=== PATIENT | female | born 1930 | race Caucasian/White ===

== ENCOUNTER 2017-05-10 10:43 | Inpatient (IN) | payer OTHER, MEDICARE ==
[~2017-05-10] VITALS: Ht 167.6 cm; Wt 90.7 kg
--- NOTE | 2017-05-10 10:51 | ED GENERAL ADULT ---
History of Present Illness General Chief Complaint: Nausea, Vomiting, Diarrhea Stated Complaint: BIBA N/V/D, FEVER Source: patient, old records, EMS Exam Limitations: no limitations Vital Signs & Intake/Output Vital Signs & Intake/Output Vital Signs Date Time Temp Pulse Resp B/P B/P Pulse O2 O2 Flow FiO2 Mean Ox Delivery Rate 05/10 1443 98.0 84 18 162/70 99 Room Air 05/10 1355 95 05/10 1349 99 Room Air 05/10 1044 98.9 82 18 165/80 96 Room Air Allergies Coded Allergies: NO KNOWN ALLERGIES (07/04/11) Triage Nurses Notes Reviewed? yes Onset: Gradual Duration: constant Timing: recent history Injury Environment: home Severity: moderate Severity Numbers: 5 HPI: Patient is a 86-year-old female with past medical history of atrial fibrillation currently on warfarin, hypothyroidism, depression, hypertension who presents emergency room brought in by ambulance for concerns of nausea vomiting and diarrhea and productive cough 3 days. Patient states that initially cough BROWN productive in nature however diarrhea occurred 2 days ago and now vomiting noted today patient denies any abdominal pain denies any chest pain arm pain jaw pain and leg swelling hemoptysis Patient feels tired and weak EMS report tactile fevers and 91% oxygen saturation Patient was in private residence alone denies any similar sick contacts Patient can tolerate by mouth (Kartik Herrera) Past History Travel History Traveled to [place] past 21 day No Medical History Any Pertinent Medical History? see below for history Cardiovascular: AFIB, hypertension, hyperlipidemia Surgical History Surgical History: non-contributory Psychosocial History What is your primary language Serbian Tobacco Use: Quit >30 days ago Family History Hx Contributory? No (Kartik Herrera) Review of Systems Review of Systems Constitutional: Reports: see HPI, chills. EENTM: Reports: see HPI. Respiratory: Reports: see HPI, cough. Cardiovascular: Reports: see HPI. Denies: chest pain. GI: Reports: see HPI, nausea. Genitourinary: Reports: no symptoms. Musculoskeletal: Reports: no symptoms. Skin: Reports: no symptoms. Neurological/Psychological: Reports: no symptoms. Hematologic/Endocrine: Reports: no symptoms. Immunologic/Allergic: Reports: no symptoms. All Other Systems: Reviewed and Negative (Kartik Herrera) Physical Exam Physical Exam General Appearance: no apparent distress, alert, comfortable Head: atraumatic Eyes: Bilateral: normal appearance, PERRL, EOMI. Ears, Nose, Throat: normal pharynx, normal ENT inspection, hearing grossly normal Neck: normal inspection, supple Respiratory: chest non-tender, crackles Cardiovascular: irregularly irregular Peripheral Pulses: 2+ radial (R), 2+ radial (L) Gastrointestinal: normal bowel sounds, soft, non-tender, no organomegaly Extremities: normal inspection, normal capillary refill, no edema Neurologic/Psych: no motor/sensory deficits, awake, alert, oriented x 3 Skin: intact, normal color, warm/dry Core Measures ACS in differential dx? No CVA/TIA Diagnosis: No Sepsis Present: No Sepsis Focused Exam Completed? No (Enrike DAVID,Kartik) Progress Differential Diagnoses I considered the following diagnoses in my evaluation of the patient: [Pulmonary embolism myocardial infarction sepsis pneumonia bronchitis influenza] Plan of Care: Orders Procedure Date/time Status Regular Diet 05/10 D Active Patient Data 05/10 1443 Active Patient Data 05/[address] in observation 05/10 1418 Active Misc Message 05/10 1418 Active ED Holding Orders 05/10 1418 Active Vital Signs 05/10 1418 Active Code Status 05/10 1418 Active LACTIC ACID 05/10 1352 Active PARTIAL THROMBOPLASTIN TIME 05/10 1122 Complete PROTHROMBIN TIME 05/10 1122 Complete RAPID VIRAL INFLUENZA A 05/10 1052 Complete LOWER RESPIRATORY CULTURE 05/10 1052 Active BLOOD CULTURE 05/10 1052 Active THYROID STIMULATING HORMONE 05/10 1052 Complete TROPONIN LEVEL 05/10 1052 Complete LIPASE 05/10 1052 Complete LACTIC ACID 05/10 1052 Complete FREE T4 05/10 1052 Complete COMPREHENSIVE METABOLIC PANEL 05/10 1052 Complete CBC WITHOUT DIFFERENTIAL 05/10 1052 Complete AMYLASE 05/10 1052 Complete EKG 05/10 1052 Active Laboratory Tests 05/10/17 1134: Anion Gap 14, Estimated GFR > 60, BUN/Creatinine Ratio 27.1 H, Glucose 101 H, Lactic Acid 1.4, Calcium 8.4, Total Bilirubin 2.1 H, AST 78 H, ALT 48, Alkaline Phosphatase 75, Troponin I 0.04, Total Protein 7.2, Albumin 3.6, Globulin 3.6, Albumin/Globulin Ratio 1.0 L, Amylase 65, Lipase 263, TSH 2.370, Free T4 1.53, PT 38.8 H, INR 3.74 H, APTT 47 H, CBC w Diff NO MAN DIFF REQ, RBC 3.93 L, MCV 88.2, MCH 29.7, RDW 14.4, MPV 8.1, Gran % 65.1, Lymphocytes % 19.0 L, Monocytes % 15.7 H, Eosinophils % 0, Basophils % 0.2, Absolute Granulocytes 3.2, Absolute Lymphocytes 0.9 L, Absolute Monocytes 0.8 H, Absolute Eosinophils 0, Absolute Basophils 0, PUBS MCHC 33.7 Microbiology 05/10 1140 BLOOD: Blood Culture - RECD 05/10 1134 NASOPHARYN: Influenza Virus A & B Rapid Smear - COMP INFLUENZA TYPE B 05/10 1134 BLOOD: Blood Culture - RECD 05/10 1052 LOWER RESP: Respiratory Culture - ORD 05/10 105 LOWER RESP: Gram Stain - ORD Patient on initial examination was resting comfortably at bedside no apparent distress no respiratory distress chest x-ray was resulted showing no overt signs of pneumonia, Patient does have positive influenza Patient was ambulated and noted to be at rest 93% however upon ambulation of exertion down hallway in the emergency room patient desatted to 87% with mild dyspnea Due to patient living alone and influenza concerns and dyspnea on exertion that outpatient therapy would be MEDICALLY harmful Diagnostic Imaging: Viewed by Me: Radiology Read. CXR Impression: SEE COMMENTS Initial ED EKG: AFIB (78 BPM) Comments: PATIENT: JONI ALFORD PRESENT AGE: 86 PATIENT ACCOUNT NO: [id number] : [birth year] LOCATION: [facility] ORDERING PHYSICIAN: Kartik DAVID SERVICE DATE: 05/10/17 EXAM TYPE: RAD - XRY-CHEST XRAY, TWO VIEWS EXAMINATION: XR CHEST CLINICAL INFORMATION: Cough and fever COMPARISON: None TECHNIQUE: Frontal and lateral views FINDINGS: No focal pneumonia. Chronic nonspecific increase in lung markings appears due largely to age-related changes and airways. Cannot exclude coexistent airways disease such as bronchitis, asthma or early bronchiectasis. Lungs appear mildly hyperinflated. Spirometry may be helpful. Coarse calcifications along the pleural surface is at the apices left more than right related to chronic scarring. No effusion. Probable prominence of the cardiac silhouette. Normal caliber pulmonary vasculature. Atherosclerotic disease and aortic arch. No free air or obstruction. No acute osseous finding. IMPRESSION: Nonspecific diffuse increase in lung markings. Favor airways disease. Cannot exclude acute on chronic change. DICTATED BY: Bran Cronin MD DATE/TIME DICTATED:05/10/171126 HSE ADVISOR:ELMER DATE/TIME TRANSCRIBED:05/10/171126 CONFIDENTIAL, DO NOT COPY WITHOUT APPROPRIATE AUTHORIZATION. <Electronically signed in (Kartik Herrera) Departure Departure Disposition: HOME OR SELF CARE Condition: Stable Clinical Impression Primary Impression: Influenza Secondary Impressions: Dyspnea Referrals: Jose Tate MD (PCP/Family) Departure Forms: Customer Survey General Discharge Information Observation Note Spoke With: Dee DONAHUE,Ruth Schrader Physician Advisor Notified: LISE DONAHUE,ALICIA Wade Place Patient In: Non-ED OBS Care Area Rationale for Observation: My rational for observation is as follows [Patient requires IV fluids, Tamiflu, dietary consultation, pulmonary consultation, repeat labs, repeat nebulizer treatments and due to patient's clinical diagnoses of influenza and hypoxia on exertion that outpatient treatment would be medically harmful at this time]. (Kartik Herrera) PA/[employer] Co-Sign Statement Statement: ED Attending supervision documentation- [x] I saw and evaluated the patient. I have also reviewed all the pertinent lab results and diagnostic results. I agree with the findings and the plan of care as documented in the PA's/BUTTON RIVETER's documentation. Patient presents for evaluation of "feeling lousy" with a cough productive of a yellow to white phlegm. Physical examination reveals good bilateral air entry and no wheezes rales or rhonchi. [] I have reviewed the ED Record and agree with the PA's/BUTTON RIVETER's documentation. [] Additions or exceptions (if any) to the PAs/BUTTON RIVETER's note and plan are summarized below: [] (Venecia DONAHUE,Noah Huynh) Critical Care Note Critical Care Note Critical Care Time: 30-74 min (Kartik Herrera)
--- NOTE | 2017-05-10 11:33 | RADIOLOGY REPORT ---
EXAMINATION: XR CHEST CLINICAL INFORMATION: Cough and fever COMPARISON: None TECHNIQUE: Frontal and lateral views FINDINGS: No focal pneumonia. Chronic nonspecific increase in lung markings appears due largely to age-related changes and airways. Cannot exclude coexistent airways disease such as bronchitis, asthma or early bronchiectasis. Lungs appear mildly hyperinflated. Spirometry may be helpful. Coarse calcifications along the pleural surface is at the apices left more than right related to chronic scarring. No effusion. Probable prominence of the cardiac silhouette. Normal caliber pulmonary vasculature. Atherosclerotic disease and aortic arch. No free air or obstruction. No acute osseous finding. IMPRESSION: Nonspecific diffuse increase in lung markings. Favor airways disease. Cannot exclude acute on chronic change.
[2017-05-10 11:53] LABS: ABSOLUTE BASOPHIL COUNT 0 /CUMM (0.0-0.2); ABSOLUTE EOSINOPHIL COUNT 0 /CUMM (0.0-0.7); ABSOLUTE GRANULOCYTE CT 3.2 /CUMM (1.4-6.5); ABSOLUTE LYMPH COUNT 0.9 /CUMM (1.2-3.4); ABSOLUTE MONOCYTE COUNT 0.8 /CUMM (0.10-0.60); BASOPHIL % 0.2 % (0.0-2.0); EOSINOPHIL % 0 % (0-5); GRANULOCYTE % 65.1 % (42.2-75.2); HEMATOCRIT 34.7 % (37-47); MEAN CORPUSCULAR HGB 29.7 PG (27.0-31.0); MEAN CORPUSCULAR HGB CONC 33.7 G/DL (33.0-37.0); MEAN CORPUSCULAR VOLUME 88.2 FL (81.0-99.0); MEAN PLATELET VOLUME 8.1 FL (7.4-10.4); PLATELET COUNT 211 /CUMM (130-400); RBC DISTRIBUTION WIDTH 14.4 % (11.5-14.5); RED BLOOD CELL CT 3.93 /CUMM (4.20-5.40)
[2017-05-10 12:12] LABS: PT 38.8 SEC (9.4-12.5); PTT 47 SEC (25-37)
--- NOTE | 2017-05-10 14:44 | History & Physical ---
Santana DONAHUE,Kimberlyn 05/10/17 1443: General Information and HPI MD Statement: I have seen and personally examined JONI ALFORD and documented this H&P. The patient is a 86 year old F who presented with a patient stated chief complaint of []. Source of Information: patient Exam Limitations: no limitations History of Present Illness: CC: Fatigue, weakness, fever and productive cough 86 years old female with past medical history of A. fib on Coumadin, hypertension, hyperlipidemia, hypothyroidism who was BIBA to [place] [facility] complaining of multiple episodes of vomiting nonbloody vomitus, weakness which started on Monday night in addition the patient also complained of loss of appetite for 3 days. Patient also reported cough and expectoration of white sputum. Patient reports 1 episode of diarrhea today which was nonbloody .She denied any fever or chills, chest pain, dizziness or lightheadedness Denies any recent travel or sick contacts The patient did not get her flu shot this year. She has smoking history of 40 PPD, she quit smoking over 20 years ago, she denies alcohol or recreational drug use Allergies/Medications Allergies: Coded Allergies: NO KNOWN ALLERGIES (07/04/11) Past History Travel History Traveled to [place] past 21 day No Medical History Neurological: NONE EENT: NONE Cardiovascular: AFIB, hypertension, hyperlipidemia Respiratory: NONE Gastrointestinal: NONE Hepatic: NONE Renal: NONE Musculoskeletal: NONE Psychiatric: NONE Endocrine: NONE Blood Disorders: NONE Cancer(s): NONE Surgical History Surgical History: non-contributory Past Family/Social History Psychosocial History ETOH Use: denies use Illicit Drug Use: denies illicit drug use Functional Ability ADLs Independent: dressing, eating, toileting, bathing. Ambulation: independent Review of Systems Review of Systems Constitutional: Reports: malaise, weakness. Denies: chills, fever. Cardiovascular: Denies: chest pain, edema, orthopena, palpitations, peripheral edema. Respiratory: Reports: cough, short of breath, sputum production. GI: Reports: diarrhea, nausea, vomiting. Genitourinary: Denies: no symptoms. Musculoskeletal: Denies: no symptoms. Skin: Denies: no symptoms. Exam & Diagnostic Data Last 24 Hrs of Vital Signs/I&O Vital Signs Date Time Temp Pulse Resp B/P B/P Pulse O2 O2 Flow FiO2 Mean Ox Delivery Rate 05/10 1543 100.1 76 20 163/78 96 Room Air 05/10 1443 98.0 84 18 162/70 99 Room Air 05/10 1355 95 05/10 1349 99 Room Air 05/10 1044 98.9 82 18 165/80 96 Room Air Intake & Output 05/10 1600 05/10 0800 05/10 0000 Intake Total 0 Output Total Balance 0 Intake, Oral 0 Patient 200 lb Weight Weight Reported by Patient Measurement Method Physical Exam General Appearance Alert, Oriented X3, Cooperative, No Acute Distress Skin No Rashes, No Breakdown, No Significant Lesion HEENT Atraumatic, PERRLA, EOMI, Mucous Membr. moist/pink, mild blepharitis especially on the left eye Cardiovascular Normal S1, Normal S2, No Murmurs, irregular Lungs bilateral wheezes and rales Abdomen Normal Bowel Sounds, Soft, No Tenderness Neurological Normal Speech, Strength at 5/5 X4 Ext, Normal Tone Extremities No Clubbing, No Cyanosis, No Edema Vascular Normal Pulses Assessment/Plan Assessment: 86 years old female with past medical history of Raciel flower on Coumadin, hypertension, hyperlipidemia, hypothyroidism who was BIBA to [place] [facility] complaining of multiple episodes of vomiting nonbloody vomitus, weakness which started on Monday night in addition the patient also complained of loss of appetite for 3 days. Patient also reported cough and expectoration of white sputum. Patient reports 1 episode of diarrhea today which was nonbloody .She denied any fever or chills, chest pain, dizziness or lightheadedness In the ED the patient received 1 L normal saline, 1 dose Tamiflu 30 mg Labs on admission: WBC 5, hemoglobin 11.7, platelet 211, sodium 138, potassium 3.6, BUN 19, creatinine 0.7, glucose 101, total bilirubin 2.1, AST 78, AST 48, INR 3.74 Chest x-ray:Nonspecific diffuse increase in lung markings. Favor airways disease. Cannot exclude acute on chronic change. EKG showed Raciel flower, heart rate 78, QTC 456 Observe her in general med floor Tamiflu 75 mg twice a day Mucinex 600 by mouth every 12 Zofran when necessary for nausea Pain pathway TRC/nebulizer We'll continue home meds(will hold Coumadin for today since the patient INR was 3.74) PT eval Patient is full code Heart healthy diet DVT prophylaxis with Coumadin As Ranked By This Provider Problem List: 1. Influenza Core Measures/Misc (01/08) Acute Coronary Syndrome ACS Diagnosis: No Congestive Heart Failure Congestive Heart Failure Diagnosis No Cerebrovascular Accident CVA/TIA Diagnosis: No VTE (View Protocol) VTE Risk Factors Age>40 No Mechanical VTE Prophylaxis d/t N/A MechProphylax Ordered No VTE Pharm Prophylaxis d/t NA PharmProphylax ordered Sepsis (View protocol) Sepsis Present: No Wilmer Moore MD 05/10/17 1510: Attending MD Review Statement Attending Statement Attending MD Statement: examined this patient, discuss w/resident/PA/[employer], agreed w/resident/PA/[employer], reviewed EMR data (avail) Attending Assessment/Plan: 86F PMH atrial fibrillation on Coumadin, HTN, HLD, hypothyroidism with 2 days of fatigue, weakness, fever, chills, cough with brown sputum, found to be Influenza A positive in ED. Patient is comfortable at this time and does not appear dyspneic or septic. She has had a poor appetite for 4 days and has not eaten much, though she does feel a bit hungry right now. Exam reveals coarse breath sounds bilaterally, otherwise normal. Afebrile, stable BP, normal WBC and renal function. CXR negative for pneumonia 1. Influenza A 2. Generalized weakness Plan - Observation in general medicine - Tamiflu - TRC/nebulizer treatments - Continue home medications - PT eval - DVT PPx Zeeshan Garrett 05/10/172024: General Information and HPI Allergies/Medications Home Med list Atorvastatin Calcium 20 MG TABLET 1 TAB PO DAILY HLD (Reported) Clonazepam (Klonopin) 0.5 MG TABLET 2 TAB PO DAILY NEEDED ANXIETY ( Reported) Escitalopram Oxalate (Lexapro) 20 MG TABLET 1 TAB PO DAILY DEPRESSION ( Reported) Gabapentin 300 MG CAPSULE 2 TAB PO DAILY RESTLESS LEGS (Reported) Irbesartan (Avapro) 300 MG TABLET 1 TAB PO DAILY BLOOD PRESSURE (Reported) Levothyroxine Sodium (Synthroid) 50 MCG TABLET 1 TAB PO DAILY HYPOTHYROID ( Reported) Metoprolol Succ XL (Toprol Xl) 50 MG TAB 1 TAB PO DAILY HEART (Reported) Omeprazole Magnesium (Prilosec Otc) 20 MG TABLET.DR 1 TAB PO DAILY INDIGESTION (Reported) Timolol Maleate 0.5 % DROPS 1 GTT OPH BID GLAUCOMA (Reported) Warfarin Sodium 3 MG TABLET (Unknown Dose) PO DAILY BLOOD THINNER (Reported) Resident Review Statement Resident Statement: examined this patient, discussed with architecture intern, agreed with architecture intern, reviewed EMR data (avail), discussed with nursing, discussed with case mgmt, reviewed images, amended to note Other Findings: This is 86 year-old female with medical history of atrial fibrillation on Coumadin, HTN, HLD, hypothyroidism, depression. Presented to the emergency department with a chief complaint of 2 days of fatigue, weakness, fever, chills, also she report cough with brown sputum. She also reports expiratory wheezing which is new for her. In the ED found to be Influenza A positive. Patient reports 1 episode of diarrhea today which was nonbloody. She denied any chest pain, nasal congestion, heart racing, abdominal pain. Physical examination, lab and imaging as above. Problem list: -Influenza type B. -Generalized weakness. -Supratherapeutic INR Plan: -Admit patient to general medicine floor -Vitals every shift, Droplet isolation -Start the patient on Tamiflu for total dose of 5 days -TRC nebs as needed -Check INR in a.m. dose Coumadin accordingly. -Physical therapy consultation. -Heart healthy diet -Please consent the patient home medication -Pain pathway -DVT prophylaxis on Coumadin -Code
[2017-05-10 15:43] VITALS: BP 163/78
[2017-05-10] MEDS ORDERED: WARFARIN SODIUM3 M1 PO (17:07)
[2017-05-10] MEDS ORDERED: AVAPRO300 M1 PO (17:08)
[2017-05-10] MEDS ORDERED: LEXAPRO20 M1 PO (17:09)
[2017-05-10] MEDS ORDERED: KLONOPIN0.5 M1 PO (17:10)
[2017-05-10] MEDS ORDERED: SYNTHROID50 MCG PO (17:10)
[2017-05-10] MEDS ORDERED: GABAPENTIN300 M2 PO (17:12)
[2017-05-10] MEDS ORDERED: TOPROL XL50 M1 PO (17:12)
[2017-05-10] MEDS ORDERED: PRILOSEC OTC20 M1 PO (17:13)
[2017-05-10] MEDS ORDERED: TIMOLOL MALEATE5 M4 OPH (17:14)
[2017-05-10] MEDS ORDERED: ATORVASTATIN CA20 M1 PO (19:52)
[2017-05-11 00:24] VITALS: BP 158/72
--- NOTE | 2017-05-11 07:14 | PN-Observation ---
See Addendum Observation Note Observation Note _ I have personally examined JONI ALFORD. her disposition is uncertain at this time. Before a determination can be made, she requires continued observation for the following reasons []. Assessment/Plan Assessment: 86 years old female with past medical history of Raciel flower on Coumadin, hypertension, hyperlipidemia, hypothyroidism who was BIBA to [place] ED complaining of multiple episodes of vomiting nonbloody vomitus, weakness which started on Monday night in addition the patient also complained of loss of appetite for 3 days. Patient also reported cough and expectoration of white sputum. Patient reports 1 episode of diarrhea today which was nonbloody .She denied any fever or chills, chest pain, dizziness or lightheadedness In the ED the patient received 1 L normal saline, 1 dose Tamiflu 30 mg Labs on admission: WBC 5, hemoglobin 11.7, platelet 211, sodium 138, potassium 3.6, BUN 19, creatinine 0.7, glucose 101, total bilirubin 2.1, AST 78, AST 48, INR 3.74 Chest x-ray:Nonspecific diffuse increase in lung markings. Favor airways disease. Cannot exclude acute on chronic change. EKG showed A. mundo, heart rate 78, QTC 456 #Acute hypoxic respiratory failure: Patient was positive for influenza pain, long history of smoking with possible COPD Possible acute bronchitis, and blood culture was negative This morning the patient desaturated to 83 with physical therapist made her stand up from the lying down position, and then after a few minutes her oxygen saturation was back up to 94 physical therapy will reassess the patient tomorrow for the possibility of the need of STR Admit to general med floor Tamiflu 30 mg twice a day based on her age, body weight and kidney function Follow up on sputum culture Mucinex 600 by mouth every 12 Zofran when necessary for nausea Pain pathway TRC/nebulizer We'll continue home meds(will hold Coumadin for today since the patient INR was 3.74) Patient is full code Heart healthy diet DVT prophylaxis with Coumadin Problem List: 1. Influenza 2. Dyspnea Subjective Follow-up For: -Influenza type B. -Generalized weakness. -Supratherapeutic INR Subjective: Patient is seen and examined at bedside, she continues to complain of weakness and a productive cough of yellowish sputum, reports some chills, denies fever, chest pain, nausea, vomiting or diarrhea Review of Systems Constitutional: Reports: chills, malaise, weakness. Cardiovascular: Denies: no symptoms. Respiratory: Reports: cough, sputum production. Gastrointestinal: Denies: no symptoms. Genitourinary: Denies: no symptoms. Musculoskeletal: Denies: no symptoms. Objective Last 24 Hrs of Vital Signs/I&O Vital Signs Date Time Temp Pulse Resp B/P B/P Pulse O2 O2 Flow FiO2 Mean Ox Delivery Rate 05/11 1144 Room Air 05/11 1140 94 Room Air 05/11 1026 97.0 79 20 178/110 96 Room Air 05/11 1021 97.0 79 20 178/110 05/11 1021 97.0 79 20 178/110 05/11 0800 97.4 76 20 169/98 96 Room Air 05/11 0024 98.0 72 20 158/72 95 Room Air 05/10 2248 98.0 72 20 158/72 95 Room Air 05/10 2246 97.8 76 18 160/70 05/10 1705 97.8 76 18 160/70 94 Room Air 05/10 1543 100.1 76 20 163/78 96 Room Air 05/10 1443 98.0 84 18 162/70 99 Room Air 05/10 1355 95 05/10 1349 99 Room Air Intake & Output 05/11 1600 05/11 0800 05/11 0000 Intake Total Output Total Balance Patient 200 lb Weight Physical Exam General Appearance: Alert, Oriented X3, Cooperative, No Acute Distress HEENT: Atraumatic, PERRLA, EOMI, Mucous Membr. moist/pink Neck: Supple, No JVD Cardiovascular: Normal S1, Normal S2, No Murmurs Lungs: bilateral wheezes and rales Abdomen: Normal Bowel Sounds, Soft, No Tenderness Extremities: No Clubbing, No Cyanosis, No Edema
[2017-05-11] MEDS ORDERED: AMLODIPINE BES2.5 M1 PO (11:20)
[2017-05-11 12:55] LABS: ABSOLUTE BASOPHIL COUNT 0 /CUMM (0.0-0.2); ABSOLUTE EOSINOPHIL COUNT 0 /CUMM (0.0-0.7); ABSOLUTE GRANULOCYTE CT 3.8 /CUMM (1.4-6.5); ABSOLUTE LYMPH COUNT 1.5 /CUMM (1.2-3.4); ABSOLUTE MONOCYTE COUNT 0.7 /CUMM (0.10-0.60); BASOPHIL % 0.5 % (0.0-2.0); EOSINOPHIL % 0.1 % (0-5); GRANULOCYTE % 63.7 % (42.2-75.2); HEMATOCRIT 33.5 % (37-47); MEAN CORPUSCULAR HGB 29.9 PG (27.0-31.0); MEAN CORPUSCULAR VOLUME 87.7 FL (81.0-99.0); MEAN PLATELET VOLUME 7.3 FL (7.4-10.4); PLATELET COUNT 191 /CUMM (130-400); RBC DISTRIBUTION WIDTH 14.2 % (11.5-14.5); RED BLOOD CELL CT 3.83 /CUMM (4.20-5.40)
[2017-05-11 13:01] LABS: PT 38.2 SEC (9.4-12.5)
[2017-05-11 18:32] VITALS: BP 126/80
[2017-05-11 22:36] VITALS: BP 160/80
[2017-05-12 06:15] VITALS: BP 152/88
--- NOTE | 2017-05-12 06:57 | PN- Housestaff ---
[place] DONAHUE,Kimberlyn 05/12/17 0657: Subjective Follow-up For: -Influenza type B. -Generalized weakness. -Supratherapeutic INR Subjective: Patient is seen and examined at bedside, she continues to complain of weakness and a productive cough of yellowish sputum, looks more confused than yesterday, most likely , reports some chills, denies fever, chest pain, nausea, vomiting or diarrhea Review of Systems Constitutional: Reports: malaise, weakness. Cardiovascular: Denies: no symptoms. Respiratory: Reports: cough, sputum production. Gastrointestinal: Denies: no symptoms. Genitourinary: Denies: no symptoms. Musculoskeletal: Denies: no symptoms. Skin: Denies: no symptoms. Objective Last 24 Hrs of Vital Signs/I&O Vital Signs Date Time Temp Pulse Resp B/P B/P Pulse O2 O2 Flow FiO2 Mean Ox Delivery Rate 05/12 0615 99.0 73 20 152/88 91 Room Air 05/12 0000 Room Air 05/11 2236 99.3 76 20 160/80 94 Room Air 05/11 2051 94 Room Air 05/11 1832 98.2 64 20 126/80 94 Room Air 05/11 1718 97.1 76 24 154/80 94 Room Air 05/11 1528 97.2 83 24 179/79 05/11 1448 97.2 83 24 179/79 94 Room Air 05/11 1144 Room Air 05/11 1140 94 Room Air 05/11 1026 97.0 79 20 178/110 96 Room Air 05/11 1021 97.0 79 20 178/110 05/11 1021 97.0 79 20 178/110 Intake & Output 05/12 1600 05/12 0800 05/12 0000 Intake Total 100 100 Output Total Balance 100 100 Intake, Oral 100 100 Patient 200 lb Weight Physical Exam General Appearance: Alert, Oriented X3, Cooperative, No Acute Distress HEENT: Atraumatic, PERRLA, EOMI, Mucous Membr. moist/pink Neck: Supple, No JVD Cardiovascular: Normal S1, Normal S2, No Murmurs Lungs: bilateral rales and crep , mild wheezing Abdomen: Normal Bowel Sounds, Soft, No Tenderness Extremities: No Clubbing, No Cyanosis, No Edema Vascular: Normal Pulses Sepsis Peripheral Pulse Location: Radial Sepsis Peripheral Pulse Exam: Normal Sepsis Cap Refill Exam: <2 Sec Assessment/Plan Assessment: 86 years old female with past medical history of AEros flower on Coumadin, hypertension, hyperlipidemia, hypothyroidism who was BIBA to [place] ED complaining of multiple episodes of vomiting nonbloody vomitus, weakness which started on Monday night in addition the patient also complained of loss of appetite for 3 days. Patient also reported cough and expectoration of white sputum. Patient reports 1 episode of diarrhea today which was nonbloody .She denied any fever or chills, chest pain, dizziness or lightheadedness In the ED the patient received 1 L normal saline, 1 dose Tamiflu 30 mg Labs on admission: WBC 5, hemoglobin 11.7, platelet 211, sodium 138, potassium 3.6, BUN 19, creatinine 0.7, glucose 101, total bilirubin 2.1, AST 78, AST 48, INR 3.74 Chest x-ray:Nonspecific diffuse increase in lung markings. Favor airways disease. Cannot exclude acute on chronic change. EKG showed A. fib, heart rate 78, QTC 456 #Acute hypoxic respiratory failure: Patient was positive for influenza pain, long history of smoking with possible COPD Possible acute bronchitis, and blood culture was negative This morning the patient desaturated to 83 with physical therapist made her stand up from the lying down position, and then after a few minutes her oxygen saturation was back up to 94 physical therapy will reassess the patient tomorrow for the possibility of the need of STR Admit to general med floor Tamiflu 30 mg twice a day based on her age, body weight and kidney function Follow up on sputum culture Mucinex 600 by mouth every 12 Zofran when necessary for nausea Pain pathway TRC/nebulizer We'll continue home meds(INR was 2.6, will give Coumadin 3 mg by mouth Patient is full code Heart healthy diet DVT prophylaxis with Coumadin Problem List: 1. Dyspnea 2. Influenza Pain Ratin Pain Location: n/a Pain Goal: Remain pain free Pain Plan: pathway Tomorrow's Labs & Rationales: cbc bep DVT/Prophylaxis: mechanical, pharmacological Nick Smart MD 05/12/17 2226: Attending MD Review Statement Attending Statement Attending Statement: examined this patient, discuss w/resident/PA/[employer], agreed w/resident/PA/[employer], reviewed EMR data (avail), discussed with nursing, discussed with case mgmt, amended to note Attending Assessment/Plan: The patient was seen and discussed with house staff. Improved today. Patient able to ambulate some steps (has flight at home) and desaturation to 88% noted by PT (vs 83% desaturation in ED yesterday with ambulation). Patient wishes to be discharged to home and agrees to stay an additional day. Will re-assess ambulation/stairs as well as pulse ox with ambulation tomorrow. If continues to improve will discharge to home tomorrow with home services. Patient states she will need ride that needs to be arranged by case management (may need to pay privately for ride).
[2017-05-12 08:25] LABS: PT 28.2 SEC (9.4-12.5)
[2017-05-12 08:50] LABS: ABSOLUTE BASOPHIL COUNT 0 /CUMM (0.0-0.2); ABSOLUTE EOSINOPHIL COUNT 0 /CUMM (0.0-0.7); ABSOLUTE GRANULOCYTE CT 2.9 /CUMM (1.4-6.5); ABSOLUTE LYMPH COUNT 1.4 /CUMM (1.2-3.4); ABSOLUTE MONOCYTE COUNT 0.7 /CUMM (0.10-0.60); BASOPHIL % 0.2 % (0.0-2.0); EOSINOPHIL % 0.3 % (0-5); HEMATOCRIT 33.2 % (37-47); MEAN CORPUSCULAR HGB 29.9 PG (27.0-31.0); MEAN CORPUSCULAR VOLUME 88.1 FL (81.0-99.0); MEAN PLATELET VOLUME 7.8 FL (7.4-10.4); PLATELET COUNT 179 /CUMM (130-400); RBC DISTRIBUTION WIDTH 14.6 % (11.5-14.5); RED BLOOD CELL CT 3.77 /CUMM (4.20-5.40); WHITE BLOOD CELL COUNT 5.1 /CUMM (4.8-10.8)
--- NOTE | 2017-05-12 09:08 | Patient Discharge Instructions ---
Discharge Instructions General Discharge Information Special Instructions: 1please follow-up with your PCP in 1 week of discharge Diet Continue normal diet: Yes Acute Coronary Syndrome Inclusion Criteria At DC or during hospital stay patient has or had the following: ACS DIAGNOSIS No Discharge Core Measures Meds if any: Prescribed or Continued at Discharge Meds if any: NOT Prescribed or Continued at Discharge Congestive Heart Failure Inclusion Criteria At DC or during hospital stay patient has or had the following: CHF DIAGNOSIS No Discharge Core Measures Meds if any: Prescribed or Continued at Discharge Meds if any: NOT Prescribed or Continued at Discharge Cerebrovascular accident Inclusion Criteria At DC or during hospital stay patient has or had the following: CVA/TIA Diagnosis No Discharge Core Measures Meds if any: Prescribed or Continued at Discharge Meds if any: NOT Prescribed or Continued at Discharge Venous thromboembolism Inclusion Criteria VTE Diagnosis No VTE Type NONE VTE Confirmed by (Test) NONE Discharge Core Measures - Per Current guidelines, there needs to be overlap - treatment for the first 5 days of Warfarin therapy. - If discharged on Warfarin prior to 5 days of - overlap therapy, the patient will need to be - assessed for post discharge needs including - *Post discharge parental anticoagulation - *Warfarin and/or parental anticoagulation education - *Follow up date to check INR post discharge At least 5 days overlap therapy as Inpatient No Meds if any: Prescribed or Continued at Discharge Note: Overlap Therapy is Warfarin and Anticoagulant Meds if any: NOT Prescribed or Continued at Discharge
[2017-05-12 14:02] VITALS: BP 120/62
--- NOTE | 2017-05-12 15:00 | Discharge Summary ---
Visit Information Visit Dates Admission Date: 05/11/17 Discharge Date: 05/13/17 Hospital Course Course Attending Physician: Wilmer Moore MD Primary Care Physician: Jose Tate MD Hospital Course: 86 years old female with past medical history of A. mundo on Coumadin, hypertension, hyperlipidemia, hypothyroidism who was BIBA to [facility] complaining of multiple episodes of vomiting nonbloody vomitus, weakness which started on Monday night in addition the patient also complained of loss of appetite for 3 days. Patient also reported cough and expectoration of white sputum. Patient reports 1 episode of diarrhea today which was nonbloody .She denied any fever or chills, chest pain, dizziness or lightheadedness In the ED the patient received 1 L normal saline, 1 dose Tamiflu 30 mg Labs on admission: WBC 5, hemoglobin 11.7, platelet 211, sodium 138, potassium 3.6, BUN 19, creatinine 0.7, glucose 101, total bilirubin 2.1, AST 78, AST 48, INR 3.74 Chest x-ray:Nonspecific diffuse increase in lung markings. Favor airways disease. Cannot exclude acute on chronic change. EKG showed A. fib, heart rate 78, QTC 456 #Acute hypoxic respiratory failure: Patient was positive for influenza B , long history of smoking with possible COPD Possible acute bronchitis, and blood culture was negative Patient showed frequent desaturation while walking with physical therapy She was treated with Tamiflu 30 mg twice a day based on her age, body weight and kidney function, Mucinex 600 by mouth every 12, Zofran when necessary for nausea , TRC/nebulizer #AFIB continued home meds including Coumadin #Hypertension Visit given her home meds #disposition PT is suggesting home PT. Patient is full code Heart healthy diet DVT prophylaxis with Coumadin Allergies: Coded Allergies: NO KNOWN ALLERGIES (07/04/11) Disposition Summary Disposition Principal Diagnosis: -Influenza type B. Additional Diagnosis: -Generalized weakness. -Supratherapeutic INR Discharge Disposition: home health services Discharge Instructions General Discharge Information Code Status: Full Code Patient's Diet: heart healthy Patient's Activity: As tolerated Follow-Up Instructions/Appts: 1please follow-up with your PCP in 1 week of discharge Medications at Discharge Discharge Medications: Stop taking the following medications: Amlodipine Besylate (Amlodipine Besylate) 2.5 MG TABLET ORAL DAILY Days = 28 Continue taking these medications: Warfarin Sodium (Warfarin Sodium) 3 MG TABLET Unknown Dose ORAL DAILY Qty = 135 Comments: Last Taken:05/13 Time:5 PM Irbesartan (Avapro) 300 MG TABLET 1 Tablet ORAL DAILY Escitalopram Oxalate (Lexapro) 20 MG TABLET 1 Tablet ORAL DAILY Comments: Last Taken:05/13 Time:10 AM Levothyroxine Sodium (Synthroid) 50 MCG TABLET 1 Tablet ORAL DAILY Comments: Last Taken:05/13 Time:10 AM Clonazepam (Klonopin) 0.5 MG TABLET 2 Tablet ORAL DAILY NEEDED Comments: Last Taken:05/13 Time:10 AM Metoprolol Succ XL (Toprol Xl) 50 MG TAB 1 Tablet ORAL DAILY Comments: Last Taken:05/13 Time:10 AM Gabapentin (Gabapentin) 300 MG CAPSULE 2 Tablet ORAL DAILY Qty = 180 Omeprazole Magnesium (Prilosec Otc) 20 MG TABLET.DR 1 Tablet ORAL DAILY Comments: Last Taken:05/13 Time: 10 AM Timolol Maleate (Timolol Maleate) 0.5 % DROPS 1 Drop In the eye TWICE DAILY Qty = 5 Comments: Last Taken:05/13 Time:10 AM Atorvastatin Calcium (Atorvastatin Calcium) 20 MG TABLET 1 Tablet ORAL DAILY Days = 28 Comments: Last Taken:05/13 Time:10 AM Start taking the following new medications: Amlodipine Besylate (Norvasc) 5 MG TABLET 1 Tablet ORAL DAILY Qty = 30 No Refills Oseltamivir Phosphate (Tamiflu) 30 MG CAPSULE 1 Capsule ORAL TWICE DAILY Qty = 5 No Refills Copies To: Jose Tate MD Attending Review Statement Documenting Attending: Nick Smart MD Other Findings: The patient was seen and discussed with house staff. Agree with the plan of care as outlined. Patient discharged with [facility] services and will follow-up with PCP.
[2017-05-12 22:23] VITALS: BP 132/80
[2017-05-13 06:29] VITALS: BP 142/82
[2017-05-13 08:16] LABS: PT 26.5 SEC (9.4-12.5)
[2017-05-13 08:30] LABS: ABSOLUTE BASOPHIL COUNT 0 /CUMM (0.0-0.2); ABSOLUTE EOSINOPHIL COUNT 0 /CUMM (0.0-0.7); ABSOLUTE GRANULOCYTE CT 2.9 /CUMM (1.4-6.5); ABSOLUTE LYMPH COUNT 1.8 /CUMM (1.2-3.4); ABSOLUTE MONOCYTE COUNT 0.8 /CUMM (0.10-0.60); BASOPHIL % 0.3 % (0.0-2.0); EOSINOPHIL % 0.7 % (0-5); GRANULOCYTE % 52.7 % (42.2-75.2); HEMATOCRIT 33.2 % (37-47); MEAN CORPUSCULAR HGB 29.9 PG (27.0-31.0); MEAN CORPUSCULAR HGB CONC 33.5 G/DL (33.0-37.0); MEAN CORPUSCULAR VOLUME 89.1 FL (81.0-99.0); MEAN PLATELET VOLUME 8.1 FL (7.4-10.4); PLATELET COUNT 193 /CUMM (130-400); RBC DISTRIBUTION WIDTH 14.8 % (11.5-14.5); RED BLOOD CELL CT 3.73 /CUMM (4.20-5.40); WHITE BLOOD CELL COUNT 5.5 /CUMM (4.8-10.8)
--- NOTE | 2017-05-13 08:52 | PN- Housestaff ---
Lola DONAHUE,Catrachita 05/13/17 0852: Subjective Follow-up For: -Influenza type B. -Generalized weakness. -Supratherapeutic INR Subjective: patient continues to have cough with yellow sputum. AOx2. denies subjective fever, chest pain, abdominal pain, n/v/d Review of Systems Constitutional: Reports: no symptoms. EENTM: Reports: no symptoms. Cardiovascular: Reports: no symptoms. Respiratory: Reports: cough, sputum production. Gastrointestinal: Reports: no symptoms. Musculoskeletal: Reports: no symptoms. Skin: Reports: no symptoms. Neurological/Psychological: Reports: confusion. Objective Last 24 Hrs of Vital Signs/I&O Vital Signs Date Time Temp Pulse Resp B/P B/P Pulse O2 O2 Flow FiO2 Mean Ox Delivery Rate 05/13 09 182/72 05/13 09 182/72 05/13 09 172/82 05/13 0629 97.9 89 18 142/82 91 05/12 2223 99.4 75 20 132/80 93 Room Air 05/12 1402 98.2 76 20 120/62 90 Room Air Intake & Output 05/13 1600 05/13 0800 05/13 0000 Intake Total 360 360 Output Total Balance 360 360 Intake, Oral 360 360 Physical Exam General Appearance: Alert, Cooperative, No Acute Distress Skin: No Rashes Cardiovascular: Regular Rate, Normal S1, Normal S2, No Murmurs Lungs: crackles bilaterally at bases Abdomen: Normal Bowel Sounds, Soft, No Tenderness Extremities: No Clubbing, No Edema, Normal Pulses Current Medications: Current Medications Sig/Andrea Start time Last Medication Dose Route Stop Time Status Admin Acetaminophen 650 MG Q6P PRN 05/10 1545 AC PO Albuterol Sulfate 3 ML Q4P PRN 05/11 1230 AC 05/11 INH 1144 Amlodipine Besylate 5 MG DAILY 05/14 1000 UNVr PO Amlodipine Besylate 2.5 MG DAILY 05/11 1121 DC 05/13 PO 0912 Atorvastatin Calcium 10 MG 1700 05/12 1700 AC 05/12 PO 1749 Clonazepam 0.5 MG BID 05/12 1000 AC 05/13 PO 05/18 2159 0912 Escitalopram Oxalate 10 MG DAILY 05/11 1352 AC 05/13 PO 0912 Gabapentin 600 MG AT BEDTIME 05/11 2200 AC 05/12 PO 2100 Guaifenesin 600 MG Q12 05/10 2200 AC 05/13 PO 0912 Ibuprofen 400 MG Q6P PRN 05/10 1545 AC PO Levothyroxine Sodium 0.05 MG DAILY 05/11 1000 AC 05/13 PO 0913 Losartan Potassium 50 MG DAILY 05/11 1000 AC 05/13 PO 0912 Metoprolol Succinate 50 MG DAILY 05/10 1951 AC 05/13 PO 0912 Oseltamivir Phosphate 30 MG BID 05/11 1000 AC 05/13 PO 05/15 0959 0912 Potassium Chloride 40 MEQ ONCE ONE 05/12 1530 DC 05/12 PO 05/12 1531 1749 Sodium Chloride 500 ML .Q6H40M 05/12 1545 DC 05/12 IV 05/12 2224 1758 Timolol Maleate 1 GTT BID 05/11 1355 AC 05/13 OPH 0913 Warfarin Sodium 3 MG COUMADIN 1700 ONE 05/12 1700 DC 05/12 PO 05/12 1701 1749 Last 24 Hrs of Lab/Nader Results Last 24 Hrs of Labs/Mics: Laboratory Tests 05/13/17 0655: Anion Gap 12, Estimated GFR > 60, BUN/Creatinine Ratio 20.0, PT 26.5 H, INR 2.55 H, CBC w Diff NO MAN DIFF REQ, RBC 3.73 L, MCV 89.1, MCH 29.9, RDW 14.8 H, MPV 8.1, Gran % 52.7, Lymphocytes % 32.6, Monocytes % 13.7 H, Eosinophils % 0.7, Basophils % 0.3, Absolute Granulocytes 2.9, Absolute Lymphocytes 1.8, Absolute Monocytes 0.8 H, Absolute Eosinophils 0, Absolute Basophils 0, PUBS MCHC 33.5 Assessment/Plan Assessment: 86 years old female with past medical history of A. fib on Coumadin, hypertension, hyperlipidemia, hypothyroidism who was BIBA to [place] ED complaining of multiple episodes of vomiting nonbloody vomitus, weakness which started on Monday night in addition the patient also complained of loss of appetite for 3 days. Patient also reported cough and expectoration of white sputum. Patient reports 1 episode of diarrhea today which was nonbloody .She denied any fever or chills, chest pain, dizziness or lightheadedness In the ED the patient received 1 L normal saline, 1 dose Tamiflu 30 mg Labs on admission: WBC 5, hemoglobin 11.7, platelet 211, sodium 138, potassium 3.6, BUN 19, creatinine 0.7, glucose 101, total bilirubin 2.1, AST 78, AST 48, INR 3.74 Chest x-ray:Nonspecific diffuse increase in lung markings. Favor airways disease. Cannot exclude acute on chronic change. EKG showed A. fib, heart rate 78, QTC 456 #Acute hypoxic respiratory failure: Patient was positive for influenza pain, long history of smoking with possible COPD Possible acute bronchitis, and blood culture was negative Today nurse will redo walk with oximetry reading. Yesterday patient desatted to 83 on standing. Physical therapy is suggesting HOME PT Tamiflu 30 mg twice a day based on her age, body weight and kidney function Follow up on sputum culture Mucinex 600 by mouth every 12 Zofran when necessary for nausea Pain pathway TRC/nebulizer #AFIB We'll continue home meds (INR was 2.55 TODAY, will give Coumadin 3 mg by mouth) with INR tomorrow. #HYPERTENSION BLOOD PRESSURE THIS MORNING IS 182/72. INCREASED NORVASC FROM 2.5 TO 5 PO DAILY (EXTRA 2.5 GIVEN TODAY AND 5MG DAILY STARTED TOMORROW). BLOOD PRESSURE HAS BEEN ON THE HIGH SIDE DURING MOST OF THIS ADMISSION. #disposition PT is suggesting home PT. Ambulate with O2 readings to determine if there is need for home oxygen. Patient is full code Heart healthy diet DVT prophylaxis with Coumadin Problem List: 1. Influenza 2. Dyspnea Pain Ratin Pain Location: na Pain Goal: Remain pain free Pain Plan: pathway Tomorrow's Labs & Rationales: cbc bep Jim Forte MD 05/13/17 1616: Attending MD Review Statement Attending Statement Attending MD Statement: examined this patient, discuss w/resident/PA/[employer], agreed w/resident/PA/[employer] Attending Assessment/Plan: On admission today patient is lying in bed comfortably without any symptoms of distress. Denies chest pain shortness of breath lightheadedness and dizziness. No acute events overnight no fever chills. On examination Bilaterally clear to auscultation with scattered wheezes. Assessment and Plan 1. Influenza type B causing acute hypoxic respiratory failure - resolved now- will need Tamiflu for the next 2 days 2. Supratherapeutic INR - resolved - initiated back on coumadin Patient feels a lot better today, wants to go home. Patient ambulated well this morning without desaturation. Will discharge the patient home.
[2017-05-13] MEDS ORDERED: NORVASC5 M1 PO (12:34)
[2017-05-13 13:51] VITALS: BP 100/80
[2017-05-13 16:11] VITALS: BP 148/72
[2017-05-13] MEDS ORDERED: TAMIFLU30 M1 PO (16:25)
== END 2017-05-13 19:08 | disposition home health service (06) | DRG 193 ==
LOC: ERH 10:43 → ERHI 14:18 → 2NA 05-11 14:07 → ERHI 05-11 14:07 → 2NA 05-11 14:07 → ENRESERV 05-11 16:00 → ENTRNSPT 05-11 17:36 → EDTRNSPTSTS 05-11 17:40 → EDTRNSPT 05-11 17:50 → CMPTRNSPT 05-11 18:04 → 2NA 05-11 18:07
PROVIDERS: Internal Medicine Hematology & Oncology; Physician Assistant; Student in an Organized Health Care Education/Training Program
DX: J10.1 Influenza due to other identified influenza virus with other respiratory manifestations (principal); J96.01 Acute respiratory failure with hypoxia; I48.2 Chronic atrial fibrillation; Z79.01 Long term (current) use of anticoagulants; E03.9 Hypothyroidism, unspecified; I10 Essential (primary) hypertension; E78.5 Hyperlipidemia, unspecified; Z87.891 Personal history of nicotine dependence; F32.9 Major depressive disorder, single episode, unspecified
CPT/HCPCS: 2NAP; 36415; 71046; 82436; 87040; 87070; 87449; 87804; 87804-59; 93005; 93010; 96374; 97110-GO; 97116-GO; 97161-GP; 97530-GO; 97530-GP; G8978-GP; G8979-GP; J2405; J7040

== ENCOUNTER 2017-08-14 15:03 | Inpatient (IN) | payer OTHER, MEDICARE ==
[~2017-08-14] VITALS: Ht 165.1 cm; Wt 99.8 kg
[~2017-08-14 15:03] MED LIST: AMLODIPINE BES2.5 M1 PO; ATORVASTATIN CA10 M1 PO; AVAPRO300 M1 PO; GABAPENTIN300 M2 PO; KLONOPIN0.5 M1 PO; LEXAPRO10 M1 PO; NORVASC5 M1 PO; PRILOSEC OTC20 M1 PO; SYNTHROID50 MCG PO; TAMIFLU30 M1 PO; TIMOLOL MALEATE5 M4 OPH; TOPROL XL50 M1 PO; WARFARIN SODIUM3 M1 PO
--- NOTE | 2017-08-14 15:33 | ED DYSPNEA/ASTHMA COMPLAINT ---
History of Present Illness General Chief Complaint: Dyspnea (COPD, CHF, Other) Stated Complaint: SOB WITH EXERTION Source: patient, old records Exam Limitations: no limitations Vital Signs & Intake/Output Vital Signs & Intake/Output Vital Signs Date Time Temp Pulse Resp B/P B/P Pulse O2 O2 Flow FiO2 Mean Ox Delivery Rate 08/15 0657 98.1 71 20 150/80 96 Room Air 08/14 2237 97.9 75 28 130/88 96 08/14 2149 Nasal 3.0L Cannula 08/14 2046 97.6 63 28 150/100 95 08/14 2030 Nasal 3.0L Cannula 08/14 1953 195/99 08/14 195 195/99 08/14 1940 Nasal 3.0L Cannula 08/14 1923 98.2 86 29 195/99 92 Nasal 3.0L Cannula 08/14 1733 98.3 85 24 199/94 91 Nasal 3.0L Cannula 08/14 1525 Nasal 3.0L Cannula 08/14 1523 182/80 08/14 1509 98.4 85 24 204/91 98 Nasal 3.0L Cannula ED Intake and Output 08/15 0000 08/14 1200 Intake Total 120 Output Total 900 Balance -780 Intake, Oral 120 Output, Urine 900 Patient 228 lb Weight Weight Bed scale Measurement Method Allergies Coded Allergies: NO KNOWN ALLERGIES (07/04/11) Reconcile Medications Amlodipine Besylate (Norvasc) 5 MG TABLET 1 TAB PO DAILY HYPERTENSION Atorvastatin Calcium 10 MG TABLET 1 TAB PO DAILY CHOLESTEROL (Reported) Clonazepam (Klonopin) 0.5 MG TABLET 0.5-1 TAB PO DAILY NEEDED PRN ANXIETY (Reported) Dabigatran Etexilate Mesylate (Pradaxa 150 MG) 150 MG CAPSULE 1 CAP PO BID BLOOD THINNER (Reported) Escitalopram Oxalate (Lexapro) 10 MG TABLET 1 TAB PO DAILY DEPRESSION ( Reported) Gabapentin 300 MG CAPSULE 2 TAB PO QPM RESTLESS LEGS (Reported) Irbesartan (Avapro) 300 MG TABLET 1 TAB PO DAILY BLOOD PRESSURE (Reported) Levothyroxine Sodium (Synthroid) 50 MCG TABLET 1 TAB PO DAILY AC THYROID ( Reported) Metoprolol Succ XL (Toprol Xl) 50 MG TAB 1 TAB PO DAILY HEART (Reported) Ropinirole Hydrochloride (Requip) 0.25 MG TABLET 1 TAB PO QPM RESTLESS LEGS ( Reported) Timolol Maleate 0.5 % DROPS 1 GTT OPH BID GLAUCOMA (Reported) Triage Note: PT BIBA FROM HOME WITH C/O INCREASED EXERTIONAL DYSPNEA x1 WEEK. PT ENDORSES PRODUCTIVE COUGH DURING THIS TIME. INCREASED LETHARGY AND WEAKNESS. NO O2 USE AT HOME. PT ARRIVES A&O, VISIBLY DYSPNEIC, HYPERTENSIVE. CURRENTLY AFIB 80s; HX OF SAME Triage Nurses Notes Reviewed? yes Onset: Gradual Duration: week(s): Timing: recent history Severity: moderate Activities at Onset: activity HPI: 86yo female with hx of a fib on pradaxa, HTN presents to ED from assisted living complaining of worsening dyspnea x 1 week. Patient states that she has worsening dyspnea with any form of exertion for the past week. Patient states that today she began having cough productive of white sputum. Patient also reporting lower extremity swelling for an unknown duration. Patient denies fevers, chills, chest pain, abdominal pain, vomiting, hemoptysis. (Aileen Zuñiga) Past History Medical History Any Pertinent Medical History? see below for history Neurological: NONE EENT: NONE Cardiovascular: AFIB, hypertension, hyperlipidemia Respiratory: NONE Gastrointestinal: NONE Hepatic: NONE Renal: NONE Musculoskeletal: NONE Psychiatric: NONE Endocrine: NONE Blood Disorders: NONE Cancer(s): NONE History of MRSA: No History of VRE: No History of CDIFF: No Surgical History Surgical History: non-contributory Psychosocial History Who do you live with Patient/Self Services at Home None What is your primary language Belgian Family History Hx Contributory? No (Aileen Zuñiga) Review of Systems Review of Systems Constitutional: Reports: no symptoms. EENTM: Reports: no symptoms. Respiratory: Reports: see HPI. Cardiovascular: Denies: see HPI. GI: Reports: no symptoms. Genitourinary: Reports: no symptoms. Musculoskeletal: Reports: no symptoms. Skin: Reports: no symptoms. Neurological/Psychological: Reports: no symptoms. Hematologic/Endocrine: Reports: no symptoms. Immunologic/Allergic: Reports: no symptoms. All Other Systems: Reviewed and Negative (Aileen Zuñiga) Physical Exam Physical Exam General Appearance: well developed/nourished, no apparent distress, alert, awake Head: atraumatic, normal appearance Eyes: Bilateral: normal appearance. Ears, Nose, Throat: hearing grossly normal Neck: normal inspection, supple, full range of motion Respiratory: no respiratory distress, bilateral crackles and diminished breath sounds Cardiovascular: irregularly irregular Peripheral Pulses: 2+ radial (R), 2+ radial (L) Gastrointestinal: normal bowel sounds, soft, non-tender, no organomegaly Extremities: normal range of motion, 1-2+ pitting edema Neurologic/Psych: awake, alert, oriented x 3 Skin: intact, normal color, warm/dry Core Measures ACS in differential dx? Yes CVA/TIA Diagnosis No Sepsis Present: No Sepsis Focused Exam Completed? No (Magali DAVID,Aileen Leija) Progress Differential Diagnosis: asthma, AMI, costochondritis, COPD, pulmonary embolism, pneumonia, pneumothorax, unstable angina Plan of Care: Orders Procedure Date/time Status ECHOCARDIOGRAM 08/15 0800 Active HEPATIC FUNCTION PANEL 08/15 0415 Active TROPONIN LEVEL 08/15 0400 Active BASIC ELECTROLYTES PLUS BUN&CR 08/15 0400 Complete Lab Add-on Test 08/15 UNK Active Heart Healthy Diet 08/14 D Active TROPONIN LEVEL 08/14 2200 Complete RT: Evaluation 08/147 Active Weight 08/14 2029 Active Vital Signs 08/14 2029 Active Teach/Educate 08/14 2029 Active Pain Treatment and Response 08/14 2029 Active Nutritional Intake, Monitor 08/14 2029 Active Isolation 08/14 2029 Active Intake & Output 08/14 2029 Active Patient Care Conference 08/14 2029 Active Activity/Ambulation 08/14 2030 Active URINALYSIS 08/14 1757 Complete LOWER RESPIRATORY CULTURE 08/14 175 Active Pathway - chart 08/14 1730 Active House Staff 08/14 1730 Active Patient Data 08/14 1730 Active Code Status 08/14 1730 Active Add-on Test (ER Only) 08/14 1725 Active Patient Data 08/14 1719 Active Patient Data 08/14 1701 Active Admit to inpatient 08/14 1657 Active PROTHROMBIN TIME 08/14 1615 Complete RAPID VIRAL INFLUENZA A 08/14 1533 Complete TROPONIN LEVEL 08/14 1512 Complete COMPREHENSIVE METABOLIC PANEL 08/14 1512 Complete CBC WITHOUT DIFFERENTIAL 08/14 1512 Complete B-TYPE NATRIURETIC PEP (BNP) 08/14 1512 Complete EKG 08/14 1512 Active TRC EVALUATION (GEN) 08/14 UNK Complete THERAPIST ORDERS 08/14 UNK Complete OXYGEN SETUP (GEN) 08/14 UNK Complete Weight 08/14 UNK Active VTE Mechanical Prophylaxis 08/14 UNK Active Telemetry/Money Market Dealer 08/14 UNK Active Intake & Output 08/14 UNK Active EKG 08/14 UNK Active Current Medications Sig/Andrea Start time Last Medication Dose Stop Time Status Admin Escitalopram Oxalate 10 MG DAILY 08/15 09 AC (Lexapro) Losartan Potassium 50 MG DAILY 08/15 09 AC (Cozaar) Clonazepam 0.5 MG DAILY NEEDED PRN 08/15 0800 AC (KlonoPIN) 08/22 0759 Furosemide 20 MG 7:30 AM, & 4:30 PM 08/15 0730 AC (Lasix) Dabigatran 150 MG BID 08/14 2099 AC 08/14 (PRADAXA) 2058 Gabapentin 600 MG QPM 08/14 2099 AC 08/14 (Neurontin) 2058 Ropinirole HCl 0.25 MG QPM 08/14 2099 AC 08/14 (Requip 0.5MG) 2056 Timolol Maleate 1 GTT BID 08/14 2099 AC 08/14 (Timoptic) 2058 Levothyroxine Sodium 0.05 MG DAILY AC 08/14 1744 AC 08/15 (Synthroid) 539 Metoprolol Succinate 50 MG DAILY 08/14 1744 AC 08/14 (Toprol Xl) 1953 Atorvastatin Calcium 10 MG 1700 08/15 1743 AC 08/14 (Lipitor) 1953 Amlodipine Besylate 5 MG DAILY 08/14 1742 AC 08/14 (Norvasc) 1953 Laboratory Tests 08/15/17 0415: Anion Gap 12, Estimated GFR > 60, BUN/Creatinine Ratio 20.0 08/15/17 0415: Total Bilirubin Pending, Direct Bilirubin Pending, AST Pending, ALT Pending, Alkaline Phosphatase Pending, Troponin I 0.04, Total Protein Pending, Albumin Pending 08/14/17 2320: Urinalysis LIGHT H, Urine Color YEL, Urine Clarity HAZY H, Urine pH 6.0, Ur Specific [place] 1.015, Urine Protein NEG, Urine Ketones NEG, Urine Nitrite NEG, Urine Bilirubin NEG, Urine Urobilinogen 0.2, Ur Leukocyte Esterase TRACE H, Ur Microscopic SEDIMENT EXAMINED, Urine RBC 5-10 H, Urine WBC 3-5 H, Ur Epithelial Cells FEW, Urine Bacteria RARE H, Urine Hemoglobin SMALL H, Urine Glucose NEG 08/14/17 2205: Troponin I 0.01 08/14/17 1615: Anion Gap 10, Estimated GFR > 60, BUN/Creatinine Ratio 18.6, Glucose 104 H, Calcium 8.9, Total Bilirubin 2.3 H, AST 49 H, ALT 16, Alkaline Phosphatase 96, Troponin I < 0.01, Xxe-G-Ukopzujvilc Pept 1560 H, Total Protein 7.4, Albumin 3.6, Globulin 3.8, Albumin/Globulin Ratio 0.9 L, PT 16.8 H, INR 1.53 H, CBC w Diff NO MAN DIFF REQ, RBC 3.60 L, MCV 88.7, MCH 29.4, MCHC 33.2, RDW 15.5 H, MPV 7.2 L, Gran % 75.3 H, Lymphocytes % 12.6 L, Monocytes % 10.9 H, Eosinophils % 0.2, Basophils % 1.0, Absolute Granulocytes 5.4, Absolute Lymphocytes 0.9 L, Absolute Monocytes 0.8 H, Absolute Eosinophils 0, Absolute Basophils 0.1 Microbiology 08/14 1752 LOWER RESP: Respiratory Culture - COLB 08/14 1752 LOWER RESP: Gram Stain - COLB 08/14 1558 NASOPHARYN: Influenza Virus A & B Rapid Smear - COMP Chest x-ray shows CHF with likely bilateral effusions. Patient medicated with IV Lasix, Nitropaste. Spoke with chair springer Werner Nicole MD who agrees with our plan for hospital admission. Case management recommended for admission. Dr. Cuadra spoke with hospitalist regarding this patient's telemetry admission. She is due to oxygen, require supplemental oxygenation. Also due to diuresis requiring IV Lasix. Patient also requires cardiology consult, management of hypertension, repeat chest x-ray, premature discharge medically unsafe. Diagnostic Imaging: Viewed by Me: Radiology Read. Discussed w/RAD: Radiology Read. CXR Impression: PATIENT: JONI ALFORD PRESENT AGE: 86 PATIENT ACCOUNT NO: [id number] : [birth year] LOCATION: [facility] ORDERING PHYSICIAN: Aileen DAVID SERVICE DATE: 08/14/17 EXAM TYPE: RAD - XRY- PORTABLE CHEST XRAY EXAMINATION: XR PORTABLE CHEST CLINICAL INFORMATION: Dyspnea. Effusions. Congestion. COMPARISON: Chest x-ray 05/10/2017 TECHNIQUE: Portable frontal view of the chest was obtained. 11:02 AM FINDINGS: The heart size is enlarged. There are calcifications of aortic arch. There is pulmonary vascular congestion. The central vessels are prominent and there is increased vascularity in the lungs. There is also haziness at both lung bases suggesting bilateral pleural effusions. There is calcification of the pleura at the lung apices bilaterally IMPRESSION: Congestive heart failure with. Probable bilateral pleural effusions. DICTATED BY: Sammy Green MD DATE/TIME DICTATED:08/14/171604 SOLE LEVELER MACHINE:ELMER DATE/TIME TRANSCRIBED:08/14/171604 CONFIDENTIAL, DO NOT COPY WITHOUT APPROPRIATE AUTHORIZATION. <Electronically signed in Other Vendor System> SIGNED BY: Sammy Green MD 08/14/17 1610 Initial ED EKG: atrial fibrillation @81bpm, nonspecific ST changes (Aileen Zuñiga) Comments: 08/14/2017 4:57:48 PM patient's case discussed with Dr. Maldonado. (Venecia DONAHUE,Noah Huynh) Departure Departure Disposition: STILL A PATIENT Condition: Stable Clinical Impression Primary Impression: CHF exacerbation Qualifiers: Heart failure type: unspecified Qualified Code: I50.9 - Heart failure, unspecified Secondary Impressions: Dyspnea Qualifiers: Dyspnea type: unspecified Qualified Code: R06.00 - Dyspnea, unspecified Hypertension Qualifiers: Hypertension type: unspecified Qualified Code: I10 - Essential ( primary) hypertension Referrals: Jose Tate MD (PCP/Family) Departure Forms: Customer Survey General Discharge Information Admission Note Spoke With: Jorge L DONAHUE,Antonina Arroyo Documentation of Exam: Documentation of any treatments & extenuating circumstances including Concerns Regarding Discharge (functional status, medication knowledge or non-compliance, living conditions, etc.) that warrant an admission rather than observation: [CHF exacerbation with hypoxia and dyspnea requiring supplemental oxygen, IV Lasix, cardiology consult, repeat labs, EKG, chest x-ray, telemetry monitoring, premature discharge medically unsafe] (Aileen Zuñiga) PA/SYSTEMS INTEGRATION ENGINEER Co-Sign Statement Statement: ED Attending supervision documentation- [x] I saw and evaluated the patient. I have also reviewed all the pertinent lab results and diagnostic results. I agree with the findings and the plan of care as documented in the PA's/SYSTEMS INTEGRATION ENGINEER's documentation. [] I have reviewed the ED Record and agree with the PA's/SYSTEMS INTEGRATION ENGINEER's documentation. [] Additions or exceptions (if any) to the PAs/SYSTEMS INTEGRATION ENGINEER's note and plan are summarized below: [] (Venecia DONAHUE,Noah Huynh) Critical Care Note Critical Care Note Critical Care Time: 30-74 min (Magali DAVID,Aileen Leija)
[2017-08-14] MEDS ORDERED: PRADAXA150 M1 PO (15:44)
[2017-08-14] MEDS ORDERED: REQUIP0.25 MG PO (15:44)
--- NOTE | 2017-08-14 16:10 | RADIOLOGY REPORT ---
EXAMINATION: XR PORTABLE CHEST CLINICAL INFORMATION: Dyspnea. Effusions. Congestion. COMPARISON: Chest x-ray 05/10/2017 TECHNIQUE: Portable frontal view of the chest was obtained. 11:02 AM FINDINGS: The heart size is enlarged. There are calcifications of aortic arch. There is pulmonary vascular congestion. The central vessels are prominent and there is increased vascularity in the lungs. There is also haziness at both lung bases suggesting bilateral pleural effusions. There is calcification of the pleura at the lung apices bilaterally IMPRESSION: Congestive heart failure with. Probable bilateral pleural effusions.
[2017-08-14 16:28] LABS: ABSOLUTE BASOPHIL COUNT 0.1 /CUMM (0.0-0.2); ABSOLUTE EOSINOPHIL COUNT 0 /CUMM (0.0-0.7); ABSOLUTE GRANULOCYTE CT 5.4 /CUMM (1.4-6.5); ABSOLUTE LYMPH COUNT 0.9 /CUMM (1.2-3.4); ABSOLUTE MONOCYTE COUNT 0.8 /CUMM (0.10-0.60); EOSINOPHIL % 0.2 % (0-5); GRANULOCYTE % 75.3 % (42.2-75.2); MEAN CORPUSCULAR HGB 29.4 PG (27.0-31.0); MEAN CORPUSCULAR HGB CONC 33.2 G/DL (33.0-37.0); MEAN CORPUSCULAR VOLUME 88.7 FL (81.0-99.0); MEAN PLATELET VOLUME 7.2 FL (7.4-10.4); PLATELET COUNT 264 /CUMM (130-400); RBC DISTRIBUTION WIDTH 15.5 % (11.5-14.5); WHITE BLOOD CELL COUNT 7.1 /CUMM (4.8-10.8)
--- NOTE | 2017-08-14 17:28 | History & Physical ---
Daria DONAHUE,[facility] 08/14/17 8460: General Information and HPI MD Statement: I have seen and personally examined JONI VUONG and documented this H&P. The patient is a 86 year old F who presented with a patient stated chief complaint of shortness of breath. Source of Information: patient, family, old records Exam Limitations: no limitations History of Present Illness: Ms Vuong is a pleasant 86 year old female with past medical history of A. fib, hypertension, hyperlipidemia, hypothyroidism, and restless leg syndrome who was BIBA to [place] ED due to worsening shortness of breath. The patient states that over last 2 weeks she has experiencing worsening dyspnea and dyspnea on exertion. During the morning of 08/14/2017 she had a neighbor come to visit her and given the fact that she had a hard time catching her breath, the neighbour was prompted to call the EMS who Patient is not on home oxygen. She does endorse that she may have been exposed to an increased amount of salt which may have come from canned soup. Her primary care physician is Dr. Tate. Her regional service manager is Dr. Price. Dieing Out Machine Operator recently discontinued her Coumadin. At the time of our clinical interaction she denied any fever, chills, nausea, vomiting. Also denied any chest pain or chest discomfort but did state that over the last week she has had increased urinary frequency. Denies any dysuria. She reports good medication compliance. Allergies/Medications Allergies: Coded Allergies: NO KNOWN ALLERGIES (07/04/11) Home Med list Amlodipine Besylate (Norvasc) 5 MG TABLET 1 TAB PO DAILY HYPERTENSION Atorvastatin Calcium 10 MG TABLET 1 TAB PO DAILY CHOLESTEROL (Reported) Clonazepam (Klonopin) 0.5 MG TABLET 0.5-1 TAB PO DAILY NEEDED PRN ANXIETY (Reported) Dabigatran Etexilate Mesylate (Pradaxa 150 MG) 150 MG CAPSULE 1 CAP PO BID BLOOD THINNER (Reported) Escitalopram Oxalate (Lexapro) 10 MG TABLET 1 TAB PO DAILY DEPRESSION ( Reported) Gabapentin 300 MG CAPSULE 2 TAB PO QPM RESTLESS LEGS (Reported) Irbesartan (Avapro) 300 MG TABLET 1 TAB PO DAILY BLOOD PRESSURE (Reported) Levothyroxine Sodium (Synthroid) 50 MCG TABLET 1 TAB PO DAILY AC THYROID ( Reported) Metoprolol Succ XL (Toprol Xl) 50 MG TAB 1 TAB PO DAILY HEART (Reported) Ropinirole Hydrochloride (Requip) 0.25 MG TABLET 1 TAB PO QPM RESTLESS LEGS ( Reported) Timolol Maleate 0.5 % DROPS 1 GTT OPH BID GLAUCOMA (Reported) Compliance With Home Meds: GOOD Past History Travel History Traveled to [place] past 21 day No Medical History Neurological: NONE EENT: NONE Cardiovascular: AFIB, hypertension, hyperlipidemia Respiratory: NONE Gastrointestinal: NONE Hepatic: NONE Renal: NONE Musculoskeletal: NONE Psychiatric: NONE Endocrine: NONE Blood Disorders: NONE Cancer(s): NONE History of MRSA: No History of VRE: No History of CDIFF: No Surgical History Surgical History: non-contributory Past Family/Social History Psychosocial History Where do you live? Home Who Do You Live With? self Services at Home: None Primary Language: Hebrew Smoking Status: Former Smoker (Over 40 years.) ETOH Use: occasional use Illicit Drug Use: denies illicit drug use Functional Ability ADLs Independent: dressing, eating, toileting, bathing. Ambulation: independent Review of Systems Review of Systems Constitutional: Reports: see HPI. Exam & Diagnostic Data Last 24 Hrs of Vital Signs/I&O Vital Signs Date Time Temp Pulse Resp B/P B/P Pulse O2 O2 Flow FiO2 Mean Ox Delivery Rate 08/14 1525 Nasal 3.0L Cannula 08/14 1523 182/80 08/14 1509 98.4 85 24 204/91 98 Nasal 3.0L Cannula Intake & Output 08/14 1600 08/14 0800 08/14 0000 Intake Total Output Total Balance Patient 95.254 kg Weight Weight Reported by Patient Measurement Method Physical Exam General Appearance Alert, Oriented X3, Cooperative Skin No Rashes, No Breakdown HEENT Atraumatic, PERRLA, EOMI, Mucous Membr. moist/pink Cardiovascular Normal S1, Normal S2, Irregular rate and rhythm Lungs Decreased air entry. Faint crackles noted at the lower lung bases Abdomen Normal Bowel Sounds, Soft, No Tenderness Neurological Normal Speech, Strength at 5/5 X4 Ext, Cranial Nerves 3-12 NL Extremities No Clubbing, No Cyanosis, Normal Pulses, Edema 1+ Vascular Normal Pulses Last 24 Hrs of Labs/Nader: Laboratory Tests 08/14/17 1615: Anion Gap 10, Estimated GFR > 60, BUN/Creatinine Ratio 18.6, Glucose 104 H, Calcium 8.9, Total Bilirubin 2.3 H, AST 49 H, ALT 16, Alkaline Phosphatase 96, Troponin I < 0.01, Zsw-H-Mojavxkoiqd Pept 1560 H, Total Protein 7.4, Albumin 3.6, Globulin 3.8, Albumin/Globulin Ratio 0.9 L, CBC w Diff NO MAN DIFF REQ, RBC 3.60 L, MCV 88.7, MCH 29.4, MCHC 33.2, RDW 15.5 H, MPV 7.2 L, Gran % 75.3 H, Lymphocytes % 12.6 L, Monocytes % 10.9 H, Eosinophils % 0.2, Basophils % 1.0, Absolute Granulocytes 5.4, Absolute Lymphocytes 0.9 L, Absolute Monocytes 0.8 H, Absolute Eosinophils 0, Absolute Basophils 0.1 Microbiology 08/14 1558 NASOPHARYN: Influenza Virus A & B Rapid Smear - COMP Diagnostic Data EKG Results A. Fib Rate 81 QTC 465 CXR Results PATIENT: JONI VUONG PRESENT AGE: 86 PATIENT ACCOUNT NO: [id number] : [birth year] LOCATION: ER ORDERING PHYSICIAN: Aileen DAVID SERVICE DATE: 08/14/17 EXAM TYPE: RAD - XRY-PORTABLE CHEST XRAY EXAMINATION: XR PORTABLE CHEST CLINICAL INFORMATION: Dyspnea. Effusions. Congestion. COMPARISON: Chest x-ray 05/10/2017 TECHNIQUE: Portable frontal view of the chest was obtained. 11:02 AM FINDINGS: The heart size is enlarged. There are calcifications of aortic arch. There is pulmonary vascular congestion. The central vessels are prominent and there is increased vascularity in the lungs. There is also haziness at both lung bases suggesting bilateral pleural effusions. There is calcification of the pleura at the lung apices bilaterally IMPRESSION: Congestive heart failure with. Probable bilateral pleural effusions. DICTATED BY: Sammy Green MD DATE/TIME DICTATED:08/14/171604 ASSISTANT PROFESSOR OF ART:ELMER DATE/TIME TRANSCRIBED:08/14/171604 CONFIDENTIAL, DO NOT COPY WITHOUT APPROPRIATE AUTHORIZATION. <Electronically signed in Other Vendor System> SIGNED BY: Sammy Green MD 08/14/17 1610 PATIENT: JONI VUONG PRESENT AGE: 86 PATIENT ACCOUNT NO: [id number] : [birth year] LOCATION: ER ORDERING PHYSICIAN: Aileen DAVID SERVICE DATE: 08/14/17 EXAM TYPE: RAD - XRY-PORTABLE CHEST XRAY EXAMINATION: XR PORTABLE CHEST CLINICAL INFORMATION: Dyspnea. Effusions. Congestion. COMPARISON: Chest x-ray 05/10/2017 TECHNIQUE: Portable frontal view of the chest was obtained. 11:02 AM FINDINGS: The heart size is enlarged. There are calcifications of aortic arch. There is pulmonary vascular congestion. The central vessels are prominent and there is increased vascularity in the lungs. There is also haziness at both lung bases suggesting bilateral pleural effusions. There is calcification of the pleura at the lung apices bilaterally IMPRESSION: Congestive heart failure with. Probable bilateral pleural effusions. DICTATED BY: Sammy Green MD DATE/TIME DICTATED:08/14/171604 ASSISTANT PROFESSOR OF ART:ELMER DATE/TIME TRANSCRIBED:08/14/171604 CONFIDENTIAL, DO NOT COPY WITHOUT APPROPRIATE AUTHORIZATION. <Electronically signed in Other Vendor System> SIGNED BY: Sammy Green MD 08/14/17 1610 Assessment/Plan Assessment: Ms Vuong is a pleasant 86 year old female with past medical history of A. fib, hypertension, hyperlipidemia, hypothyroidism, and restless leg syndrome who was BIBA to [place] ED due to worsening shortness of breath. Her presentation is likely due to worsening component of CHF in the setting of prolonged hypertension. She will benefit from aggressive diuresis and monitoring on the telemetry service to ensure no acute arrhythmias contributing to her clinical condition. The emergency department nitroglycerin and Lasix have been ordered however this hadn't been given to the patient yet. #Acute exacerbation of CHF. #History of atrial fibrillation #History of hypertension and hypertensive urgency. #History of depression #History of hypothyroidism Admit Patient to telemetry. Serial troponins and EKGs to rule out ACS. IV Lasix 20 mg BID daily. Obtain echocardiogram. Daily weights and monitor his ins and outs. Obtain formal cardiology consultation in a.m (has been called) Continue home medications. UA with reflex UC if positive. Dvt prophylaxis with Alps and Pradaxa. Heart healthy diet with sodium restriction. Patient is a full code. As Ranked By This Provider Problem List: 1. Hypertension Qualifiers Hypertension type: unspecified Qualified Code: I10 - Essential (primary) hypertension 2. CHF exacerbation Qualifiers Heart failure type: unspecified Qualified Code: I50.9 - Heart failure, unspecified 3. Dyspnea Qualifiers Dyspnea type: unspecified Qualified Code: R06.00 - Dyspnea, unspecified Core Measures/Misc (01/08) Acute Coronary Syndrome ACS Diagnosis: No Congestive Heart Failure Congestive Heart Failure Diagnosis Yes Cerebrovascular Accident CVA/TIA Diagnosis: No VTE (View Protocol) VTE Risk Factors Age>40 No Mechanical VTE Prophylaxis d/t N/A MechProphylax Ordered No VTE Pharm Prophylaxis d/t NA PharmProphylax ordered Sepsis (View protocol) Sepsis Present: No Antonina Coats 08/14/17 1754: Attending MD Review Statement Attending Statement Attending MD Statement: examined this patient, discuss w/resident/PA/HYPERCIL CORE TRANSFORMER ASSEMBLER, agreed w/resident/PA/HYPERCIL CORE TRANSFORMER ASSEMBLER, reviewed EMR data (avail) Attending Assessment/Plan: 86 yr old female with pmh of afib on pradaxa, HTN, HLD who lives alone. Her pcp is Dr Tate and regional service manager is Dr Price. Pt presented with c/c of sob for few days which is more with exertion. Pt denies any chest pain, No nausea or vomiting. Pt normally uses 2 pillows to sleep and has not changed in the last one week. Patient in the emergency room was found to have high blood pressure and chest x-ray done showed findings consistent with fluid overload and pulmonary edema. Patient was given Lasix and nitroglycerin in the ER. Next Patient on physical exam shows bilateral pitting edema in the lower extremity which is 1+ and also has bilateral crackles on lung exam. Assessment and plan- #1. Acute exacerbation of CHF-could be likely diastolic CHF given the long- standing hypertension. We will get an echocardiogram and will get cardiology to see the patient. We'll start her on Lasix 20 mg IV every 12 and monitor her on telemetry and will do strict intake and output. We'll also get troponins 3. We will try to control her blood pressure better. Next #2 atrial fibrillation-patient currently on Pradaxa. We will continue with that and we will continue with current home meds. We will monitor on telemetry for rate control.
--- NOTE | 2017-08-14 17:53 | Admission Certification ---
Admission Certification Certification Statement - As attending physician, I certify that at the time of - admission, based on clinical presentation, severity of - symptoms, need for further diagnostic testing and - therapeutic interventions, and risk of adverse outcomes - without in-hospital treatment, in my clinical assessment, - this patient requires an acute hospital stay for a minimum - of two nights or longer. I have also considered psychsocial - factors such as support system, advanced age, financial - issues, cognitive issues, and failed out-patient treatments, - past re-admission history, safety of patient, and lack of - compliance as applicable. Specific rationale supporting this admission is: acute chf exacerbation
[2017-08-14 17:54] LABS: PT 16.8 SEC (9.4-12.5)
[2017-08-14 20:47] VITALS: BP 150/100
[2017-08-14 22:38] VITALS: BP 130/88
[2017-08-15 06:57] VITALS: BP 150/80
--- NOTE | 2017-08-15 09:47 | Cons- Cardiology ---
General Information and HPI Consulting Request Date of Consult: 08/15/17 Requested By: Antonina Coats MD Reason for Consult: CHF Source of Information: patient, old records Exam Limitations: no limitations History of Present Illness: The patient is a 86-year-old female with a history of persistent atrial fibrillation on Pradaxa, hypertension, who now presents with increasing shortness of breath. She states that she's noted dyspnea for approximately 3 weeks. It was intermittent but on the day of admission she was talking to her neighbor and she noted her to have severe shortness of breath and therefore called EMS. Patient states that she does have a cough but is predominantly productive of white sputum. She did not notice any edema, PND nor orthopnea. She denied fever or chills. She does admit to excessive salt intake from canned soup. In the emergency room the patient was found to be in congestive heart failure and was treated with Arimidex with improvement. She still describes shortness of breath but no chest pain. Her most recent echocardiogram was performed in 2015 demonstrated ejection fraction of 70% with mild mitral regurgitation Allergies/Medications Allergies: Coded Allergies: NO KNOWN ALLERGIES (07/04/11) Home Med List: Amlodipine Besylate (Norvasc) 5 MG TABLET 1 TAB PO DAILY HYPERTENSION Atorvastatin Calcium 10 MG TABLET 1 TAB PO DAILY CHOLESTEROL (Reported) Clonazepam (Klonopin) 0.5 MG TABLET 0.5-1 TAB PO DAILY NEEDED PRN ANXIETY (Reported) Dabigatran Etexilate Mesylate (Pradaxa 150 MG) 150 MG CAPSULE 1 CAP PO BID BLOOD THINNER (Reported) Escitalopram Oxalate (Lexapro) 10 MG TABLET 1 TAB PO DAILY DEPRESSION ( Reported) Gabapentin 300 MG CAPSULE 2 TAB PO QPM RESTLESS LEGS (Reported) Irbesartan (Avapro) 300 MG TABLET 1 TAB PO DAILY BLOOD PRESSURE (Reported) Levothyroxine Sodium (Synthroid) 50 MCG TABLET 1 TAB PO DAILY AC THYROID ( Reported) Metoprolol Succ XL (Toprol Xl) 50 MG TAB 1 TAB PO DAILY HEART (Reported) Ropinirole Hydrochloride (Requip) 0.25 MG TABLET 1 TAB PO QPM RESTLESS LEGS ( Reported) Timolol Maleate 0.5 % DROPS 1 GTT OPH BID GLAUCOMA (Reported) Current Medications: Current Medications Sig/Andrea Start time Last Medication Dose Route Stop Time Status Admin Amlodipine Besylate 5 MG DAILY 08/14 1742 AC 08/15 PO 0859 Atorvastatin Calcium 10 MG 1700 08/14 1744 AC 08/14 PO 195 Clonazepam 0.5 MG DAILY NEEDED PRN 08/15 0800 PO 08/22 0759 Clonazepam See Dose DAILY NEEDED PRN 08/14 174 TX 08/14 Insts (1) PO 08/21 1744 2058 Dabigatran 150 MG BID 08/14 2099 08/15 PO 0859 Escitalopram Oxalate 10 MG DAILY 08/15 09 AC 08/15 PO 0858 Furosemide 40 MG 7:30 AM, & 4:30 PM 08/15 1630 AC IV Furosemide 20 MG ONCE ONE 08/15 929 DC IV PUSH 08/15 0931 Furosemide 20 MG 7:30 AM, & 4:30 PM 08/15 0730 TX 08/15 IV 0901 Furosemide 0 .STK-MED ONE 08/14 1918 DC IV Furosemide 20 MG ONCE ONE 08/14 1630 DC 08/14 IV 08/14 1631 1911 Gabapentin 600 MG QPM 08/14 2099 08/14 PO 2058 Levothyroxine Sodium 0.05 MG DAILY AC 08/14 174 08/15 PO 0540 Losartan Potassium 50 MG DAILY 08/15 09 08/15 PO 0858 Metoprolol Succinate 50 MG DAILY 08/14 1744 08/15 PO 0859 Nitroglycerin 0 .STK-MED ONE 08/14 191 [facility] Nitroglycerin 1 GM ONCE ONE 08/14 1630 DC 08/14 TOP 08/14 1631 1900 Ropinirole HCl 0.25 MG QPM 08/14 2099 AC 08/14 PO 2056 Timolol Maleate 1 GTT BID 08/14 2099 08/15 OPH 0906 Dose Instructions: (1)Clonazepam: 0.5-1 TAB Review of Systems Review of Systems: Eyes no blurred or double vision Ears no deafness or ringing Nose and throat no recurrent sinusitis Lungs per history of present illness Heart per history of present illness Abdomen no nausea vomiting Musculoskeletal occasional muscle and joint pains Psych no anxiety or depression Neuro without recurrent headache or seizures Endocrine no heat or cold intolerance Past History Travel History Traveled to [place] past 21 day No Medical History Blood Transfusion Hx: No Neurological: restless leg syndrome EENT: NONE Cardiovascular: AFIB, hypertension, hyperlipidemia Respiratory: NONE Gastrointestinal: NONE Hepatic: NONE Renal: NONE Musculoskeletal: NONE Psychiatric: NONE Endocrine: hypothyroidism Blood Disorders: NONE Cancer(s): NONE 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 Home Who Do You Live With? self Services at Home: None Primary Language: Icelandic Smoking Status: Former Smoker (Over 40 years.) ETOH Use: occasional use Illicit Drug Use: denies illicit drug use Functional Ability ADLs Independent: dressing, eating, toileting, bathing. Ambulation: independent Exam & Diagnostic Data Vital Signs and I&O Vital Signs Date Time Temp Pulse Resp B/P B/P Pulse O2 O2 Flow FiO2 Mean Ox Delivery Rate 08/15 0858 71 150/80 08/15 0800 98 Nasal 3.0L Cannula 08/15 0657 98.1 71 20 150/80 96 Room Air 08/14 2237 97.9 75 28 130/88 96 08/14 2149 Nasal 3.0L Cannula 08/14 2046 97.6 63 28 150/100 95 08/14 2030 Nasal 3.0L Cannula 08/14 1953 195/99 08/14 195 195/99 08/14 1940 Nasal 3.0L Cannula 08/14 1923 98.2 86 29 195/99 92 Nasal 3.0L Cannula 08/14 1733 98.3 85 24 199/94 91 Nasal 3.0L Cannula 08/14 1525 Nasal 3.0L Cannula 08/14 1523 182/80 08/14 1509 98.4 85 24 204/91 98 Nasal 3.0L Cannula Intake & Output 08/15 1600 08/15 0800 08/15 0000 08/14 1600 08/14 0800 08/14 0000 Intake Total 240 120 Output Total 375 900 Balance -135 -780 Intake, Oral 240 120 Output, Urine 375 900 Patient 228 lb 210 lb Weight Weight Bed scale Reported by Patient Measurement Method Physical Exam: Patient is a well-developed well-nourished female appearing in no acute distress HEENT is unremarkable Neck is supple there is no JVD Lungs expiratory wheezes with decreased breath sounds at the bases bilaterally Heart irregular rhythm S1 and S2 are normal no gallops or rubs 1/6 systolic ejection murmur left sternal border Abdomen bowel sounds positive Extremities 2-3+ edema Labs/Nader Results: Laboratory Tests 08/15 08/15 08/14 08/14 0415 0415 2320 2205 Chemistry Sodium (137 - 145 mmol/L) 137 Potassium (3.5 - 5.1 mmol/L) 3.7 Chloride (98 - 107 mmol/L) 99 Carbon Dioxide (22 - 30 mmol/L) 26 Anion Gap (5 - 16) 12 BUN (7 - 17 mg/dL) 16 Creatinine (0.5 - 1.0 mg/dL) 0.8 Estimated GFR (>60 ml/min) > 60 BUN/Creatinine Ratio (7 - 25 %) 20.0 Total Bilirubin (0.2 - 1.3 mg/dL) Pending Direct Bilirubin (< 0.4 mg/dL) Pending AST (14 - 36 U/L) Pending ALT (9 - 52 U/L) Pending Alkaline Phosphatase (<127 U/L) Pending Troponin I (< 0.11 ng/ml) 0.04 0.01 Total Protein (6.3 - 8.2 g/dL) Pending Albumin (3.5 - 5.0 g/dL) Pending Urines Urinalysis LIGHT H Urine Color (YEL,AMB,STR) YEL Urine Clarity (CLEAR) HAZY H Urine pH (5.0 - 8.0) 6.0 Ur Specific [place] (1.001 - 1.035) 1.015 Urine Protein (NEG,<30 MG/DL) NEG Urine Ketones (NEG) NEG Urine Nitrite (NEG) NEG Urine Bilirubin (NEG) NEG Urine Urobilinogen (0.1 - 1.0 EU/dl) 0.2 Ur Leukocyte Esterase (NEG) TRACE H Ur Microscopic SEDIMENT EXAMINED Urine RBC (0 - 5 /HPF) 5-10 H Urine WBC (0 - 2 /HPF) 3-5 H Ur Epithelial Cells (NONE,FEW) FEW Urine Bacteria (NEG/NONE) RARE H Urine Hemoglobin (NEG) SMALL H Urine Glucose (N MG/DL) NEG 08/14 1615 Chemistry Sodium (137 - 145 mmol/L) 136 L Potassium (3.5 - 5.1 mmol/L) 4.2 Chloride (98 - 107 mmol/L) 98 Carbon Dioxide (22 - 30 mmol/L) 27 Anion Gap (5 - 16) 10 BUN (7 - 17 mg/dL) 13 Creatinine (0.5 - 1.0 mg/dL) 0.7 Estimated GFR (>60 ml/min) > 60 BUN/Creatinine Ratio (7 - 25 %) 18.6 Glucose (65 - 99 mg/dL) 104 H Calcium (8.4 - 10.2 mg/dL) 8.9 Total Bilirubin (0.2 - 1.3 mg/dL) 2.3 H AST (14 - 36 U/L) 49 H ALT (9 - 52 U/L) 16 Alkaline Phosphatase (<127 U/L) 96 Troponin I (< 0.11 ng/ml) < 0.01 [id number] Pept (<125 pg/mL) 1560 H Total Protein (6.3 - 8.2 g/dL) 7.4 Albumin (3.5 - 5.0 g/dL) 3.6 Globulin (1.9 - 4.2 gm/dL) 3.8 Albumin/Globulin Ratio (1.1 - 2.2 %) 0.9 L Coagulation PT (9.4 - 12.5 SEC) 16.8 H INR (0.90 - 1.19) 1.53 H Hematology CBC w Diff NO MAN DIFF REQ WBC (4.8 - 10.8 /CUMM) 7.1 RBC (4.20 - 5.40 /CUMM) 3.60 L Hgb (12.0 - 16.0 G/DL) 10.6 L Hct (37 - 47 %) 32.0 L MCV (81.0 - 99.0 FL) 88.7 MCH (27.0 - 31.0 PG) 29.4 MCHC (33.0 - 37.0 G/DL) 33.2 RDW (11.5 - 14.5 %) 15.5 H Plt Count (130 - 400 /CUMM) 264 MPV (7.4 - 10.4 FL) 7.2 L Gran % (42.2 - 75.2 %) 75.3 H Lymphocytes % (20.5 - 51.1 %) 12.6 L Monocytes % (1.7 - 9.3 %) 10.9 H Eosinophils % (0 - 5 %) 0.2 Basophils % (0.0 - 2.0 %) 1.0 Absolute Granulocytes (1.4 - 6.5 /CUMM) 5.4 Absolute Lymphocytes (1.2 - 3.4 /CUMM) 0.9 L Absolute Monocytes (0.10 - 0.60 /CUMM) 0.8 H Absolute Eosinophils (0.0 - 0.7 /CUMM) 0 Absolute Basophils (0.0 - 0.2 /CUMM) 0.1 Diagnostic Data EKG Results Atrial fibrillation nonspecific ST-T wave changes CXR Results IMPRESSION: Congestive heart failure with. Probable bilateral pleural effusions. Assessment/Plan Assessment/Plan 1. Acute congestive heart failure most likely secondary to dietary indiscretion with excessive salt intake from canned soup. Troponins are negative which rules out an acute coronary syndrome. 2. Permanent atrial fibrillation on Pradaxa 3. Hypertension 4. Restless leg syndrome 5. Hyperlipidemia 6. Hypothyroidism 7. Edema most likely secondary to congestive heart failure although amlodipine may be a contributing factor Recommendations 1. I would continue to diurese monitoring renal function closely 2. Echocardiogram is pending to assess LV function 3. Recommend dietary consult for salt and fluid restriction 4. Continue Pradaxa for stroke prevention in atrial fibrillation 5. Continue losartan, metoprolol and amlodipine. Thank you for allowing [facility] to participate in the care of your patient. Consult Acknowledgment - Thank you for your consult request.
--- NOTE | 2017-08-15 12:22 | PN- Housestaff ---
Nnamdi DONAHUE,Elba 08/15/17 1221: Subjective Follow-up For: HTN SOB Subjective: Saw pt at bedside this AM. She was pleasant and doing well. No acute overnight events. She was on 1 L of O2. Review of Systems Constitutional: Denies: chills, diaphoresis, fever, weakness. EENTM: Reports: no symptoms. Respiratory: Reports: short of breath. Gastrointestinal: Reports: no symptoms. Genitourinary: Reports: no symptoms. Musculoskeletal: Reports: muscle stiffness. Objective Last 24 Hrs of Vital Signs/I&O Vital Signs Date Time Temp Pulse Resp B/P B/P Pulse O2 O2 Flow FiO2 Mean Ox Delivery Rate 08/15 1600 Nasal 1.0L Cannula 08/15 1448 98.2 68 20 140/70 95 Nasal 1.0L Cannula 08/15 0858 71 150/80 08/15 0800 98 Nasal 3.0L Cannula 08/15 0657 98.1 71 20 150/80 96 Room Air 08/14 2238 97.9 75 28 130/88 96 08/14 2149 Nasal 3.0L Cannula 08/14 2047 97.6 63 28 150/100 95 08/14 2030 Nasal 3.0L Cannula 08/14 195 195/99 08/14 1954 195/99 08/14 1940 Nasal 3.0L Cannula 08/14 192 98.2 86 29 195/99 92 Nasal 3.0L Cannula 08/14 1733 98.3 85 24 199/94 91 Nasal 3.0L Cannula Intake & Output 08/15 1600 08/15 0800 08/15 0000 Intake Total 520 240 120 Output Total 1550 375 900 Balance -1030 -135 -780 Intake, IV 20 Intake, Oral 500 240 120 Output, Urine 1550 375 900 Patient 103.419 kg Weight Weight Bed scale Measurement Method Physical Exam General Appearance: Alert, Oriented X3, Cooperative, No Acute Distress Skin: No Significant Lesion HEENT: Atraumatic, PERRLA, EOMI, Mucous Membr. moist/pink Neck: Supple Cardiovascular: irregularly irregular. 2/6 systolic murmur. Possible diastolic component as well Lungs: crackles at bases. Abdomen: Soft, No Tenderness Current Medications: Current Medications Sig/Andrea Start time Last Medication Dose Route Stop Time Status Admin Amlodipine Besylate 5 MG DAILY 08/14 1743 AC 08/15 PO 0859 Atorvastatin Calcium 10 MG 1700 08/14 1744 AC 08/15 PO 1555 Clonazepam 0.5 MG DAILY NEEDED PRN 08/15 0800 AC PO 08/22 0759 Clonazepam See Dose DAILY NEEDED PRN 08/[address] 08/14 Insts (1) PO 08/21 [id number] Dabigatran 150 MG BID 08/14 2099 AC 08/15 PO 0859 Escitalopram Oxalate 10 MG DAILY 08/15 09 AC 08/15 PO 0858 Furosemide 40 MG 7:30 AM, & 4:30 PM 08/15 1630 AC 08/15 IV 1555 Furosemide 20 MG ONCE ONE 08/[address] 08/15 IV PUSH 08/15 0931 1030 Furosemide 20 MG 7:30 AM, & 4:30 PM 08/[address] 08/15 IV 0901 Furosemide 0 .STK-MED ONE 08/14 1918 DC IV Gabapentin 600 MG QPM 08/14 2099 AC 08/14 PO 2058 Levothyroxine Sodium 0.05 MG DAILY AC 08/14 174 08/15 PO 0540 Losartan Potassium 50 MG DAILY 08/15 09 08/15 PO 0858 Metoprolol Succinate 50 MG DAILY 08/14 174 AC 08/15 PO 0859 Nitroglycerin 0 .STK-MED ONE 08/[address] TOP Patient Medication 1 ED ONE ONE 08/15 1700 Teaching ED 08/15 170 Ropinirole HCl 0.25 MG QPM 08/14 2099 AC 08/14 PO 2057 Timolol Maleate 1 GTT BID 08/14 2099 08/15 OPH 0906 Dose Instructions: (1)Clonazepam: 0.5-1 TAB Last 24 Hrs of Lab/Nader Results Last 24 Hrs of Labs/Mics: Laboratory Tests 08/15/17 0415: Anion Gap 12, Estimated GFR > 60, BUN/Creatinine Ratio 20.0 08/15/17 0415: Total Bilirubin 2.1 H, Direct Bilirubin 0.5 H, AST 23, ALT 19, Alkaline Phosphatase 80, Troponin I 0.04, Total Protein 7.1, Albumin 3.4 L 08/14/17 2320: Urinalysis LIGHT H, Urine Color YEL, Urine Clarity HAZY H, Urine pH 6.0, Ur Specific [place] 1.015, Urine Protein NEG, Urine Ketones NEG, Urine Nitrite NEG, Urine Bilirubin NEG, Urine Urobilinogen 0.2, Ur Leukocyte Esterase TRACE H, Ur Microscopic SEDIMENT EXAMINED, Urine RBC 5-10 H, Urine WBC 3-5 H, Ur Epithelial Cells FEW, Urine Bacteria RARE H, Urine Hemoglobin SMALL H, Urine Glucose NEG 08/14/17 2205: Troponin I 0.01 Microbiology 08/14 175 LOWER RESP: Respiratory Culture - CAN Cancelled: NO SPUTUM COLLECTED 08/14 1752 LOWER RESP: Gram Stain - CAN Cancelled: NO SPUTUM COLLECTED Assessment/Plan Assessment: ASSESSMENT: This is an 86 year old female with past medical history of A. fib, hypertension, hyperlipidemia, hypothyroidism, and restless leg syndrome who was BIBA to [place] ED due to worsening shortness of breath likely secondary to congestive heart failure. PLAN: #Acute exacerbation of CHF: Serial troponins and EKGs negative. * Echocardiogram * Ins/outs * IV Lasix #History of atrial fibrillation * Con't Pradaxa * Con't Toprol XL 50mg daily #History of hypertension and hypertensive urgency. * Con't Home meds including Amlodipine 5mg daily. Will increase to 10mg daily if continues to be uncontrolled * Con't Cozaar 50 mg daily * Con't Statin #History of depression/Anxiety * Con't Lexapro * Con't Clonazepam .5mg daily PRN anxiety #History of hypothyroidism * Con't Synthroid * Check TSH/T4 RLS: * Con't Ropinarole * Con't Gabapentin Problem List: 1. CHF exacerbation 2. Hypertension Pain Ratin Pain Location: NONE Pain Goal: Remain pain free Pain Plan: NONE Tomorrow's Labs & Rationales: CBC BEP AmadoSandeep 08/15/17 1327: Attending MD Review Statement Attending Statement Attending MD Statement: examined this patient, discuss w/resident/PA/DISTILLERY WORKER GENERAL, agreed w/resident/PA/DISTILLERY WORKER GENERAL, discussed with family, reviewed EMR data (avail), discussed with nursing, discussed with case mgmt, reviewed images, amended to note Attending Assessment/Plan: 86 yr old female with pmh of afib on pradaxa, HTN, HLD who lives alone. Pt presented with c/c of sob for few days which is more with exertion admitted here for pulmonary edema and b/l pleural effsuion 2/2 acute on chronic CHF exacerbation. Patient is on 3l oxygen supplementation. She had crackles bilaterally with some basilar wheezes. She is receiving lasix with mild improvement. Cr wnl. #1. Acute exacerbation of CHF- F/U echocardiogram and cardiology consulted. Increase Lasix 40 mg IV every 12, strict intake and output. Negative troponins. Bp better. #2 atrial fibrillation rate controlled-patient currently on Pradaxa. continue meds. Plan of care d/mon patient bedside.
[2017-08-15 14:48] VITALS: BP 140/70
[2017-08-15 22:15] VITALS: BP 140/86
[2017-08-16 06:49] VITALS: BP 140/76
[2017-08-16 08:38] LABS: ABSOLUTE BASOPHIL COUNT 0 /CUMM (0.0-0.2); ABSOLUTE EOSINOPHIL COUNT 0.1 /CUMM (0.0-0.7); ABSOLUTE GRANULOCYTE CT 5.3 /CUMM (1.4-6.5); ABSOLUTE LYMPH COUNT 1.1 /CUMM (1.2-3.4); ABSOLUTE MONOCYTE COUNT 1.1 /CUMM (0.10-0.60); BASOPHIL % 0.4 % (0.0-2.0); EOSINOPHIL % 1.1 % (0-5); HEMATOCRIT 32.2 % (37-47); MEAN CORPUSCULAR HGB 30.3 PG (27.0-31.0); MEAN CORPUSCULAR HGB CONC 34.5 G/DL (33.0-37.0); MEAN CORPUSCULAR VOLUME 87.8 FL (81.0-99.0); MEAN PLATELET VOLUME 7.6 FL (7.4-10.4); PLATELET COUNT 259 /CUMM (130-400); RBC DISTRIBUTION WIDTH 14.5 % (11.5-14.5); RED BLOOD CELL CT 3.66 /CUMM (4.20-5.40); WHITE BLOOD CELL COUNT 7.8 /CUMM (4.8-10.8)
--- NOTE | 2017-08-16 08:41 | PN- Housestaff ---
Nnamdi DONAHUE,[place] 08/16/17 0836: Subjective Follow-up For: COPD CHF Subjective: Saw pt at bedside this AM. She was not on any o2 and satting 96%. Her only complaint was inability to sleep due to RLS. Otherwise no acute overnight events or complaints. Review of Systems Constitutional: Reports: chills, weakness. EENTM: Reports: no symptoms. Cardiovascular: Denies: chest pain. Respiratory: Denies: cough, short of breath. Gastrointestinal: Reports: no symptoms. Genitourinary: Reports: no symptoms. Musculoskeletal: Denies: back pain, muscle pain. Skin: Reports: no symptoms. Objective Last 24 Hrs of Vital Signs/I&O Vital Signs Date Time Temp Pulse Resp B/P B/P Pulse O2 O2 Flow FiO2 Mean Ox Delivery Rate 08/16 08 75 130/66 08/16 0821 75 130/66 08/16 0820 75 130/66 08/16 0649 97.7 76 18 140/76 96 08/15 2215 98.5 75 20 140/86 97 08/15 2105 Nasal 1.0L Cannula 08/15 1600 Nasal 1.0L Cannula 08/15 1448 98.2 68 20 140/70 95 Nasal 1.0L Cannula 08/15 0858 71 150/80 Intake & Output 08/16 1600 08/16 0800 08/16 0000 Intake Total 280 554 Output Total 700 700 Balance -420 -146 Intake, IV 14 Intake, Oral 280 540 Output, Urine 700 700 Patient 101.775 kg Weight Physical Exam General Appearance: Alert, Oriented X3, Cooperative, No Acute Distress Skin: No Significant Lesion HEENT: Atraumatic, PERRLA, EOMI Neck: Supple Cardiovascular: Regular Rate, Normal S1, Normal S2, No Murmurs Lungs: CTAB. Abdomen: Soft, No Tenderness Neurological: Normal Speech Extremities: No Tenderness/Swelling Current Medications: Current Medications Sig/Andrea Start time Last Medication Dose Route Stop Time Status Admin Amlodipine Besylate 5 MG DAILY 08/14 174 AC 08/16 PO 0821 Atorvastatin Calcium 10 MG 1700 08/14 1744 AC 08/15 PO 1555 Clonazepam 0.5 MG DAILY NEEDED PRN 08/15 0800 AC PO 08/22 0759 Dabigatran 150 MG BID 08/14 2100 AC 08/15 PO 205 Escitalopram Oxalate 10 MG DAILY 08/15 0900 AC 08/16 PO 0820 Furosemide 40 MG 7:30 AM, & 4:30 PM 08/15 1630 AC 08/16 IV 0821 Furosemide 20 MG ONCE ONE 08/15 0930 DC 08/15 IV PUSH 08/15 0931 1030 Furosemide 20 MG 7:30 AM, & 4:30 PM 08/15 0730 DC 08/15 IV 0901 Gabapentin 600 MG QPM 08/14 2100 AC 08/15 PO 205 Levothyroxine Sodium 0.05 MG DAILY AC 08/14 1745 AC 08/16 PO 0604 Losartan Potassium 50 MG DAILY 08/15 0900 AC 08/16 PO 0820 Metoprolol Succinate 50 MG DAILY 08/14 174 AC 08/16 PO 0821 Patient Medication 1 ED ONE ONE 08/15 1700 [place] Teaching ED 08/15 170 Ropinirole HCl 0.25 MG QPM 08/14 2100 AC 08/15 PO 2052 Timolol Maleate 1 GTT BID 08/14 2099 AC 08/16 OPH 0823 Last 24 Hrs of Lab/Nader Results Last 24 Hrs of Labs/Mics: Laboratory Tests 08/16/17 0738: Sodium Pending, Potassium Pending, Chloride Pending, Carbon Dioxide Pending, Anion Gap Pending, BUN Pending, Creatinine Pending, BUN/Creatinine Ratio Pending , Total Bilirubin Pending, Direct Bilirubin Pending, AST Pending, ALT Pending, Alkaline Phosphatase Pending, Total Protein Pending, Albumin Pending, CBC w Diff Pending, WBC Pending, RBC Pending, Hgb Pending, Hct Pending, MCV Pending, MCH Pending, MCHC Pending, RDW Pending, Plt Count Pending, MPV Pending Assessment/Plan Assessment: ASSESSMENT: This is an 86 year old female with past medical history of A. fib, hypertension, hyperlipidemia, hypothyroidism, and restless leg syndrome who was BIBA to [place] [facility] due to worsening shortness of breath likely secondary to congestive heart failure. PLAN: #Acute exacerbation of CHF: Serial troponins and EKGs negative. * ECHO CONCLUSIONS Left ventricular cavity size normal. Left ventricular wall thickness mildly to moderately increased. No obvious regional wall motion abnormalities. Left ventricular ejection fraction is estimated at > 55 %. Right ventricle not well visualized, grossly normal. Mild to moderate right atrial dilatation. Mild to moderate left atrial dilatation. Rumx-[id number]-[id number] tricuspid regurgitation. Unable to estimate the right ventricular systolic pressure. No pericardial effusion. * Ins/outs * IV Lasix this AM. Will switch to PO later today #History of atrial fibrillation * Con't Pradaxa * Con't Toprol XL 50mg daily #History of hypertension and hypertensive urgency. * Con't Home meds including Amlodipine 5mg daily. Will increase to 10mg daily if continues to be uncontrolled * Con't Cozaar 50 mg daily * Con't Statin #History of depression/Anxiety * Con't Lexapro * Con't Clonazepam .5mg daily PRN anxiety #History of hypothyroidism * Con't Synthroid * Check TSH/T4 RLS: * Con't Ropinarole * Con't Gabapentin Problem List: 1. CHF exacerbation Pain Ratin Pain Location: none Pain Goal: Remain pain free Pain Plan: none Tomorrow's Labs & Rationales: none Sandeep Fischer 08/16/17 1128: Attending MD Review Statement Attending Statement Attending MD Statement: examined this patient, discuss w/resident/PA/BUSINESS REPORTER, agreed w/resident/PA/BUSINESS REPORTER, discussed with family, reviewed EMR data (avail), discussed with nursing, discussed with case mgmt, reviewed images, amended to note Attending Assessment/Plan: Patient with slow improvement. Po lasix trial in [place] and if toelrates might go home with PT.
--- NOTE | 2017-08-16 09:55 | ECHOCARDIOGRAM REPORT ---
ROCÍOJONI Age: 86 : 1930 Gender: F Exam Date: 08/15/2017 20:10 Exam Location: [address] Ht (in): 65 Wt (lb): 210 BSA: 2.13 BP: 140 / 70 Ordering Physician: Brinda Huff MD Referring Physician: Compa Price MD Technologist: Deepa Monson [facility] Room Number: [id number] Indications: HEART FAILURE Rhythm: Technical Quality: Fair FINDINGS Left Ventricle Left ventricular cavity size normal. Left ventricular wall thickness mildly to moderately increased. No obvious regional wall motion abnormalities. Left ventricular ejection fraction is estimated at > 55 %. Right Ventricle Right ventricle not well visualized, grossly normal. Right Atrium Mild to moderate right atrial dilatation. Left Atrium Mild to moderate left atrial dilatation. Mitral Valve Moderate mitral annular calcification. Trace to mild mitral regurgitation. Aortic Valve Diffuse thickening (sclerosis) of the aortic valve cusps without reduced excursion. Tricuspid Valve Structurally normal tricuspid valve. Gfge-uw-hjizhoex tricuspid regurgitation. Unable to estimate the right ventricular systolic pressure. Pulmonic Valve Pulmonic valve not well visualized, grossly normal. Pericardium No pericardial effusion. Great Vessels Normal size aortic root. CONCLUSIONS Left ventricular cavity size normal. Left ventricular wall thickness mildly to moderately increased. No obvious regional wall motion abnormalities. Left ventricular ejection fraction is estimated at > 55 %. Right ventricle not well visualized, grossly normal. Mild to moderate right atrial dilatation. Mild to moderate left atrial dilatation. Bhgj-jf-catvcygy tricuspid regurgitation. Unable to estimate the right ventricular systolic pressure. No pericardial effusion. Werner Nicole M.D. (Electronically Signed) Final Date: 16 August 2017 09:54 MEASUREMENTS (Male / Female) Normal Values 2D ECHO LV Diastolic Diameter PLAX 3.7 cm 4.2 - 5.9 / 3.9 - 5.3 cm LV Systolic Diameter PLAX 2.3 cm 2.1 - 4.0 cm LV Fractional Shortening PLAX 37.7 % 25 - 46 % LV Ejection Fraction 2D Teich 68.7 % IVS Diastolic Thickness 1.6 cm LVPW Diastolic Thickness 1.6 cm LV Relative Wall Thickness 0.9 RV Internal Dim ED PLAX 3.2 cm 1.9 - 3.8 cm LVOT Diameter 1.8 cm Aortic Root Diameter 2.8 cm LA Systolic Diameter LX 5.0 cm 3.0 - 4.0 / 2.7 - 3.8 cm LA Volume 77.0 cm 18 - 58 / 22 - 52 cm DOPPLER AV Peak Velocity 178.0 cm/s AV Peak Gradient 12.7 mmHg AV Mean Velocity 120.0 cm/s AV Mean Gradient 7.0 mmHg AV Velocity Time Integral 38.8 cm LVOT Peak Velocity 94.0 cm/s LVOT Peak Gradient 3.5 mmHg LVOT Mean Velocity 63.0 cm/s LVOT Mean Gradient 2.0 mmHg LVOT Velocity Time Integral 23.0 cm LVOT Stroke Volume 58.5 cm AV Area Cont Eq vti 1.5 cm AV Area Cont Eq pk 1.3 cm MV Peak Velocity 159.0 cm/s MV Peak Gradient 10.1 mmHg MV Mean Velocity 55.9 cm/s MV Mean Gradient 2.0 mmHg Mitral E Point Velocity 121.0 cm/s MV PHT Velocity 166.0 cm/s MV Deceleration Lipscomb 749.0 cm/s MV Pressure Half Time 66.5 ms MV Area PHT 3.3 cm MV Deceleration Time 164.0 ms TV Peak Velocity 339.0 cm/s TR Peak Velocity 236.7 cm/s TR Peak Gradient 22.4 mmHg Right Atrial Pressure 5.0 mmHg Pulmonary Artery Systolic Pressu 27.4 mmHg Right Ventricular Systolic Press 27.4 mmHg PV Peak Velocity 106.0 cm/s PV Peak Gradient 4.5 mmHg PV Mean Velocity 79.2 cm/s PV Mean Gradient 3.0 mmHg PV Velocity Time Integral 21.9 cm LV E' Lateral Velocity 9.4 cm/s Mitral E to LV E' Lateral Ratio 12.9 LV E' Septal Velocity 8.0 cm/s Mitral E to LV E' Septal Ratio 15.1
--- NOTE | 2017-08-16 12:26 | PN- Cardiology ---
Subjective Subjective: Patient reports she is improving. Has not ambulated much. Objective Vital Signs and I&Os Vital Signs Date Time Temp Pulse Resp B/P B/P Pulse O2 O2 Flow FiO2 Mean Ox Delivery Rate 08/16 0821 75 130/66 08/16 0821 75 130/66 08/16 0820 75 130/66 08/16 0649 97.7 76 18 140/76 96 08/15 2215 98.5 75 20 140/86 97 08/15 2105 Nasal 1.0L Cannula 08/16 1599 Nasal 1.0L Cannula 08/15 1448 98.2 68 20 140/70 95 Nasal 1.0L Cannula Intake & Output 08/16 1600 08/16 0808/16 0000 08/15 0000 Intake Total 280 554 520 240 120 Output Total 194 882 4998 375 900 Balance -420 -146 -1030 -135 -780 Intake, IV 14 20 Intake, Oral 280 540 500 240 120 Output, Urine 537 351 2738 375 900 Patient 224 lb 228 lb Weight Weight Bed scale Measurement Method Physical Exam: General: no apparent distress. Alert. Eyes: No obvious scleral icterus. HEENT: No jugular venous distention or abnormal jugular venous pulsations. Cardiovascular: Normal intensity S1/S2. Irregular Respiratory: Lungs clear to auscultation bilaterally. Abdomen: Soft, nontender with no guarding or rebound tenderness. Musculoskeletal: No clubbing or cyanosis noted; trace lower extremity edema Skin: warm Neurologic: No gross focal deficits noted. Lymph: No gross lymphadenopathy. Current Medications: Current Medications Sig/Andrea Start time Last Medication Dose Route Stop Time Status Admin Amlodipine Besylate 5 MG DAILY 08/14 1742 AC 08/16 PO 0821 Atorvastatin Calcium 10 MG 1700 08/14 174 AC 08/15 PO 1555 Clonazepam 0.5 MG DAILY NEEDED PRN 08/15 08 AC PO 08/22 0759 Dabigatran 150 MG BID 08/14 2099 AC 08/16 PO 104 Escitalopram Oxalate 10 MG DAILY 08/15 09 AC 08/16 PO 0820 Furosemide 40 MG 7:30 AM, & 4:30 PM 08/15 1630 AC 08/16 IV 0821 Gabapentin 600 MG QPM 08/14 2099 AC 08/15 PO 205 Levothyroxine Sodium 0.05 MG DAILY AC 08/14 174 AC 08/16 PO 0604 Losartan Potassium 50 MG DAILY 08/15 0900 AC 08/16 PO 0820 Metoprolol Succinate 50 MG DAILY 08/14 1745 AC 08/16 PO 0821 Patient Medication 1 ED ONE ONE 08/[address] [facility] ED 08/15 1701 Ropinirole HCl 0.25 MG QPM 08/14 2099 AC 08/15 PO 205 Timolol Maleate 1 GTT BID 08/14 2099 AC 08/16 OPH 0823 Results Last 48 Hrs of Labs/Mics: Laboratory Tests 08/16/17 0738: Anion Gap 12, Estimated GFR 59 L, BUN/Creatinine Ratio 23.3, Total Bilirubin 2.0 H, Direct Bilirubin 0.4, AST 30, ALT 25, Alkaline Phosphatase 80, Total Protein 7.3, Albumin 3.5, CBC w Diff NO MAN DIFF REQ, RBC 3.66 L, MCV 87.8, MCH 30.3, MCHC 34.5, RDW 14.5, MPV 7.6, Gran % 69.0, Lymphocytes % 14.8 L, Monocytes % 14.7 H, Eosinophils % 1.1, Basophils % 0.4, Absolute Granulocytes 5.3, Absolute Lymphocytes 1.1 L, Absolute Monocytes 1.1 H, Absolute Eosinophils 0.1, Absolute Basophils 0 08/15/17 0415: Anion Gap 12, Estimated GFR > 60, BUN/Creatinine Ratio 20.0, TSH 3.730, Free T4 1.62 08/15/17 0415: Total Bilirubin 2.1 H, Direct Bilirubin 0.5 H, AST 23, ALT 19, Alkaline Phosphatase 80, Troponin I 0.04, Total Protein 7.1, Albumin 3.4 L 08/14/17 2320: Urinalysis LIGHT H, Urine Color YEL, Urine Clarity HAZY H, Urine pH 6.0, Ur Specific [place] 1.015, Urine Protein NEG, Urine Ketones NEG, Urine Nitrite NEG, Urine Bilirubin NEG, Urine Urobilinogen 0.2, Ur Leukocyte Esterase TRACE H, Ur Microscopic SEDIMENT EXAMINED, Urine RBC 5-10 H, Urine WBC 3-5 H, Ur Epithelial Cells FEW, Urine Bacteria RARE H, Urine Hemoglobin SMALL H, Urine Glucose NEG 08/14/17 2205: Troponin I 0.01 08/14/17 1615: Anion Gap 10, Estimated GFR > 60, BUN/Creatinine Ratio 18.6, Glucose 104 H, Calcium 8.9, Total Bilirubin 2.3 H, AST 49 H, ALT 16, Alkaline Phosphatase 96, Troponin I < 0.01, Kzz-R-Vvnogfzzpxz Pept 1560 H, Total Protein 7.4, Albumin 3.6, Globulin 3.8, Albumin/Globulin Ratio 0.9 L, PT 16.8 H, INR 1.53 H, CBC w Diff NO MAN DIFF REQ, RBC 3.60 L, MCV 88.7, MCH 29.4, MCHC 33.2, RDW 15.5 H, MPV 7.2 L, Gran % 75.3 H, Lymphocytes % 12.6 L, Monocytes % 10.9 H, Eosinophils % 0.2, Basophils % 1.0, Absolute Granulocytes 5.4, Absolute Lymphocytes 0.9 L, Absolute Monocytes 0.8 H, Absolute Eosinophils 0, Absolute Basophils 0.1 Microbiology 08/14 1558 NASOPHARYN: Influenza Virus A & B Rapid Smear - COMP Recent Imaging Studies: Telemetry tracings were personally reviewed and showed atrial fibrillation with grossly controlled ventricular response rate Echocardiogram Left ventricular cavity size normal. Left ventricular wall thickness mildly to moderately increased. No obvious regional wall motion abnormalities. Left ventricular ejection fraction is estimated at > 55 %. Right ventricle not well visualized, grossly normal. Mild to moderate right atrial dilatation. Mild to moderate left atrial dilatation. Pwhw-kf-jvbsulwl tricuspid regurgitation. Unable to estimate the right ventricular systolic pressure. No pericardial effusion. Werner Nicole M.D. (Electronically Signed) Final Date: 16 August 2017 09:54 Assessment/Plan Assessment/Plan 1. Acute congestive heart failure with preserved ejection fraction most likely secondary to dietary indiscretion with excessive salt intake from canned soup. 2. Permanent atrial fibrillation on Pradaxa 3. Hypertension 4. Restless leg syndrome 5. Hyperlipidemia 6. Hypothyroidism Patient appears to be clinically improving. Encourage ambulation today. Echocardiogram as above shows preserved ejection fraction. Again discussed the importance of low-salt diet. Continue on IV Lasix and may be able to transition to oral diuretic tomorrow depending on clinical response. Blood pressure appears well-controlled. Noel Nicole MD [facility] Continue telemetry? Yes
--- NOTE | 2017-08-16 14:17 | Patient Discharge Instructions ---
Discharge Instructions General Discharge Information You were seen/treated for: CHF HTN Watch for these problems: 1. SOB 2. Chest pain Special Instructions: 1. Please follow up with your PCP in one week 2. Please follow up with your checker loader in one week. 3. please continue to follow up with the CHF clinic 4. Please continue to take your BP medications Diet Recommended Diet: Regular no added salt Activity Activity Self Limited: Yes Acute Coronary Syndrome Inclusion Criteria At DC or during hospital stay patient has or had the following: ACS DIAGNOSIS No Discharge Core Measures Meds if any: Prescribed or Continued at Discharge Meds if any: NOT Prescribed or Continued at Discharge Congestive Heart Failure Inclusion Criteria At DC or during hospital stay patient has or had the following: CHF DIAGNOSIS No Discharge Core Measures Meds if any: Prescribed or Continued at Discharge Meds if any: NOT Prescribed or Continued at Discharge Cerebrovascular accident Inclusion Criteria At DC or during hospital stay patient has or had the following: CVA/TIA Diagnosis No Discharge Core Measures Meds if any: Prescribed or Continued at Discharge Meds if any: NOT Prescribed or Continued at Discharge Venous thromboembolism Inclusion Criteria VTE Diagnosis No VTE Type NONE VTE Confirmed by (Test) NONE Discharge Core Measures - Per Current guidelines, there needs to be overlap - treatment for the first 5 days of Warfarin therapy. - If discharged on Warfarin prior to 5 days of - overlap therapy, the patient will need to be - assessed for post discharge needs including - *Post discharge parental anticoagulation - *Warfarin and/or parental anticoagulation education - *Follow up date to check INR post discharge At least 5 days overlap therapy as Inpatient No Meds if any: Prescribed or Continued at Discharge Note: Overlap Therapy is Warfarin and Anticoagulant Meds if any: NOT Prescribed or Continued at Discharge
[2017-08-16 14:30] VITALS: BP 124/74
[2017-08-16 22:31] VITALS: BP 120/70
[2017-08-17 06:46] VITALS: BP 140/80
--- NOTE | 2017-08-17 07:37 | PN- Housestaff ---
Nnamdi DONAHUE,[place] 08/17/17 0737: Subjective Follow-up For: CHF Tele-Events Since Last Visit: AFIB rate 70-80s Subjective: Saw pt at bedside this AM. She was anxious to leave. States that she feels much better today. Still did not sleep due to RLS but overall states her breathing status has much improved. Review of Systems Constitutional: Denies: chills, fever, weakness. EENTM: Reports: no symptoms. Cardiovascular: Denies: chest pain, palpitations. Respiratory: Denies: cough, short of breath. Gastrointestinal: Reports: constipation. Genitourinary: Reports: no symptoms. Musculoskeletal: Reports: no symptoms. Objective Last 24 Hrs of Vital Signs/I&O Vital Signs Date Time Temp Pulse Resp B/P B/P Pulse O2 O2 Flow FiO2 Mean Ox Delivery Rate 08/17 0830 134/76 08/17 0830 134/76 08/17 0830 134/76 08/17 0646 98.4 83 20 140/80 92 Room Air 08/16 2231 98.0 74 18 120/70 98 Room Air 08/16 1430 98.0 84 18 124/74 98 Room Air Intake & Output 08/17 1600 08/17 0800 08/17 0000 Intake Total 120 120 Output Total 600 1000 Balance -480 -880 Intake, Oral 120 120 Number Bowel Movements Output, Urine 600 1000 Patient 100.698 kg Weight Weight Bed scale Measurement Method Physical Exam General Appearance: Alert, Oriented X3, Cooperative, No Acute Distress HEENT: Atraumatic, PERRLA, EOMI Neck: Supple Cardiovascular: irregularly irregular Lungs: mucch better iar movement. slight crackle in l. lower lung field. Abdomen: Soft, No Tenderness Extremities: 2+ edema in bilat LE Current Medications: Current Medications Sig/Andrea Start time Last Medication Dose Route Stop Time Status Admin Amlodipine Besylate 5 MG DAILY 08/14 1743 AC 08/17 PO 0830 Atorvastatin Calcium 10 MG 1700 08/14 1744 AC 08/16 PO 1638 Clonazepam 0.5 MG DAILY NEEDED PRN 08/15 08 AC 08/17 PO 08/22 0759 0240 Dabigatran 150 MG BID 08/14 2100 AC 08/17 PO 0831 Escitalopram Oxalate 10 MG DAILY 08/15 0900 AC 08/17 PO 0830 Furosemide 40 MG ONE ONE 08/17 0745 DC 08/17 PO 08/17 0746 0831 Furosemide 40 MG 7:30 AM, & 4:30 PM 08/15 1630 DC 08/16 IV 1638 Gabapentin 600 MG QPM 08/14 2100 AC 08/16 PO 2056 Levothyroxine Sodium 0.05 MG DAILY AC 08/14 1745 AC 08/17 PO 0511 Losartan Potassium 50 MG DAILY 08/15 0900 AC 08/17 PO 0830 Metoprolol Succinate 50 MG DAILY 08/14 1745 AC 08/17 PO 0830 Oxymetazoline HCl 2 SPRAY BID 08/16 1320 AC 08/17 DIYA 0832 Potassium Chloride 40 MEQ ONCE ONE 08/16 1330 DC 08/16 PO 08/16 1331 1500 Ropinirole HCl 0.25 MG QPM 08/14 2099 AC 08/16 PO 2057 Timolol Maleate 1 GTT BID 08/14 2099 AC 08/17 OPH 0832 Assessment/Plan Assessment: ASSESSMENT: This is an 86 year old female with past medical history of A. fib, hypertension, hyperlipidemia, hypothyroidism, and restless leg syndrome who was BIBA to [place] ED due to worsening shortness of breath likely secondary to congestive heart failure. PLAN: #Acute exacerbation of CHF: Serial troponins and EKGs negative. * ECHO CONCLUSIONS Left ventricular cavity size normal. Left ventricular wall thickness mildly to moderately increased. No obvious regional wall motion abnormalities. Left ventricular ejection fraction is estimated at > 55 %. Right ventricle not well visualized, grossly normal. Mild to moderate right atrial dilatation. Mild to moderate left atrial dilatation. Vgom-zd-codgogmw tricuspid regurgitation. Unable to estimate the right ventricular systolic pressure. No pericardial effusion. * Ins/outs: Diuresed over 2 L yesterday * IV Lasix this AM. Switched over to PO lasix today. 40 mg this AM. * Likely D/C today #History of atrial fibrillation * Con't Pradaxa * Con't Toprol XL 50mg daily #History of hypertension and hypertensive urgency. * Con't Home meds including Amlodipine 5mg daily. * Con't Cozaar 50 mg daily * Con't Statin #History of depression/Anxiety * Con't Lexapro * Con't Clonazepam .5mg daily PRN anxiety #History of hypothyroidism * Con't synthroid #RLS: * Con't Ropinarole * Con't Gabapentin Problem List: 1. CHF exacerbation Problem List: 1. CHF exacerbation 2. Hypertension Pain Ratin Pain Location: none Pain Goal: Remain pain free Pain Plan: none Tomorrow's Labs & Rationales: none Sandeep Fischer 08/17/17 1432: Attending MD Review Statement Attending Statement Attending MD Statement: examined this patient, discuss w/resident/PA/NETWORK INTERN, agreed w/resident/PA/NETWORK INTERN, discussed with family, reviewed EMR data (avail), discussed with nursing, discussed with case mgmt, reviewed images, amended to note Attending Assessment/Plan: Patient with good clinical improvement. Po lasix 40 mg daily and can be discharged. Cardiology and PCP follolw up at discharge.
[2017-08-17] MEDS ORDERED: LASIX40 M1 PO ×2 (07:40→14:55)
[2017-08-17 08:13] LABS: ABSOLUTE BASOPHIL COUNT 0 /CUMM (0.0-0.2); ABSOLUTE EOSINOPHIL COUNT 0 /CUMM (0.0-0.7); ABSOLUTE GRANULOCYTE CT 5.3 /CUMM (1.4-6.5); ABSOLUTE LYMPH COUNT 1.3 /CUMM (1.2-3.4); ABSOLUTE MONOCYTE COUNT 1.2 /CUMM (0.10-0.60); BASOPHIL % 0.4 % (0.0-2.0); EOSINOPHIL % 0.5 % (0-5); GRANULOCYTE % 67.1 % (42.2-75.2); HEMATOCRIT 31.5 % (37-47); MEAN CORPUSCULAR HGB 29.7 PG (27.0-31.0); MEAN CORPUSCULAR HGB CONC 33.1 G/DL (33.0-37.0); MEAN CORPUSCULAR VOLUME 89.7 FL (81.0-99.0); MEAN PLATELET VOLUME 7.8 FL (7.4-10.4); PLATELET COUNT 250 /CUMM (130-400); RBC DISTRIBUTION WIDTH 14.7 % (11.5-14.5); RED BLOOD CELL CT 3.51 /CUMM (4.20-5.40); WHITE BLOOD CELL COUNT 7.8 /CUMM (4.8-10.8)
[2017-08-17 08:30] VITALS: BP 134/76
--- NOTE | 2017-08-17 12:23 | PN- Cardiology ---
Subjective Subjective: She feels quite well today. No residual dyspnea. Objective Vital Signs and I&Os Vital Signs Date Time Temp Pulse Resp B/P B/P Pulse O2 O2 Flow FiO2 Mean Ox Delivery Rate 08/17 829 134/76 08/17 0830 134/76 08/17 08 13476 08/17 0646 98.4 83 20 140/80 92 Room Air 08/16 2231 98.0 74 18 120/70 98 Room Air 08/16 1430 98.0 84 18 124/74 98 Room Air Intake & Output 08/17 1600 08/17 0808/17 0000 08/16 1600 08/16 0808/16 0000 Intake Total 120 120 525 280 554 Output Total 600 1000 1300 700 700 Balance -480 -880 -775 -420 -146 Intake, IV 25 14 Intake, Oral 120 120 500 280 540 Number Bowel Movements Output, Urine 600 1000 1300 700 700 Patient 222 lb 224 lb Weight Weight Bed scale Measurement Method Physical Exam: General: no apparent distress. Alert. Eyes: No obvious scleral icterus. HEENT: No jugular venous distention or abnormal jugular venous pulsations. Cardiovascular: Normal intensity S1/S2. Irregular Respiratory: Lungs clear to auscultation bilaterally. Abdomen: Soft, nontender with no guarding or rebound tenderness. Musculoskeletal: No clubbing or cyanosis noted; trace lower extremity edema Skin: warm Neurologic: No gross focal deficits noted. Lymph: No gross lymphadenopathy. Current Medications: Current Medications Sig/Andrea Start time Last Medication Dose Route Stop Time Status Admin Amlodipine Besylate 5 MG DAILY 08/14 174 AC 08/17 PO 08 Atorvastatin Calcium 10 MG 1700 08/14 174 AC 08/16 PO 1638 Clonazepam 0.5 MG DAILY NEEDED PRN 08/15 08 AC 08/17 PO 08/22 0759 0240 Dabigatran 150 MG BID 08/14 2099 AC 08/17 PO 0831 Escitalopram Oxalate 10 MG DAILY 08/15 09 AC 08/17 PO 0830 Furosemide 40 MG ONE ONE 08/17 0745 DC 08/17 PO 08/17 0746 0831 Furosemide 40 MG 7:30 AM, & 4:30 PM 08/15 1630 DC 08/16 IV 1638 Gabapentin 600 MG QPM 08/14 2099 AC 08/16 PO 205 Levothyroxine Sodium 0.05 MG DAILY AC 08/14 1745 AC 08/17 PO 0511 Losartan Potassium 50 MG DAILY 08/15 0900 AC 08/17 PO 0830 Metoprolol Succinate 50 MG DAILY 08/14 1745 AC 08/17 PO 0830 Oxymetazoline HCl 2 SPRAY BID 08/16 1320 AC 08/17 DIYA 0832 Potassium Chloride 40 MEQ ONCE ONE 08/16 1330 DC 08/16 PO 08/16 1331 1500 Ropinirole HCl 0.25 MG QPM 08/14 2099 AC 08/16 PO 2058 Timolol Maleate 1 GTT BID 08/14 2099 AC 08/17 OPH 0832 Results Last 48 Hrs of Labs/Mics: Laboratory Tests 08/17/17 0650: Anion Gap 12, Estimated GFR 52 L, BUN/Creatinine Ratio 27.0 H, CBC w Diff NO MAN DIFF REQ, RBC 3.51 L, MCV 89.7, MCH 29.7, MCHC 33.1, RDW 14.7 H, MPV 7.8, Gran % 67.1, Lymphocytes % 16.9 L, Monocytes % 15.1 H, Eosinophils % 0.5, Basophils % 0.4, Absolute Granulocytes 5.3, Absolute Lymphocytes 1.3, Absolute Monocytes 1.2 H, Absolute Eosinophils 0, Absolute Basophils 0 08/16/17 0738: Anion Gap 12, Estimated GFR 59 L, BUN/Creatinine Ratio 23.3, Total Bilirubin 2.0 H, Direct Bilirubin 0.4, AST 30, ALT 25, Alkaline Phosphatase 80, Total Protein 7.3, Albumin 3.5, CBC w Diff NO MAN DIFF REQ, RBC 3.66 L, MCV 87.8, MCH 30.3, MCHC 34.5, RDW 14.5, MPV 7.6, Gran % 69.0, Lymphocytes % 14.8 L, Monocytes % 14.7 H, Eosinophils % 1.1, Basophils % 0.4, Absolute Granulocytes 5.3, Absolute Lymphocytes 1.1 L, Absolute Monocytes 1.1 H, Absolute Eosinophils 0.1, Absolute Basophils 0 Recent Imaging Studies: Telemetry tracings are personally reviewed and show atrial fibrillation with controlled ventricular response rate Assessment/Plan Assessment/Plan 1. Acute congestive heart failure with preserved ejection fraction most likely secondary to dietary indiscretion with excessive salt intake from canned soup. 2. Permanent atrial fibrillation on Pradaxa 3. Hypertension 4. Restless leg syndrome 5. Hyperlipidemia 6. Hypothyroidism Patient is doing well today and denies any dyspnea. Heart rate remains well controlled. Blood pressure is also well controlled. Would continue with Lasix 40 mg p.o. daily. She should follow-up in our office within 1 week of discharge. Noel Nicole MD [facility] Continue telemetry? No
== END 2017-08-17 15:09 | disposition home health service (06) | DRG 293 ==
LOC: ERH 15:03 → ERHI 16:57 → 1NO 16:57 → ENRESERV 18:59 → ENTRNSPT 19:53 → EDTRNSPT 20:00 → EDTRNSPTSTS 20:00 → CMPTRNSPT 20:25 → 1NO 20:29 → ENPENDDIS 08-17 12:52 → ENTRNSPT 08-17 14:59 → EDTRNSPTSTS 08-17 15:06 → EDTRNSPT 08-17 15:06 → 1NO 08-17 15:09 → CMPTRNSPT 08-17 15:32
PROVIDERS: Physician Assistant; Student in an Organized Health Care Education/Training Program
DX: I11.0 Hypertensive heart disease with heart failure (principal); I48.2 Chronic atrial fibrillation; Z79.01 Long term (current) use of anticoagulants; E03.9 Hypothyroidism, unspecified; E78.5 Hyperlipidemia, unspecified; G25.81 Restless legs syndrome; F32.9 Major depressive disorder, single episode, unspecified; Z87.891 Personal history of nicotine dependence; I50.33 Acute on chronic diastolic (congestive) heart failure; F41.9 Anxiety disorder, unspecified
CPT/HCPCS: 1NP; 1NSP; 36415; 36592; 71045; 81001; 82436; 87070; 87804; 87804-59; 93005; 93010; 93306; 99291; J1940

== ENCOUNTER 2017-12-07 19:01 | Inpatient (IN) | payer OTHER, MEDICARE ==
[~2017-12-07] VITALS: Ht 165.1 cm; Wt 86.2 kg
[~2017-12-07 19:01] MED LIST changes: +LASIX40 M1 PO; +PRADAXA150 M1 PO; +REQUIP0.25 MG PO; +TIMOLOL MALEATE5 M4 OD; -TIMOLOL MALEATE5 M4 OPH
[2017-12-07 19:52] LABS: ABSOLUTE BASOPHIL COUNT 0 /CUMM (0.0-0.2); ABSOLUTE EOSINOPHIL COUNT 0 /CUMM (0.0-0.7); ABSOLUTE GRANULOCYTE CT 5.6 /CUMM (1.4-6.5); ABSOLUTE MONOCYTE COUNT 0.9 /CUMM (0.10-0.60); BASOPHIL % 0.3 % (0.0-2.0); EOSINOPHIL % 0.7 % (0-5); GRANULOCYTE % 74.2 % (42.2-75.2); HEMATOCRIT 33.9 % (37-47); MEAN CORPUSCULAR HGB 29.7 PG (27.0-31.0); MEAN CORPUSCULAR HGB CONC 33.7 G/DL (33.0-37.0); MEAN CORPUSCULAR VOLUME 88.2 FL (81.0-99.0); MEAN PLATELET VOLUME 7.2 FL (7.4-10.4); PLATELET COUNT 267 /CUMM (130-400); RBC DISTRIBUTION WIDTH 14.9 % (11.5-14.5); RED BLOOD CELL CT 3.85 /CUMM (4.20-5.40); WHITE BLOOD CELL COUNT 7.5 /CUMM (4.8-10.8)
[2017-12-07 20:03] LABS: PT 19.4 SEC (9.4-12.5); PTT 65 SEC (25-37)
--- NOTE | 2017-12-07 20:31 | ED DYSPNEA/ASTHMA COMPLAINT ---
History of Present Illness General Chief Complaint: Fall Stated Complaint: BIBA FOR FALL Source: patient, old records, EMS Exam Limitations: no limitations Allergies Coded Allergies: NO KNOWN ALLERGIES (07/04/11) Core Measure Meds Pre-Hospital pradaxa Triage Note: PT BIBA FROM HOME C/O GENERALIZED WEAKNESS FOR THE LAST 3 DAYS. EMS REPORTS SHE HAS HAD TROUBLE STANDING UP AFTER USING THE TOILET FOR THE LAST THREE DAYS AND IT WORSENED TODAY. PT OFFERS NO SPECIFIC COMPLAINTS. A&OX3. SPEAKING IN FULL COMPELTE SENTENCES. RESPIRATIONS EVEN AND NON LABORED. SKIN IS PINK, WARM AND DRY. Triage Nurses Notes Reviewed? yes Onset: 4 days Duration: day(s):, continues in ED, getting worse Timing: recent history Severity: moderate, severe Activities at Onset: activity Prior Episodes/Possible Cause: occasional episodes Modifying Factors: Improves With: rest. Worsens With: movement. Associated Symptoms: edema, loss of appetite, weakness LMP (ages 10-50): post menopausal : No Patient currently breastfeeds: No HPI: 4 days prior to admission patient complains of increasing shortness of breath with exertion continued morning sputum production and decreasing appetite. Several hours prior to admission patient was unable to get off the toilet due to weakness. She called for left assist in continued her daily activity. Prior to admission she became extremely fatigued short of breath unable to ambulate. She denies fever chills nausea vomiting diarrhea abdominal pain chest pain paroxysmal nocturnal dyspnea headache dysuria rash bleeding. (Samira DONAHUE,Brandon) General Source: patient, old records, EMS Vital Signs & Intake/Output Vital Signs & Intake/Output Vital Signs Date Time Temp Pulse Resp B/P B/P Pulse O2 O2 Flow FiO2 Mean Ox Delivery Rate 12/08 0122 92 Room Air 12/08 0012 98.4 104 26 138/68 92 Room Air 12/07 2332 98.3 88 20 158/64 94 Room Air 12/07 2118 97.6 81 20 123/88 94 Room Air 12/07 1909 Room Air 12/07 1909 97.7 78 18 137/78 95 Room Air ED Intake and Output 12/08 0000 12/07 1200 Intake Total 0 Output Total Balance 0 Intake, Oral 0 Reconcile Medications Amlodipine Besylate (Norvasc) 5 MG TABLET 1 TAB PO DAILY HYPERTENSION Atorvastatin Calcium 10 MG TABLET 1 TAB PO DAILY CHOLESTEROL (Reported) Clonazepam (Klonopin) 0.5 MG TABLET 0.5-1 TAB PO DAILY NEEDED PRN ANXIETY (Reported) Dabigatran Etexilate Mesylate (Pradaxa 150 MG) 150 MG CAPSULE 1 CAP PO BID BLOOD THINNER (Reported) Escitalopram Oxalate (Lexapro) 10 MG TABLET 1 TAB PO DAILY DEPRESSION ( Reported) Furosemide (Lasix) 40 MG TABLET 1 TAB PO ONE DIURETIC Gabapentin 300 MG CAPSULE 2 TAB PO QPM RESTLESS LEGS (Reported) Irbesartan (Avapro) 300 MG TABLET 1 TAB PO DAILY BLOOD PRESSURE (Reported) Levothyroxine Sodium (Synthroid) 50 MCG TABLET 1 TAB PO DAILY AC THYROID ( Reported) Metoprolol Succ XL (Toprol Xl) 50 MG TAB 1 TAB PO DAILY HEART (Reported) Ropinirole Hydrochloride (Requip) 0.25 MG TABLET 1 TAB PO QPM RESTLESS LEGS ( Reported) Timolol Maleate 0.5 % DROPS 1 GTT OD BID GLAUCOMA-RIGHT EYE (Reported) (Jeff Boo MD) Past History Travel History Traveled to [place] past 21 day No Medical History Any Pertinent Medical History? 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 No (Brandon Hogan MD) Medical History Neurological: restless leg syndrome Cardiovascular: AFIB, hypertension, hyperlipidemia (Jeff Boo MD) Review of Systems Review of Systems Constitutional: Reports: weakness. EENTM: Reports: no symptoms. Respiratory: Reports: see HPI, cough, short of breath, sputum production. Cardiovascular: Reports: see HPI, peripheral edema. GI: Reports: no symptoms. Genitourinary: Reports: no symptoms. Musculoskeletal: Reports: no symptoms. Skin: Reports: no symptoms. Neurological/Psychological: Reports: no symptoms. Hematologic/Endocrine: Reports: no symptoms. Immunologic/Allergic: Reports: no symptoms. All Other Systems: Reviewed and Negative (Brandon Hogan MD) Review of Systems Constitutional: Reports: see HPI. (Jeff Boo MD) Physical Exam Physical Exam General Appearance: alert, awake, moderate distress, obese Eyes: Bilateral: normal appearance, PERRL, EOMI. Ears, Nose, Throat: normal pharynx, normal ENT inspection Peripheral Pulses: 2+ carotid (R), 2+ carotid (L) Gastrointestinal: normal bowel sounds, soft, non-tender, no organomegaly Extremities: normal inspection, normal capillary refill, normal range of motion, pedal edema Neurologic/Psych: no motor/sensory deficits, awake, alert, oriented x 3, normal gait, normal mood/affect, caretaker resort II-XII nml as tested Skin: intact, normal color Lymphatic: no anterior cervical dalton Core Measures ACS in differential dx? Yes No ASA d/t Pharmacological CI CVA/TIA Diagnosis No Sepsis Present: No Sepsis Focused Exam Completed? No (Brandon Hogan MD) Physical Exam General Appearance: well developed/nourished, no apparent distress Head: atraumatic, normal appearance Neck: supple Respiratory: b/l coarse BS Cardiovascular: irregularly irregular (Ema DONAHUE,Jeff) Progress Differential Diagnosis: CHF, COPD, pneumonia Diagnostic Imaging: Viewed by Me: Radiology Read. Discussed w/RAD: Radiology Read. CXR Impression: Stable cardiomegaly with interval decrease in degree of vascular congestion. Nonspecific hazy opacification at the right lung base. Initial ED EKG: AFIB, nonspecific ST T wave chg Prior EKG: unchanged Rhythm Strip: atrial fibrillation (Brandon Hogan MD) Plan of Care: Orders Procedure Date/time Status Heart Healthy Diet 12/08 B Active TROPONIN LEVEL 12/08 0600 Active MAGNESIUM 12/08 06 Active CBC WITHOUT DIFFERENTIAL 12/08 06 Active BASIC ELECTROLYTES PLUS BUN&CR 12/08 0600 Active EKG 12/08 0600 Active LOWER RESPIRATORY CULTURE 12/08 0328 Active Weight 12/08 116 Active Teach/Educate 12/08 116 Active Pain Treatment and Response 12/08 116 Active Nutritional Intake, Monitor 12/08 116 Active Isolation 12/08 116 Active Patient Care Conference 12/08 116 Active TRC EVALUATION (GEN) 12/08 UNK Active Lab Add-on Test 12/08 UN Active PT Evaluate & Treat 12/07 2258 Active Pathway - chart 12/07 2258 Active House Staff 12/07 2258 Active Code Status 12/07 2258 Active Patient Data 12/07 2153 Active OXYGEN SETUP (GEN) 12/08 2123 Active Saline Lock 12/08 2123 Active Admit to inpatient 12/08 2123 Active Vital Signs 12/08 2123 Active Activity/Ambulation 12/08 2123 Active Code Status 12/08 2123 Complete CULTURE,URINE 12/07 2113 Active BLOOD CULTURE 12/07 2113 Active STREP PNEUMO URINARY ANTIGEN 12/07 2112 Active LEGIONELLA URINARY ANTIGEN 12/07 2112 Active B-TYPE NATRIURETIC PEP (BNP) 12/07 1944 Complete PARTIAL THROMBOPLASTIN TIME 12/07 194 Complete PROTHROMBIN TIME 12/07 1941 Complete URINALYSIS 12/07 1928 Complete TSH REFLEX 12/07 1928 Complete TROPONIN LEVEL 12/07 1928 Complete MAGNESIUM 12/07 1928 Complete COMPREHENSIVE METABOLIC PANEL 12/07 1928 Complete CBC WITHOUT DIFFERENTIAL 12/07 1928 Complete EKG 12/07 1928 Active Intake & Output 12/07 190 Active VTE Mechanical Prophylaxis 12/07 UNK Active Telemetry/Crane Mechanic 12/07 UNK Active Current Medications Sig/Andrea Start time Last Medication Dose Stop Time Status Admin Gabapentin 600 MG QPM 12/08 2100 AC (Neurontin) Ropinirole HCl 0.25 MG AT BEDTIME 12/08 2100 AC (Requip 0.5MG) Atorvastatin Calcium 10 MG 1700 12/08 1700 AC (Lipitor) Amlodipine Besylate 5 MG DAILY 12/08 09 AC (Norvasc) Dabigatran 150 MG BID 12/08 09 AC (PRADAXA) Enoxaparin Sodium 40 MG DAILY 12/08 09 CAN (Lovenox) Escitalopram Oxalate 10 MG DAILY 12/08 09 AC (Lexapro) Furosemide 40 MG DAILY 12/08 09 UNVr (Lasix) Losartan Potassium 50 MG DAILY 12/08 09 AC (Cozaar) Metoprolol Succinate 50 MG DAILY 12/08 09 AC (Toprol Xl) Timolol Maleate 1 GTT BID 12/08 09 AC (Timoptic) Levothyroxine Sodium 0.05 MG DAILY AC 12/08 07 AC (Synthroid) Potassium Chloride 60 MEQ ONCE ONE 12/08 06 UNVr (K-Dur) 12/08 06 Clonazepam 0.5 MG DAILY NEEDED PRN 12/07 2314 AC (KlonoPIN) 12/14 2313 Acetaminophen 650 MG Q6P PRN 12/07 2299 AC (Tylenol) Laboratory Tests 12/07/172113: Urinalysis LIGHT H, Urine Color YEL, Urine Clarity HAZY H, Urine pH 6.0, Ur Specific Wallace 1.020, Urine Protein NEG, Urine Ketones NEG, Urine Nitrite NEG, Urine Bilirubin NEG, Urine Urobilinogen 0.2, Ur Leukocyte Esterase LARGE H, Ur Microscopic SEDIMENT EXAMINED, Urine RBC 1-3, Urine WBC 25-50 H, Ur Epithelial Cells MOD H, Urine Bacteria MOD H, Urine Hemoglobin MOD H, Urine Glucose NEG 12/07/171944: Anion Gap 10, Estimated GFR 52 L, BUN/Creatinine Ratio 23.0, Glucose 120 H, Calcium 9.3, Magnesium 2.1, Total Bilirubin 1.4 H, AST 45 H, ALT 22, Alkaline Phosphatase 87, Troponin I 0.02, [id number]-M-[id number] Pept 1110 H, Total Protein 7.5, Albumin 3.8, Globulin 3.7, Albumin/Globulin Ratio 1.0 L, TSH &T3 &Free T4 Intrp 2.460, PT 19.4 H, INR 1.77 H, APTT 65 H, CBC w Diff NO MAN DIFF REQ, RBC 3.85 L, MCV 88.2, MCH 29.7, MCHC 33.7, RDW 14.9 H, MPV 7.2 L, Gran % 74.2 , Lymphocytes % 13.2 L, Monocytes % 11.6 H, Eosinophils % 0.7, Basophils % 0.3 , Absolute Granulocytes 5.6, Absolute Lymphocytes 1.0 L, Absolute Monocytes 0.9 H, Absolute Eosinophils 0, Absolute Basophils 0 12/07/171941: [id number]-A-Cpllqtwmexg Pept Cancelled Microbiology 12/09 327 LOWER RESP: Respiratory Culture - COLB 12/09 327 LOWER RESP: Gram Stain - COLB 12/07 2149 BLOOD: Blood Culture - RECD 12/08 2139 BLOOD: Blood Culture - RECD 12/07 2113 URINE ROUT: Urine Culture - RECD 12/07 2112 URINE ROUT: Legionella Antigen - RECD 12/07 2112 URINE ROUT: Streptococcus pneumoniae Antigen (M - RECD (Jeff Boo MD) Departure Departure Disposition: STILL A PATIENT Condition: Fair Clinical Impression Primary Impression: Pneumonia Secondary Impressions: CHF (congestive heart failure), Chronic atrial fibrillation, UTI (urinary tract infection) Referrals: Tate Jose DONAHUE (PCP/Family) Departure Forms: Customer Survey General Discharge Information Admission Note Spoke With: Jeff Boo MD Documentation of Exam: Documentation of any treatments & extenuating circumstances including Concerns Regarding Discharge (functional status, medication knowledge or non-compliance, living conditions, etc.) that warrant an admission rather than observation: Supplemental oxygen medication adjustment follow cultures IV antibiotics IV diuresis telemetry physical therapy cardiology evaluation continuing care discharge planning (Brandon Hogan MD) Critical Care Note Critical Care Note Critical Care Time: non-applicable (Brandon Hogan MD) ED Attending Observation Initial Observation Note: I have seen and personally examined JONI ALFORD on 12/08/17 at 0311. I agree with the current emergency department documentation. The disposition (admission or discharge) is uncertain at this time, she needs a period of observation for the following reason(s): The ED Nurse caring for this patient has been personally informed as to what the patient is being observed for. weakness (Jeff Boo MD) Attending MD Statement Pt examined & info reviewed Yes Agree w/findings/assess/plan Yes Additions/Exceptions to plan This Patient is an 87-year-old female with a significant past medical history for A. fib, hypertension, hyperlipidemia, hypothyroidism, and CHF who was brought in by ambulance after activating her life alert system due to inability to stand up off the toilet. Patient was in her normal state of health and activity until 3 days prior to admission when she began to notice increasing shortness of breath going up stairs and rising from seated position. On arrival at the ED the patient was found to have an irreg irreg heart rhythm, UA positive , hypokalemia 3.3, BUN 23, AST 45, BNP 1110, EKG - Afib with variable rate 60s- 100s, CXR - Stable cardiomegaly with interval decrease in degree of vascular congestion and Nonspecific hazy opacification at the right lung base. The patient will be placed in OBS telemetry floor for s/p fall/syncope, afib, hypokalemia and possible UTI. Monitor on Tele, hold abx, and replace K+. FULL CODE. Documenting Attending Jeff Boo MD (Jeff Boo MD)
[2017-12-07] MEDS ORDERED: LEVOTHYROXINE50 MCG PO (21:02)
--- NOTE | 2017-12-07 21:11 | RADIOLOGY REPORT ---
EXAMINATION: CHEST 1 VIEW CLINICAL INFORMATION: Dyspnea. Shortness of breath. COMPARISON: 08/14/2017. TECHNIQUE: An AP view of the chest is provided. FINDINGS: The cardiac silhouette is prominent, though stable. There is increased interstitial prominence, though decreased from prior exam. There is nonspecific patchy opacification at the right lung base. The osseous structures are stable. IMPRESSION: Stable cardiomegaly with interval decrease in degree of vascular congestion. Nonspecific hazy opacification at the right lung base. Recommendation is for a followup chest series to be obtained following treatment and/or resolution of symptoms to assure resolution of this appearance.
--- NOTE | 2017-12-07 21:44 | History & Physical ---
Gray Pardo 12/07/17 3453: General Information and HPI MD Statement: I have seen and personally examined JONI ALFORD and documented this H&P. The patient is a 87 year old F who presented with a patient stated chief complaint of BIBA FOR WEAKNESS AND SHORTNESS OF BREATH, ACTIVATED LIFEALERT. Source of Information: patient Exam Limitations: no limitations History of Present Illness: Patient is an 87-year-old female past medical history of A. fib, hypertension, hyperlipidemia, hypothyroidism, and CHF who was brought in by ambulance after activating her life alert system due to inability to stand up off the toilet. Patient was in her normal state of health and activity until 3 days ago, at which point she began to notice increasing shortness of breath going up stairs and rising from seated position. Patient denies chest pain or headaches during this time. On arrival at the ED the patient was found to have Afib with variable rate 60s-100s, a UA suggestive of infection, and a consolidation in her right lower lung. Notably, no leukocytosis. Allergies/Medications Allergies: Coded Allergies: NO KNOWN ALLERGIES (07/04/11) Home Med list Amlodipine Besylate (Norvasc) 5 MG TABLET 1 TAB PO DAILY HYPERTENSION Atorvastatin Calcium 10 MG TABLET 1 TAB PO DAILY CHOLESTEROL (Reported) Clonazepam (Klonopin) 0.5 MG TABLET 0.5-1 TAB PO DAILY NEEDED PRN ANXIETY (Reported) Dabigatran Etexilate Mesylate (Pradaxa 150 MG) 150 MG CAPSULE 1 CAP PO BID BLOOD THINNER (Reported) Escitalopram Oxalate (Lexapro) 10 MG TABLET 1 TAB PO DAILY DEPRESSION ( Reported) Furosemide (Lasix) 40 MG TABLET 1 TAB PO ONE DIURETIC Gabapentin 300 MG CAPSULE 2 TAB PO QPM RESTLESS LEGS (Reported) Irbesartan (Avapro) 300 MG TABLET 1 TAB PO DAILY BLOOD PRESSURE (Reported) Levothyroxine Sodium (Synthroid) 50 MCG TABLET 1 TAB PO DAILY AC THYROID ( Reported) Metoprolol Succ XL (Toprol Xl) 50 MG TAB 1 TAB PO DAILY HEART (Reported) Ropinirole Hydrochloride (Requip) 0.25 MG TABLET 1 TAB PO QPM RESTLESS LEGS ( Reported) Timolol Maleate 0.5 % DROPS 1 GTT OD BID GLAUCOMA-RIGHT EYE (Reported) Compliance With Home Meds: GOOD Past History Travel History Traveled to [place] past 21 day No Medical History Neurological: restless leg syndrome EENT: NONE Cardiovascular: AFIB, hypertension, hyperlipidemia Respiratory: NONE Gastrointestinal: NONE Hepatic: NONE Renal: NONE Musculoskeletal: NONE Psychiatric: NONE Endocrine: hypothyroidism Blood Disorders: NONE Cancer(s): NONE RUG REPAIRER/Reproductive: NONE History of MRSA: No History of VRE: No History of CDIFF: No Surgical History Surgical History: non-contributory Past Family/Social History Psychosocial History Who Do You Live With? self Services at Home: None Primary Language: French Smoking Status: Former Smoker ETOH Use: occasional use Illicit Drug Use: denies illicit drug use Functional Ability ADLs Independent: dressing, eating, toileting, bathing. Ambulation: independent Review of Systems Review of Systems Constitutional: Reports: weakness. Denies: chills, fever, malaise, unexplained weight loss. EENTM: Reports: no symptoms. Cardiovascular: Denies: chest pain, edema, orthopena, peripheral edema, syncope. Respiratory: Reports: short of breath. GI: Reports: no symptoms. Genitourinary: Reports: no symptoms. Musculoskeletal: Reports: no symptoms. Skin: Reports: no symptoms. Neurological/Psychological: Reports: no symptoms. Exam & Diagnostic Data Last 24 Hrs of Vital Signs/I&O Vital Signs Date Time Temp Pulse Resp B/P B/P Pulse O2 O2 Flow FiO2 Mean Ox Delivery Rate 12/08 0122 92 Room Air 12/08 0012 98.4 104 26 138/68 92 Room Air 12/07 2332 98.3 88 20 158/64 94 Room Air 12/07 2118 97.6 81 20 123/88 94 Room Air 12/07 191 Room Air 12/07 1909 97.7 78 18 137/78 95 Room Air Intake & Output 12/08 0800 12/08 0000 12/07 1600 Intake Total 0 Output Total Balance 0 Intake, Oral 0 Patient 216 lb Weight Weight Bed scale Measurement Method Physical Exam General Appearance Alert, Oriented X3, Cooperative, No Acute Distress Skin No Rashes, No Breakdown, No Significant Lesion Skin Temp/Moisture Exam: Warm/Dry HEENT Atraumatic, PERRLA, EOMI, Mucous Membr. moist/pink Neck Supple, No JVD, No thryomegaly Lymphatic Cervical nl Cardiovascular Regular Rate, Normal S1, Normal S2, No Murmurs, Gallops, Rubs Lungs decreased air movement upper left lobe; fine crackles right middle and lower lobe Abdomen Normal Bowel Sounds, Soft, No Tenderness, No Hepatospenomegaly Neurological Normal Speech, Strength at 5/5 X4 Ext, Normal Tone, Sensation Intact Extremities No Clubbing, No Cyanosis, No Edema Last 24 Hrs of Labs/Nader: Laboratory Tests 12/07/172113: Urinalysis LIGHT H, Urine Color YEL, Urine Clarity HAZY H, Urine pH 6.0, Ur Specific [place] 1.020, Urine Protein NEG, Urine Ketones NEG, Urine Nitrite NEG, Urine Bilirubin NEG, Urine Urobilinogen 0.2, Ur Leukocyte Esterase LARGE H, Ur Microscopic SEDIMENT EXAMINED, Urine RBC 1-3, Urine WBC 25-50 H, Ur Epithelial Cells MOD H, Urine Bacteria MOD H, Urine Hemoglobin MOD H, Urine Glucose NEG 12/07/171944: Anion Gap 10, Estimated GFR 52 L, BUN/Creatinine Ratio 23.0, Glucose 120 H, Calcium 9.3, Magnesium 2.1, Total Bilirubin 1.4 H, AST 45 H, ALT 22, Alkaline Phosphatase 87, Troponin I 0.02, Mvg-H-Mkyipraxtdi Pept 1110 H, Total Protein 7.5, Albumin 3.8, Globulin 3.7, Albumin/Globulin Ratio 1.0 L, TSH &T3 &Free T4 Intrp 2.460, PT 19.4 H, INR 1.77 H, APTT 65 H, CBC w Diff NO MAN DIFF REQ, RBC 3.85 L, MCV 88.2, MCH 29.7, MCHC 33.7, RDW 14.9 H, MPV 7.2 L, Gran % 74.2 , Lymphocytes % 13.2 L, Monocytes % 11.6 H, Eosinophils % 0.7, Basophils % 0.3 , Absolute Granulocytes 5.6, Absolute Lymphocytes 1.0 L, Absolute Monocytes 0.9 H, Absolute Eosinophils 0, Absolute Basophils 0 12/07/171941: Qoz-C-Hlatkmfwtdl Pept Cancelled Microbiology 12/07 2149 BLOOD: Blood Culture - RECD 12/08 2139 BLOOD: Blood Culture - RECD Diagnostic Data EKG Results Afib with variable rate 60s-100s CXR Results Stable cardiomegaly with interval decrease in degree of vascular congestion. Nonspecific hazy opacification at the right lung base. Assessment/Plan Assessment: 87 year old woman w/ PMH of Afib, HTN, HLD, hypothyroidism and CHF who was brought in by ambulance following three days of increasing weakness and shortness of breath. Problem list/plan: Shortness of breath/weakness -Blood cx sent UA results -Conservatively not treating asymptomatic bacteruria at this time Chronic conditions - Afib, HTN, HLD, hypothyroid, glaucoma -continue home medications DVT prophylaxis - patient is on Pradexa, provide ALPS Heart healthy diet Patient is full code As Ranked By This Provider Problem List: 1. Dyspnea 2. Hypertension 3. Hyperlipidemia 4. Hypothyroid 5. Glaucoma Core Measures/Misc (01/08) Acute Coronary Syndrome ACS Diagnosis: No Congestive Heart Failure Congestive Heart Failure Diagnosis Yes Last Known EF % 55 Sepsis (View protocol) Sepsis Present: No If YES complete Sepsis Event Note If YES complete Sepsis Event Note Jefe Mendez MD 12/08/17 0305: General Information and HPI MD Statement: I have seen and personally examined JONI ALFORD and documented this H&P. The patient is a 87 year old F who presented with a patient stated chief complaint of weakness and progressive exertional dyspnea. Source of Information: patient, old records Exam Limitations: no limitations History of Present Illness: 87 year old female with PMH significant for atrial fibrillation on Pradaxa, HTN, HLD, hypothyroidism, HFpEF, anxiety/depression, and restless legs syndrome last admitted in 07/2017 for CHF exacerbation and dyspnea which improved after diuresis was BIBA to ED with complaints of progressive exertional dyspnea and weakness for the past week. After her last discharge, her dyspnea improved and she was back her baseline. She has never required home oxygen and she lives alone. She has a 40 pack year smoking history but quit in 1985. Over the past week she has noticed increasing exertional dyspnea. She normally is able to walk up her flight of stairs at home without great difficulty but has noticed significant dyspnea on the stairs and over the course of the past week was unable to climb the stairs. She has had no sick contacts, fevers, chills, sore throat, nausea, vomiting, diarrhea, urinary frequency, or dysuria. She does have chronic sinus congestion, post nasal drip, and cough productive of clear sputum mostly in the morning, which have not changed recently. She is compliant with her medications and home and denies any significant changes in weight, increased salt intake, or lower extremity edema. Today she was unable to gather the strength to stand from her chair and activated her life alert and was brought to the emergency department. In the ED, she was afebrile, rate controlled afib, normotensive and saturating well on room air. She had no leukocytosis. Her labs were only notable for a mild anemia, hypokalemia, minimally elevated AST and bilirubin. Her proBNP was 1,100 which is not significantly elevated for her age. Her thyroid function was normal. Her urinalysis had pyuria and leukocyte esterase and her chest x-ray showed a hazy opacity in the right lower lobe. She was admitted to telemetry to evaluate for heart failure, tachyarrhythmia, and myocardial infarction in the setting of possible pneumonia and exertional dyspnea. Allergies/Medications Compliance With Home Meds: GOOD Past History Travel History Traveled to [place] past 21 day No Medical History Neurological: restless leg syndrome Cardiovascular: AFIB, diastolic CHF, hypertension, hyperlipidemia Surgical History Surgical History: non-contributory Past Family/Social History Family History Relations & Conditions if any Relation not specified for: *No pertinent family history Psychosocial History Services at Home: None Primary Language: French Smoking Status: Former Smoker ETOH Use: denies use Illicit Drug Use: denies illicit drug use Functional Ability ADLs Independent: dressing, eating, toileting, bathing. Ambulation: independent Review of Systems Review of Systems Constitutional: Reports: malaise, weakness. Denies: chills, fever. EENTM: Reports: no symptoms. Cardiovascular: Denies: chest pain, edema, orthopena, peripheral edema, syncope. Respiratory: Reports: cough, short of breath, sputum production. GI: Denies: abdominal pain, diarrhea, nausea, vomiting. Genitourinary: Denies: dysuria, frequency. Musculoskeletal: Reports: no symptoms. Skin: Reports: no symptoms. Neurological/Psychological: Reports: no symptoms. Exam & Diagnostic Data Last 24 Hrs of Vital Signs/I&O Vital Signs Date Time Temp Pulse Resp B/P B/P Pulse O2 O2 Flow FiO2 Mean Ox Delivery Rate 12/08 0122 92 Room Air 12/08 0012 98.4 104 26 138/68 92 Room Air 12/07 2332 98.3 88 20 158/64 94 Room Air 12/07 2118 97.6 81 20 123/88 94 Room Air 08/16 1910 Room Air 08/16 1910 97.7 78 18 137/78 95 Room Air Intake & Output 12/08 0800 12/08 0000 12/07 1600 Intake Total 0 Output Total Balance 0 Intake, Oral 0 Patient 97.976 kg Weight Weight Bed scale Measurement Method Physical Exam General Appearance Alert, Oriented X3, Cooperative, No Acute Distress Neck Supple, No JVD Cardiovascular Normal S1, Normal S2, No Murmurs, irregular rhythm, normal rate Lungs end inspiratory crackles right base Abdomen Normal Bowel Sounds, Soft, No Tenderness, No Hepatospenomegaly Neurological Normal Speech, Normal Tone, Cranial Nerves 3-12 NL Extremities No Clubbing, No Cyanosis, No Edema Last 24 Hrs of Labs/Nader: Laboratory Tests 12/07/172113: Urinalysis LIGHT H, Urine Color YEL, Urine Clarity HAZY H, Urine pH 6.0, Ur Specific [place] 1.020, Urine Protein NEG, Urine Ketones NEG, Urine Nitrite NEG, Urine Bilirubin NEG, Urine Urobilinogen 0.2, Ur Leukocyte Esterase LARGE H, Ur Microscopic SEDIMENT EXAMINED, Urine RBC 1-3, Urine WBC 25-50 H, Ur Epithelial Cells MOD H, Urine Bacteria MOD H, Urine Hemoglobin MOD H, Urine Glucose NEG 12/07/171944: Anion Gap 10, Estimated GFR 52 L, BUN/Creatinine Ratio 23.0, Glucose 120 H, Calcium 9.3, Magnesium 2.1, Total Bilirubin 1.4 H, AST 45 H, ALT 22, Alkaline Phosphatase 87, Troponin I 0.02, Gwt-J-Ulxejvtdrzy Pept 1110 H, Total Protein 7.5, Albumin 3.8, Globulin 3.7, Albumin/Globulin Ratio 1.0 L, TSH &T3 &Free T4 Intrp 2.460, PT 19.4 H, INR 1.77 H, APTT 65 H, CBC w Diff NO MAN DIFF REQ, RBC 3.85 L, MCV 88.2, MCH 29.7, MCHC 33.7, RDW 14.9 H, MPV 7.2 L, Gran % 74.2 , Lymphocytes % 13.2 L, Monocytes % 11.6 H, Eosinophils % 0.7, Basophils % 0.3 , Absolute Granulocytes 5.6, Absolute Lymphocytes 1.0 L, Absolute Monocytes 0.9 H, Absolute Eosinophils 0, Absolute Basophils 0 12/07/171941: Nfp-U-Odolrzbbgmw Pept Cancelled Microbiology 12/07 2149 BLOOD: Blood Culture - RECD 12/08 2139 BLOOD: Blood Culture - RECD Diagnostic Data EKG Results afib HR < 100 CXR Results The cardiac silhouette is prominent, though stable. There is increased interstitial prominence, though decreased from prior exam. There is nonspecific patchy opacification at the right lung base. The osseous structures are stable. Assessment/Plan Assessment: 87 year old female with PMH significant for atrial fibrillation on Pradaxa, HTN, HLD, hypothyroidism, HFpEF, anxiety/depression, and restless legs syndrome last admitted in 07/2017 for CHF exacerbation and dyspnea which improved after diuresis was BIBA to ED with complaints of progressive exertional dyspnea and weakness for the past week. Exertional dyspnea: Admitted with diagnosis of pneumonia although afebrile no leukocytosis or significant cough Chest x-ray shows RLL hazy opacity, consider PA and lateral tomorrow TRC evaluation, no supplemental oxygen requirement at this time Received ceftriaxone and azithromycin in the ED Follow up blood cultures, check urinary legionella and strep pneumo antigens Doesn't appear hypervolemic, proBNP not significantly elevated Continue home dose of furosemide, replete potassium Urinalysis is positive but patient is currently asymptomatic, follow up culture Afib: Currently rate controlled on metoprolol Continue pradaxa Consider cardiology consultation Repeat troponin and EKG in the AM to evaluate for myocardial ischemia Weakness: PT evaluation Hypothyroidism: TSH wnl Continue synthroid 50mcg HTN: Continue norvasc, metoprolol, lasix, and losartan HLD: Continue statin Restless leg syndrome: Continue ropirinole and gabapentin Anxiety/Depression: Continue lexapro and clonazepam prn Heart healthy diet DVT ppx-pradaxa Full code As Ranked By This Provider Problem List: 1. Hyperlipidemia 2. Glaucoma 3. Hypothyroid 4. Hypertension 5. Pneumonia 6. CHF exacerbation 7. Dyspnea Core Measures/Misc (01/08) Acute Coronary Syndrome ACS Diagnosis: No Congestive Heart Failure Congestive Heart Failure Diagnosis No Cerebrovascular Accident CVA/TIA Diagnosis: No VTE (View Protocol) VTE Risk Factors Age>40 No Mechanical VTE Prophylaxis d/t N/A MechProphylax Ordered No VTE Pharm Prophylaxis d/t NA PharmProphylax ordered Sepsis (View protocol) Sepsis Present: No If YES complete Sepsis Event Note If YES complete Sepsis Event Note
[2017-12-08 00:12] VITALS: BP 138/68
[2017-12-08 06:57] VITALS: BP 132/68
--- NOTE | 2017-12-08 07:19 | PN- Housestaff ---
DelfinasergioEdwin 12/08/17 0718: Subjective Follow-up For: Weakness SOB Subjective: Per telemetry patient was A. fib 81-88 last. Per nursing there were no events. Patient is complaining of weakness but seems to be more in the nature of regular aging. Today she stated she needs 2 hands to lift up her cereal bowl. Otherwise patient has no other complaints. Review of Systems Constitutional: Reports: see HPI. Objective Last 24 Hrs of Vital Signs/I&O Vital Signs Date Time Temp Pulse Resp B/P B/P Pulse O2 O2 Flow FiO2 Mean Ox Delivery Rate 12/08 1436 98.2 91 18 144/86 90 Room Air 12/08 1136 Room Air 12/08 1025 82 130/64 12/08 1024 82 130/64 12/08 1024 82 130/64 12/08 0657 98.1 92 24 132/68 92 12/08 0122 92 Room Air 12/08 0012 98.4 104 26 138/68 92 Room Air 12/07 2332 98.3 88 20 158/64 94 Room Air 12/07 2119 97.6 81 20 123/88 94 Room Air 12/07 1910 Room Air 12/07 1910 97.7 78 18 137/78 95 Room Air Intake & Output 12/08 1600 12/08 0800 12/08 0000 Intake Total 0 Output Total 550 Balance -550 0 Intake, Oral 0 Output, Urine 550 Patient 216 lb Weight Weight Bed scale Measurement Method Physical Exam General Appearance: Alert, Cooperative, No Acute Distress HEENT: Atraumatic, EOMI, Normocephalic Neck: Supple Cardiovascular: Normal S1, Normal S2, Irregular rhythm Lungs: Clear to Auscultation Abdomen: Normal Bowel Sounds, Soft, No Tenderness Extremities: No Edema Vascular: Normal Pulses Current Medications: Current Medications Sig/Andrea Start time Last Medication Dose Route Stop Time Status Admin Acetaminophen 650 MG Q6P PRN 12/07 2300 AC PO Amlodipine Besylate 5 MG DAILY 12/08 0900 AC 12/08 PO 1024 Atorvastatin Calcium 10 MG 1700 12/08 1700 AC PO Azithromycin 500 MG ONCE ONE 12/07 2114 DC 12/07 Sodium Chloride 250 ML IV 12/07 Ceftriaxone Sodium 0 .STK-MED ONE 12/07 2120 DC .ROUTE Ceftriaxone Sodium 1,000 MG ONCE ONE 12/07 2114 DC 12/07 IV 12/07 Clonazepam 0.5 MG DAILY NEEDED PRN 12/07 2315 AC PO 12/14 231 Dabigatran 150 MG BID 12/08 0900 AC 12/08 PO 1028 Enoxaparin Sodium 40 MG DAILY 12/08 0900 CAN SC Escitalopram Oxalate 10 MG DAILY 12/08 0900 AC 12/08 PO 1025 Furosemide 40 MG DAILY 12/08 0900 AC 12/08 PO 1025 Furosemide 0 .STK-MED ONE 12/08 0040 DC PO Furosemide 40 MG ONE ONE 12/07 2315 DC 12/08 PO 12/07 2316 0051 Gabapentin 600 MG QPM 12/08 2100 AC PO Levothyroxine Sodium 0.05 MG DAILY AC 12/08 0700 AC 12/08 PO 0535 Losartan Potassium 50 MG DAILY 12/08 0900 AC 12/08 PO 1025 Metoprolol Succinate 50 MG DAILY 12/08 0900 AC 12/08 PO 1024 Nystatin 1 JAMSHID BID 12/08 09 AC 12/08 TOP 1025 Potassium Chloride 60 MEQ ONCE ONE 12/08 0600 DC 12/08 PO 12/08 0601 0536 Potassium Chloride 0 .STK-MED ONE 12/08 0536 DC PO Ropinirole HCl 0.25 MG AT BEDTIME 12/08 2100 AC PO Timolol Maleate 1 GTT BID 12/08 0900 AC 12/08 OPH 1020 Last 24 Hrs of Lab/Nader Results Last 24 Hrs of Labs/Mics: Laboratory Tests 12/08/17 0643: Anion Gap 10, Estimated GFR 59 L, BUN/Creatinine Ratio 22.2, Magnesium 1.9, Troponin I 0.03, CBC w Diff NO MAN DIFF REQ, RBC 4.14 L, MCV 88.2, MCH 30.0, MCHC 34.0, RDW 15.4 H, MPV 8.4, Gran % 71.0, Lymphocytes % 15.8 L, Monocytes % 11.8 H, Eosinophils % 1.1, Basophils % 0.3, Absolute Granulocytes 5.8, Absolute Lymphocytes 1.3, Absolute Monocytes 1.0 H, Absolute Eosinophils 0.1, Absolute Basophils 0 12/07/172113: Urinalysis LIGHT H, Urine Color YEL, Urine Clarity HAZY H, Urine pH 6.0, Ur Specific [place] 1.020, Urine Protein NEG, Urine Ketones NEG, Urine Nitrite NEG, Urine Bilirubin NEG, Urine Urobilinogen 0.2, Ur Leukocyte Esterase LARGE H, Ur Microscopic SEDIMENT EXAMINED, Urine RBC 1-3, Urine WBC 25-50 H, Ur Epithelial Cells MOD H, Urine Bacteria MOD H, Urine Hemoglobin MOD H, Urine Glucose NEG 12/07/171944: Anion Gap 10, Estimated GFR 52 L, BUN/Creatinine Ratio 23.0, Glucose 120 H, Calcium 9.3, Magnesium 2.1, Total Bilirubin 1.4 H, AST 45 H, ALT 22, Alkaline Phosphatase 87, Troponin I 0.02, Aam-Y-[place] Pept 1110 H, Total Protein 7.5, Albumin 3.8, Globulin 3.7, Albumin/Globulin Ratio 1.0 L, TSH &T3 &Free T4 Intrp 2.460, PT 19.4 H, INR 1.77 H, APTT 65 H, CBC w Diff NO MAN DIFF REQ, RBC 3.85 L, MCV 88.2, MCH 29.7, MCHC 33.7, RDW 14.9 H, MPV 7.2 L, Gran % 74.2 , Lymphocytes % 13.2 L, Monocytes % 11.6 H, Eosinophils % 0.7, Basophils % 0.3 , Absolute Granulocytes 5.6, Absolute Lymphocytes 1.0 L, Absolute Monocytes 0.9 H, Absolute Eosinophils 0, Absolute Basophils 0 12/07/171941: Pwh-R-Rtunhmhixig Pept Cancelled Microbiology 12/08 0700 LOWER RESP: Respiratory Culture - CAN Cancelled: NUMBER OF SQUAMOUS CELLS INDICATES POOR QUALITY SPECIMEN 12/08 0700 LOWER RESP: Gram Stain - CAN Cancelled: NUMBER OF SQUAMOUS CELLS INDICATES POOR QUALITY SPECIMEN 12/07 2149 BLOOD: Blood Culture - RES 12/08 2139 BLOOD: Blood Culture - RES 12/07 2113 URINE ROUT: Urine Culture - RECD 12/07 2112 URINE ROUT: Legionella Antigen - RECD 12/07 2112 URINE ROUT: Streptococcus pneumoniae Antigen (M - RECD Assessment/Plan Assessment: 87 year old female with PMH significant for atrial fibrillation on Pradaxa, HTN, HLD, hypothyroidism, HFpEF, anxiety/depression, and restless legs syndrome last admitted in 07/2017 for CHF exacerbation and dyspnea which improved after diuresis was BIBA to ED with complaints of progressive exertional dyspnea and weakness for the past week. Exertional dyspnea: - Admitted with diagnosis of pneumonia although afebrile no leukocytosis or significant cough - Chest x-ray shows RLL hazy opacity, consider PA and lateral tomorrow - TRC evaluation, no supplemental oxygen requirement at this time - Received ceftriaxone and azithromycin in the ED - Follow up blood cultures, check urinary legionella and strep pneumo antigens - Continue home dose furosemide - Replete potassium (today K 3.3) Afib: - Currently rate controlled on metoprolol - Continue pradaxa - Trops negative - Repeat echo per cardiology Weakness: - PT eval Hypothyroidism: - TSH wnl - Continue synthroid 50mcg HTN: - Continue norvasc, metoprolol, lasix, and losartan HLD: - Continue statin Restless leg syndrome: - Continue ropirinole and gabapentin Anxiety/Depression: - Continue lexapro and clonazepam prn Heart healthy diet DVT ppx-pradaxa Full code Problem List: 1. CHF (congestive heart failure) Pain Ratin Pain Location: NA Pain Goal: Remain pain free Pain Plan: NA Tomorrow's Labs & Rationales: CBC BRICEP Dee DONAHUE,Ruth 12/08/17 1015: Attending MD Review Statement Attending Statement Attending MD Statement: examined this patient, discuss w/resident/PA/SOFTWARE RELIABILITY ENGINEER, agreed w/resident/PA/SOFTWARE RELIABILITY ENGINEER, reviewed EMR data (avail), discussed with nursing, discussed with case mgmt, reviewed images Attending Assessment/Plan: 87-year-old female past medical history of atrial fibrillation on Pradaxa, chronic diastolic heart failure on Lasix and hypertension who is here with complaints of weakness for the past 3 days. She was so weak that she could not get up from the bathroom. The etiology of weakness is unclear. She was hypokalemic and although her chest x-ray shows vascular congestion is better than before. I do not think she is acutely fluid overloaded. I also think she has asymptomatic bacteriuria. Will need to see what cardiology says, PT grabiel and follow closely.
[2017-12-08 08:07] LABS: ABSOLUTE BASOPHIL COUNT 0 /CUMM (0.0-0.2); ABSOLUTE EOSINOPHIL COUNT 0.1 /CUMM (0.0-0.7); ABSOLUTE GRANULOCYTE CT 5.8 /CUMM (1.4-6.5); ABSOLUTE LYMPH COUNT 1.3 /CUMM (1.2-3.4); BASOPHIL % 0.3 % (0.0-2.0); EOSINOPHIL % 1.1 % (0-5); HEMATOCRIT 36.5 % (37-47); MEAN CORPUSCULAR VOLUME 88.2 FL (81.0-99.0); MEAN PLATELET VOLUME 8.4 FL (7.4-10.4); PLATELET COUNT 249 /CUMM (130-400); RBC DISTRIBUTION WIDTH 15.4 % (11.5-14.5); RED BLOOD CELL CT 4.14 /CUMM (4.20-5.40); WHITE BLOOD CELL COUNT 8.2 /CUMM (4.8-10.8)
--- NOTE | 2017-12-08 12:38 | Cons- Cardiology ---
General Information and HPI Consulting Request Date of Consult: 12/08/17 Requested By: Ruth Price MD Reason for Consult: fatigue Source of Information: patient, old records Exam Limitations: no limitations History of Present Illness: 87-year-old female past medical history paroxysmal atrial fibrillation on Pradaxa, diastolic heart failure, hypertension presented with complaints of weakness for 3 days. She denies chest pain, palpitations, dyspnea at rest, PND/ orthopnea, lower extremity swelling. She denies increased fluid intake, fever/ chills, cough, diarrhea/constipation, abdominal pain, dysuria. She has been compliant with her medications. Allergies/Medications Allergies: Coded Allergies: NO KNOWN ALLERGIES (07/04/11) Home Med List: Amlodipine Besylate (Norvasc) 5 MG TABLET 1 TAB PO DAILY HYPERTENSION Atorvastatin Calcium 10 MG TABLET 1 TAB PO DAILY CHOLESTEROL (Reported) Clonazepam (Klonopin) 0.5 MG TABLET 0.5-1 TAB PO DAILY NEEDED PRN ANXIETY (Reported) Dabigatran Etexilate Mesylate (Pradaxa 150 MG) 150 MG CAPSULE 1 CAP PO BID BLOOD THINNER (Reported) Escitalopram Oxalate (Lexapro) 10 MG TABLET 1 TAB PO DAILY DEPRESSION ( Reported) Furosemide (Lasix) 40 MG TABLET 1 TAB PO ONE DIURETIC Gabapentin 300 MG CAPSULE 2 TAB PO QPM RESTLESS LEGS (Reported) Irbesartan (Avapro) 300 MG TABLET 1 TAB PO DAILY BLOOD PRESSURE (Reported) Levothyroxine Sodium (Synthroid) 50 MCG TABLET 1 TAB PO DAILY AC THYROID ( Reported) Metoprolol Succ XL (Toprol Xl) 50 MG TAB 1 TAB PO DAILY HEART (Reported) Ropinirole Hydrochloride (Requip) 0.25 MG TABLET 1 TAB PO QPM RESTLESS LEGS ( Reported) Timolol Maleate 0.5 % DROPS 1 GTT OD BID GLAUCOMA-RIGHT EYE (Reported) Current Medications: Current Medications Sig/Andrea Start time Last Medication Dose Route Stop Time Status Admin Acetaminophen 650 MG Q6P PRN 12/07 2300 AC PO Amlodipine Besylate 5 MG DAILY 12/08 0900 AC 12/08 PO 1024 Atorvastatin Calcium 10 MG 1700 12/08 1700 AC PO Azithromycin 500 MG ONCE ONE 12/07 2114 DC 12/07 Sodium Chloride 250 ML IV 12/07 Ceftriaxone Sodium 0 .STK-MED ONE 08/16 2121 DC .ROUTE Ceftriaxone Sodium 1,000 MG ONCE ONE 12/07 2114 DC 12/07 IV 12/07 Clonazepam 0.5 MG DAILY NEEDED PRN 12/07 231 AC PO 12/14 231 Dabigatran 150 MG BID 12/08 0900 AC 12/08 PO 1028 Enoxaparin Sodium 40 MG DAILY 12/08 0900 CAN SC Escitalopram Oxalate 10 MG DAILY 12/08 09 AC 12/08 PO 1025 Furosemide 40 MG DAILY 12/08 0900 AC 12/08 PO 1025 Furosemide 0 .STK-MED ONE 12/08 0040 DC PO Furosemide 40 MG ONE ONE 12/07 2315 DC 12/08 PO 12/07 2316 0051 Gabapentin 600 MG QPM 12/08 2100 AC PO Levothyroxine Sodium 0.05 MG DAILY AC 12/08 0700 AC 12/08 PO 0535 Losartan Potassium 50 MG DAILY 12/08 0900 AC 12/08 PO 1025 Metoprolol Succinate 50 MG DAILY 12/08 09 AC 12/08 PO 1024 Nystatin 1 JAMSHID BID 12/08 0900 AC 12/08 TOP 1025 Potassium Chloride 60 MEQ ONCE ONE 12/08 06 DC 12/08 PO 12/08 0601 0536 Potassium Chloride 0 .STK-MED ONE 12/08 0536 DC PO Ropinirole HCl 0.25 MG AT BEDTIME 12/08 2100 AC PO Timolol Maleate 1 GTT BID 12/08 0900 AC 12/08 OPH 1020 Review of Systems Review of Systems: As per HPI. Otherwise a 10 point review of systems was negative. Past History Travel History Traveled to [place] past 21 day No Medical History Blood Transfusion Hx: No Neurological: restless leg syndrome EENT: NONE Cardiovascular: AFIB, diastolic CHF, hypertension, hyperlipidemia Respiratory: NONE Gastrointestinal: NONE Hepatic: NONE Renal: NONE Musculoskeletal: NONE Psychiatric: NONE Endocrine: hypothyroidism Blood Disorders: NONE Cancer(s): NONE CARBURIZER/Reproductive: NONE Surgical History Surgical History: non-contributory Family History Relations & Conditions If Any: Relation not specified for: *No pertinent family history Psychosocial History Who Do You Live With? self Services at Home: None Primary Language: Kinyarwanda Smoking Status: Former Smoker ETOH Use: denies use Illicit Drug Use: denies illicit drug use Functional Ability ADLs Independent: dressing, eating, toileting, bathing. Ambulation: independent Exam & Diagnostic Data Vital Signs and I&O Vital Signs Date Time Temp Pulse Resp B/P B/P Pulse O2 O2 Flow FiO2 Mean Ox Delivery Rate 12/08 1136 Room Air 12/08 1025 82 130/64 12/08 1024 82 130/64 12/08 1024 82 130/64 12/08 0657 98.1 92 24 132/68 92 12/08 0122 92 Room Air 12/08 0012 98.4 104 26 138/68 92 Room Air 12/07 2332 98.3 88 20 158/64 94 Room Air 12/07 2119 97.6 81 20 123/88 94 Room Air 12/07 1910 Room Air 12/07 191 97.7 78 18 137/78 95 Room Air Intake & Output 12/08 1600 12/08 0812/08 0000 12/07 1600 12/07 0000 Intake Total 0 Output Total 550 Balance -550 0 Intake, Oral 0 Output, Urine 550 Patient 97.976 kg Weight Weight Bed scale Measurement Method Physical Exam: General: elderly lady, no apparent distress HEENT: NCAT, NO JVD Heart: s1s2, irregular rhythm, no MRG Lungs: CTA b/l Abd: soft, nt Ext: no peripheral edema Labs/Nader Results: Laboratory Tests 12/08 12/07 0643 2114 Chemistry Sodium (137 - 145 mmol/L) 138 Potassium (3.5 - 5.1 mmol/L) 3.3 L Chloride (98 - 107 mmol/L) 100 Carbon Dioxide (22 - 30 mmol/L) 28 Anion Gap (5 - 16) 10 BUN (7 - 17 mg/dL) 20 H Creatinine (0.5 - 1.0 mg/dL) 0.9 Estimated GFR (>60 ml/min) 59 L BUN/Creatinine Ratio (7 - 25 %) 22.2 Magnesium (1.6 - 2.3 mg/dL) 1.9 Troponin I (< 0.11 ng/ml) 0.03 Hematology CBC w Diff NO MAN DIFF REQ WBC (4.8 - 10.8 /CUMM) 8.2 RBC (4.20 - 5.40 /CUMM) 4.14 L Hgb (12.0 - 16.0 G/DL) 12.4 Hct (37 - 47 %) 36.5 L MCV (81.0 - 99.0 FL) 88.2 MCH (27.0 - 31.0 PG) 30.0 MCHC (33.0 - 37.0 G/DL) 34.0 RDW (11.5 - 14.5 %) 15.4 H Plt Count (130 - 400 /CUMM) 249 MPV (7.4 - 10.4 FL) 8.4 Gran % (42.2 - 75.2 %) 71.0 Lymphocytes % (20.5 - 51.1 %) 15.8 L Monocytes % (1.7 - 9.3 %) 11.8 H Eosinophils % (0 - 5 %) 1.1 Basophils % (0.0 - 2.0 %) 0.3 Absolute Granulocytes (1.4 - 6.5 /CUMM) 5.8 Absolute Lymphocytes (1.2 - 3.4 /CUMM) 1.3 Absolute Monocytes (0.10 - 0.60 /CUMM) 1.0 H Absolute Eosinophils (0.0 - 0.7 /CUMM) 0.1 Absolute Basophils (0.0 - 0.2 /CUMM) 0 Urines Urinalysis LIGHT H Urine Color (YEL,AMB,STR) YEL Urine Clarity (CLEAR) HAZY H Urine pH (5.0 - 8.0) 6.0 Ur Specific [place] (1.001 - 1.035) 1.020 Urine Protein (NEG,<30 MG/DL) NEG Urine Ketones (NEG) NEG Urine Nitrite (NEG) NEG Urine Bilirubin (NEG) NEG Urine Urobilinogen (0.1 - 1.0 EU/dl) 0.2 Ur Leukocyte Esterase (NEG) LARGE H Ur Microscopic SEDIMENT EXAMINED Urine RBC (0 - 5 /HPF) 1-3 Urine WBC (0 - 2 /HPF) 25-50 H Ur Epithelial Cells (NONE,FEW) MOD H Urine Bacteria (NEG/NONE) MOD H Urine Hemoglobin (NEG) MOD H Urine Glucose (N MG/DL) NEG 12/07 Chemistry Sodium (137 - 145 mmol/L) 136 L Potassium (3.5 - 5.1 mmol/L) 3.3 L Chloride (98 - 107 mmol/L) 99 Carbon Dioxide (22 - 30 mmol/L) 27 Anion Gap (5 - 16) 10 BUN (7 - 17 mg/dL) 23 H Creatinine (0.5 - 1.0 mg/dL) 1.0 Estimated GFR (>60 ml/min) 52 L BUN/Creatinine Ratio (7 - 25 %) 23.0 Glucose (65 - 99 mg/dL) 120 H Calcium (8.4 - 10.2 mg/dL) 9.3 Magnesium (1.6 - 2.3 mg/dL) 2.1 Total Bilirubin (0.2 - 1.3 mg/dL) 1.4 H AST (14 - 36 U/L) 45 H ALT (9 - 52 U/L) 22 Alkaline Phosphatase (<127 U/L) 87 Troponin I (< 0.11 ng/ml) 0.02 [id number] Pept (<125 pg/mL) 1110 H Cancelled Total Protein (6.3 - 8.2 g/dL) 7.5 Albumin (3.5 - 5.0 g/dL) 3.8 Globulin (1.9 - 4.2 gm/dL) 3.7 Albumin/Globulin Ratio (1.1 - 2.2 %) 1.0 L TSH &T3 &Free T4 Intrp (0.270 - 4.20 uIU/mL) 2.460 Coagulation PT (9.4 - 12.5 SEC) 19.4 H INR (0.90 - 1.19) 1.77 H APTT (25 - 37 SEC) 65 H Hematology CBC w Diff NO MAN DIFF REQ WBC (4.8 - 10.8 /CUMM) 7.5 RBC (4.20 - 5.40 /CUMM) 3.85 L Hgb (12.0 - 16.0 G/DL) 11.4 L Hct (37 - 47 %) 33.9 L MCV (81.0 - 99.0 FL) 88.2 MCH (27.0 - 31.0 PG) 29.7 MCHC (33.0 - 37.0 G/DL) 33.7 RDW (11.5 - 14.5 %) 14.9 H Plt Count (130 - 400 /CUMM) 267 MPV (7.4 - 10.4 FL) 7.2 L Gran % (42.2 - 75.2 %) 74.2 Lymphocytes % (20.5 - 51.1 %) 13.2 L Monocytes % (1.7 - 9.3 %) 11.6 H Eosinophils % (0 - 5 %) 0.7 Basophils % (0.0 - 2.0 %) 0.3 Absolute Granulocytes (1.4 - 6.5 /CUMM) 5.6 Absolute Lymphocytes (1.2 - 3.4 /CUMM) 1.0 L Absolute Monocytes (0.10 - 0.60 /CUMM) 0.9 H Absolute Eosinophils (0.0 - 0.7 /CUMM) 0 Absolute Basophils (0.0 - 0.2 /CUMM) 0 Diagnostic Data EKG Results Personally reviewed: Atrial fibrillation with nonspecific T-wave normality CXR Results Stable cardiomegaly with interval decrease in degree of vascular congestion. Nonspecific hazy opacification at the right lung base. Recommendation is for a followup chest series to be obtained following treatment and/or resolution of symptoms to assure resolution of this appearance. Other Results Telemetry personally reviewed: Atrial fib relation, no RVR Assessment/Plan Assessment/Plan 1. Weakness/fatigue 2. Paroxysmal atrial fibrillation on Pradaxa 3. Diastolic heart failure/HFpEF 4. HTN Patient does not appear to be in acute heart failure at this time. Blood pressure stable. She is in atrial fibrillation at the moment but she is not in RVR. Troponin has been negative. Would continue with metoprolol, losartan, amlodipine, home dose of p.o. Lasix, atorvastatin. Continue with Pradaxa. A repeat echocardiogram can be done to ensure that LV function is stable. Consult Acknowledgment - Thank you for your consult request.
[2017-12-08 14:36] VITALS: BP 144/86
--- NOTE | 2017-12-08 17:40 | RADIOLOGY REPORT ---
EXAMINATION: XR CHEST CLINICAL INFORMATION: CHF versus pneumonia (improved congestion). COMPARISON: Chest x-ray dated 12/07/2017, 08/14/2017 and 05/10/2017. TECHNIQUE: 2 views of the chest were obtained on 3 images. FINDINGS: The cardiomediastinal silhouette is enlarged, unchanged. Lungs bilaterally are symmetrically expanded and demonstrate diffuse thickening of the central airways and diffuse increased reticular opacities in the lungs bilaterally, unchanged when compared to prior study. Superimposed reticular opacities in both lung bases, right greater than left, are noted, unchanged. There is a subtle nodular opacity also seen in the right lower lung, superimposed upon the posterior right seventh rib, of uncertain etiology. There is likely a small right-sided pleural effusion. No significant left pleural effusion is seen. Left apical pleural calcifications are seen with associated pleural thickening, unchanged from prior exams. Osteopenia is noted. There is a prominent dorsal kyphosis and S-shaped thoracolumbar scoliosis. IMPRESSION: 1. No change in cardiomegaly. 2. Previously seen central vascular congestion and pulmonary edema has resolved. Remaining diffuse reticular opacities in the lungs are likely related to underlying diffuse chronic small airways disease/bronchiolitis. 3. Small right-sided pleural effusion persists.
[2017-12-08 22:26] VITALS: BP 122/58
[2017-12-09 06:30] VITALS: BP 120/62
[2017-12-09 08:39] LABS: ABSOLUTE BASOPHIL COUNT 0 /CUMM (0.0-0.2); ABSOLUTE EOSINOPHIL COUNT 0.1 /CUMM (0.0-0.7); ABSOLUTE GRANULOCYTE CT 4.3 /CUMM (1.4-6.5); ABSOLUTE LYMPH COUNT 1.2 /CUMM (1.2-3.4); ABSOLUTE MONOCYTE COUNT 0.8 /CUMM (0.10-0.60); BASOPHIL % 0.5 % (0.0-2.0); EOSINOPHIL % 1.3 % (0-5); GRANULOCYTE % 66.6 % (42.2-75.2); HEMATOCRIT 32.9 % (37-47); MEAN CORPUSCULAR HGB 29.8 PG (27.0-31.0); MEAN CORPUSCULAR HGB CONC 34.1 G/DL (33.0-37.0); MEAN CORPUSCULAR VOLUME 87.3 FL (81.0-99.0); MEAN PLATELET VOLUME 8.3 FL (7.4-10.4); PLATELET COUNT 249 /CUMM (130-400); RBC DISTRIBUTION WIDTH 15.4 % (11.5-14.5); RED BLOOD CELL CT 3.77 /CUMM (4.20-5.40); WHITE BLOOD CELL COUNT 6.4 /CUMM (4.8-10.8)
--- NOTE | 2017-12-09 08:45 | PN- Housestaff ---
Rory Mc 12/09/17 0845: Subjective Follow-up For: Weakness shortness of breath Subjective: No acute events overnight, afebrile. Patient is stating that she is feeling weaker today than she was yesterday, particularly in her hands. Patient states she felt slept well overnight her restless leg syndrome did not bother her. Denies fever, night sweats, chills Review of Systems Constitutional: Reports: see HPI. Objective Last 24 Hrs of Vital Signs/I&O Vital Signs Date Time Temp Pulse Resp B/P B/P Pulse O2 O2 Flow FiO2 Mean Ox Delivery Rate 12/09 0758 Room Air 12/09 0746 80 120/62 12/09 0746 80 120/62 12/09 0746 80 120/62 12/09 0630 97.6 80 20 120/62 95 12/08 2226 97.4 81 20 122/58 93 Room Air 12/08 1436 98.2 91 18 144/86 90 Room Air 12/08 1136 Room Air 12/08 1025 82 130/64 12/08 1024 82 130/64 12/08 1024 82 130/64 Intake & Output 12/09 1600 12/09 0800 12/09 0000 Intake Total 120 240 Output Total 300 Balance 120 -60 Intake, Oral 120 240 Number 1 Bowel Movements Output, Urine 300 Patient 209 lb Weight Weight Bed scale Measurement Method Physical Exam General Appearance: Alert, Oriented X3, Cooperative Cardiovascular: Regular Rate, Normal S1, Normal S2 Lungs: Clear to Auscultation, Normal Air Movement Assessment/Plan Assessment: 87 year old female with PMH significant for atrial fibrillation on Pradaxa, HTN, HLD, hypothyroidism, HFpEF, anxiety/depression, and restless legs syndrome last admitted in 07/2017 for CHF exacerbation and dyspnea which improved after diuresis was BIBA to ED with complaints of progressive exertional dyspnea and weakness for the past week. Exertional dyspnea: - Admitted with diagnosis of pneumonia although afebrile no leukocytosis or significant cough - Chest x-ray shows RLL hazy opacity, consider PA and lateral tomorrow - TRC evaluation, no supplemental oxygen requirement at this time - Received ceftriaxone and azithromycin in the ED - Blood cultres negatives to date, urinary pneumo and legionella negative - Continue home dose furosemide - Echo pending Afib: - Currently rate controlled on metoprolol - Continue pradaxa - Trops negative - Repeat echo per cardiology Weakness: -PT recommends short term rehab Hypothyroidism: - TSH wnl - Continue synthroid 50mcg HTN: - Continue norvasc, metoprolol, lasix, and losartan HLD: - Continue statin Restless leg syndrome: - Continue ropirinole and gabapentin Anxiety/Depression: - Continue lexapro and clonazepam prn Heart healthy diet DVT ppx-pradaxa Full code Problem List: 1. Weakness Pain Ratin Pain Location: n/a Pain Goal: Remain pain free Pain Plan: tylenol Tomorrow's Labs & Rationales: none Phillip DONAHUE,Amir 12/09/17 1153: Attending MD Review Statement Attending Statement Attending MD Statement: examined this patient, discuss w/resident/PA/[employer], agreed w/resident/PA/[employer], reviewed EMR data (avail) Attending Assessment/Plan: Pt was seen and evaluatd, chart reviewed. Pt reports overall body weakness more pronounced in upper limbs. Denies any trauma --appreciate cards eval --will need STR as per PT --rest of the plan as per resident's ntoe
[2017-12-09 14:52] VITALS: BP 110/60
[2017-12-09 22:15] VITALS: BP 116/60
[2017-12-10 06:00] VITALS: BP 146/68
--- NOTE | 2017-12-10 08:46 | ECHOCARDIOGRAM REPORT ---
JONI ALFORD Age: 87 : 1930 Gender: F Exam Date: 12/09/2017 11:04 Exam Location: [address] Ht (in): 65 Wt (lb): 216 BSA: 2.16 BP: 130 / 64 Ordering Physician: Rachael Gibson MD Referring Physician: Rachael Gibson MD Technologist: Ruba Contreras [facility] Room Number: [id number] Indications: Rhythm: Atrial fibrillation Technical Quality: good FINDINGS Left Ventricle Normal left ventricular size with mild left ventricular hypertrophy. Normal systolic function with no obvious regional wall motion abnormalities. The ejection fraction is visually estimated at 60%. Right Ventricle The right ventricle is normal in size and function. Right Atrium The right atrium is mildly enlarged. Left Atrium The left atrium is moderately enlarged. The interatrial septum is intact. Mitral Valve The mitral valve demonstrates mild posterior annular calcification with normal function. There is trace mitral regurgitation. Aortic Valve Structurally normal aortic valve without significant sclerosis or stenosis. There is no aortic regurgitation. Tricuspid Valve The tricuspid valve is normal in structure and function. There is mild to moderate tricuspid regurgitation. Pulmonary artery systolic pressure is midly elevated to 45mmHg. Pulmonic Valve Structurally normal pulmonic valve. There is trace pulmonic regurgitation. Pericardium Normal pericardium without effusion. No pleural effusion. Great Vessels Normal aortic root dimension. The aortic arch and great vessels are well seen and are normal. CONCLUSIONS 1. Normal EF of 60%. 2. Mild left ventricular hypertrophy. 3. Moderate left atrial enlargement. Mild right atrial enlargement. 4. Mild posterior annular calcification of the mitral valve with trace MR. 5. Mild to moderate tricuspid regurgitation. 6. Trace pulmonic regurgitation. 7. Mild pulmonary hypertension. Jose Sampson M.D. (Electronically Signed) Final Date: 10 December 2017 08:45 MEASUREMENTS (Male / Female) Normal Values 2D ECHO LV Diastolic Diameter PLAX 3.4 cm 4.2 - 5.9 / 3.9 - 5.3 cm LV Systolic Diameter PLAX 2.4 cm 2.1 - 4.0 cm LV Fractional Shortening PLAX 29.4 % 25 - 46 % LV Ejection Fraction 2D Teich 57.5 % IVS Diastolic Thickness 1.7 cm LVPW Diastolic Thickness 1.3 cm LV Relative Wall Thickness 0.9 LVOT Diameter 2.0 cm Aortic Root Diameter 3.0 cm LA Systolic Diameter LX 4.4 cm 3.0 - 4.0 / 2.7 - 3.8 cm LA Volume 114.0 cm 18 - 58 / 22 - 52 cm DOPPLER AV Peak Velocity 207.0 cm/s AV Peak Gradient 17.1 mmHg AV Mean Velocity 150.0 cm/s AV Mean Gradient 10.0 mmHg AV Velocity Time Integral 44.6 cm LVOT Peak Velocity 135.0 cm/s LVOT Peak Gradient 7.3 mmHg LVOT Mean Velocity 84.8 cm/s LVOT Mean Gradient 3.0 mmHg LVOT Velocity Time Integral 30.4 cm LVOT Stroke Volume 95.5 cm AV Area Cont Eq vti 2.1 cm AV Area Cont Eq pk 2.0 cm Mitral E Point Velocity 132.0 cm/s Mitral A Point Velocity 30.1 cm/s Mitral E to A Ratio 4.4 MV Deceleration Time 317.0 ms TR Peak Velocity 320.0 cm/s TR Peak Gradient 41.0 mmHg PV Peak Velocity 136.0 cm/s PV Peak Gradient 7.4 mmHg LV E' Lateral Velocity 7.5 cm/s Mitral E to LV E' Lateral Ratio 17.6 LV E' Septal Velocity 8.8 cm/s Mitral E to LV E' Septal Ratio 15.1
[2017-12-10 09:00] VITALS: BP 140/90
--- NOTE | 2017-12-10 09:00 | PN- Housestaff ---
Edwin Riley 12/10/17 0900: Subjective Follow-up For: Weakness Shortness of breath Subjective: No acute events overnight. No events on telemetry remains in A. fib and a flutter overnight. Nursing staff stated that she had trouble picking up her breakfast utensils and also sitting up. Patient reports weakness is getting worse in her upper extremities, specifically range of motion at the shoulder joint. She has no other new complaints. Review of Systems Constitutional: Reports: see HPI. Objective Last 24 Hrs of Vital Signs/I&O Vital Signs Date Time Temp Pulse Resp B/P B/P Pulse O2 O2 Flow FiO2 Mean Ox Delivery Rate 12/10 0834 94 140/90 12/10 0833 94 140/90 12/10 0833 94 140/90 12/10 0800 98 Room Air 12/10 0600 98.7 68 20 146/68 90 12/09 2215 98.3 83 22 116/60 91 Room Air 12/09 1452 98.0 85 22 110/60 90 Room Air Intake & Output 12/10 1600 12/10 0800 12/10 0000 Intake Total 120 300 Output Total 450 200 Balance -330 100 Intake, Oral 120 300 Output, Urine 450 200 Patient 214 lb Weight Weight Bed scale Measurement Method Physical Exam General Appearance: Alert, Cooperative, No Acute Distress Skin Temp/Moisture Exam: Warm/Dry HEENT: Atraumatic, EOMI Cardiovascular: Normal S1, Normal S2, Irregular Lungs: Clear to Auscultation, Normal Air Movement Abdomen: Normal Bowel Sounds, Soft, No Tenderness Neurological: Strength 2/5 upper Ext BL Strength 5/5 lower ext BL, Decreased ROM upper ext BL Current Medications: Current Medications Sig/Andrea Start time Last Medication Dose Route Stop Time Status Admin Acetaminophen 650 MG Q6P PRN 12/07 2300 AC PO Amlodipine Besylate 5 MG DAILY 12/08 899 AC 12/10 PO 0834 Atorvastatin Calcium 10 MG 1700 12/08 1700 AC 12/09 PO 1748 Clonazepam 0.5 MG DAILY NEEDED PRN 12/07 2315 AC PO 12/14 2314 Dabigatran 150 MG BID 12/08 899 AC 12/10 PO 0834 Escitalopram Oxalate 10 MG DAILY 12/08 899 AC 12/10 PO 0834 Furosemide 40 MG DAILY 12/08 899 AC 12/10 PO 0834 Gabapentin 600 MG QPM 12/08 2099 AC 12/09 PO 2006 Levothyroxine Sodium 0.05 MG DAILY AC 12/08 07 AC 12/10 PO 0547 Losartan Potassium 50 MG DAILY 12/08 899 AC 12/10 PO 0833 Metoprolol Succinate 50 MG DAILY 12/08 09 AC 12/10 PO 0833 Nystatin 1 JAMSHID BID 12/08 899 AC 12/10 TOP 0834 Ropinirole HCl 0.25 MG AT BEDTIME 12/08 2099 AC 12/09 PO 2005 Timolol Maleate 1 GTT BID 12/08 899 AC 12/10 OPH 0829 Assessment/Plan Assessment: 87 year old female with PMH significant for atrial fibrillation on Pradaxa, HTN, HLD, hypothyroidism, HFpEF, anxiety/depression, and restless legs syndrome last admitted in 07/2017 for CHF exacerbation and dyspnea which improved after diuresis was BIBA to ED with complaints of progressive exertional dyspnea and generalized weakness for the past week. ECHO 12/08/17 1. Normal EF of 60%. 2. Mild left ventricular hypertrophy. 3. Moderate left atrial enlargement. Mild right atrial enlargement. 4. Mild posterior annular calcification of the mitral valve with trace MR. 5. Mild to moderate tricuspid regurgitation. 6. Trace pulmonic regurgitation. 7. Mild pulmonary hypertension. Patient is concerned about increasing weakness in her upper extremities. She has trouble lifting her shoulders. Nursing staff noticed she has trouble sitting up and may be off balance in relation to her back. X-ray of her shoulders ordered. Exertional dyspnea: - Admitted with diagnosis of pneumonia although afebrile no leukocytosis or significant cough - Chest x-ray shows RLL hazy opacity, consider PA and lateral tomorrow - TRC evaluation, no supplemental oxygen requirement at this time - Received ceftriaxone and azithromycin in the ED - Blood Cx negative to date - Urinary pneumo and legionella negative - Continue home dose furosemide - Hypokalemia resolving 3.3 -> 3.5 Upper Ext Weakness with Balance Issues: - Decreased ROM of both shoulders BL - XRAY B/L shoulders ordered - PT to evaluate Upper ext and back - Consider neurology consult Afib: - Currently rate controlled on metoprolol - Continue pradaxa - Trops negative Weakness: - PT recommends STR Hypothyroidism: - TSH wnl - Continue synthroid 50mcg HTN: - Continue norvasc, metoprolol, lasix, and losartan HLD: - Continue statin Restless leg syndrome: - Continue ropirinole and gabapentin Anxiety/Depression: - Continue lexapro and clonazepam prn Heart healthy diet DVT ppx-pradaxa Full code Problem List: 1. Weakness Pain Ratin Pain Location: NA Pain Goal: Remain pain free Pain Plan: None Tomorrow's Labs & Rationales: BEP Phillip DONAHUE,Amir 12/10/17 1046: Attending MD Review Statement Attending Statement Attending MD Statement: examined this patient, discuss w/resident/PA/[employer], agreed w/resident/PA/[employer], reviewed EMR data (avail), discussed with nursing Attending Assessment/Plan: Pt was seen and evalauted. reports having difficult raising arms above sholders. Denies any previous injury or trauma --check x-rays b/l shoulders --PT eval for UE weakness --will need STR upon discharge
[2017-12-10 14:00] VITALS: BP 110/70
--- NOTE | 2017-12-10 15:34 | RADIOLOGY REPORT ---
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 COMPARISON: None TECHNIQUE: 3 views of the right shoulder and 3 views of the left shoulder, 5 images were obtained. FINDINGS: RIGHT SHOULDER: Moderate diffuse osteopenia is noted involving all the visualized bones. The bony alignment is intact. Mild osteoarthrosis is noted at the right acromioclavicular and glenohumeral joints. The visualized right hemithorax shows linear interstitial prominent lung markings and right perihilar soft tissue fullness. LEFT SHOULDER: Moderate diffuse osteopenia is noted. The bony alignment is intact. The cortices are intact. Mild osteoarthrosis is noted at the left acromioclavicular and glenohumeral joints. The visualized left hemithorax is abnormal in the form of calcified pleural plaques and mild prominent interstitial linear lung markings. IMPRESSION: 1. Moderate diffuse osteopenia. 2. Mild osteoarthrosis at both acromioclavicular and glenohumeral joints. 3. The visualized lung garcia bilaterally appear abnormal. Follow-up chest radiograph may be considered for further full detail evaluation, if clinically appropriate.
[2017-12-10 22:23] VITALS: BP 112/78
--- NOTE | 2017-12-11 06:50 | PN- Housestaff ---
Edwin Riley 12/11/17 0650: Subjective Follow-up For: Weakness Subjective: No events overnight or on telemetry. She continues to be very weak and has difficulty lifting her upper extremities and balancing. Nursing staff believes she has gotten weaker compared to her admission. She agrees to rehab for short-term as she has no one living with her at home. Review of Systems Constitutional: Reports: see HPI. Objective Last 24 Hrs of Vital Signs/I&O Vital Signs Date Time Temp Pulse Resp B/P B/P Pulse O2 O2 Flow FiO2 Mean Ox Delivery Rate 12/11 1505 98.1 79 20 116/74 93 Room Air 12/11 0807 82 134/68 12/11 0806 82 134/68 12/11 0806 82 134/68 12/11 0730 98.6 72 18 134/68 92 Room Air 12/10 2223 98.1 80 20 112/78 93 Room Air Intake & Output 12/11 1600 12/11 0800 12/11 0000 Intake Total 600 120 300 Output Total 700 450 600 Balance -100 -330 -300 Intake, Oral 600 120 300 Output, Urine 700 450 600 Patient 212 lb Weight Weight Bed scale Measurement Method Physical Exam General Appearance: Alert, Cooperative, No Acute Distress HEENT: Atraumatic, EOMI Cardiovascular: Normal S1, Normal S2 Lungs: Clear to Auscultation, Normal Air Movement Abdomen: Normal Bowel Sounds, Soft, No Tenderness Neurological: Strength 2/5 upper ext BL, Strength 4/5 lower extremities. Current Medications: Current Medications Sig/Andrea Start time Last Medication Dose Route Stop Time Status Admin Acetaminophen 650 MG Q6P PRN 12/07 2300 AC PO Amlodipine Besylate 5 MG DAILY 12/08 899 AC 12/11 PO 08 Atorvastatin Calcium 10 MG 1700 12/08 1700 AC 12/11 PO 1624 Clonazepam 0.5 MG DAILY NEEDED PRN 12/07 2315 AC PO 12/14 231 Dabigatran 150 MG BID 12/08 899 AC 12/11 PO 2019 Escitalopram Oxalate 10 MG DAILY 12/08 899 AC 12/11 PO 08 Furosemide 40 MG DAILY 12/08 899 AC 12/11 PO 08 Gabapentin 600 MG QPM 12/08 2100 AC 12/11 PO 2019 Levothyroxine Sodium 0.05 MG DAILY AC 12/08 699 AC 12/11 PO 0519 Losartan Potassium 50 MG DAILY 12/08 09 AC 12/11 PO 0806 Metoprolol Succinate 50 MG DAILY 12/08 09 AC 12/11 PO 08 Nystatin 1 JAMSHID BID 12/08 899 AC 12/11 TOP 2020 Ropinirole HCl 0.25 MG AT BEDTIME 12/08 2100 AC 12/11 PO 2020 Timolol Maleate 1 GTT BID 12/08 09 AC 12/11 OPH 2020 Last 24 Hrs of Lab/Nader Results Last 24 Hrs of Labs/Mics: Laboratory Tests 12/11/17 0650: Anion Gap 8, Estimated GFR > 60, BUN/Creatinine Ratio 26.3 H Assessment/Plan Assessment: 87 year old female with PMH significant for atrial fibrillation on Pradaxa, HTN, HLD, hypothyroidism, HFpEF, anxiety/depression, and restless legs syndrome last admitted in 07/2017 for CHF exacerbation and dyspnea which improved after diuresis was BIBA to ED with complaints of progressive exertional dyspnea and generalized weakness for the past week. ECHO 12/08/17 1. Normal EF of 60%. 2. Mild left ventricular hypertrophy. 3. Moderate left atrial enlargement. Mild right atrial enlargement. 4. Mild posterior annular calcification of the mitral valve with trace MR. 5. Mild to moderate tricuspid regurgitation. 6. Trace pulmonic regurgitation. 7. Mild pulmonary hypertension. XRAY SHOULDERS BL 12/10/17 1. Moderate diffuse osteopenia. 2. Mild osteoarthrosis at both acromioclavicular and glenohumeral joints. 3. The visualized lung garcia bilaterally appear abnormal. Follow-up chest radiograph may be considered for further full detail evaluation, if clinically appropriate. Head CT W/O 12/11/17 No acute intracranial pathology. 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 Large fluid level with mucosal thickening subtotally opacifying the left maxillary sinus. Patient is concerned about increasing weakness in her upper extremities. She has trouble lifting her shoulders. Nursing staff noticed she has trouble sitting up and may be off balance in relation to her back. X-ray of shoulders was not convincing for her symptoms. Head CT was negative for acute pathology. At this point it seems, that deconditioning may be the most likely culprit in her upper body weakness and imbalance. Patient would likely benefit from STR. Exertional dyspnea: - Admitted with diagnosis of pneumonia although afebrile no leukocytosis or significant cough - Chest x-ray shows RLL hazy opacity, consider PA and lateral tomorrow - TRC evaluation, no supplemental oxygen requirement at this time - Received ceftriaxone and azithromycin in the ED - Blood Cx negative to date - Urinary pneumo and legionella negative - Continue home dose furosemide - Hypokalemia 3.3 -> 3.5 -> 3.4 Upper Ext Weakness with Balance Issues: - Decreased ROM of both shoulders BL - XRAY B/L shoulders not impressive - PT to evaluate Upper ext and back - Consider neurology F/U at STR Afib: - Currently rate controlled on metoprolol - Continue pradaxa - Trops negative Weakness: - PT recommends STR Hypothyroidism: - TSH wnl - Continue synthroid 50mcg HTN: - Continue norvasc, metoprolol, lasix, and losartan HLD: - Continue statin Restless leg syndrome: - Continue ropirinole and gabapentin Anxiety/Depression: - Continue lexapro and clonazepam prn Heart healthy diet DVT ppx-pradaxa Full code Problem List: 1. Weakness Pain Ratin Pain Location: n/a Pain Goal: Remain pain free Pain Plan: Pathway Tomorrow's Labs & Rationales: None Akil DONAHUE,Enma 12/11/17 1238: Attending MD Review Statement Attending Statement Attending MD Statement: examined this patient, discuss w/resident/PA/DESKTOP OPERATOR, agreed w/resident/PA/DESKTOP OPERATOR, reviewed EMR data (avail), discussed with nursing, discussed with case mgmt, amended to note Attending Assessment/Plan: Patient seen and examined. No issues overnight. No events on telemetry monitoring. She however continues to be very weak and reports difficulty mobilizing. Patient admits that at baseline she is "very lazy" and does little activity. She however states that a recent time she has been getting progressively weaker culminating in her presentation to the emergency room. Nursing staff states that while here in the hospital she appears to have gotten weaker compared to presentation. Her main complaints now is inability to move her upper extremities as well as she could prior to hospitalization. She reports that she resides alone at home. She has no family members. On examination she is alert and oriented 3. Not in any acute distress. She is able to grab fingers and flex the elbow. She however is unable to abduct or adduct her upper extremities at the shoulders. Leg extension and flexion at the knees are intact. She has no facial asymmetry. Speech is intact. Sensation is intact. Plan: -She has no obvious explanation of her weakness other than physical deconditioning. Will recommend obtaining baseline head CT to rule out any acute intracranial process. If this is negative recommend discharge to [facility] facility as recommended by the physical therapy service for short-term rehabilitation. If her symptoms improve she may be transitioned home. If not would recommend consideration of neurology evaluation at that time.
[2017-12-11 07:30] VITALS: BP 134/68
--- NOTE | 2017-12-11 07:35 | Discharge Summary ---
Visit Information Visit Dates Admission Date: 12/07/17 Discharge Date: 12/28/17 Hospital Course Course Attending Physician: Enma Barnard MD Primary Care Physician: Jose Tate MD Consulting Request: 1 Consulting Specialty: Neurology Consulting Physician: Dr. Lc Velez Reason for Consult: Progressive Weakness Consulting Request: 2 Consulting Specialty: Pulmonary Disease Consulting Physician: Dr. Sudhir Tapia Reason for Consult: CT showing large pleural mass and plaques Consulting Request: 3 Consulting Specialty: Cardiology Consulting Physician: Dr. Itz Rogers Hospital Course: 87 year old female with PMH significant for atrial fibrillation on Pradaxa, HTN, HLD, hypothyroidism, HFpEF, anxiety/depression, and restless legs syndrome last admitted in 07/2017 for CHF exacerbation and dyspnea which improved after diuresis was BIBA to ED with complaints of progressive exertional dyspnea and generalized weakness for the past week. Patient was initially admitted to the telemetry floor for the managment of following issues: 1. Exertional dyspnea 2. Generalized weakness/Deconditioning; ?? Paraneoplastic Syndrome 3. Lung Mass on CT scan 3. Other chronic medical conditions. Cardiology consult was called for concerns of CHF exacerbation and echocardiogram was ordered which showed normal ejection fraction with no regional wall motion abnormalities. Patient clinically did not have any signs of CHF exacerbation and was continued on her home dose of Lasix. Also received ceftriaxone and azithromycin 1 for concerns of pneumonia but were not continued as the patient remained afebrile and without any respiratory symptoms. Patient was concerned about increasing weakness sam in her upper extremities. She had trouble lifting her shoulders. X-ray of her shoulders was obtained which remained negative for any acute pathology. CT head was also negative for any acute pathology(showed chronic deep ferreira matter lacunar infarcts). Neurology consult was obtained for concerns of progressively worsening weakness, who recommended acetylcholine receptor antibodies which were unequivoval and pyridostigmine challenge to rule out myasthenia gravis. Patient did not have any improvement after the pyridostigmine. CT chest was also obtained to rule out thymoma,but showed large lobulated peripheral right lung mass that was confluent with the mediastinum. Also showed calcified pleural plaques concerning for mesothelioma. MRI head and Neck were obtained to rule out any metastasis. Patient received 5 doses of IVIG with significant improvement in neurological function. She completed all the doses without any event. Patient also had a swallow eval done followed by modified barium swallow and was switched to pure and regular thin diet. Patient was transferred to the general medical floor. Due to patient's poor prognosis, after discussion with her and her family, patient opted for comfort measures with no desire to pursue aggressive treatment of her advanced lung cancer with metastases. Patient was transitioned to comfort care and was discharged to [facility]. Allergies: Coded Allergies: NO KNOWN ALLERGIES (07/04/11) Significant Procedures: SERVICE DATE: 12/17/17 EXAM TYPE: IR - FLUORO NEEDLE GUIDANCE; INTERVENTIONAL SETUP CLINICAL HISTORY: The patient is a 87-year-old woman with possible myasthenia gravis, Guillain-[place], paraneoplastic syndrome, who presents to interventional radiology for fluoroscopically-guided lumbar puncture. PROCEDURES: Fluoroscopically-guided lumbar puncture. PHYSICIANS: Dr. Velasquez (attending). MEDICATIONS: 5 mL 1% lidocaine SQ. COMPLICATIONS: None. ESTIMATED BLOOD LOSS: <5 mL. SPECIMENS: 12 mL clear CSF. Specimens were appropriately labeled and sent to the laboratory for evaluation with request to inform the referring physician of results. FLUOROSCOPY TIME: 37 seconds. DOSE AREA PRODUCT: 5.6 Gy-cm2 (ferreira-centimeter squared) PROCEDURE NOTE: Informed consent was obtained from the patient's prior to the procedure. During this process, the procedure and potential alternatives were explained along with the intended outcome and benefits. The risks of the procedure, including the possibility of an unsuccessful procedure, as well as the risk of not doing the procedure, were discussed. The patient's was given the opportunity to ask questions regarding the procedure and appeared competent to make decisions. A signed consent form documenting this discussion was placed in the medical record. A time-out procedure was performed. Appropriate pre-procedure medical history and imaging studies were reviewed. The patient was placed prone on the fluoroscopy table. Fluoroscopic images of the lumbar spine were obtained to localize the L3-L4 level. The patient's back was prepped and draped in the standard sterile fashion. 5 mL of 1% lidocaine was used to obtain local anesthesia the skin and deeper tissues. A 22-gauge Sprotte needle was then passed into the spinal canal using fluoroscopic guidance, until CSF flowed. Approximately 12 mL of clear CSF was collected and sent for requested laboratory analysis. The spinal needle was removed and a sterile dressing applied. FINDINGS: 1. Clear CSF. IMPRESSION: Fluoroscopic-guided lumbar puncture as described. PLAN: The patient was stable after the procedure and was transferred to the interventional recovery area. The patient will be transferred back to her room. Pertinent Lab Results: XRY-PORTABLE CHEST XRAY Dec 07 IMPRESSION: Stable cardiomegaly with interval decrease in degree of vascular congestion. Nonspecific hazy opacification at the right lung base. XRY-PORTABLE CHEST XRAY Dec 08 IMPRESSION: 1. No change in cardiomegaly. 2. Previously seen central vascular congestion and pulmonary edema has resolved. Remaining diffuse reticular opacities in the lungs are likely related to underlying diffuse chronic small airways disease/bronchiolitis. 3. Small right-sided pleural effusion persists. ECHOCARDIOGRAM CONCLUSIONS 1. Normal EF of 60%. 2. Mild left ventricular hypertrophy. 3. Moderate left atrial enlargement. Mild right atrial enlargement. 4. Mild posterior annular calcification of the mitral valve with trace MR. 5. Mild to moderate tricuspid regurgitation. 6. Trace pulmonic regurgitation. 7. Mild pulmonary hypertension. XRY-SHOULDER COMPLETE-LEFT; XRY-SHOULDER COMPLETE-RIGHT IMPRESSION: 1. Moderate diffuse osteopenia. 2. Mild osteoarthrosis at both acromioclavicular and glenohumeral joints. 3. The visualized lung garcia bilaterally appear abnormal. Follow-up chest radiograph may be considered for further full detail evaluation, if clinically appropriate. CT without Contrast IMPRESSION: No acute intracranial pathology. 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 Large fluid level with mucosal thickening subtotally opacifying the left maxillary sinus. SERVICE DATE: 12/12/17- EXAM TYPE: CAT - CT CHEST W IV CONTRAST EXAMINATION: CT CHEST WITH CONTRAST CLINICAL INFORMATION: Myasthenia gravis. COMPARISON: None TECHNIQUE: Multidetector volumetric CT imaging of the chest was obtained after the administration of 50 mL of Optiray 320 intravenous contrast without immediate adverse reactions. Axial MIP volume rendering provided. Sagittal and coronal reformatted images were obtained. DLP: 641.10 mGy-cm FINDINGS: LUNGS: There is a lobulated peripheral soft tissue mass extending from the right lateral chest wall curving around the posterior chest wall and becoming confluent with the right posterolateral mediastinum and hilum. There is mass effect upon the right hilar bronchovascular structures which appear to maintain patency. The mass is very difficult to measure due to its irregular and lobulated margins. However, as measured on series 2, image 32, the mass measures 7.9 x 10.0 cm in the oblique AP by transverse dimensions. There are multiple pulmonary nodules and masses distributed throughout all lung lobes bilaterally. These are too numerous to individually catalogue. Some lesions also demonstrate calcifications, for example within the left upper lobe there is a 1.0 x 1.0 cm mass with a small central calcification (series 4 image 136). One of the larger masses on the right is within the posterior segment of the right upper lobe and measures 1.4 x 1.2 cm (series 4 image 204). MEDIASTINUM: Cardiomegaly. Coronary artery atherosclerosis. Calcifications of the thoracic aorta. Mitral annular and aortic valve calcifications. There is bulky mediastinal and right hilar adenopathy which becomes confluent with the above-mentioned peripheral right lung mass. An index right paratracheal lymph node measures 2.1 x 1.7 cm (series 2 image 20). PLEURA: Calcified pleural plaques at the apices, left greater than right. Lobulated peripheral right lung mass conforms to the right pleural surface. Small right pleural effusion. AXILLA: No axillary lymphadenopathy. UPPER ABDOMEN: Small hiatal hernia. OSSEOUS STRUCTURES: Degenerative changes of the spine. No acute or suspicious osseous abnormality. IMPRESSION: 1. Large lobulated peripheral right lung mass that is confluent with the mediastinum. There are also pleural plaques identified that are partially calcified. 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 There is bulky mediastinal and right hilar adenopathy with mass effect upon the right hilum but with preserved airways and vessels. 2. Cardiomegaly. Coronary artery atherosclerosis. Thoracic aortic atherosclerosis. SERVICE DATE: 12/13/17- EXAM TYPE: RAD - XRY-MODIFIED BARIUM SWALLOW EXAMINATION: XR MODIFIED BARIUM SWALLOW CLINICAL INFORMATION: Dysphagia. Cough with food COMPARISON: CT chest November 2017 TECHNIQUE: A radiographic and fluoroscopic examination of the patient's swallowing was performed in conjunction with the speech pathologist. Patient swallowed multiple contrast coated consistencies during video fluoroscopic observation FINDINGS: There is a small amount of penetration occurring during swallowing of thin solution contrast. There is no definite aspiration. No other abnormalities detected. FLUOROSCOPY TIME: 39 seconds IMPRESSION: Modified barium swallow performed demonstrating penetration during swallowing of thin contrast solution. Full report to follow per speech pathology SERVICE DATE: 12/14/17- EXAM TYPE: MRI - MRI-CERVICAL W & W/O JEREMY; MRI-HEAD W & W/O JEREMY EXAMINATION: MR BRAIN WITHOUT AND WITH CONTRAST MR CERVICAL SPINE WITHOUT AND WITH CONTRAST CLINICAL INDICATION Weakness. History of myasthenia gravis. Lung mass. COMPARISON: CT scan of the head 12/11/2017. TECHNIQUE: MRI scans of the brain and cervical spine were obtained using routine sequences without and with contrast. Intravenous contrast: Gadavist, 10 mL. Images are degraded by patient motion artifact on multiple sequences. FINDINGS: MRI Brain: No diffusion abnormalities are identified to suggest an acute or subacute infarct. No mass effect or midline shift is seen. The ventricles and sulci are commensurately prominent consistent with moderate diffuse volume loss. There are extensive areas of increased T2 and FLAIR signal in the periventricular in the subcortical white matter, as well as within the rajeev consistent with sequelae of chronic microvascular ischemic disease. No extra-axial fluid collections are seen. The cerebellum appears normal. On postcontrast imaging, there is no abnormal parenchymal or leptomeningeal enhancement. There are a few foci of low gradient signal in the right cerebellar hemisphere, in the left lower rajeev and adjacent to the trigone of the right lateral ventricle. These are nonspecific, and may be consistent with sequelae of prior microhemorrhages or microcalcifications. The craniovertebral junction, marrow signal, and midline structures are normal. There has been a right lens extraction. The major intracranial flow-voids at the level of the three affiliated of [place] are preserved. The dural venous sinus flow-voids are maintained. The mastoid air cells are well-aerated. There is a fluid level and mucoperiosteal thickening in the left maxillary sinus, demonstrated on prior imaging. MRI Cervical Spine: VERTEBRAL BODIES AND PARASPINAL SOFT TISSUES: There is a levoscoliosis in the upper thoracic spine. There are mild anterolistheses of C4 on C5 and T1 on T2. There is multilevel narrowing of intervertebral disc height which is most severe at C5-C6 and C6-C7. There are multilevel degenerative endplate contour changes. Mild edematous signal is seen posteriorly at C3-C4. There is an area of increased T1 and T2 signal in the anterior body of C2 consistent with focal fat. Vertebral body heights are maintained and there are no compression fractures. Overall, marrow signal is slightly heterogenous. The paravertebral structures are unremarkable. The visualized thyroid gland is nonenlarged. CERVICOMEDULLARY JUNCTION AND VISUALIZED POSTERIOR FOSSA: The craniocervical and posterior fossa structures are normal. Accounting for artifact, spinal cord signal appears normal. There is no abnormal enhancement of the spinal cord or leptomeninges. There is no abnormal enhancement in the osseous structures. However postcontrast imaging is degraded by patient motion artifact and SPINAL LEVELS: C2-C3: Disc contour is normal. There is no spinal cord compression or central stenosis. The neural foramina are patent. C3-C4: There is left facet arthropathy. There is a broad-based posterior disc protrusion which distorts the ventral thecal sac. There is no spinal cord compression or central stenosis. There are left greater than right uncovertebral osteophytes. There is moderate right and mild left foraminal narrowing. C4-C5: There is moderate to severe left and moderate right facet arthropathy. There is a posterior disc osteophyte complex which effaces CSF ventral to the spinal cord, but there is no spinal cord compression. There are uncovertebral osteophytes. There is severe bilateral foraminal narrowing. C5-C6: There is moderate left facet arthropathy. There is a posterior disc osteophyte complex which effaces CSF ventral to the spinal cord. There is no spinal cord compression or central stenosis. There are uncovertebral osteophytes. There is moderate bilateral foraminal narrowing. C6-C7: There is a posterior disc osteophyte complex. There is no spinal cord compression or central stenosis. There are small uncovertebral osteophytes. The neural foramina are patent. C7-T1: Disc contour is normal. There is no spinal cord compression or central stenosis. The neural foramina are patent. T1-T2: There is a posterior disc protrusion. There is no spinal cord compression or central stenosis. The neural foramina are patent. IMPRESSION: MRI brain: 1. There are no acute bleeds or infarcts. There are no masses or areas of abnormal enhancement. 2. There is diffuse volume loss and there are chronic microvascular ischemic changes. 3. There is fluid and mucoperiosteal thickening in the left maxillary sinus. MRI cervical spine: 1. There is multilevel spondylosis, which is most severe at C4-C5. There is a posterior disc osteophyte complex with uncovertebral osteophytes and there is severe bilateral foraminal narrowing. 2. Spinal cord signal is normal. There is no spinal cord compression. 3. There is no abnormal enhancement noted following intravenous contrast administration. SERVICE DATE: 12/21/17 EXAM TYPE: RAD - XRY-PORTABLE CHEST XRAY EXAMINATION: XR PORTABLE CHEST CLINICAL INFORMATION: Bringing up pink frothy sputum. COMPARISON: Chest CT 12/12/2017, chest radiograph 12/08/2017 TECHNIQUE: Portable frontal view of the chest was obtained. FINDINGS: Increased right pleural effusion now moderate in size. No left pleural effusion. Patchy airspace opacities at the bases, right greater than left. There is dense consolidation of the right lower lung. No evidence of pneumothorax bilaterally. Coarse interstitial lung markings diffusely. Cardiomegaly, similar to the prior studies. No acute osseous abnormality. IMPRESSION: Increased now moderate right pleural effusion. Bibasilar airspace opacities, right greater than left and increased since the prior study, possibly on the basis of compressive atelectasis although a superimposed infectious process is not excluded. Clinical correlation requested. SERVICE DATE: 12/22/17- EXAM TYPE: CAT - CT ABD & PELVIS W IV CONTRAST EXAMINATION: CT ABDOMEN AND PELVIS WITH CONTRAST CLINICAL INFORMATION: Stage IV lung cancer with metastatic disease. Evaluate for metastatic disease within the abdomen or pelvis. COMPARISON: Chest CT 12/12/2017. TECHNIQUE: Multidetector volumetric imaging was performed of the abdomen and pelvis following IV administration of 95 mL of Optiray 320 intravenous contrast. Sagittal and coronal reformatted images were obtained on the technologist's workstation. DLP: 678.82 mGy-cm FINDINGS: LUNG BASES: Consolidation of the right lung has increased since the prior study with increased small pleural effusion. Nodular densities within the left lower lung as seen on the dedicated chest CT recently performed. Coronary artery and mitral annular calcifications. Aortic valve calcifications. LIVER, GALLBLADDER, AND BILIARY TREE: The liver is normal in size, shape, and attenuation. No focal hepatic lesion or biliary ductal dilatation is present. Cholelithiasis. No gallbladder wall thickening, pericholecystic fluid or pericholecystic inflammatory changes. PANCREAS: Unremarkable. SPLEEN: Unremarkable. ADRENAL GLANDS: Unremarkable. KIDNEYS AND URETERS: Abnormal contour of the kidneys bilaterally involving the posterior lower pole of the left kidney with focal cortical thinning. The right kidney demonstrates lobulated cortical thinning posteriorly. 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 Coarse heterogeneous calcifications are also seen within the central, perihilar aspect of the right kidney involving the mid and upper pole. Bilateral renal cysts. Multiple additional scattered tiny well-defined renal cortical hypodensities, too small to characterize but statistically most likely representing renal cysts. Punctate nonobstructing lower pole right renal calculus versus vascular calcification. No evidence of hydronephrosis or perinephric stranding bilaterally. BLADDER: Unremarkable. GASTROINTESTINAL TRACT: Severe diverticulosis predominantly involving the descending and sigmoid colon without CT evidence of diverticulitis. The appendix is unremarkable. No evidence of bowel obstruction. ABDOMINAL WALL: No significant abdominal wall hernia. Focal areas of subcutaneous emphysema with induration within the anterior abdominal wall subcutaneous fat consistent with injection sites. LYMPH NODES: No lymphadenopathy within the abdomen or pelvis. VASCULAR: Atherosclerosis abdominal aorta without evidence of aneurysm. PELVIC VISCERA: Unremarkable. OSSEOUS STRUCTURES: No acute or suspicious osseous abnormality. Multilevel degenerative changes of the spine. Right convex scoliosis lumbar spine. IMPRESSION: 1. No convincing evidence of metastatic disease within the abdomen or pelvis. 2. Abnormal appearance of the kidneys bilaterally. There are indeterminate coarse heterogeneous calcifications within the upper right kidney which may represent nephrolithiasis although this is an unusual presentation. 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 Ultrasound would be helpful for further evaluation of these abnormalities. There are also contour abnormalities of the kidneys bilaterally which may be due to chronic scarring or infarction, presumably from the patient's atherosclerotic disease. The appearance can also be seen in the setting of a partial nephrectomy and clinical correlation is requested. If prior cross-sectional imaging is available for comparison, an addendum to this report can be issued commenting upon the stability of these findings. 3. Increasing consolidation of the right lower lung with increasing pleural effusion, still small in volume. 4. Other nonacute findings as above. SERVICE DATE: 12/23/17- EXAM TYPE: RAD - XRY-PORTABLE CHEST XRAY EXAMINATION: XR PORTABLE CHEST CLINICAL INFORMATION: Fluid overload; shortness of breath. COMPARISON: Prior chest radiographs, most recently 12/21/2017. TECHNIQUE: Portable frontal view of the chest was obtained. The patient is rotated. FINDINGS: There is stable mild cardiomegaly. There is pulmonary vascular congestion. A bilateral interstitial and alveolar pattern is seen, right greater than left. There is a small to moderate right pleural effusion, diminished from prior. No definite left pleural effusion is seen. There is biapical pleural thickening, and a left apical pleural calcifications are seen suggesting prior asbestos exposure. No pneumothorax is seen. There is no acute osseous abnormality. There is bony demineralization. IMPRESSION: 1. There is mild cardiomegaly. There is pulmonary vascular congestion and a bilateral interstitial and alveolar pattern. The possibility of congestive heart failure is seen. Asymmetric diffuse pneumonia is a further differential consideration, clinical correlation is required. 2. There is a small to moderate right pleural effusion. 3. There is left apical pleural calcification, suggesting prior asbestos exposure. Disposition Summary Disposition Principal Diagnosis: Generalized Weakness/Deconditioning Additional Diagnosis: Exertional Dyspnea, Lung Mass Discharge Disposition: other general hospital Discharge Instructions General Discharge Information Code Status: Full Code Patient's Diet: Regular Patient's Activity: As tolerated Follow-Up Instructions/Appts: Patient advised to follow up with her PCP, test technician, [facility] and Neuroligist within a week after discharge. Medications at Discharge Discharge Medications: Stop taking the following medications: Dabigatran Etexilate Mesylate (Pradaxa 150 MG) 150 MG CAPSULE ORAL TWICE DAILY Continue taking these medications: Irbesartan (Avapro) 300 MG TABLET 1 Tablet ORAL DAILY Escitalopram Oxalate (Lexapro) 10 MG TABLET 1 Tablet ORAL DAILY Comments: LAST GIVEN 12/27/17 @ 0830 Levothyroxine Sodium (Synthroid) 50 MCG TABLET 1 Tablet ORAL DAILY BEFORE BREAKFAST Comments: LAST GIVEN 12/27/17 @ 0830 Clonazepam (Klonopin) 0.5 MG TABLET 0.5-1 Tablet ORAL DAILY NEEDED as needed for ANXIETY Comments: Last Taken:08/17/17 Time: 7AM Metoprolol Succ XL (Toprol Xl) 50 MG TAB 1 Tablet ORAL DAILY Comments: LAST GIVEN 12/27/17 @ 0830 Gabapentin (Gabapentin) 300 MG CAPSULE 2 Tablet ORAL Every night Qty = 180 Comments: LAST GIVEN 12/26/17 @ 2100 Timolol Maleate (Timolol Maleate) 0.5 % DROPS 1 Drop Right Eye TWICE DAILY Qty = 5 Comments: LAST GIVEN 12/27/17 @ 0830 Atorvastatin Calcium (Atorvastatin Calcium) 10 MG TABLET 1 Tablet ORAL DAILY Comments: LAST GIVEN 12/27/17 @ 0830 Amlodipine Besylate (Norvasc) 5 MG TABLET 1 Tablet ORAL DAILY Qty = 30 Comments: LAST GIVEN 12/27/17 @ 0830 Ropinirole Hydrochloride (Requip) 0.25 MG TABLET 1 Tablet ORAL Every night Qty = 60 Comments: LAST GIVEN 12/26/17 @ 2100 Furosemide (Lasix) 40 MG TABLET 1 Tablet ORAL ONE TIME DOSE Qty = 30 Comments: Last Taken:08/17/17 Time:1000 Copies To: Mak DONAHUE,Kartik Beaulieu; Kya DONAHUE,Compa Wagner; Bebeto DONAHUE,Jose Schrader Attending MD Review Statement Documenting Attending: Nick Smart MD Other Findings: Agree with the above summary of care. The patient is being transferred to [facility] for comfort care today. Will follow-up with MD's at that facility. Family from [place] is present.
--- NOTE | 2017-12-11 11:48 | Patient Discharge Instructions ---
Discharge Instructions General Discharge Information You were seen/treated for: Weakness Watch for these problems: Extreme fatigue, falls, loss of balance, please come back to ER. Special Instructions: Please follow up with neurologist in one week regarding weakness and balance issues. Continue PT and rehab conditioning. Diet Continue normal diet: Yes Activity Full Activity/No Limits: No Activity Self Limited: Yes Acute Coronary Syndrome Inclusion Criteria At DC or during hospital stay patient has or had the following: ACS DIAGNOSIS No Discharge Core Measures Meds if any: Prescribed or Continued at Discharge Meds if any: NOT Prescribed or Continued at Discharge Congestive Heart Failure Inclusion Criteria At DC or during hospital stay patient has or had the following: CHF DIAGNOSIS No Discharge Core Measures Meds if any: Prescribed or Continued at Discharge Meds if any: NOT Prescribed or Continued at Discharge Cerebrovascular accident Inclusion Criteria At DC or during hospital stay patient has or had the following: CVA/TIA Diagnosis No Discharge Core Measures Meds if any: Prescribed or Continued at Discharge Meds if any: NOT Prescribed or Continued at Discharge Venous thromboembolism Inclusion Criteria VTE Diagnosis No VTE Type NONE VTE Confirmed by (Test) NONE Discharge Core Measures - Per Current guidelines, there needs to be overlap - treatment for the first 5 days of Warfarin therapy. - If discharged on Warfarin prior to 5 days of - overlap therapy, the patient will need to be - assessed for post discharge needs including - *Post discharge parental anticoagulation - *Warfarin and/or parental anticoagulation education - *Follow up date to check INR post discharge At least 5 days overlap therapy as Inpatient No Meds if any: Prescribed or Continued at Discharge Note: Overlap Therapy is Warfarin and Anticoagulant Meds if any: NOT Prescribed or Continued at Discharge
[2017-12-11 15:05] VITALS: BP 116/74
--- NOTE | 2017-12-11 15:12 | CT SCAN REPORT ---
EXAMINATION: CT HEAD WITHOUT CONTRAST CLINICAL INFORMATION: Rule out intracranial pathology. Upper extremity weakness. COMPARISON: None TECHNIQUE: Contiguous axial imaging was performed from the skull base to vertex without intravenous administration of contrast. DLP: 641.23 mGy-cm FINDINGS: There is no evidence of acute intracranial hemorrhage or territorial infarction. No abnormal mass effect or midline shift is seen. Dubois to white matter differentiation is well preserved. No extra-axial fluid collections are identified. Chronic-appearing lacunar infarcts noted in the basal ganglia and thalami. No findings of hydrocephalus. There are moderate small vessel ischemic changes in the cerebral white matter. The osseous structures and soft tissues are normal. The mastoid air cells are well aerated. There is subtotal mucosal opacification and a significant fluid level in the left maxillary antrum. IMPRESSION: No acute intracranial pathology. Moderate chronic white matter microangiopathy with scattered chronic deep dubois matter lacunar infarcts. Large fluid level with mucosal thickening subtotally opacifying the left maxillary sinus.
[2017-12-11 22:58] VITALS: BP 140/70
[2017-12-12 07:35] VITALS: BP 136/64
--- NOTE | 2017-12-12 10:13 | PN- Housestaff ---
Edwin Riley 12/12/17 1013: Subjective Follow-up For: Weakness Subjective: No issues overnight. Patient reports progressive weakness now even less able to lift her arms up and weakness in her fingers. She is finding difficult to eat as well. Review of Systems Constitutional: Reports: see HPI. Objective Last 24 Hrs of Vital Signs/I&O Vital Signs Date Time Temp Pulse Resp B/P B/P Pulse O2 O2 Flow FiO2 Mean Ox Delivery Rate 12/12 1441 97.5 83 20 134/82 96 12/12 1100 79 136/70 12/12 1100 79 136/70 12/12 0832 84 138/80 12/12 0735 98.4 70 20 136/64 96 Room Air 12/11 2258 98.7 78 20 140/70 94 12/11 1642 Room Air Intake & Output 12/12 1600 12/12 0800 12/12 0000 Intake Total 200 240 Output Total 200 Balance -200 200 240 Intake, Oral 200 240 Output, Urine 200 Patient 201 lb Weight Weight Bed scale Measurement Method Physical Exam General Appearance: Alert, Cooperative, No Acute Distress Skin Temp/Moisture Exam: Warm/Dry HEENT: Atraumatic, EOMI Cardiovascular: Normal S1, Normal S2 Lungs: Clear to Auscultation, Normal Air Movement Abdomen: Normal Bowel Sounds, Soft, No Tenderness Neurological: Strength 2/5 upper ext, and 4/5 lower ext Current Medications: Current Medications Sig/Andrea Start time Last Medication Dose Route Stop Time Status Admin Acetaminophen 650 MG Q6P PRN 12/07 2300 AC PO Amlodipine Besylate 5 MG DAILY 12/08 899 AC 12/12 PO 0832 Atorvastatin Calcium 10 MG 1700 12/08 1700 AC 12/11 PO 1624 Bisacodyl 10 MG ONCE PRN 12/12 1215 AC 12/12 [place] 1250 Clonazepam 0.5 MG DAILY NEEDED PRN 12/07 2315 AC PO 12/14 2314 Dabigatran 150 MG BID 12/08 899 AC 12/12 PO 0833 Escitalopram Oxalate 10 MG DAILY 12/08 09 AC 12/12 PO 0832 Furosemide 40 MG DAILY 12/08 899 AC 12/12 PO 0832 Gabapentin 600 MG QPM 12/08 2100 AC 12/11 PO 2020 Levothyroxine Sodium 0.05 MG DAILY AC 12/08 07 AC 12/12 PO 0555 Losartan Potassium 50 MG DAILY 12/08 0900 AC 12/12 PO 1100 Metoprolol Succinate 50 MG DAILY 12/08 0900 AC 12/12 PO 1100 Nystatin 1 JAMSHID BID 12/08 09 AC 12/12 TOP 0838 Omeprazole 20 MG DAILY AC PRN 12/12 1545 UNVr PO Polyethylene Glycol 17 GM DAILY 12/12 1215 AC 12/12 PO 1504 Potassium Chloride 40 MEQ ONCE ONE 12/12 1415 DC 12/12 PO 12/12 1416 1504 Ropinirole HCl 0.25 MG AT BEDTIME 12/08 2100 AC 12/11 PO 2020 Senna 187 MG AT BEDTIME 12/12 2100 DC PO Senna 187 MG AT BEDTIME 12/12 1400 AC 12/12 PO 1504 Timolol Maleate 1 GTT BID 12/08 899 AC 12/12 OPH 0833 Assessment/Plan Assessment: Assessment: 87 year old female with PMH significant for atrial fibrillation on Pradaxa, HTN, HLD, hypothyroidism, HFpEF, anxiety/depression, and restless legs syndrome last admitted in 07/2017 for CHF exacerbation and dyspnea which improved after diuresis was BIBA to ED with complaints of progressive exertional dyspnea and generalized weakness for the past week. ECHO 12/08/17 1. Normal EF of 60%. 2. Mild left ventricular hypertrophy. 3. Moderate left atrial enlargement. Mild right atrial enlargement. 4. Mild posterior annular calcification of the mitral valve with trace MR. 5. Mild to moderate tricuspid regurgitation. 6. Trace pulmonic regurgitation. 7. Mild pulmonary hypertension. XRAY SHOULDERS BL 12/10/17 1. Moderate diffuse osteopenia. 2. Mild osteoarthrosis at both acromioclavicular and glenohumeral joints. 3. The visualized lung garcia bilaterally appear abnormal. Follow-up chest radiograph may be considered for further full detail evaluation, if clinically appropriate. Head CT W/O 12/11/17 No acute intracranial pathology. 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 Large fluid level with mucosal thickening subtotally opacifying the left maxillary sinus. Patient has been witnessed having trouble with her shoulders, arms, and now fingers. Nursing staff noticed she has trouble sitting up and may be off balance in relation to her back. X-ray of shoulders was not convincing for her symptoms. Head CT was negative for acute pathology. Although deconditioning may be the likely culprit in her upper body weakness and imbalance, her progression of weakness in upper extremities from proximal to distal was concerning so we consulted neurology today. STR planning deferred until neuro investigation is complete. Neurology speculates more likely is a myopathy, possibly an inflammatory myopathy or alternatively Myasthenia Gravis due to the concomitant double vision. Neuro Recs appreciated: - CK and acetylcholine receptor antibody panel - PFTs baseline - EKG. If no blocks or severe bradycardia, can do a trial of 60mg Mestinon and assess if strength is better an hour later - Chest CT to assess for thymoma - Swallow eval Exertional dyspnea: - Admitted with diagnosis of pneumonia although afebrile no leukocytosis or significant cough - Chest x-ray shows RLL hazy opacity, consider PA and lateral tomorrow - TRC evaluation, no supplemental oxygen requirement at this time - Received ceftriaxone and azithromycin in the ED - Blood Cx negative to date - Urinary pneumo and legionella negative - Continue home dose furosemide - Hypokalemia 3.3 -> 3.5 -> 3.4 Upper Ext Weakness with Balance Issues: - Decreased ROM of both shoulders BL - XRAY B/L shoulders not impressive - PT to evaluate Upper ext and back - Consider neurology F/U at STR Afib: - Currently rate controlled on metoprolol - Continue pradaxa - Trops negative Weakness: - PT recommends STR Hypothyroidism: - TSH wnl - Continue synthroid 50mcg HTN: - Continue norvasc, metoprolol, lasix, and losartan HLD: - Continue statin Restless leg syndrome: - Continue ropirinole and gabapentin Anxiety/Depression: - Continue lexapro and clonazepam prn Heart healthy diet DVT ppx-pradaxa Full code Problem List: 1. Weakness Pain Ratin Pain Location: n/a Pain Goal: Remain pain free Pain Plan: pathway Tomorrow's Labs & Rationales: FERNANDO Barnard MD,Enma 12/12/17 1109: Attending MD Review Statement Attending Statement Attending MD Statement: examined this patient, discuss w/resident/PA/PAPER MACHINE BACKTENDER, agreed w/resident/PA/PAPER MACHINE BACKTENDER, reviewed EMR data (avail), discussed with nursing, discussed with case mgmt, amended to note Attending Assessment/Plan: Patient seen and examined. Resting comfortably not in any acute distress. No issues overnight reported by nursing staff. Head CT done yesterday showed no acute intracranial pathology. It however did show moderate chronic white matter microangiopathy with scattered chronic deep white matter lacunar infarcts. Incidentally noted is large fluid level in the left maxillary sinus. This morning patient continues to report Weakness of her upper extremities. She is now unable to lift her arms off the bed. She now reports weakness in science instructor strength and coordination with her fingers. Also staff admits that this is a progression of her weakness compared to presentation. She was able to utilize her upper extremities functionally on presentation. On examination she has no facial asymmetry. Cranial nerves II through XII appear intact. Power is 4/5 with flexion at the elbows. She however is unable to move upper extremities reasonably of the shoulders. Asian Studies Professor strength is also weak compared to presentation. Power is 3-4/5 bilateral lower extremities. The uterus appears to be progressing weakness particularly of upper extremities recommend consultation with the neurology service today.
[2017-12-12 14:41] VITALS: BP 134/82
--- NOTE | 2017-12-12 15:08 | Cons- Neurology ---
General Information and HPI Consulting Request Date of Consult: 12/12/17 Requested By: Enma Barnard MD Reason for Consult: Progressive weakness Source of Information: patient, old records Exam Limitations: no limitations History of Present Illness: This is a 87 year old woman who we were asked to see for progressive weakness. She reports first noting trouble walking up the stairs 6-7 months ago, however, over the last week she had gotten to a point where she could not walk anymore and in fact not hold anything in her hands bilaterally. She denies trouble swallowing or trouble with her speech, but volunteers that she has been having double vision (on upgaze). She has also been extremely constipated and her RLS has flared up. No other complaints. She has been on ATorvastatin for years. She has a past medical history of A. fib, hypertension, hyperlipidemia, hypothyroidism, and CHF who was brought in by ambulance after activating her life alert system due to inability to stand up off the toilet. Allergies/Medications Allergies: Coded Allergies: NO KNOWN ALLERGIES (07/04/11) Home Med List: Amlodipine Besylate (Norvasc) 5 MG TABLET 1 TAB PO DAILY HYPERTENSION Atorvastatin Calcium 10 MG TABLET 1 TAB PO DAILY CHOLESTEROL (Reported) Clonazepam (Klonopin) 0.5 MG TABLET 0.5-1 TAB PO DAILY NEEDED PRN ANXIETY (Reported) Dabigatran Etexilate Mesylate (Pradaxa 150 MG) 150 MG CAPSULE 1 CAP PO BID BLOOD THINNER (Reported) Escitalopram Oxalate (Lexapro) 10 MG TABLET 1 TAB PO DAILY DEPRESSION ( Reported) Furosemide (Lasix) 40 MG TABLET 1 TAB PO ONE DIURETIC Gabapentin 300 MG CAPSULE 2 TAB PO QPM RESTLESS LEGS (Reported) Irbesartan (Avapro) 300 MG TABLET 1 TAB PO DAILY BLOOD PRESSURE (Reported) Levothyroxine Sodium (Synthroid) 50 MCG TABLET 1 TAB PO DAILY AC THYROID ( Reported) Metoprolol Succ XL (Toprol Xl) 50 MG TAB 1 TAB PO DAILY HEART (Reported) Ropinirole Hydrochloride (Requip) 0.25 MG TABLET 1 TAB PO QPM RESTLESS LEGS ( Reported) Timolol Maleate 0.5 % DROPS 1 GTT OD BID GLAUCOMA-RIGHT EYE (Reported) Current Medications: Current Medications Sig/Andrea Start time Last Medication Dose Route Stop Time Status Admin Acetaminophen 650 MG Q6P PRN 12/07 2300 AC PO Amlodipine Besylate 5 MG DAILY 12/08 0900 AC 12/12 PO 0832 Atorvastatin Calcium 10 MG 1700 12/08 1700 AC 12/11 PO 1624 Bisacodyl 10 MG ONCE PRN 12/12 1215 AC 12/12 [place] [address]250 Clonazepam 0.5 MG DAILY NEEDED PRN 12/07 2315 AC PO 12/14 2314 Dabigatran 150 MG BID 12/08 09 AC 12/12 PO 0833 Escitalopram Oxalate 10 MG DAILY 12/08 09 AC 12/12 PO 0832 Furosemide 40 MG DAILY 12/08 09 AC 12/12 PO 0832 Gabapentin 600 MG QPM 12/08 2100 AC 12/11 PO 2020 Levothyroxine Sodium 0.05 MG DAILY AC 12/08 07 AC 12/12 PO 0555 Losartan Potassium 50 MG DAILY 12/08 0900 AC 12/12 PO 1100 Metoprolol Succinate 50 MG DAILY 12/08 09 AC 12/12 PO 1100 Nystatin 1 JAMSHID BID 12/08 09 AC 12/12 TOP 0838 Polyethylene Glycol 17 GM DAILY 12/12 1215 AC PO Potassium Chloride 40 MEQ ONCE ONE 12/12 1415 DC PO 12/12 1416 Ropinirole HCl 0.25 MG AT BEDTIME 12/08 2100 AC 12/11 PO 2020 Senna 187 MG AT BEDTIME 12/12 2100 DC PO Senna 187 MG AT BEDTIME 12/12 1400 AC PO Timolol Maleate 1 GTT BID 12/08 0900 AC 12/12 OPH 0833 Review of Systems Review of Systems: As above otherwise negative. 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 self Services at Home: None Primary Language: Setswana Smoking Status: Former Smoker ETOH Use: denies use Illicit Drug Use: denies illicit drug use Functional Ability ADLs Independent: dressing, eating, toileting, bathing. Ambulation: independent Exam & Diagnostic Data Vital Signs and I&O Vital Signs Date Time Temp Pulse Resp B/P B/P Pulse O2 O2 Flow FiO2 Mean Ox Delivery Rate 12/12 1441 97.5 83 20 134/82 96 12/12 1100 79 136/70 12/12 1100 79 136/70 12/12 0832 84 138/80 12/12 0735 98.4 70 20 136/64 96 Room Air 12/11 2258 98.7 78 20 140/70 94 12/11 1642 Room Air 12/11 1505 98.1 79 20 116/74 93 Room Air Intake & Output 12/12 1600 12/12 0800 12/12 0000 Intake Total 200 240 Output Total 200 Balance -200 200 240 Intake, Oral 200 240 Output, Urine 200 Patient 201 lb Weight Weight Bed scale Measurement Method Physical Exam: Alert and oriented, in some pain from constipation. Fluent and comprehends. Can reepeat. S1 and S2, irregular heart rate. EOMI, GEORGE, no nystagmus, upgaze diplopia on up-left gaze that is worsened with 30 second upgaze test, right lower facial droop, tongue midline without fasciculations. Mild bilateral palpebral fissure closure symmetric. Bilateral proximal weakness on arm extension and abduction 0/5, and distally 2/5 in hands. In legs 2/5 proximal weakness and 4/5 distally. Hyporeflexive, toes down, FNF unable to do. VF intact. Could not walk. Last 48 Hours of Lab Results: Laboratory Tests 12/11 0650 Chemistry Sodium (137 - 145 mmol/L) 140 Potassium (3.5 - 5.1 mmol/L) 3.4 L Chloride (98 - 107 mmol/L) 102 Carbon Dioxide (22 - 30 mmol/L) 29 Anion Gap (5 - 16) 8 BUN (7 - 17 mg/dL) 21 H Creatinine (0.5 - 1.0 mg/dL) 0.8 Estimated GFR (>60 ml/min) > 60 BUN/Creatinine Ratio (7 - 25 %) 26.3 H Imaging/Other Studies: FINDINGS: There is no evidence of acute intracranial hemorrhage or territorial infarction. No abnormal mass effect or midline shift is seen. Dubois to white matter differentiation is well preserved. No extra-axial fluid collections are identified. Chronic-appearing lacunar infarcts noted in the basal ganglia and thalami. No findings of hydrocephalus. There are moderate small vessel ischemic changes in the cerebral white matter. The osseous structures and soft tissues are normal. The mastoid air cells are well aerated. There is subtotal mucosal opacification and a significant fluid level in the left maxillary antrum. IMPRESSION: No acute intracranial pathology. Moderate chronic white matter microangiopathy with scattered chronic deep dubois matter lacunar infarcts. Large fluid level with mucosal thickening subtotally opacifying the left maxillary sinus. Assessment/Plan Assessment: 87 year old with 6 month progressive weakening of strength and double vision. Has evidence of bilateral lacunes but this should be a diagnosis of exclusion to explain her current progressive weakness. More likely is a myopathy, possibly an inflammatory myopathy or alternatively Myasthenia Gravis due to the concomitant double vision. Recommendations: 1. Send CK and acetylcholine receptor antibody panel as discussed with residents. 2. Check PFTs baseline. 3. EKG. If no blocks or severe bradycardia, do a trial of 60mg Mestinon and assess if strength is better an hour later. 4. Consider chest CT to assess for thymoma. 5. Swallow evaluation. YC Consult Acknowledgment - Thank you for your consult request.
[2017-12-12 21:31] VITALS: BP 134/68
[2017-12-13 06:42] VITALS: BP 130/60
--- NOTE | 2017-12-13 07:22 | PN- Housestaff ---
ClaymarcosMarcio hillesh 12/13/17 0721: Subjective Follow-up For: weakness Subjective: Per nursing patient started coughing dark brown colored sputum overnight. Patient seems tired and lethargic today. She denies any shortness of breath. She remains afebrile. She had a few bowel movements overnight after given the bowel regimen. She reports a good night sleep. She cannot lift her legs today, but she can turn them sideways. She doesn't have the strength to call her nurses by pressing the remote she mentions. She seems very frustrated with her ongoing progressive weakness. We spoke with her brother yesterday and explained the situation. Review of Systems Constitutional: Reports: see HPI. Objective Last 24 Hrs of Vital Signs/I&O Vital Signs Date Time Temp Pulse Resp B/P B/P Pulse O2 O2 Flow FiO2 Mean Ox Delivery Rate 12/13 0834 72 132/84 12/13 0834 72 132/84 12/13 0834 72 132/84 12/13 0833 72 132/84 12/13 0800 Room Air 12/13 0642 98.3 94 18 130/60 94 Room Air 12/12 2257 Room Air Room Air 12/12 2131 98.3 72 18 134/68 93 Room Air 12/12 1441 97.5 83 20 134/82 96 12/12 1100 79 136/70 12/12 1100 79 136/70 Intake & Output 12/13 1600 12/13 0800 12/13 0000 Intake Total 100 200 Output Total 230 50 Balance -130 150 Intake, Oral 100 200 Number 2 3 Bowel Movements Output, Other 30 Output, Stool 50 50 Output, Urine 150 Patient 202 lb Weight Weight Bed scale Measurement Method Physical Exam General Appearance: Alert, Cooperative, No Acute Distress, Lethargic/Tired/ Somnolent HEENT: Atraumatic, EOMI Cardiovascular: Regular Rate, Normal S1, Normal S2 Lungs: Clear to Auscultation, Normal Air Movement Abdomen: Normal Bowel Sounds, Soft, No Tenderness Neurological: Strength 2/5 UE BL, Strength 1/5 BL LE Assessment/Plan Assessment: 87 year old female with PMH significant for atrial fibrillation on Pradaxa, HTN, HLD, hypothyroidism, HFpEF, anxiety/depression, and restless legs syndrome last admitted in 07/2017 for CHF exacerbation and dyspnea which improved after diuresis was BIBA to ED with complaints of progressive exertional dyspnea and generalized weakness for the past week. ECHO 12/08/17 1. Normal EF of 60%. 2. Mild left ventricular hypertrophy. 3. Moderate left atrial enlargement. Mild right atrial enlargement. 4. Mild posterior annular calcification of the mitral valve with trace MR. 5. Mild to moderate tricuspid regurgitation. 6. Trace pulmonic regurgitation. 7. Mild pulmonary hypertension. XRAY SHOULDERS BL 12/10/17 1. Moderate diffuse osteopenia. 2. Mild osteoarthrosis at both acromioclavicular and glenohumeral joints. 3. The visualized lung garcia bilaterally appear abnormal. Follow-up chest radiograph may be considered for further full detail evaluation, if clinically appropriate. Head CT W/O 12/11/17 No acute intracranial pathology. 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 Large fluid level with mucosal thickening subtotally opacifying the left maxillary sinus. Chest CT 12/12/17 1. Large lobulated peripheral right lung mass that is confluent with the mediastinum. There are also pleural plaques identified that are partially calcified. 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 There is bulky mediastinal and right hilar adenopathy with mass effect upon the right hilum but with preserved airways and vessels. 2. Cardiomegaly. Coronary artery atherosclerosis. Thoracic aortic atherosclerosis. Patient has been witnessed having trouble with her shoulders, arms, and now fingers. Nursing staff noticed she has trouble sitting up and may be off balance in relation to her back. X-ray of shoulders was not convincing for her symptoms. Head CT was negative for acute pathology. Although deconditioning may be the likely culprit in her upper body weakness and imbalance, her progression of weakness in upper extremities from proximal to distal was concerning so we consulted neurology today. STR planning deferred until neuro investigation is complete. Neurology speculates more likely is a myopathy, possibly an inflammatory myopathy or alternatively Myasthenia Gravis due to the concomitant double vision. Pyridostigmine challenge will be done tomorrow when pharmacy attains it. EKG did not show bradycardia or blocks. CPK levels were wnl. Chest CT was no impressive for thymoma but incidentally did reveal right lung mass that is confluent with mediastinum. Neuro Recs appreciated (Ruling out Myasthenia Gravis Vs Myopathy): - CPK levels wnl - Acetylcholine receptor antibody panel pending - PFTs baseline pending - EKG - Afib, no blocks or bradycardia - Trial of 60mg Mestinon and assess if strength is better an hour later (waiting for pharmacy) - Chest CT did not show thymoma - Swallow eval pending Exertional dyspnea: - Admitted with diagnosis of pneumonia although afebrile no leukocytosis or significant cough - Chest x-ray shows RLL hazy opacity, consider PA and lateral tomorrow - TRC evaluation, no supplemental oxygen requirement at this time - Received ceftriaxone and azithromycin in the ED - Blood Cx negative to date - Urinary pneumo and legionella negative - Continue home dose furosemide Upper Ext Weakness with Balance Issues: - Decreased ROM of both shoulders BL - XRAY B/L shoulders not impressive - PT to evaluate Upper ext and back - Consider neurology F/U at STR Afib: - Currently rate controlled on metoprolol - Continue pradaxa - Trops negative Weakness: - PT recommends STR Hypothyroidism: - TSH wnl - Continue synthroid 50mcg HTN: - Continue norvasc, metoprolol, lasix, and losartan HLD: - Continue statin Restless leg syndrome: - Continue ropirinole and gabapentin Anxiety/Depression: - Continue lexapro and clonazepam prn Heart healthy diet DVT ppx-pradaxa Full code Problem List: 1. Weakness Pain Ratin Pain Location: n/a Pain Goal: Remain pain free Pain Plan: per pathway Tomorrow's Labs & Rationales: OSCAR Barnard MD,Staceypamela 12/13/17 1504: Attending MD Review Statement Attending Statement Attending MD Statement: examined this patient, discuss w/resident/PA/UNDER SEAL OPERATOR, agreed w/resident/PA/UNDER SEAL OPERATOR, reviewed EMR data (avail), discussed with nursing, discussed with case mgmt, amended to note Attending Assessment/Plan: Patient seen and examined. Continues complain of malaise. Continues complain of bilateral upper extremity weakness. She also appears to have increased weakness in the lower extremities. She was evaluated by the neurology service yesterday with recommendations to work patient up for possible myasthenia gravis. CPK level was checked and is within normal limits making myopathy less likely. A pyridostigmine treatment has been ordered and will be carried out once the medication is available. No thymoma was noted on the CT scan. A pleural mass was seen. Will discuss with the pulmonology service.
--- NOTE | 2017-12-13 08:10 | PN- Student ---
Subjective Subjective: 87-year-old female with PMH of Afib, HTN, HLD, hypothyroid and restless leg syndrome, presented to ED with weakness and SOB. Hospital day 5: Patient was off tele monitor. Patient was seen and interviewed at bed side. She seemed tired, weak complained she did not sleep well. Overnight, she coughed off some thick, brown sputum in which the night team was notified and a sputum cx was collected. When asked regarding her diplopia, she responded seeing "double" of my glasses. Bowel regimen seemed to work on her overnight. Patient denied SOB, chest pain, mild cough with no sputum at the time being seen. Current Medications Sig/Andrea Start time Last Medication Dose Route Stop Time Status Admin Acetaminophen 650 MG Q6P PRN 12/07 2300 AC PO Amlodipine Besylate 5 MG DAILY 12/08 09 AC 12/12 PO 0832 Atorvastatin Calcium 10 MG 1700 12/08 1700 AC 12/12 PO 1840 Bisacodyl 10 MG ONCE PRN 12/12 1215 AC 12/12 CT 1250 Clonazepam 0.5 MG DAILY NEEDED PRN 12/07 2315 AC 12/12 PO 12/14 2314 2057 Dabigatran 150 MG BID 12/08 09 AC 12/12 PO 2043 Escitalopram Oxalate 10 MG DAILY 12/08 09 AC 12/12 PO 0832 Furosemide 40 MG DAILY 12/08 09 AC 12/12 PO 0832 Gabapentin 600 MG QPM 12/08 2100 AC 12/12 PO 2042 Levothyroxine Sodium 0.05 MG DAILY AC 12/08 0700 AC 12/13 PO 0556 Losartan Potassium 50 MG DAILY 12/08 09 AC 12/12 PO 1100 Metoprolol Succinate 50 MG DAILY 12/08 0900 AC 12/12 PO 1100 Nystatin 1 JAMSHID BID 12/08 09 AC 12/12 TOP 2043 Omeprazole 20 MG DAILY AC PRN 12/12 1545 AC 12/12 PO 1553 Polyethylene Glycol 17 GM DAILY 12/12 1215 AC 12/12 PO 1504 Potassium Chloride 40 MEQ ONCE ONE 12/12 1415 DC 12/12 PO 12/12 1416 1504 Ropinirole HCl 0.25 MG AT BEDTIME 12/08 2100 AC 12/12 PO 2043 Senna 187 MG AT BEDTIME 12/12 2100 DC PO Senna 187 MG AT BEDTIME 12/12 1400 AC 12/12 PO 1504 Timolol Maleate 1 GTT BID 12/08 0900 AC 12/12 OPH 2043 Objective Objective: Vital Signs Date Time Temp Pulse Resp B/P B/P Pulse O2 O2 Flow FiO2 Mean Ox Delivery Rate 12/13 0642 98.3 94 18 130/60 94 Room Air 12/12 2257 Room Air Room Air 12/12 2131 98.3 72 18 134/68 93 Room Air 12/12 1441 97.5 83 20 134/82 96 12/12 1100 79 136/70 12/12 1100 79 136/70 12/12 0832 84 138/80 Intake & Output 12/13 1600 12/13 0800 12/13 0000 Intake Total 100 200 Output Total 230 50 Balance -130 150 Intake, Oral 100 200 Number 2 3 Bowel Movements Output, Other 30 Output, Stool 50 50 Output, Urine 150 Patient 202 lb Weight Weight Bed scale Measurement Method Physical Exam: - Patient was oriented x3, mild acute distress. - HEENT: diplopia, NC/AT - Heart: normal S1 S2 no murmur - Lungs: CTA - Extremities: Upper limbs: 1/5 muscle strength Lower limbs: 1/5 muscle strength Results Results: Laboratory Tests 12/13/17 0630: Anion Gap 9, Estimated GFR 59 L, BUN/Creatinine Ratio 30.0 H 12/12/17 1700: Creatine Kinase 97, Acetylcholine Recept Ab Pending 12/11/17 0650: Anion Gap 8, Estimated GFR > 60, BUN/Creatinine Ratio 26.3 H Microbiology 12/13 0605 LOWER RESP: Respiratory Culture - CAN Cancelled: NUMBER OF SQUAMOUS CELLS INDICATES POOR QUALITY SPECIMEN 12/13 0605 LOWER RESP: Gram Stain - CAN Cancelled: NUMBER OF SQUAMOUS CELLS INDICATES POOR QUALITY SPECIMEN Imaging: - Head CT: chronic deep chavira matter lacunar infract - Chest CT: 1. Large lobulated peripheral right lung mass that is confluent with the mediastinum. There are also pleural plaques identified that are partially calcified. 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 There is bulky mediastinal and right hilar adenopathy with mass effect upon the right hilum but with preserved airways and vessels. 2. Cardiomegaly. Coronary artery atherosclerosis. Thoracic aortic atherosclerosis - EKG: showed Afib - CK at 97 normal. Assessment/Plan Assessment: Summary: 87-year-old female with PMH of Afib, HTN, HLD, hypothyroid and restless leg syndrome, presented to ED with weakness and SOB. PE was significant for progressive worsening bilaterally upper and lower extremities weakness. CK is normal. Chest CT showed right hilar lung mass confluent with the mediastinum highly suspected pleural maglinancy. Problem list: 1. Suspecting Myasthenia gravis: still under work-up 2. Right hilar lung mass. 3. Afib. 4. HTN. 5. HLD. 6. Hypothyroid. 7. Restless leg syndrome. Plan: Per neuro note appreciated: 1. Suspected MG: - Pending Ach-R full panel. - Pending PFT. - Pending 60mg PO x 1 dose Pyridostigmine stimulation test. Medication will be availabe for administer tomorrow. 2. Afib on Metoprolol 50mg daily PO 3. HTN on Amlodipine 5mg daily PO, Losartan 50mg daily PO 4. HLD on Lipitor 10mg PO 5. Restless leg syndrome on Ropinirole 0.25mg at bedtime PO and Gabapentin 600mg qpm PO. 6. Hypothyroid on Levothyroxine 0.05mg daily PO #DVT ppx with Pradaxa #Heart healthy diet #Full code
[2017-12-13 08:33] VITALS: BP 132/84
--- NOTE | 2017-12-13 09:18 | CT SCAN REPORT ---
EXAMINATION: CT CHEST WITH CONTRAST CLINICAL INFORMATION: Myasthenia gravis. COMPARISON: None TECHNIQUE: Multidetector volumetric CT imaging of the chest was obtained after the administration of 50 mL of Optiray 320 intravenous contrast without immediate adverse reactions. Axial MIP volume rendering provided. Sagittal and coronal reformatted images were obtained. DLP: 641.10 mGy-cm FINDINGS: LUNGS: There is a lobulated peripheral soft tissue mass extending from the right lateral chest wall curving around the posterior chest wall and becoming confluent with the right posterolateral mediastinum and hilum. There is mass effect upon the right hilar bronchovascular structures which appear to maintain patency. The mass is very difficult to measure due to its irregular and lobulated margins. However, as measured on series 2, image 32, the mass measures 7.9 x 10.0 cm in the oblique AP by transverse dimensions. There are multiple pulmonary nodules and masses distributed throughout all lung lobes bilaterally. These are too numerous to individually catalogue. Some lesions also demonstrate calcifications, for example within the left upper lobe there is a 1.0 x 1.0 cm mass with a small central calcification (series 4 image 136). One of the larger masses on the right is within the posterior segment of the right upper lobe and measures 1.4 x 1.2 cm (series 4 image 204). MEDIASTINUM: Cardiomegaly. Coronary artery atherosclerosis. Calcifications of the thoracic aorta. Mitral annular and aortic valve calcifications. There is bulky mediastinal and right hilar adenopathy which becomes confluent with the above-mentioned peripheral right lung mass. An index right paratracheal lymph node measures 2.1 x 1.7 cm (series 2 image 20). PLEURA: Calcified pleural plaques at the apices, left greater than right. Lobulated peripheral right lung mass conforms to the right pleural surface. Small right pleural effusion. AXILLA: No axillary lymphadenopathy. UPPER ABDOMEN: Small hiatal hernia. OSSEOUS STRUCTURES: Degenerative changes of the spine. No acute or suspicious osseous abnormality. IMPRESSION: 1. Large lobulated peripheral right lung mass that is confluent with the mediastinum. There are also pleural plaques identified that are partially calcified. 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 There is bulky mediastinal and right hilar adenopathy with mass effect upon the right hilum but with preserved airways and vessels. 2. Cardiomegaly. Coronary artery atherosclerosis. Thoracic aortic atherosclerosis. The report will be called to the ordering clinician by a [facility] Workflow Coordinator.
[2017-12-13 14:25] VITALS: BP 122/80
--- NOTE | 2017-12-13 15:01 | RADIOLOGY REPORT ---
EXAMINATION: XR MODIFIED BARIUM SWALLOW CLINICAL INFORMATION: Dysphagia. Cough with food COMPARISON: CT chest November 2017 TECHNIQUE: A radiographic and fluoroscopic examination of the patient's swallowing was performed in conjunction with the speech pathologist. Patient swallowed multiple contrast coated consistencies during video fluoroscopic observation FINDINGS: There is a small amount of penetration occurring during swallowing of thin solution contrast. There is no definite aspiration. No other abnormalities detected. FLUOROSCOPY TIME: 39 seconds IMPRESSION: Modified barium swallow performed demonstrating penetration during swallowing of thin contrast solution. Full report to follow per speech pathology
[2017-12-13 21:34] VITALS: BP 140/64
[2017-12-14 05:52] VITALS: BP 142/70
--- NOTE | 2017-12-14 07:09 | PN- Housestaff ---
JanetroeEdwin 12/14/17 0709: Subjective Follow-up For: Weakness Tele-Events Since Last Visit: Patient seems to be declining functionally. She can barely move her arms and legs. Per nursing she has been having difficutly swallowing her meds. She is also coughing more but she denies any shortness of breath. Review of Systems Constitutional: Reports: see HPI. Objective Last 24 Hrs of Vital Signs/I&O Vital Signs Date Time Temp Pulse Resp B/P B/P Pulse O2 O2 Flow FiO2 Mean Ox Delivery Rate 12/14 194 75 122/74 12/14 1940 75 122/74 12/14 1938 75 122/74 12/14 1837 93 Room Air Room Air 12/14 1449 97.7 75 20 122/74 93 Room Air 12/14 0800 Room Air 12/14 0552 97.9 84 20 142/70 94 Room Air 12/14 0000 Room Air 12/13 2134 97.7 88 20 140/64 93 Room Air Intake & Output 12/14 1600 12/14 0800 12/14 0000 Intake Total 260 0 Output Total Balance 260 0 Intake, IV 10 Intake, Oral 250 0 Number 1 0 1 Bowel Movements Patient 212 lb 205 lb Weight Weight Bed scale Bed scale Measurement Method Physical Exam General Appearance: Alert, Cooperative, Mild Distress Skin Temp/Moisture Exam: Warm/Dry HEENT: Atraumatic Neck: Supple Cardiovascular: Normal S1, Normal S2 Lungs: Clear to Auscultation, Normal Air Movement Abdomen: Normal Bowel Sounds, Soft, No Tenderness Neurological: speech intact Current Medications: Current Medications Sig/Andrea Start time Last Medication Dose Route Stop Time Status Admin Acetaminophen 650 MG Q6P PRN 12/07 2300 AC PO Amlodipine Besylate 5 MG DAILY 12/08 899 AC 12/13 PO 0834 Atorvastatin Calcium 10 MG 1700 12/08 1700 AC 12/13 PO 1819 Bisacodyl 10 MG ONCE PRN 12/12 1215 AC 12/12 [place] 1250 Clonazepam 0.5 MG DAILY NEEDED PRN 12/07 2315 AC 12/13 PO 12/14 2314 2352 Dabigatran 150 MG BID 12/08 899 DC 12/13 PO 2123 Escitalopram Oxalate 10 MG DAILY 12/08 899 AC 12/14 PO 1004 Furosemide 40 MG DAILY 12/08 899 AC 12/13 PO 0834 Gabapentin 600 MG QPM 12/08 2100 AC 12/13 PO 2123 Levothyroxine Sodium 0.05 MG DAILY AC 12/08 0700 AC 12/14 PO 0952 Losartan Potassium 50 MG DAILY 12/08 09 AC 12/13 PO 0834 Metoprolol Succinate 50 MG DAILY 12/08 0900 AC 12/13 PO 0834 Nystatin 1 JAMSHID BID 12/08 0900 AC 12/14 TOP 1200 Omeprazole 20 MG DAILY AC PRN 12/12 1545 AC 12/13 PO 2325 Polyethylene Glycol 17 GM DAILY 12/12 1215 AC 12/12 PO 1504 Pyridostigmine 60 MG ONCE ONE 12/14 1045 DC 12/14 [place] PO 12/14 1046 1048 Ropinirole HCl 0.25 MG AT BEDTIME 12/08 2100 AC 12/13 PO 2125 Senna 187 MG AT BEDTIME 12/12 1400 AC 12/13 PO 2130 Sodium Chloride 2 SPRAY Q4P PRN 12/14 1315 AC DIYA Timolol Maleate 1 GTT BID 12/08 09 AC 12/14 OPH 0954 Last 24 Hrs of Lab/Nader Results Last 24 Hrs of Labs/Mics: Laboratory Tests 12/14/17 1720: pH 7.47 H, pCO2 33 L, pO2 69 L, HCO3 23, ABG O2 Sat (Measured) 92.0 L, P-50 (Temp Corrected) N, Carboxyhemoglobin 0.9 L, O2 Concentration % RA, Temperature 97.7, Phlebotomy Draw Site RIGHT BRACHIAL 12/14/17 0618: Anion Gap 7, Estimated GFR 59 L, BUN/Creatinine Ratio 38.9 H Assessment/Plan Assessment: 87 year old female with PMH significant for atrial fibrillation on pradaxa, HTN, HLD, hypothyroidism, HFpEF, anxiety/depression, and restless legs syndrome last admitted in 07/2017 for CHF exacerbation and dyspnea which improved after diuresis was BIBA to ED with complaints of progressive exertional dyspnea and generalized weakness for the past week. ECHO 12/08/17 1. Normal EF of 60%. 2. Mild left ventricular hypertrophy. 3. Moderate left atrial enlargement. Mild right atrial enlargement. 4. Mild posterior annular calcification of the mitral valve with trace MR. 5. Mild to moderate tricuspid regurgitation. 6. Trace pulmonic regurgitation. 7. Mild pulmonary hypertension. XRAY SHOULDERS BL 12/10/17 1. Moderate diffuse osteopenia. 2. Mild osteoarthrosis at both acromioclavicular and glenohumeral joints. 3. The visualized lung garcia bilaterally appear abnormal. Follow-up chest radiograph may be considered for further full detail evaluation, if clinically appropriate. Head CT W/O 12/11/17 No acute intracranial pathology. 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 Large fluid level with mucosal thickening subtotally opacifying the left maxillary sinus. Chest CT 12/12/17 1. Large lobulated peripheral right lung mass that is confluent with the mediastinum. There are also pleural plaques identified that are partially calcified. 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 There is bulky mediastinal and right hilar adenopathy with mass effect upon the right hilum but with preserved airways and vessels. 2. Cardiomegaly. Coronary artery atherosclerosis. Thoracic aortic atherosclerosis. Patient has been witnessed having trouble with her shoulders, arms, and now fingers. Nursing staff noticed she has trouble sitting up and may be off balance in relation to her back. X-ray of shoulders was not convincing for her symptoms. Head CT was negative for acute pathology. Her progression of weakness in upper extremities from proximal to distal was concerning so we consulted neurology. She was found to have diploplia and now has bulbar symptoms. Pulmonary reommends biopsy of lung mass. Will follow closely. Weakness (Myasthenia Gravis Vs Guillain Bellerose/Hdz Osorio Vs Bikersaff Encephalitis Vs Paraneoplasm): - CPK levels wnl - Acetylcholine receptor antibody panel pending - PFTs baseline pending - EKG - Afib, no blocks or bradycardia - Trial of 60mg Mestinon was unsuccessful - Chest CT did not show thymoma, but did show plerual mass - Neuro, Pulm, ST recs appreciated - Swallow eval recs downgraded diet - DC pradaxa and bridge to heparin for LP (Elevated protein, cells, cytology, flow cyt) - Lung CT guided needle biopsy possibly on Monday - Low threshold for ICU dt degrading status Afib: - Currently rate controlled on metoprolol Weakness: - PT recommends STR Hypothyroidism: - TSH wnl - Continue synthroid 50mcg HTN: - Continue norvasc, metoprolol, lasix, and losartan HLD: - Continue statin Restless leg syndrome: - Continue ropirinole and gabapentin Anxiety/Depression: - Continue lexapro and clonazepam prn DVT ppx-pradaxa Full code Problem List: 1. Weakness Pain Ratin Pain Location: na Pain Goal: Remain pain free Pain Plan: per pathway Tomorrow's Labs & Rationales: None Akil DONAHUE,Enma 12/14/17 1637: Attending MD Review Statement Attending Statement Attending MD Statement: examined this patient, discuss w/resident/PA/STRIPPER LATEX, agreed w/resident/PA/STRIPPER LATEX, reviewed EMR data (avail), discussed with nursing, discussed with case mgmt, amended to note Attending Assessment/Plan: Patient seen and examined. No improvement in her clinical status today. She is actually weaker in her upper extremities and lower extremities today. She is able to move her wrists and ankles but other than that is unable to move her extremities. Swallow evaluation was done today and she has very slow transit time. Dad was downgraded to pured diet. She fortunately does not complain of any respiratory symptoms and is able to maintain her saturation on room air. Incidentally noted on CT scan of the chest done yesterday to evaluate for thymoma is a large right lung mass highly suggestive of malignancy. She was given a dose of pyridostigmine this morning with no improvement of her clinical status. Differentials include myasthenia gravis, Guillain-Watson syndrome. She also may have an encephalitis. The finding of the lung mass raises concern for paraneoplastic syndrome and also leptomeningeal carcinomatosis. If she does have myasthenia gravis of Guillain-Watson she may benefit from intravenous immunoglobulin however these medications do carry their own risk of adverse events and will require some more definitive diagnosis before proceeding with this treatment. Trial of steroid therapy carries repeat the risk of exacerbating her symptoms. Case was discussed in detail with the neurology service. Lumbar puncture will be helpful in making the diagnosis. A very high protein count in the spinal fluid is highly suggestive of some form of autoimmune process which point we may proceed with IVIG infusion. Lung biopsy will also be helpful in confirming the diagnosis of malignancy. Lumbar puncture could also help evaluate for carcinomatosis. recommendations: -Hold Pradaxa. After 48 hours begin bridging with intravenous heparin. -Schedule patient for IR guided lumbar puncture in 48 hours. -We will also schedule patient for lung biopsy. -Follow-up acetylcholine receptor antibody assay. -Daily spirometry. -If respiratory status begins to deteriorate patient should be transferred to the intensive care unit where she will require mechanical ventilation -MRI of the brain and neck have been ordered. Follow-up results. -MRI of the brain and neck have been ordered. Follow-up results.
--- NOTE | 2017-12-14 14:07 | Cons- Pulmonary ---
General Information and HPI Consulting Request Date of Consult: 12/14/17 Requested By: med team History of Present Illness: 87-year-old female past medical history paroxysmal atrial fibrillation on Pradaxa, diastolic heart failure, hypertension presented with complaints of weakness for 3 days. She denies chest pain, palpitations, dyspnea at rest, PND/ orthopnea, lower extremity swelling. She denies increased fluid intake, fever/ chills, cough, diarrhea/constipation, abdominal pain, dysuria. She has been compliant with her medications. She reports first noting trouble walking up the stairs 6-7 months ago, however, over the last week she had gotten to a point where she could not walk anymore and in fact not hold anything in her hands bilaterally. She denies trouble swallowing or trouble with her speech, but volunteers that she has been having double vision (on upgaze). She has also been extremely constipated and her RLS has flared up. No other complaints. She has been on ATorvastatin for years. She has a past medical history of A. fib, hypertension, hyperlipidemia, hypothyroidism, and CHF who was brought in by ambulance after activating her life alert system due to inability to stand up off the toilet. She appears to be progressively developing quadriparesis without any sensory symptoms and workup is ongoing for significant myopathy versus neuropathy. She did also have a swallow evaluation which shows mild dysphagia Pulmonary consult was asked because a CT scan which was done for evaluation of thymoma did reveal a large pleural-based mass in the right lower lobe with pleural studding with mild pleural plaques. Allergies/Medications Allergies: Coded Allergies: NO KNOWN ALLERGIES (07/04/11) Home Med List: Amlodipine Besylate (Norvasc) 5 MG TABLET 1 TAB PO DAILY HYPERTENSION Atorvastatin Calcium 10 MG TABLET 1 TAB PO DAILY CHOLESTEROL (Reported) Clonazepam (Klonopin) 0.5 MG TABLET 0.5-1 TAB PO DAILY NEEDED PRN ANXIETY (Reported) Dabigatran Etexilate Mesylate (Pradaxa 150 MG) 150 MG CAPSULE 1 CAP PO BID BLOOD THINNER (Reported) Escitalopram Oxalate (Lexapro) 10 MG TABLET 1 TAB PO DAILY DEPRESSION ( Reported) Furosemide (Lasix) 40 MG TABLET 1 TAB PO ONE DIURETIC Gabapentin 300 MG CAPSULE 2 TAB PO QPM RESTLESS LEGS (Reported) Irbesartan (Avapro) 300 MG TABLET 1 TAB PO DAILY BLOOD PRESSURE (Reported) Levothyroxine Sodium (Synthroid) 50 MCG TABLET 1 TAB PO DAILY AC THYROID ( Reported) Metoprolol Succ XL (Toprol Xl) 50 MG TAB 1 TAB PO DAILY HEART (Reported) Ropinirole Hydrochloride (Requip) 0.25 MG TABLET 1 TAB PO QPM RESTLESS LEGS ( Reported) Timolol Maleate 0.5 % DROPS 1 GTT OD BID GLAUCOMA-RIGHT EYE (Reported) Review of Systems Review of Systems Constitutional: Reports: see HPI. 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 self Services at Home: None Primary Language: French Smoking Status: Former Smoker ETOH Use: denies use Illicit Drug Use: denies illicit drug use Functional Ability ADLs Independent: dressing, eating, toileting, bathing. Ambulation: independent Exam & Diagnostic Data Last 24 Hrs of Vital Signs/I&O Vital Signs Date Time Temp Pulse Resp B/P B/P Pulse O2 O2 Flow FiO2 Mean Ox Delivery Rate 12/14 0800 Room Air 12/14 0552 97.9 84 20 142/70 94 Room Air 12/14 0000 Room Air 12/13 2134 97.7 88 20 140/64 93 Room Air 12/13 1425 97.4 95 20 122/80 93 Intake & Output 12/14 1600 12/14 0800 12/14 0000 Intake Total 0 Output Total Balance 0 Intake, Oral 0 Number 0 1 Bowel Movements Patient 212 lb 205 lb Weight Weight Bed scale Bed scale Measurement Method Last 48 Hrs of Labs/Nader: Laboratory Tests 12/14/17 0618: Anion Gap 7, Estimated GFR 59 L, BUN/Creatinine Ratio 38.9 H 12/13/17 0630: Anion Gap 9, Estimated GFR 59 L, BUN/Creatinine Ratio 30.0 H 12/12/17 1700: Creatine Kinase 97, Acetylcholine Recept Ab Pending Assessment/Plan Impression/Plan: SIGNIFICANT DATA Modified barium swallow showed aspiration with thin liquids Chest CT scan showed large peripheral right lung mass with pleural plaques with bulky mediastinal and right hilar lymphadenopathy with mass-effect upon the right hilum with preserved airways CT of the head unremarkable so far other than chronic white matter changes with maxillary sinusitis IMPRESSION This is a lady with history of more than [id number] smoker, morbid obesity, restless leg syndrome, atrial fibrillation on anticoagulation, hypertension, hypothyroidism on appropriate supplementation, previous diastolic heart disease, now has * Large right-sided pleural parenchymal mass with mediastinal hilar lymphadenopathy highly suggestive of primary lung malignancy versus pleural malignancy including mesothelioma. 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 * No clinical evidence of far suggestive of any hypercarbia * Atrial fibrillation, diastolic heart disease, hypertension. Patient is on appropriate medication and anticoagulation * Restless leg syndrome on triple therapy * Previous depression on appropriate therapy RECOMMENDATION Hold further anticoagulation and arrange for a CT-guided needle biopsy of this lung mass probably on Monday Check ABG this p.m. Bedside spirometry and ask respiratory to check vital capacity daily Continue current medications As needed inhaler Change the diet per speech pathology Prognosis appears poor will follow closely Consult Acknowledgment - Thank you for your consult request.
[2017-12-14 14:49] VITALS: BP 122/74
--- NOTE | 2017-12-14 15:03 | PN- Student ---
Subjective Subjective: 87-year-old female with PMH of Afib, HTN, HLD, hypothyroid and restless leg syndrome, presented to ED with weakness and SOB. Hospital day 7: Patient was interviewed and examined at bed side. Patient was progresivly getting worse, She coughed off lots of phlegm, worsening bilateral UE and LE weakness. She did not feel well, faituge, tiredness. Speech eval this morning showed mild dysphagia. 60mg PO Mestinon was given and check for muscle weakness response after an hour. Current Medications Sig/Andrea Start time Last Medication Dose Route Stop Time Status Admin Acetaminophen 650 MG Q6P PRN 12/07 2300 AC PO Amlodipine Besylate 5 MG DAILY 12/08 09 AC 12/13 PO 0834 Atorvastatin Calcium 10 MG 1700 12/08 1700 AC 12/13 PO 1819 Bisacodyl 10 MG ONCE PRN 12/12 1215 AC 12/12 MD 1250 Clonazepam 0.5 MG DAILY NEEDED PRN 12/07 2315 AC 12/13 PO 12/14 2314 2352 Dabigatran 150 MG BID 12/08 0900 DC 12/13 PO 2123 Escitalopram Oxalate 10 MG DAILY 12/08 09 AC 12/14 PO 1004 Furosemide 40 MG DAILY 12/08 09 AC 12/13 PO 0834 Gabapentin 600 MG QPM 12/08 2100 AC 12/13 PO 2123 Levothyroxine Sodium 0.05 MG DAILY AC 12/08 0700 AC 12/14 PO 0952 Losartan Potassium 50 MG DAILY 12/08 09 AC 12/13 PO 0834 Metoprolol Succinate 50 MG DAILY 12/08 0900 AC 12/13 PO 0834 Nystatin 1 JAMSHID BID 12/08 0900 AC 12/13 TOP 2126 Omeprazole 20 MG DAILY AC PRN 12/12 1545 AC 12/13 PO 2325 Polyethylene Glycol 17 GM DAILY 12/12 1215 AC 12/12 PO 1504 Pyridostigmine 60 MG ONCE ONE 12/14 1045 DC 12/14 [place] PO 12/14 1046 1048 Ropinirole HCl 0.25 MG AT BEDTIME 12/08 2100 AC 12/13 PO 2125 Senna 187 MG AT BEDTIME 12/12 1400 AC 12/13 PO 2130 Sodium Chloride 2 SPRAY Q4P PRN 12/14 1315 AC DIYA Timolol Maleate 1 GTT BID 12/08 0900 AC 12/14 OPH 0954 Objective Objective: Vital Signs Date Time Temp Pulse Resp B/P B/P Pulse O2 O2 Flow FiO2 Mean Ox Delivery Rate 12/14 1449 97.7 75 20 122/74 93 Room Air 12/14 0800 Room Air 12/14 0552 97.9 84 20 142/70 94 Room Air 12/14 0000 Room Air 12/13 2134 97.7 88 20 140/64 93 Room Air Intake & Output 12/14 1600 12/14 0800 12/14 0000 Intake Total 0 Output Total Balance 0 Intake, Oral 0 Number 0 1 Bowel Movements Patient 212 lb 205 lb Weight Weight Bed scale Bed scale Measurement Method Physcial Exam: - Patient was oriented x3, in severe distress. - HEENT: diplopia, dysphagia, dysarthria. - Cardiac: normal heart sound with no murmur nor gallop. - Lungs: CTA bilaterally - Extremities: 0/5 bilaterally UE weakness, 0/5 bilaterally LE weakness. Results Results: Laboratory Tests 12/14/17 0618: Anion Gap 7, Estimated GFR 59 L, BUN/Creatinine Ratio 38.9 H 12/13/17 0630: Anion Gap 9, Estimated GFR 59 L, BUN/Creatinine Ratio 30.0 H 12/12/17 1700: Creatine Kinase 97, Acetylcholine Recept Ab Pending Microbiology 12/13 604 LOWER RESP: Respiratory Culture - CAN Cancelled: NUMBER OF SQUAMOUS CELLS INDICATES POOR QUALITY SPECIMEN 12/13 604 LOWER RESP: Gram Stain - CAN Cancelled: NUMBER OF SQUAMOUS CELLS INDICATES POOR QUALITY SPECIMEN - Pending Ach-R full panel. - Head CT: chronic deep chavira matter lacunar infract - Chest CT: 1. Large lobulated peripheral right lung mass that is confluent with the mediastinum. There are also pleural plaques identified that are partially calcified. 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 There is bulky mediastinal and right hilar adenopathy with mass effect upon the right hilum but with preserved airways and vessels. 2. Cardiomegaly. Coronary artery atherosclerosis. Thoracic aortic atherosclerosis - EKG: showed Afib - CK at 97 normal. Assessment/Plan Assessment: Summary: 87-year-old female with PMH of Afib, HTN, HLD, hypothyroid and restless leg syndrome, presented to ED with weakness and SOB. PE was remarkable worsening bilateral UE and LE weakness. Pending Ach-R Abs full panel. Swallow eval was significant for dysphagia. No improvement after 60mg PO Mestinon after 1 hour despite the fact that she had ptosis on her left eye half an hour after Mestinon was given and got better. Problem list: 1. Suspecting Myasthenia gravis: still under work-up 2. Right hilar lung mass. 3. Afib. 4. HTN. 5. HLD. 6. Hypothyroid. 7. Restless leg syndrome. Plan: Pulmonology consult with Dr. Tapia on her right hilar lung mass, note is appreciated: - MRI ordered. - Considered CT guided need bx possible on Monday. - ABG pm. - Bedside PFT - Considering transfer to [place] once MRI result is back. - Suspecting mesothelioma. - Hold off anticoagulant Try to reach out for neurologist for further eval. Have not got a hold of Dr. Velez yet. Continue home meds for other conditions. Pt's brother was notified and he was aware of pt's worsening condition. Consider the fact of transfering to [place] for further eval and tx. #DVT ppx with Alps #Puree thin liquid diet #Full code
--- NOTE | 2017-12-14 16:09 | PN- Neurology ---
Subjective Subjective: Continues to get weaker, worse speech, more SOB and trouble with swallowing. Cannot move her limbs. Found to have mass in lungs, plan for biopsy. Review of Systems: no change. Objective Vital Signs and I&Os Vital Signs Date Time Temp Pulse Resp B/P B/P Pulse O2 O2 Flow FiO2 Mean Ox Delivery Rate 12/14 1449 97.7 75 20 122/74 93 Room Air 12/14 0800 Room Air 12/14 0552 97.9 84 20 142/70 94 Room Air 12/14 0000 Room Air 12/13 2134 97.7 88 20 140/64 93 Room Air Intake & Output 12/14 1600 12/14 0800 12/14 0000 12/13 1600 12/13 0800 12/13 0000 Intake Total 0 420 100 200 Output Total 230 50 Balance 0 420 -130 150 Intake, Oral 0 420 100 200 Number 0 1 5 2 3 Bowel Movements Output, Other 30 Output, Stool 50 50 Output, Urine 150 Patient 212 lb 205 lb 202 lb Weight Weight Bed scale Bed scale Bed scale Measurement Method Physical Exam: Alert and orietned. Laborous speech. Increased diplopia and eyelid droop. 1-2/5 limb movement. Hyporeflexia. Current Medications: Current Medications Sig/Andrea Start time Last Medication Dose Route Stop Time Status Admin Acetaminophen 650 MG Q6P PRN 12/07 2300 AC PO Amlodipine Besylate 5 MG DAILY 12/08 899 AC 12/13 PO 0834 Atorvastatin Calcium 10 MG 1700 12/08 1700 AC 12/13 PO 1819 Bisacodyl 10 MG ONCE PRN 12/12 1215 AC 12/12 [place] 1250 Clonazepam 0.5 MG DAILY NEEDED PRN 12/07 2315 AC 12/13 PO 12/14 2314 2352 Dabigatran 150 MG BID 12/08 09 DC 12/13 PO 2123 Escitalopram Oxalate 10 MG DAILY 12/08 899 AC 12/14 PO 1004 Furosemide 40 MG DAILY 12/08 899 AC 12/13 PO 0834 Gabapentin 600 MG QPM 12/08 2100 AC 12/13 PO 2123 Levothyroxine Sodium 0.05 MG DAILY AC 12/08 07 AC 12/14 PO 0952 Losartan Potassium 50 MG DAILY 12/08 899 AC 12/13 PO 0834 Metoprolol Succinate 50 MG DAILY 12/08 899 AC 12/13 PO 0834 Nystatin 1 JAMSHID BID 12/08 0900 AC 12/13 TOP 2126 Omeprazole 20 MG DAILY AC PRN 12/12 1545 AC 12/13 PO 2325 Polyethylene Glycol 17 GM DAILY 12/12 1215 AC 12/12 PO 1504 Pyridostigmine 60 MG ONCE ONE 12/14 1045 DC 12/14 [place] PO 12/14 1046 1048 Ropinirole HCl 0.25 MG AT BEDTIME 12/08 2100 AC 12/13 PO 2125 Senna 187 MG AT BEDTIME 12/12 1400 AC 12/13 PO 2130 Sodium Chloride 2 SPRAY Q4P PRN 12/14 1315 AC DIYA Timolol Maleate 1 GTT BID 12/08 0900 AC 12/14 OPH 0954 Results Last 24 Hours of Lab Results: Laboratory Tests 12/14 0618 Chemistry Sodium (137 - 145 mmol/L) 138 Potassium (3.5 - 5.1 mmol/L) 3.8 Chloride (98 - 107 mmol/L) 101 Carbon Dioxide (22 - 30 mmol/L) 30 Anion Gap (5 - 16) 7 BUN (7 - 17 mg/dL) 35 H Creatinine (0.5 - 1.0 mg/dL) 0.9 Estimated GFR (>60 ml/min) 59 L BUN/Creatinine Ratio (7 - 25 %) 38.9 H CK 97 No response to Mestinon. Assessment/Plan Assessment: 87 year old with rapidly progressive bulbar and limb weakness over a few days. Concern exists for a GBS or Hdz-Osorio or [place] encephalitis type of picture. Possibly a paraneoplastic picture due to lung CA? Cannot rule out leptomeningeal carcinomatosis. Plan: 1. Needs bridging to heparin from Pradaxa. 2. Then LP looking for elevated protein, cells, cytology, flow cytometry. 3. Then biopsy of lung. 4. PFTs. 5. Monitor for deterioration may need intubation and ICU stay. 6. Will decide in regards to IVIG as soon as LP is done. MOI
--- NOTE | 2017-12-14 17:22 | MRI REPORT ---
EXAMINATION: MR BRAIN WITHOUT AND WITH CONTRAST MR CERVICAL SPINE WITHOUT AND WITH CONTRAST CLINICAL INDICATION Weakness. History of myasthenia gravis. Lung mass. COMPARISON: CT scan of the head 12/11/2017. TECHNIQUE: MRI scans of the brain and cervical spine were obtained using routine sequences without and with contrast. Intravenous contrast: Gadavist, 10 mL. Images are degraded by patient motion artifact on multiple sequences. FINDINGS: MRI Brain: No diffusion abnormalities are identified to suggest an acute or subacute infarct. No mass effect or midline shift is seen. The ventricles and sulci are commensurately prominent consistent with moderate diffuse volume loss. There are extensive areas of increased T2 and FLAIR signal in the periventricular in the subcortical white matter, as well as within the rajeev consistent with sequelae of chronic microvascular ischemic disease. No extra-axial fluid collections are seen. The cerebellum appears normal. On postcontrast imaging, there is no abnormal parenchymal or leptomeningeal enhancement. There are a few foci of low gradient signal in the right cerebellar hemisphere, in the left lower rajeev and adjacent to the trigone of the right lateral ventricle. These are nonspecific, and may be consistent with sequelae of prior microhemorrhages or microcalcifications. The craniovertebral junction, marrow signal, and midline structures are normal. There has been a right lens extraction. The major intracranial flow-voids at the level of the [place] are preserved. The dural venous sinus flow-voids are maintained. The mastoid air cells are well-aerated. There is a fluid level and mucoperiosteal thickening in the left maxillary sinus, demonstrated on prior imaging. MRI Cervical Spine: VERTEBRAL BODIES AND PARASPINAL SOFT TISSUES: There is a levoscoliosis in the upper thoracic spine. There are mild anterolistheses of C4 on C5 and T1 on T2. There is multilevel narrowing of intervertebral disc height which is most severe at C5-C6 and C6-C7. There are multilevel degenerative endplate contour changes. Mild edematous signal is seen posteriorly at C3-C4. There is an area of increased T1 and T2 signal in the anterior body of C2 consistent with focal fat. Vertebral body heights are maintained and there are no compression fractures. Overall, marrow signal is slightly heterogenous. The paravertebral structures are unremarkable. The visualized thyroid gland is nonenlarged. CERVICOMEDULLARY JUNCTION AND VISUALIZED POSTERIOR FOSSA: The craniocervical and posterior fossa structures are normal. Accounting for artifact, spinal cord signal appears normal. There is no abnormal enhancement of the spinal cord or leptomeninges. There is no abnormal enhancement in the osseous structures. However postcontrast imaging is degraded by patient motion artifact and SPINAL LEVELS: C2-C3: Disc contour is normal. There is no spinal cord compression or central stenosis. The neural foramina are patent. C3-C4: There is left facet arthropathy. There is a broad-based posterior disc protrusion which distorts the ventral thecal sac. There is no spinal cord compression or central stenosis. There are left greater than right uncovertebral osteophytes. There is moderate right and mild left foraminal narrowing. C4-C5: There is moderate to severe left and moderate right facet arthropathy. There is a posterior disc osteophyte complex which effaces CSF ventral to the spinal cord, but there is no spinal cord compression. There are uncovertebral osteophytes. There is severe bilateral foraminal narrowing. C5-C6: There is moderate left facet arthropathy. There is a posterior disc osteophyte complex which effaces CSF ventral to the spinal cord. There is no spinal cord compression or central stenosis. There are uncovertebral osteophytes. There is moderate bilateral foraminal narrowing. C6-C7: There is a posterior disc osteophyte complex. There is no spinal cord compression or central stenosis. There are small uncovertebral osteophytes. The neural foramina are patent. C7-T1: Disc contour is normal. There is no spinal cord compression or central stenosis. The neural foramina are patent. T1-T2: There is a posterior disc protrusion. There is no spinal cord compression or central stenosis. The neural foramina are patent. IMPRESSION: MRI brain: 1. There are no acute bleeds or infarcts. There are no masses or areas of abnormal enhancement. 2. There is diffuse volume loss and there are chronic microvascular ischemic changes. 3. There is fluid and mucoperiosteal thickening in the left maxillary sinus. MRI cervical spine: 1. There is multilevel spondylosis, which is most severe at C4-C5. There is a posterior disc osteophyte complex with uncovertebral osteophytes and there is severe bilateral foraminal narrowing. 2. Spinal cord signal is normal. There is no spinal cord compression. 3. There is no abnormal enhancement noted following intravenous contrast administration.
[2017-12-14 21:37] VITALS: BP 134/68
[2017-12-15 06:00] VITALS: BP 138/64
--- NOTE | 2017-12-15 07:25 | PN- Housestaff ---
ClayfadumoEdwin hennessy 12/15/17 0724: Subjective Follow-up For: Weakness Subjective: Patient is getting more anxious per nursing staff. They also report that they now have to suction her due to her excessive oral secretions. Patient seems to be declining functionally daily. She complains of worsening vision. She denies shortness of breath and denies any new symptoms Review of Systems Constitutional: Reports: see HPI. Objective Last 24 Hrs of Vital Signs/I&O Vital Signs Date Time Temp Pulse Resp B/P B/P Pulse O2 O2 Flow FiO2 Mean Ox Delivery Rate 12/15 0835 108 138/64 12/15 0835 108 138/64 12/15 0835 100 138/64 12/15 0600 97.8 106 18 138/64 92 Room Air 12/14 2154 Room Air 12/14 2137 97.9 67 20 134/68 92 Room Air 12/14 1941 75 122/74 12/14 1940 75 122/74 12/14 1938 75 122/74 12/14 1837 93 Room Air Room Air 12/14 1449 97.7 75 20 122/74 93 Room Air Intake & Output 12/15 1600 12/15 0800 12/15 0000 Intake Total 50 50 Output Total 200 Balance -200 50 50 Intake, Oral 50 50 Output, Urine 200 Physical Exam General Appearance: Alert, Cooperative Skin Temp/Moisture Exam: Warm/Dry HEENT: Atraumatic, EOMI Cardiovascular: Normal S1, Normal S2 Lungs: Clear to Auscultation Abdomen: Normal Bowel Sounds, Soft, No Tenderness Neurological: Motor 1/5 UE BL, 2/5 LE BL. Current Medications: Current Medications Sig/Andrea Start time Last Medication Dose Route Stop Time Status Admin Acetaminophen 650 MG Q6P PRN 12/07 2300 AC PO Amlodipine Besylate 5 MG DAILY 12/08 09 AC 12/15 PO 0835 Atorvastatin Calcium 10 MG 1700 12/08 1700 DC 12/13 PO 1819 Bisacodyl 10 MG ONCE PRN 12/12 1215 DC 12/12 NC 1250 Clonazepam 0.5 MG DAILY NEEDED PRN 12/07 2315 DC 12/14 PO 12/14 2314 2047 Dextrose/Sodium 1,000 ML Q13H 12/15 0930 AC 12/15 [place] IV 1117 Escitalopram Oxalate 10 MG DAILY 12/08 899 AC 12/15 PO 0835 Furosemide 40 MG DAILY 12/08 0900 AC 12/15 PO 0836 Gabapentin 600 MG QPM 12/08 2100 AC 12/14 PO 2029 Heparin Sodium 25,000 UNIT Q24H 12/15 2100 CAN (Porcine) IV Sodium Chloride 500 ML Heparin Sodium 25,000 UNIT Q24H 12/15 1200 AC 12/15 (Porcine) IV 12/16 0600 1242 Sodium Chloride 500 ML Levothyroxine Sodium 0.025 MCG DAILY 12/16 09 AC IV Levothyroxine Sodium 0.05 MG DAILY AC 12/08 0700 DC 12/15 PO 0527 Losartan Potassium 50 MG DAILY 12/08 09 AC 12/15 PO 0835 Metoprolol Succinate 50 MG DAILY 12/08 09 AC 12/15 PO 0835 Nystatin 1 JAMSHID BID 12/08 09 DC 12/15 TOP 0836 Omeprazole 20 MG DAILY AC PRN 12/12 1545 DC 12/13 PO 2325 Polyethylene Glycol 17 GM DAILY 12/12 1215 DC 12/12 PO 1504 Pyridostigmine 60 MG Q8 12/15 0900 AC 12/15 [place] PO 1030 Ropinirole HCl 0.25 MG AT BEDTIME 12/08 2100 AC 12/14 PO 2029 Senna 187 MG AT BEDTIME 12/12 1400 DC 12/13 PO 2130 Sodium Chloride 2 SPRAY Q4P PRN 12/14 1315 AC DIYA Timolol Maleate 1 GTT BID 12/08 09 AC 12/15 OPH 0836 Last 24 Hrs of Lab/Nader Results Last 24 Hrs of Labs/Mics: Laboratory Tests 12/14/17 1720: pH 7.47 H, pCO2 33 L, pO2 69 L, HCO3 23, ABG O2 Sat (Measured) 92.0 L, P-50 (Temp Corrected) N, Carboxyhemoglobin 0.9 L, O2 Concentration % RA, Temperature 97.7, Phlebotomy Draw Site RIGHT BRACHIAL Assessment/Plan Assessment: 87 year old female with PMH significant for atrial fibrillation on pradaxa, HTN, HLD, hypothyroidism, HFpEF, anxiety/depression, and restless legs syndrome last admitted in 07/2017 for CHF exacerbation and dyspnea which improved after diuresis was BIBA to ED with complaints of progressive exertional dyspnea and generalized weakness for the past week. ECHO 12/08/17 1. Normal EF of 60%. 2. Mild left ventricular hypertrophy. 3. Moderate left atrial enlargement. Mild right atrial enlargement. 4. Mild posterior annular calcification of the mitral valve with trace MR. 5. Mild to moderate tricuspid regurgitation. 6. Trace pulmonic regurgitation. 7. Mild pulmonary hypertension. XRAY SHOULDERS BL 12/10/17 1. Moderate diffuse osteopenia. 2. Mild osteoarthrosis at both acromioclavicular and glenohumeral joints. 3. The visualized lung garcia bilaterally appear abnormal. Follow-up chest radiograph may be considered for further full detail evaluation, if clinically appropriate. Head CT W/O 12/11/17 No acute intracranial pathology. 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 Large fluid level with mucosal thickening subtotally opacifying the left maxillary sinus. Chest CT 12/12/17 1. Large lobulated peripheral right lung mass that is confluent with the mediastinum. There are also pleural plaques identified that are partially calcified. 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 There is bulky mediastinal and right hilar adenopathy with mass effect upon the right hilum but with preserved airways and vessels. 2. Cardiomegaly. Coronary artery atherosclerosis. Thoracic aortic atherosclerosis. MRI brain 12/14/17 1. There are no acute bleeds or infarcts. There are no masses or areas of abnormal enhancement. 2. There is diffuse volume loss and there are chronic microvascular ischemic changes. 3. There is fluid and mucoperiosteal thickening in the left maxillary sinus. MRI cervical spine 12/14/17 1. There is multilevel spondylosis, which is most severe at C4-C5. There is a posterior disc osteophyte complex with uncovertebral osteophytes and there is severe bilateral foraminal narrowing. 2. Spinal cord signal is normal. There is no spinal cord compression. 3. There is no abnormal enhancement noted following intravenous contrast administration. Further Assessment: Patient has been witnessed having trouble with her shoulders, arms, and now fingers. Nursing staff noticed she has trouble sitting up and may be off balance in relation to her back. X-ray of shoulders was not convincing for her symptoms. Head CT was negative for acute pathology. Her progression of weakness in upper extremities from proximal to distal was concerning so we consulted neurology. Pulmonary recommends biopsy of incidental lung mass found on chest CT. MRI does not look impressive for her current symptoms other than multi-level cervical spondylosis, which we will seek neurology's opinion for. She was found to have diploplia and now has bulbar symptoms. She has diploplia, some BL ptosis, slurred speech, trouble swallowing, and secretions from lung keep building up, suggesting bulbar symptoms. Muscle weakness progressed from a proximal to distal pattern. She will need and LP and lung biopsy. Will follow closely because with this rapid progression, she seems like low threshold for ICU. Problems List: #Weakness (Myasthenia Gravis Vs Guillain Waldron/Hdz Osorio Vs Bikersaff Encephalitis Vs Paraneoplasm) - CPK levels wnl (most likely rules out MG) - Acetylcholine receptor antibody panel pending - PFTs baseline pending (have spoken with nursing/RT mulitple times) - EKG - Afib, no blocks or bradycardia - Chest CT did not show thymoma, but did show plerual mass - Neuro, Pulm, and ST recs appreciated - Trial of 60mg Mestinon was unsuccessful - Attempting Retrial: pt does report some improvement yesterday after first dose but said it was very transient - Continue daily PT - Swallow eval recs downgraded diet - On further eval, we decided to keep patient NPO as her secretions are worsening after eating and seems like high aspiration risk - D5 1/2 NS at 75ml - Changed medication regimen, converting some to IV - Continue adequate suctioning - DC'd pradaxa and bridged to heparin for LP - Will check for: Elevated protein, cells, cytology, flow cytometry - Low threshold for ICU due to degrading status #New Pulmonary Mass - Lung CT guided needle biopsy possibly on Monday #Afib - Currently rate controlled on metoprolol 50mg #Hypothyroidism: - TSH wnl - Synthroid 0.025 mcg IV #HTN: - Amlodipine 5mg - Furosemide 40mg - Losartan 50mg #HLD: - Atorvastatin 10mg #Restless leg syndrome: - Ropinirole 0.25mg - Gabapentin 600 mg #Anxiety/Depression: - Lexapro 10mg DVT ppx Full code Problem List: 1. Weakness Pain Ratin Pain Location: n/a Pain Goal: Remain pain free Pain Plan: Per pathway Tomorrow's Labs & Rationales: None Enma Barnard MD 12/15/17 1052: Attending MD Review Statement Attending Statement Attending MD Statement: examined this patient, discuss w/resident/PA/PHLEBOTOMY INSTRUCTOR, agreed w/resident/PA/PHLEBOTOMY INSTRUCTOR, reviewed EMR data (avail), discussed with nursing, discussed with case mgmt, amended to note Attending Assessment/Plan: Patient seen and examined. Lying in bed. No improvement in her neurologic status. She is complaining of increased blurry vision particularly of the left eye. She also complains of increased oral secretions particularly after meals. Nursing staff report the need to suction her oral cavity frequently. She fortunately remains hemodynamically stable. She is not requiring oxygen supplementation at present. Examination lungs are clear bilaterally. Abdomen soft and nontender. She is able to move hands and feet slightly but not against gravity. MRI of the head and neck was done yesterday. No acute intracranial pathology is noted. She does have severe spondylosis but no explanation for her muscle weakness noted. Recommendations: Follow up with the pulmonology service regarding transferring patient to the intensive care unit for close monitoring. -Keep n.p.o. except medications. We will try to transition from one of her medications to the intravenous route. -Hydrate with D5 half normal saline at 75 cc an hour. -Recommend adequate oral hygiene and frequent suctioning as needed. -Monitor spirometry with peak flow daily. This has been reinforced with nursing staff and respiratory therapy service. -We will follow-up with the IR service to schedule lumbar puncture tomorrow. -We will begin heparin bridging today. Hold heparin tomorrow morning for lumbar puncture. -Based on lumbar puncture results decision will be made regarding need for IVIG therapy. We will follow-up with the neurology service. -We will reevaluate need for lung biopsy on Monday. to the intravenous route. -Hydrate with D5 half normal saline at 75 cc an hour. -Recommend adequate oral hygiene and frequent suctioning as needed. -Monitor spirometry with peak flow daily. This has been reinforced with nursing staff and respiratory therapy service. -We will follow-up with the IR service to schedule lumbar puncture tomorrow. -We will begin heparin bridging today. Hold heparin tomorrow morning for lumbar puncture. -Based on lumbar puncture results decision will be made regarding need for IVIG therapy. We will follow-up with the neurology service. -We will reevaluate need for lung biopsy on Monday.
--- NOTE | 2017-12-15 08:40 | PN- Student ---
Subjective Subjective: 87-year-old female with PMH of Afib, HTN, HLD, hypothyroid and restless leg syndrome, presented to ED with weakness and SOB. Hospital day 8: Patient was interviewed and examined at bed side. Patient had bilaterally UE and LE ext weakness, dysphagia and cough off sputum and loss of sensation. Patient stated her family will come in later and doctors requested to have a discussion with her family regarding her condition. Current Medications Sig/Andrea Start time Last Medication Dose Route Stop Time Status Admin Acetaminophen 650 MG Q6P PRN 12/07 2300 AC PO Amlodipine Besylate 5 MG DAILY 12/08 09 AC 12/15 PO 0835 Atorvastatin Calcium 10 MG 1700 12/08 1700 AC 12/13 PO 1819 Bisacodyl 10 MG ONCE PRN 12/12 1215 AC 12/12 [place] 1250 Clonazepam 0.5 MG DAILY NEEDED PRN 12/07 2315 DC 12/14 PO 12/14 2314 2047 Dabigatran 150 MG BID 12/08 899 DC 12/13 PO 2123 Escitalopram Oxalate 10 MG DAILY 12/08 09 AC 12/15 PO 0835 Furosemide 40 MG DAILY 12/08 09 AC 12/15 PO 0836 Gabapentin 600 MG QPM 12/08 2100 AC 12/14 PO 2029 Heparin Sodium 25,000 UNIT Q24H 12/15 2100 AC (Porcine) IV Sodium Chloride 500 ML Levothyroxine Sodium 0.05 MG DAILY AC 12/08 07 AC 12/15 PO 0527 Losartan Potassium 50 MG DAILY 12/08 09 AC 12/15 PO 0835 Metoprolol Succinate 50 MG DAILY 12/08 09 AC 12/15 PO 0835 Nystatin 1 JAMSHID BID 12/08 09 DC 12/15 TOP 0836 Omeprazole 20 MG DAILY AC PRN 12/12 1545 AC 12/13 PO 2325 Polyethylene Glycol 17 GM DAILY 12/12 1215 AC 12/12 PO 1504 Pyridostigmine 60 MG ONCE ONE 12/14 1045 DC 12/14 [place] PO 12/14 1046 1048 Ropinirole HCl 0.25 MG AT BEDTIME 12/08 2100 AC 12/14 PO 2029 Senna 187 MG AT BEDTIME 12/12 1400 AC 12/13 PO 2130 Sodium Chloride 2 SPRAY Q4P PRN 12/14 1315 AC DIYA Timolol Maleate 1 GTT BID 12/08 0900 AC 12/15 OPH 0836 Allergies: NKA Objective Objective: Vital Signs Date Time Temp Pulse Resp B/P B/P Pulse O2 O2 Flow FiO2 Mean Ox Delivery Rate 12/15 0835 108 138/64 12/15 0835 108 138/64 12/15 0835 100 138/64 12/15 0600 97.8 106 18 138/64 92 Room Air 12/14 2154 Room Air 12/14 2137 97.9 67 20 134/68 92 Room Air 12/14 1941 75 122/74 12/14 1940 75 122/74 12/14 1938 75 122/74 12/14 1837 93 Room Air Room Air 12/14 1449 97.7 75 20 122/74 93 Room Air Intake & Output 12/15 1600 12/15 0800 12/15 0000 Intake Total 50 50 Output Total Balance 50 50 Intake, Oral 50 50 Physical Exam: - Patient was alert, orientedx3, in moderate distress. - HEENT: NC/AT, diplopia, blurry vision, left eye ptosis, dysphagia - Cardio: normal heart sound with no murmur - Lungs: CTA - Extremities: 1/5 bilaterally both upper and lower extremties Results Results: Laboratory Tests 12/14/17 1720: pH 7.47 H, pCO2 33 L, pO2 69 L, HCO3 23, ABG O2 Sat (Measured) 92.0 L, P-50 (Temp Corrected) N, Carboxyhemoglobin 0.9 L, O2 Concentration % RA, Temperature 97.7, Phlebotomy Draw Site RIGHT BRACHIAL 12/14/17 0618: Anion Gap 7, Estimated GFR 59 L, BUN/Creatinine Ratio 38.9 H 12/13/17 0630: Anion Gap 9, Estimated GFR 59 L, BUN/Creatinine Ratio 30.0 H 12/12/17 1700: Creatine Kinase 97, Acetylcholine Recept Ab Pending Microbiology 12/13 604 LOWER RESP: Respiratory Culture - CAN Cancelled: NUMBER OF SQUAMOUS CELLS INDICATES POOR QUALITY SPECIMEN 12/13 604 LOWER RESP: Gram Stain - CAN Cancelled: NUMBER OF SQUAMOUS CELLS INDICATES POOR QUALITY SPECIMEN Imaging: -MRI cervical spine: multilevel spondylosis, most severe at C4/C5, posterior disc osteophyte with severe bilateral foraminal narrowing. Assessment/Plan Assessment: Summary: 87-year-old female with PMH of Afib, HTN, HLD, hypothyroid and restless leg syndrome, presented to ED with weakness and SOB. PE was remarkable worsening bilateral UE and LE weakness. Pending Ach-R Abs full panel. MRI spine showed multilevel spondylosis most severe at C4-C5. Problem list: 1. Suspecting Myasthenia gravis, GBS: under work up. 2. Right hilar lung mass, suspecting paraneoplastic syndrome 3. Afib. 4. HTN. 5. HLD. 6. Hypothyroid. 7. Restless leg syndrome. Plan: - Repeat 3 more doses of 60mg Pyridostigmine q8 and access for improvement. - Hold off on food, have pt on IVF - Hold off Heparin until LP on Sun. Per neuro note appreciated: - Cytology - Flow cytometry - IR placed for LP on Monday. Per pulmonology note appreciated: - Possible lung bx on Monday - Pending PFT
--- NOTE | 2017-12-15 12:25 | PN- Pulmonary ---
Subjective HPI/Critical Care Issues: Patient seen and examined. Lying in bed. No improvement in her neurologic status. She is complaining of increased blurry vision particularly of the left eye. She also complains of increased oral secretions particularly after meals. Nursing staff report the need to suction her oral cavity frequently. She fortunately remains hemodynamically stable. She is not requiring oxygen supplementation at present. Examination lungs are clear bilaterally. Abdomen soft and nontender. She is able to move hands and feet slightly but not against gravity. MRI of the head and neck was done yesterday. No acute intracranial pathology is noted. She does have severe spondylosis but no explanation for her muscle weakness noted. Objective Current Medications: Current Medications Sig/Andrea Start time Last Medication Dose Route Stop Time Status Admin Acetaminophen 650 MG Q6P PRN 12/07 2300 AC PO Amlodipine Besylate 5 MG DAILY 12/08 899 AC 12/15 PO 0835 Atorvastatin Calcium 10 MG 1700 12/08 1700 DC 12/13 PO 1819 Bisacodyl 10 MG ONCE PRN 12/12 1215 DC 12/12 [place] 1250 Clonazepam 0.5 MG DAILY NEEDED PRN 12/07 2315 DC 12/14 PO 12/14 2314 2047 Dabigatran 150 MG BID 12/08 899 DC 12/13 PO 2123 Dextrose/Sodium 1,000 ML Q13H 12/15 0930 AC 12/15 [place] IV 1117 Escitalopram Oxalate 10 MG DAILY 12/08 09 AC 12/15 PO 0835 Furosemide 40 MG DAILY 12/08 09 AC 12/15 PO 0836 Gabapentin 600 MG QPM 12/08 2100 AC 12/14 PO 2029 Heparin Sodium 25,000 UNIT Q24H 12/15 2100 CAN (Porcine) IV Sodium Chloride 500 ML Heparin Sodium 25,000 UNIT Q24H 12/15 1200 AC (Porcine) IV Sodium Chloride 500 ML Levothyroxine Sodium 0.025 MCG DAILY AC 12/16 07 UNVr IV Levothyroxine Sodium 0.05 MG DAILY AC 12/08 07 DC 12/15 PO 0527 Losartan Potassium 50 MG DAILY 12/08 09 AC 12/15 PO 0835 Metoprolol Succinate 50 MG DAILY 12/08 09 AC 12/15 PO 0835 Nystatin 1 JAMSHID BID 12/08 899 DC 12/15 TOP 0836 Omeprazole 20 MG DAILY AC PRN 12/12 1545 DC 12/13 PO 2325 Polyethylene Glycol 17 GM DAILY 12/12 1215 DC 12/12 PO 1504 Pyridostigmine 60 MG Q8 12/15 0900 AC 12/15 [place] PO 1030 Ropinirole HCl 0.25 MG AT BEDTIME 12/08 2100 AC 12/14 PO 2029 Senna 187 MG AT BEDTIME 12/12 1400 DC 12/13 PO 2130 Sodium Chloride 2 SPRAY Q4P PRN 12/14 1315 AC DIYA Timolol Maleate 1 GTT BID 12/08 0900 AC 12/15 OPH 0836 Vital Signs & I&O Last 24 Hrs of Vitals and I&O: Vital Signs Date Time Temp Pulse Resp B/P B/P Pulse O2 O2 Flow FiO2 Mean Ox Delivery Rate 12/15 0835 108 138/64 12/15 0835 108 138/64 12/15 0835 100 138/64 12/15 0600 97.8 106 18 138/64 92 Room Air 12/14 2154 Room Air 12/14 2137 97.9 67 20 134/68 92 Room Air 12/14 1941 75 122/74 12/14 1940 75 122/74 12/14 1938 75 122/74 12/14 1837 93 Room Air Room Air 12/14 1449 97.7 75 20 122/74 93 Room Air Intake & Output 12/15 1600 12/15 0800 12/15 0000 Intake Total 50 50 Output Total Balance 50 50 Intake, Oral 50 50 Impression/Plan Impression/Plan Impression/Plan: General Appearance: Alert, Cooperative, Mild Distress Skin Temp/Moisture Exam: Warm/Dry HEENT: Atraumatic Neck: Supple Cardiovascular: Normal S1, Normal S2 Lungs: Clear to Auscultation, Normal Air Movement Abdomen: Normal Bowel Sounds, Soft, No Tenderness Neurological: speech intact ABG no hypercarbia MRI brain: 1. There are no acute bleeds or infarcts. There are no masses or areas of abnormal enhancement. 2. There is diffuse volume loss and there are chronic microvascular ischemic changes. 3. There is fluid and mucoperiosteal thickening in the left maxillary sinus. MRI cervical spine: 1. There is multilevel spondylosis, which is most severe at C4-C5. There is a posterior disc osteophyte complex with uncovertebral osteophytes and there is severe bilateral foraminal narrowing. 2. Spinal cord signal is normal. There is no spinal cord compression. 3. There is no abnormal enhancement noted following intravenous contrast administration. CT Chest IMPRESSION: 1. Large lobulated peripheral right lung mass that is confluent with the mediastinum. There are also pleural plaques identified that are partially calcified. 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 There is bulky mediastinal and right hilar adenopathy with mass effect upon the right hilum but with preserved airways and vessels. 2. Cardiomegaly. Coronary artery atherosclerosis. Thoracic aortic atherosclerosis. The report will be called to the ordering clinician by a [facility] Workflow Coordinator. DICTATED BY: Jess Garcia MD DATE/TIME DICTATED:12/13/17841 IMPRESSION This is a lady with history of more than [id number] smoker, morbid obesity, restless leg syndrome, atrial fibrillation on anticoagulation, hypertension, hypothyroidism on appropriate supplementation, previous diastolic heart disease, now has * Large right-sided pleural parenchymal mass with mediastinal hilar lymphadenopathy highly suggestive of primary lung malignancy versus pleural malignancy including mesothelioma. * Significant quadriparesis with clinical evidence suggestive of probable inflammatory myopathy versus Eaton-Lambert syndrome versus neuropathy versus paraneoplastic syndrome vs leptomeningeal carcinamatosis (mri not sugg of that) LP pending per Neuro. * Mild aspiration, diplopia. * No clinical evidence suggestive of any hypercarbia * Atrial fibrillation, diastolic heart disease, hypertension. Patient is on appropriate medication and anticoagulation ( now held) * Restless leg syndrome on triple therapy * Previous depression on appropriate therapy RECOMMENDATION Hold further anticoagulation and arrange for a CT-guided needle biopsy of this lung mass probably on Monday (Can use heparin bridge for now) Bedside spirometry and ask respiratory to check vital capacity daily Continue current medications As needed inhaler Change the diet per speech pathology TO ICU if worse Prognosis appears poor will follow closely
[2017-12-15 14:58] VITALS: BP 140/74
[2017-12-15 19:55] LABS: PTT 100 SEC (25-37)
[2017-12-15 22:03] VITALS: BP 134/76
[2017-12-16 03:48] LABS: ABSOLUTE BASOPHIL COUNT 0 /CUMM (0.0-0.2); ABSOLUTE EOSINOPHIL COUNT 0.1 /CUMM (0.0-0.7); ABSOLUTE LYMPH COUNT 1.4 /CUMM (1.2-3.4); ABSOLUTE MONOCYTE COUNT 1.3 /CUMM (0.10-0.60); BASOPHIL % 0.3 % (0.0-2.0); EOSINOPHIL % 1.4 % (0-5); GRANULOCYTE % 63.3 % (42.2-75.2); HEMATOCRIT 35.9 % (37-47); MEAN CORPUSCULAR HGB 29.3 PG (27.0-31.0); MEAN CORPUSCULAR HGB CONC 33.3 G/DL (33.0-37.0); MEAN CORPUSCULAR VOLUME 87.9 FL (81.0-99.0); MEAN PLATELET VOLUME 8.4 FL (7.4-10.4); PLATELET COUNT 262 /CUMM (130-400); RBC DISTRIBUTION WIDTH 15.2 % (11.5-14.5); RED BLOOD CELL CT 4.08 /CUMM (4.20-5.40); WHITE BLOOD CELL COUNT 7.9 /CUMM (4.8-10.8)
[2017-12-16 03:55] LABS: PTT 85 SEC (25-37)
[2017-12-16 06:43] VITALS: BP 164/73
--- NOTE | 2017-12-16 09:16 | PN- Housestaff ---
Subjective Follow-up For: Weakness Subjective: She says she could not sleep overnight because there were many fire alarms. No acute distress. Nursing reports that she was anxious overnight. She was given a sleep aid and antianxiety medication. Denies any new symptoms. Review of Systems Constitutional: Reports: see HPI. Objective Last 24 Hrs of Vital Signs/I&O Vital Signs Date Time Temp Pulse Resp B/P B/P Pulse O2 O2 Flow FiO2 Mean Ox Delivery Rate 12/16 1415 97.5 74 16 128/74 95 12/16 0926 93 Room Air Room Air 12/16 0901 74 160/60 12/16 0901 74 160/64 12/16 0901 74 160/60 12/16 0800 93 Room Air Room Air 12/16 0643 98.0 66 20 164/73 95 Room Air 12/16 0000 Room Air 12/15 2203 98.3 69 18 134/76 94 Room Air 12/15 2031 94 Room Air 12/15 1600 94 Room Air Room Air 12/15 1458 98.2 98 20 140/74 93 Room Air Intake & Output 12/16 1600 12/16 0800 12/16 0000 Intake Total 778 344 Output Total 300 150 Balance 478 194 Intake, IV 778 344 Output, Urine 300 150 Patient 205 lb Weight Weight Bed scale Measurement Method Physical Exam General Appearance: Alert, Cooperative, No Acute Distress HEENT: Atraumatic, NC/AT Neck: Supple, No JVD Cardiovascular: Normal S1, Normal S2 Lungs: Clear to Auscultation Abdomen: Normal Bowel Sounds, Soft, No Tenderness Extremities: No Tenderness/Swelling Assessment/Plan Assessment: 87 year old female with PMH significant for atrial fibrillation on pradaxa, HTN, HLD, hypothyroidism, HFpEF, anxiety/depression, and restless legs syndrome last admitted in 07/2017 for CHF exacerbation and dyspnea which improved after diuresis was BIBA to ED with complaints of progressive exertional dyspnea and generalized weakness for the past week. ECHO 12/08/17 1. Normal EF of 60%. 2. Mild left ventricular hypertrophy. 3. Moderate left atrial enlargement. Mild right atrial enlargement. 4. Mild posterior annular calcification of the mitral valve with trace MR. 5. Mild to moderate tricuspid regurgitation. 6. Trace pulmonic regurgitation. 7. Mild pulmonary hypertension. XRAY SHOULDERS BL 12/10/17 1. Moderate diffuse osteopenia. 2. Mild osteoarthrosis at both acromioclavicular and glenohumeral joints. 3. The visualized lung garcia bilaterally appear abnormal. Follow-up chest radiograph may be considered for further full detail evaluation, if clinically appropriate. Head CT W/O 12/11/17 No acute intracranial pathology. 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 Large fluid level with mucosal thickening subtotally opacifying the left maxillary sinus. Chest CT 12/12/17 1. Large lobulated peripheral right lung mass that is confluent with the mediastinum. There are also pleural plaques identified that are partially calcified. 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 There is bulky mediastinal and right hilar adenopathy with mass effect upon the right hilum but with preserved airways and vessels. 2. Cardiomegaly. Coronary artery atherosclerosis. Thoracic aortic atherosclerosis. MRI brain 12/14/17 1. There are no acute bleeds or infarcts. There are no masses or areas of abnormal enhancement. 2. There is diffuse volume loss and there are chronic microvascular ischemic changes. 3. There is fluid and mucoperiosteal thickening in the left maxillary sinus. MRI cervical spine 12/14/17 1. There is multilevel spondylosis, which is most severe at C4-C5. There is a posterior disc osteophyte complex with uncovertebral osteophytes and there is severe bilateral foraminal narrowing. 2. Spinal cord signal is normal. There is no spinal cord compression. 3. There is no abnormal enhancement noted following intravenous contrast administration. Further Assessment: Patient has been witnessed having trouble with her shoulders, arms, and now fingers. Nursing staff noticed she has trouble sitting up and may be off balance in relation to her back. X-ray of shoulders was not convincing for her symptoms. Head CT was negative for acute pathology. Her progression of weakness in upper extremities from proximal to distal was concerning so we consulted neurology. Pulmonary recommends biopsy of incidental lung mass found on chest CT. MRI does not look impressive for her current symptoms other than multi-level cervical spondylosis, which we will seek neurology's opinion for. She was found to have diploplia, BL ptosis and now has bulbar symptoms. Slurred speech, trouble swallowing, and secretions from lung keep building up, choking on liquids, and possible intermittent dysphagia. Muscle weakness progressed from a proximal to distal pattern. She will need an LP and lung biopsy. Will follow closely because with this rapid progression, she seems like low threshold for ICU. Prognosis looks poor at this point. Problems List: #Weakness (Myasthenia Gravis Vs Guillain [place]/Hdz Osorio Vs Bikersaff Encephalitis Vs Paraneoplasm) - CPK levels wnl (most likely rules out MG) - Acetylcholine receptor antibody panel pending - PFTs baseline pending (have spoken with nursing/RT mulitple times) - EKG - Afib, no blocks or bradycardia - Chest CT did not show thymoma, but did show plerual mass - Neuro, Pulm, and ST recs appreciated - First trial of 60mg Mestinon was unsuccessful - Attempting Retrial: pt does report some improvement yesterday after first dose but said it was very transient - Continue daily PT - Swallow eval recommended downgraded diet - On further eval, we decided to keep patient NPO as her secretions are worsening after eating and seems like high aspiration risk - D5 1/2 NS at 75ml - Changed medication regimen, converting some to IV - Continue adequate suctioning - DC'd pradaxa and bridged to heparin for LP - Heparin will be stopped at Midnight - Will check for: Elevated protein, cells, cytology, flow cytometry - PFTs and daily Vital Capacities - Low threshold for ICU due to deteriorating status #New Pulmonary Mass - Lung CT guided needle biopsy possibly on Monday #Afib - Currently rate controlled on metoprolol 50mg #Hypothyroidism: - TSH wnl - Synthroid 0.025 mcg IV #HTN: - Amlodipine 5mg - Furosemide 40mg - Losartan 50mg #HLD: - Atorvastatin 10mg #Restless leg syndrome: - Ropinirole 0.25mg - Gabapentin 600 mg #Anxiety/Depression: - Lexapro 10mg DVT ppx Full code Problem List: 1. Weakness Pain Ratin Pain Location: n/a Pain Goal: Remain pain free Pain Plan: Per Pathway Tomorrow's Labs & Rationales: CBC
--- NOTE | 2017-12-16 09:24 | PN- Att Addend ---
Attending Addendum Attending Brief Note Patient seen and examined. Reports poor sleep overnight. She is anxious about her overall medical condition. Denies pain. Denies difficulty breathing. Denies cough but reports frequent clearing of her throat. She is afebrile. She is hemodynamically stable. She does not require oxygen supplementation. Vital capacity on the was 0.9. Yesterday it was 1.3. Awaiting vital capacity from today. She has had no improvement despite therapy with pyridostigmine 3 doses yesterday. Vital Signs Date Time Temp Pulse Resp B/P B/P Pulse O2 O2 Flow FiO2 Mean Ox Delivery Rate 12/16 0901 74 160/60 12/16 0901 74 160/64 12/16 0901 74 160/60 12/16 0643 98.0 66 20 164/73 95 Room Air 12/16 0000 Room Air 12/15 2203 98.3 69 18 134/76 94 Room Air 12/15 2031 94 Room Air 12/15 1600 94 Room Air Room Air 12/15 1458 98.2 98 20 140/74 93 Room Air General appearance: Well-developed very emotional HEENT: Mild ptosis left eyelid. Neck: Supple with no jugular venous distention. Heart: S1-S2 regular with no audible murmur. Lungs: Adequate and symmetric air entry bilaterally with no added sounds. Abdomen: Nondistended with normal bowel sounds. Soft, nontender with no palpable masses. Extremities: No pedal edema. No cyanosis. Skin: Intact Neurologic: She is only regular her upper and lower extremities. She cannot move against gravity. Problems: 1. Progressing quadriparesis. 2. Large right-sided pleural mass 3. Dysphagia 4. Atrial fibrillation on anticoagulation 5. Restless leg syndrome 6. Depression 7. Hypothyroidism Plan: -Case discussed with the interventional radiology service yesterday. They wish patient to be off Pradaxa for 72 hours before proceeding with lumbar puncture. Lumbar puncture is tentatively scheduled for tomorrow. -Hold heparin infusion tomorrow morning for lumbar puncture. -Continue to monitor respiratory status closely and vital capacity. She currently is not in any respiratory distress and not require oxygen supplementation. Should this change she will be transferred to the intensive care unit for further monitoring. -Continue IV hydration. Keep n.p.o. -Administer Xanax 0.25 mg daily at bedtime for her anxiety. Addendum: During the family meeting this morning patient reported that she did have some improvement in her hand strength yesterday evening. She states she was able to move her hand at the wrist. This morning she has very weak clinic mgr strength and is only able to resolve the hand. Will attempt another trial of pyridostigmine today and see if she has any further improvement of muscle strength.
--- NOTE | 2017-12-16 13:00 | PN- Pulmonary ---
Subjective HPI/Critical Care Issues: The patient is awake and alert. She reports no new complaints. She remains fatigued and tired. She has shortness of breath however this is not changed. There were no overnight events reported. Objective Current Medications: Current Medications Sig/Andrea Start time Last Medication Dose Route Stop Time Status Admin Acetaminophen 650 MG Q6P PRN 12/07 2300 AC PO Amlodipine Besylate 5 MG DAILY 12/08 899 AC 12/16 PO 0901 Clonazepam 0 .STK-MED ONE 12/15 2110 DC PO Clonazepam 0.5 MG ONCE ONE 12/15 2099 DC 12/15 PO 12/15 Dextrose/Sodium 1,000 ML Q13H 12/15 0930 AC 12/16 Chloride IV 0004 Escitalopram Oxalate 10 MG DAILY 12/08 899 AC 12/16 PO 09 Furosemide 40 MG DAILY 12/08 09 DC 12/16 PO 0901 Gabapentin 600 MG QPM 12/08 2099 AC 12/15 PO 2110 Heparin Sodium 25,000 UNIT Q24H 12/15 1200 AC 12/16 (Porcine) IV 12/18 0600 1213 Sodium Chloride 500 ML Levothyroxine Sodium 25 MCG DAILY 12/16 0937 AC 12/16 IV 1016 Levothyroxine Sodium 0.025 MCG DAILY 12/16 09 DC IV Losartan Potassium 50 MG DAILY 12/08 899 AC 12/16 PO 09 Melatonin 0 .STK-MED ONE 12/16 0100 DC PO Melatonin 10 MG AT BEDTIME NEED.. 12/16 0015 AC 12/16 PO 0059 Metoprolol Succinate 50 MG DAILY 12/08 09 AC 12/16 PO 0901 Pyridostigmine 60 MG Q8 12/16 1400 DC [place] PO Pyridostigmine 60 MG Q8H 12/16 1200 AC 12/16 [place] PO 1226 Pyridostigmine 60 MG Q8 12/15 0900 DC 12/15 [place] PO 12/15 Ropinirole HCl 0.25 MG AT BEDTIME 12/08 2099 AC 12/15 PO 2111 Sodium Chloride 2 SPRAY Q4P PRN 12/14 1315 AC DIYA Timolol Maleate 1 GTT BID 12/08 0900 AC 12/16 OPH 0901 Vital Signs & I&O Last 24 Hrs of Vitals and I&O: Vital Signs Date Time Temp Pulse Resp B/P B/P Pulse O2 O2 Flow FiO2 Mean Ox Delivery Rate 12/16 0926 93 Room Air Room Air 12/16 0901 74 160/60 12/16 0901 74 160/64 12/16 0901 74 160/60 12/16 0643 98.0 66 20 164/73 95 Room Air 12/16 0000 Room Air 12/15 2203 98.3 69 18 134/76 94 Room Air 12/15 2031 94 Room Air 12/15 1600 94 Room Air Room Air 12/15 1458 98.2 98 20 140/74 93 Room Air Intake & Output 12/16 1600 12/16 0800 12/16 0000 Intake Total 778 344 Output Total 300 150 Balance 478 194 Intake, IV 778 344 Output, Urine 300 150 Patient 205 lb Weight Weight Bed scale Measurement Method General Appearance: Alert, Cooperative, No Distress Skin Temp/Moisture Exam: Warm/Dry HEENT: Atraumatic Neck: Supple Cardiovascular: Normal S1, Normal S2 Lungs: Clear to Auscultation, Normal Air Movement Abdomen: Normal Bowel Sounds, Soft, No Tenderness Results Last 24 Hrs of Lab Results: Laboratory Tests 12/16/17 0305: APTT 85 H, CBC w Diff NO MAN DIFF REQ, RBC 4.08 L, MCV 87.9, MCH 29.3, MCHC 33.3, RDW 15.2 H, MPV 8.4, Gran % 63.3, Lymphocytes % 18.3 L, Monocytes % 16.7 H, Eosinophils % 1.4, Basophils % 0.3, Absolute Granulocytes 5.0, Absolute Lymphocytes 1.4, Absolute Monocytes 1.3 H, Absolute Eosinophils 0.1, Absolute Basophils 0 12/15/17 1900: APTT 100 H Impression/Plan Impression/Plan Impression/Plan: 1. Large right-sided pleural parenchymal mass with mediastinal hilar lymphadenopathy suggestive of a primary lung malignancy versus pleural malignancy. 2. Significant quadriparesis. 3. Mild aspiration. 4. Atrial fibrillation with diastolic heart disease. Anticoagulation now held. 5. Restless leg syndrome, on triple therapy. May be paraneoplastic in nature. 6. History of depression. Recommendations: * Await CT-guided needle biopsy for lung mass. * Follow-up bedside spirometry results. * Monitor daily vital capacities. * Aspiration precautions, continue to follow speech therapy recommendations. * Continue nebs/total respiratory care/inhaler use as needed. * DVT prophylaxis at all times. * Continue all supportive care. * Poor long-term prognosis.
[2017-12-16 14:15] VITALS: BP 128/74
[2017-12-16 15:54] LABS: PTT 83 SEC (25-37)
[2017-12-16 21:41] VITALS: BP 132/78
[2017-12-17] VITALS (19 sets, daily range): BP systolic 102–190; BP diastolic 53–88
[2017-12-17 04:55] LABS: ABSOLUTE BASOPHIL COUNT 0 /CUMM (0.0-0.2); ABSOLUTE EOSINOPHIL COUNT 0.1 /CUMM (0.0-0.7); ABSOLUTE GRANULOCYTE CT 4.3 /CUMM (1.4-6.5); ABSOLUTE LYMPH COUNT 1.4 /CUMM (1.2-3.4); BASOPHIL % 0.2 % (0.0-2.0); EOSINOPHIL % 1.5 % (0-5); GRANULOCYTE % 63.5 % (42.2-75.2); HEMATOCRIT 34.8 % (37-47); MEAN CORPUSCULAR HGB 29.6 PG (27.0-31.0); MEAN CORPUSCULAR HGB CONC 33.7 G/DL (33.0-37.0); MEAN PLATELET VOLUME 8.4 FL (7.4-10.4); PLATELET COUNT 250 /CUMM (130-400); RBC DISTRIBUTION WIDTH 14.8 % (11.5-14.5); RED BLOOD CELL CT 3.96 /CUMM (4.20-5.40); WHITE BLOOD CELL COUNT 6.7 /CUMM (4.8-10.8)
[2017-12-17 05:04] LABS: PTT 48 SEC (25-37)
--- NOTE | 2017-12-17 07:49 | PN- Pulmonary ---
Subjective HPI/Critical Care Issues: The patient is awake and alert but feels fatigued. She is being taken off the floor for an LP. Her respiratory status is stable noting she is 94% on room air. The patient is afebrile. She continues to have progressive weakness in all extremities. Objective Current Medications: Current Medications Sig/Andrea Start time Last Medication Dose Route Stop Time Status Admin Acetaminophen 650 MG Q6P PRN 12/07 2300 AC PO Alprazolam 0 .STK-MED ONE 12/16 2221 DC PO Alprazolam 0.25 MG AT BEDTIME NEED.. 12/16 221 AC 12/16 PO 12/23 2214 2223 Amlodipine Besylate 5 MG DAILY 12/08 899 AC 12/16 PO 0901 Dextrose/Sodium 1,000 ML Q13H 12/15 0830 AC 12/16 Chloride IV 1429 Escitalopram Oxalate 10 MG DAILY 12/08 899 AC 12/16 PO 0901 Furosemide 40 MG DAILY 12/08 09 DC 12/16 PO 0901 Gabapentin 600 MG QPM 12/08 2100 AC 12/16 PO 2224 Heparin Sodium 25,000 UNIT Q24H 12/15 1200 DC 12/16 (Porcine) IV 12/16 2359 1213 Sodium Chloride 500 ML Levothyroxine Sodium 25 MCG DAILY 12/16 0937 AC 12/16 IV 1016 Levothyroxine Sodium 0.025 MCG DAILY 12/16 09 DC IV Losartan Potassium 50 MG DAILY 12/08 899 AC 12/16 PO 0901 Melatonin 10 MG AT BEDTIME NEED.. 12/16 0015 AC 12/16 PO 0059 Metoprolol Succinate 50 MG DAILY 12/08 899 AC 12/16 PO 0901 Nystatin 1 JAMSHID BID 12/16 2208 AC 12/17 TOP 0341 Pyridostigmine 60 MG Q8 12/16 1400 DC [place] PO Pyridostigmine 60 MG Q8H 12/16 1200 AC 12/17 [place] PO 0540 Ropinirole HCl 0.25 MG AT BEDTIME 12/08 2100 AC 12/16 PO 2226 Sodium Chloride 2 SPRAY Q4P PRN 12/14 1315 AC DIYA Timolol Maleate 1 GTT BID 12/08 09 AC 12/16 OPH 2233 Vital Signs & I&O Last 24 Hrs of Vitals and I&O: Vital Signs Date Time Temp Pulse Resp B/P B/P Pulse O2 O2 Flow FiO2 Mean Ox Delivery Rate 12/17 0630 98.1 72 20 132/80 94 Room Air 12/16 2141 98.0 75 18 132/78 94 Room Air 12/16 1953 94 Room Air Room Air 12/16 1600 94 Room Air Room Air 12/16 1415 97.5 74 16 128/74 95 12/16 0926 93 Room Air Room Air 12/16 0901 74 160/60 12/16 0901 74 160/64 12/16 0901 74 160/60 12/16 0800 93 Room Air Room Air Intake & Output 12/17 0800 12/17 0000 12/16 1600 Intake Total 740 800 Output Total 100 Balance 640 800 Intake, IV 630 800 Intake, Oral 110 0 Number 3 Bowel Movements Output, Urine 100 Patient 203 lb Weight Weight Bed scale Measurement Method Exam General Appearance: no apparent distress, awake, anxious, fatigued and chronically ill Head: atraumatic Neck: supple Respiratory: decreased breath sounds right side Abdomen: normal bowel sounds, soft, non-tender Extremities: no edema Skin: intact, warm/dry Results Last 24 Hrs of Lab Results: Laboratory Tests 12/17/17 0320: Anion Gap 7, Estimated GFR > 60, BUN/Creatinine Ratio 30.0 H, APTT 48 H, CBC w Diff NO MAN DIFF REQ, RBC 3.96 L, MCV 88.0, MCH 29.6, MCHC 33.7, RDW 14.8 H, MPV 8.4, Gran % 63.5, Lymphocytes % 20.6, Monocytes % 14.2 H, Eosinophils % 1.5 , Basophils % 0.2, Absolute Granulocytes 4.3, Absolute Lymphocytes 1.4, Absolute Monocytes 1.0 H, Absolute Eosinophils 0.1, Absolute Basophils 0 12/16/17 1455: APTT 83 H Diagnostic Data Radiology Findings: MRI brain: 1. There are no acute bleeds or infarcts. There are no masses or areas of abnormal enhancement. 2. There is diffuse volume loss and there are chronic microvascular ischemic changes. 3. There is fluid and mucoperiosteal thickening in the left maxillary sinus. MRI cervical spine: 1. There is multilevel spondylosis, which is most severe at C4-C5. There is a posterior disc osteophyte complex with uncovertebral osteophytes and there is severe bilateral foraminal narrowing. 2. Spinal cord signal is normal. There is no spinal cord compression. 3. There is no abnormal enhancement noted following intravenous contrast administration. Impression/Plan Impression/Plan Impression/Plan: 1. Large right-sided pleural parenchymal mass with mediastinal hilar lymphadenopathy suggestive of a primary lung malignancy versus pleural malignancy, likely metastatic lung cancer. 2. Progressing quadriparesis, rule out etiology. 3. Aspiration, dysphagia. 4. Atrial fibrillation with diastolic heart disease. Anticoagulation now held. 5. Restless leg syndrome, on triple therapy. May be paraneoplastic in nature. 6. History of depression. Recommendations: * Await CT-guided needle biopsy for lung mass. * Aspiration precautions. * Continue nebs/total respiratory care/inhaler use as needed. * Continue vital capacity monitoring as neurology is concerned about progressive weakness. * Continue with analgesia and therapy for restless legs. * DVT prophylaxis at all times. * Follow-up lumbar puncture results. Ensure CSF is sent for cytology. * Continue all supportive care. * Poor long-term prognosis.
--- NOTE | 2017-12-17 08:54 | PN- Housestaff ---
See Addendum Subjective Follow-up For: Weakness/myasthenia gravis? Lambert Eaton syndrome? Subjective: Patient was seen and examined in bed this morning. The patient expresses concern about her double vision and feeling hungry as she is n.p.o. she does complain of bilateral leg pain due to her restless leg syndrome and requests a sleep medication in the morning. She reports sleeping well overnight. Patient had no acute events overnight Review of Systems Constitutional: Reports: see HPI. EENTM: Reports: blurred vision, double vision. Cardiovascular: Reports: no symptoms. Respiratory: Reports: no symptoms. Gastrointestinal: Reports: no symptoms. Genitourinary: Reports: no symptoms. Musculoskeletal: Reports: muscle pain. Skin: Reports: no symptoms. Neurological/Psychological: Reports: no symptoms. Hematologic/Endocrine: Reports: no symptoms. Immunologic/Allergic: Reports: no symptoms. Objective Last 24 Hrs of Vital Signs/I&O Vital Signs Date Time Temp Pulse Resp B/P B/P Pulse O2 O2 Flow FiO2 Mean Ox Delivery Rate 12/17 1443 98.4 72 16 102/60 93 Room Air 12/17 1341 93 Room Air Room Air 12/17 1114 140/80 12/17 1113 140/80 12/17 1113 140/80 12/17 1050 98.4 65 16 140/80 92 Room Air 12/17 0800 Room Air 12/17 0630 98.1 72 20 132/80 94 Room Air 12/16 2141 98.0 75 18 132/78 94 Room Air 12/16 1953 94 Room Air Room Air Intake & Output 12/17 1600 12/17 0800 12/17 0000 Intake Total 575 800 740 Output Total 100 100 Balance 575 700 640 Intake, IV 575 800 630 Intake, Oral 0 110 Number 1 1 3 Bowel Movements Output, Urine 100 100 Patient 204 lb 203 lb Weight Weight Bed scale Measurement Method Physical Exam General Appearance: Alert, Oriented X3, Cooperative, No Acute Distress Other Physical Findings: General Appearance: Patient seen and examined lying comfortably in bed in no acute distress. Alert, Oriented X3, Cooperative, No Acute Distress Skin: No Breakdown Skin Temp/Moisture Exam: Warm/Dry Sepsis Skin Exam (color): Normal for Ethnicity HEENT: Atraumatic, PERRLA, EOMI, Mucous Membr. moist/pink Neck: Supple, No JVD, No thryomegaly, +2 Carotid Pulse wo Bruit Lymphatic: Axillary nl, Cervical nl Cardiovascular: Regular Rate, Normal S1, Normal S2, No Murmurs Lungs: CTA, No w/r/r Abdomen: Normal Bowel Sounds, Soft, No Tenderness, No Hepatospenomegaly Neurological: Normal Speech, Strength at 5/5 X4 Ext, Normal Tone, Sensation Intact, Cranial Nerves 3-12 NL, Reflexes 2+ Extremities: No Clubbing, No Cyanosis, No edema,Normal Pulses Vascular: Pulses Symmetrical Assessment/Plan Assessment: 87 year old female with PMH significant for atrial fibrillation on pradaxa, HTN, HLD, hypothyroidism, HFpEF, anxiety/depression, and restless legs syndrome last admitted in 07/2017 for CHF exacerbation and dyspnea which improved after diuresis was BIBA to ED with complaints of progressive exertional dyspnea and generalized weakness for the past week. Assessment: She is most likely to have a subacute neuromuscular disorder in the setting of lung carcinoma. 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 -We started 5 day course of IVIG, 400 mg/kg/day that is 40 g per day for 5 days, following the hospital protocol for IVIG. -Continue PFTs and daily Vital Capacities - Low threshold for ICU due to deteriorating status -She is n.p.o. as but her last swallow evaluation done on MondayDecember 15. She will be reassessed tomorrow. #New Pulmonary Mass - Lung CT guided needle biopsy scheduled for tomorrow #Afib - Currently rate controlled on metoprolol 50mg #Hypothyroidism: - TSH wnl - Synthroid 0.025 mcg IV #HTN: - Amlodipine 5mg - Furosemide 40mg - Losartan 50mg #HLD: - Atorvastatin 10mg #Restless leg syndrome: - Ropinirole 0.25mg - Gabapentin 600 mg #Anxiety/Depression: - Lexapro 10mg DVT ppx Full code Problem List: 1. Weakness Pain Ratin Pain Location: None Pain Goal: Remain pain free Pain Plan: Not applicable Tomorrow's Labs & Rationales: CBC, BEP
--- NOTE | 2017-12-17 09:25 | PN- Att Addend ---
Attending Addendum Attending Brief Note Patient seen and examined. Lying in bed and not in acute distress. No issues overnight reported by nursing staff. She remains alert and oriented 3. She has had no significant improvement in her neurologic strength in the upper and lower extremities. She complains of blurry vision. Vital Signs Date Time Temp Pulse Resp B/P B/P Pulse O2 O2 Flow FiO2 Mean Ox Delivery Rate 12/17 0630 98.1 72 20 132/80 94 Room Air 12/16 2141 98.0 75 18 132/78 94 Room Air 12/16 1953 94 Room Air Room Air 12/16 1600 94 Room Air Room Air 12/16 1415 97.5 74 16 128/74 95 12/16 0926 93 Room Air Room Air General appearance: Well-developed and not in any acute distress. HEENT: Anicteric, no pallor, pupils equal and reactive. Heart: S1-S2 irregular Lungs: Adequate and symmetric air entry bilaterally with no added sounds. Abdomen: Nondistended with normal bowel sounds. Soft, nontender with no palpable masses. Extremities: No pedal edema. No cyanosis. Skin: Intact Neurologic: She is only able to wiggle her hands and feet. Laboratory Tests 12/17/17 0320: Anion Gap 7, Estimated GFR > 60, BUN/Creatinine Ratio 30.0 H, APTT 48 H, CBC w Diff NO MAN DIFF REQ, RBC 3.96 L, MCV 88.0, MCH 29.6, MCHC 33.7, RDW 14.8 H, MPV 8.4, Gran % 63.5, Lymphocytes % 20.6, Monocytes % 14.2 H, Eosinophils % 1.5 , Basophils % 0.2, Absolute Granulocytes 4.3, Absolute Lymphocytes 1.4, Absolute Monocytes 1.0 H, Absolute Eosinophils 0.1, Absolute Basophils 0 12/16/17 1455: APTT 83 H Microbiology 12/17 0836 [facility] N S: CSF Culture - ORD 12/17 0836 [facility] N S: Gram Stain - ORD Problems: 1. Progressing quadriparesis. 2. Large right-sided pleural mass 3. Dysphagia 4. Atrial fibrillation on anticoagulation 5. Restless leg syndrome 6. Depression 7. Hypothyroidism Plan: -Patient is scheduled to undergo lumbar puncture by the interventional radiology service today. -Please follow-up results of CSF studies today with the on-call neurology service. -Keep n.p.o. Continue to hydrate with IV fluids. -Resume anticoagulation with IV heparin this evening. Hold heparin in a.m. for lung biopsy.
--- NOTE | 2017-12-17 09:50 | INTERVENTIONAL RADIOLOGY RPT ---
CLINICAL HISTORY: The patient is a 87-year-old woman with possible myasthenia gravis, Guillain-[place], paraneoplastic syndrome, who presents to interventional radiology for fluoroscopically-guided lumbar puncture. PROCEDURES: Fluoroscopically-guided lumbar puncture. PHYSICIANS: Dr. Velasquez (attending). MEDICATIONS: 5 mL 1% lidocaine SQ. COMPLICATIONS: None. ESTIMATED BLOOD LOSS: <5 mL. SPECIMENS: 12 mL clear CSF. Specimens were appropriately labeled and sent to the laboratory for evaluation with request to inform the referring physician of results. FLUOROSCOPY TIME: 37 seconds. DOSE AREA PRODUCT: 5.6 Gy-cm2 (ferreira-centimeter squared) PROCEDURE NOTE: Informed consent was obtained from the patient's prior to the procedure. During this process, the procedure and potential alternatives were explained along with the intended outcome and benefits. The risks of the procedure, including the possibility of an unsuccessful procedure, as well as the risk of not doing the procedure, were discussed. The patient's was given the opportunity to ask questions regarding the procedure and appeared competent to make decisions. A signed consent form documenting this discussion was placed in the medical record. A time-out procedure was performed. Appropriate pre-procedure medical history and imaging studies were reviewed. The patient was placed prone on the fluoroscopy table. Fluoroscopic images of the lumbar spine were obtained to localize the L3-L4 level. The patient's back was prepped and draped in the standard sterile fashion. 5 mL of 1% lidocaine was used to obtain local anesthesia the skin and deeper tissues. A 22-gauge Sprotte needle was then passed into the spinal canal using fluoroscopic guidance, until CSF flowed. Approximately 12 mL of clear CSF was collected and sent for requested laboratory analysis. The spinal needle was removed and a sterile dressing applied. FINDINGS: 1. Clear CSF. IMPRESSION: Fluoroscopic-guided lumbar puncture as described. PLAN: The patient was stable after the procedure and was transferred to the interventional recovery area. The patient will be transferred back to her room.
--- NOTE | 2017-12-17 15:24 | PN- Neurology ---
Subjective Subjective: diplopia, muscle weakness Objective Vital Signs and I&Os Vital Signs Date Time Temp Pulse Resp B/P B/P Pulse O2 O2 Flow FiO2 Mean Ox Delivery Rate 12/17 1443 98.4 72 16 102/60 93 Room Air 12/17 1341 93 Room Air Room Air 12/17 1114 140/80 12/17 1113 140/80 12/17 1113 140/80 12/17 1050 98.4 65 16 140/80 92 Room Air 12/17 0630 98.1 72 20 132/80 94 Room Air 12/16 2141 98.0 75 18 132/78 94 Room Air 12/16 1953 94 Room Air Room Air 12/16 1600 94 Room Air Room Air Intake & Output 12/17 1600 12/17 0812/17 0000 12/16 1600 12/16 0800 12/16 0000 Intake Total 800 740 800 778 344 Output Total 100 100 300 150 Balance 700 640 800 478 194 Intake, IV 800 630 800 778 344 Intake, Oral 110 0 Number 1 3 Bowel Movements Output, Urine 100 100 300 150 Patient 203 lb 205 lb Weight Weight Bed scale Bed scale Measurement Method Awake, alert Mental status intact pupils equal EOM's full No ptosis Eye and mouth closure intact Quadraparetic diffusely hyporflexic plantars downgoing Anti-Ach antibody borderline elevated CSF shows elevated protein but acellular Current Medications: Current Medications Sig/Andrea Start time Last Medication Dose Route Stop Time Status Admin Acetaminophen 650 MG Q6P PRN 12/07 2300 AC PO Alprazolam 0 .STK-MED ONE 12/16 2221 DC PO Alprazolam 0.25 MG AT BEDTIME NEED.. 12/16 2214 AC 12/16 PO 12/23 221 2223 Amlodipine Besylate 5 MG DAILY 12/08 899 AC 12/17 PO 1113 Dextrose/Sodium 1,000 ML Q13H 12/15 0930 AC 12/16 Chloride IV 1429 Escitalopram Oxalate 10 MG DAILY 12/08 899 AC 12/17 PO 1113 Gabapentin 600 MG QPM 12/08 2100 AC 12/16 PO 2224 Heparin Sodium 25,000 UNIT Q24H 12/15 1200 DC 12/16 (Porcine) IV 12/16 2359 1213 Sodium Chloride 500 ML Immune Globulin See Dose DAILY 12/17 1519 UNir Insts (1) IV 12/21 1200 Levothyroxine Sodium 25 MCG DAILY 12/16 0937 AC 12/17 IV 1115 Losartan Potassium 50 MG DAILY 12/08 09 AC 12/17 PO 1114 Melatonin 10 MG AT BEDTIME NEED.. 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 [place]- [facility]] is working neurologic diagnosis. Plan: Suggest 5 day course of IVIG, 400 mg/kg/day PT DVT precautions Lung bx. pending
[2017-12-18] VITALS (16 sets, daily range): BP systolic 146–179; BP diastolic 68–92
[2017-12-18 01:51] LABS: PTT 74 SEC (25-37)
--- NOTE | 2017-12-18 06:21 | PN- Housestaff ---
Edwin Riley 12/18/17 0621: Subjective Follow-up For: Weakness Subjective: Patitent is quietly resting with her family at bedside. Per nursing patient began to desaturate overnight and this morning was put on supplemental oxygen. Patient continues to decline functionally. A family meeting is held with attending to discuss goals of care. Review of Systems Constitutional: Reports: see HPI. Objective Last 24 Hrs of Vital Signs/I&O Vital Signs Date Time Temp Pulse Resp B/P B/P Pulse O2 O2 Flow FiO2 Mean Ox Delivery Rate 12/18 2200 Nasal 2.0L Cannula 12/19 2015 94 Nasal 2.0L Cannula 12/18 2014 98.0 80 20 174/76 94 Nasal 2.0L Cannula 12/18 1955 98.2 80 20 176/74 97 Nasal 2.0L Cannula 12/18 1940 98.2 76 20 164/68 96 Nasal 2.0L Cannula 12/18 1928 98.1 78 20 170/76 95 Nasal 2.0L Cannula 12/18 1912 98.1 68 20 158/68 96 Nasal 2.0L Cannula 12/18 1857 97.9 80 20 166/80 96 Nasal 2.0L Cannula 12/18 1843 97.9 68 20 154/80 96 Nasal 2.0L Cannula 12/18 1831 97.9 70 20 146/70 95 Nasal 2.0L Cannula 12/18 1813 97.9 68 18 148/70 95 Nasal 2.0L Cannula 12/18 1757 97.9 880 20 158/72 95 Nasal 2.0L Cannula 12/18 1740 98.0 72 18 154/76 95 Nasal 2.0L Cannula 12/18 1731 98.1 12/18 1725 98.1 76 20 166/80 96 Nasal 2.0L Cannula 12/18 1700 98.1 76 20 162/74 95 Nasal 2.0L Cannula 12/18 1625 98.3 12/18 1615 98.3 80 20 162/80 96 Nasal 2.0L Cannula 12/18 1600 94 Nasal 2.0L Cannula 12/18 1454 97.8 74 20 160/92 96 Nasal 3.0L Cannula 12/18 0959 66 180/80 08 0959 66 180/80 08 0959 66 180/80 12/18 0815 94 Nasal 2.0L Cannula 12/18 0800 94 Nasal 2.0L Cannula 12/18 0644 98.3 64 20 179/76 90 Room Air Intake & Output 12/18 1600 12/18 0800 12/18 0000 Intake Total 871 572 9180 Output Total Balance 465 892 3899 Intake, IV 031 655 4746 Intake, Oral 0 Patient 209 lb Weight Weight Bed scale Measurement Method Physical Exam General Appearance: Alert, Cooperative, No Acute Distress HEENT: Atraumatic Neck: Supple, No JVD Cardiovascular: Normal S1, Normal S2 Lungs: Clear to Auscultation Abdomen: Normal Bowel Sounds, Soft, No Tenderness Neurological: Quadriplegic Extremities: No Cyanosis, No Tenderness/Swelling Current Medications: Current Medications Sig/Andrea Start time Last Medication Dose Route Stop Time Status Admin Acetaminophen 1,000 MG ONCE ONE 12/18 161 DC 12/18 N/A 1 UNIT IV 12/18 1629 1625 Acetaminophen 650 MG Q6P PRN 12/07 2300 AC PO Alprazolam 0.25 MG AT BEDTIME NEED.. 12/16 2215 AC 12/16 PO 12/23 2214 2223 Amlodipine Besylate 5 MG DAILY 12/08 899 AC 12/18 PO 0959 Dextrose/Sodium 1,000 ML Q13H 12/15 0930 12/18 Chloride IV 2103 Diphenhydramine HCl 0 .STK-MED ONE 12/18 1623 DC .ROUTE Diphenhydramine HCl 25 MG ONCE ONE 12/18 1615 DC 12/18 IV 12/18 1616 1651 Enoxaparin Sodium 40 MG DAILY 12/18 1424 12/18 SC 1643 Escitalopram Oxalate 10 MG DAILY 12/08 09 AC 12/18 PO 0959 Gabapentin 600 MG QPM 12/08 2100 AC 12/18 PO 2100 Heparin Sodium 25,000 UNIT Q24H 12/17 1730 DC 12/18 (Porcine) IV 12/18 0600 0328 Sodium Chloride 500 ML Immune Globulin 40 GM DAILY@1730 12/17 1730 AC 12/18 N/A 1 UNIT IV 12/21 2150 1722 Levothyroxine Sodium 25 MCG DAILY 12/16 0937 AC 12/18 IV 0959 Losartan Potassium 50 MG DAILY 12/08 09 AC 12/18 PO 0959 Melatonin 10 MG AT BEDTIME NEED.. 12/16 0015 AC 12/16 PO 0059 Metoprolol Succinate 50 MG DAILY 12/08 0900 AC 12/18 PO 0959 Nystatin 1 JAMSHID BID 12/16 2208 AC 12/18 TOP 2101 Ondansetron HCl 4 MG ONCE ONE 12/18 1500 DC 12/18 IV 12/18 1501 1459 Pyridostigmine 60 MG Q8H 12/16 1200 AC 12/18 [place] PO 2100 Ropinirole HCl 0.25 MG AT BEDTIME 12/08 2100 AC 12/18 PO 2101 Sodium Chloride 2 SPRAY Q4P PRN 12/14 1315 AC DIYA Timolol Maleate 1 GTT BID 12/08 0900 AC 12/18 OPH 1000 Last 24 Hrs of Lab/Nader Results Last 24 Hrs of Labs/Mics: Laboratory Tests 12/18/17 2330: APTT Cancelled 12/18/17 0638: Anion Gap 6, Estimated GFR > 60, BUN/Creatinine Ratio 24.3, APTT 102 *H, CBC w Diff NO MAN DIFF REQ, RBC 4.27, MCV 88.3, MCH 29.5, MCHC 33.3, RDW 14.7 H, MPV 8.5, Gran % 85.5 H, Lymphocytes % 9.4 L, Monocytes % 4.2, Eosinophils % 0.6, Basophils % 0.3, Absolute Granulocytes 6.3, Absolute Lymphocytes 0.7 L, Absolute Monocytes 0.3, Absolute Eosinophils 0, Absolute Basophils 0 12/18/17 0015: APTT 74 H Assessment/Plan Assessment: Assessment: 87 year old female with PMH significant for atrial fibrillation on pradaxa, HTN, HLD, hypothyroidism, HFpEF, anxiety/depression, and restless legs syndrome last admitted in 07/2017 for CHF exacerbation and dyspnea which improved after diuresis was BIBA to ED with complaints of progressive exertional dyspnea and generalized weakness for the past week. ECHO 12/08/17 1. Normal EF of 60%. 2. Mild left ventricular hypertrophy. 3. Moderate left atrial enlargement. Mild right atrial enlargement. 4. Mild posterior annular calcification of the mitral valve with trace MR. 5. Mild to moderate tricuspid regurgitation. 6. Trace pulmonic regurgitation. 7. Mild pulmonary hypertension. XRAY SHOULDERS BL 12/10/17 1. Moderate diffuse osteopenia. 2. Mild osteoarthrosis at both acromioclavicular and glenohumeral joints. 3. The visualized lung garcia bilaterally appear abnormal. Follow-up chest radiograph may be considered for further full detail evaluation, if clinically appropriate. Head CT W/O 12/11/17 No acute intracranial pathology. 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 Large fluid level with mucosal thickening subtotally opacifying the left maxillary sinus. Chest CT 12/12/17 1. Large lobulated peripheral right lung mass that is confluent with the mediastinum. There are also pleural plaques identified that are partially calcified. 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 There is bulky mediastinal and right hilar adenopathy with mass effect upon the right hilum but with preserved airways and vessels. 2. Cardiomegaly. Coronary artery atherosclerosis. Thoracic aortic atherosclerosis. MRI brain 12/14/17 1. There are no acute bleeds or infarcts. There are no masses or areas of abnormal enhancement. 2. There is diffuse volume loss and there are chronic microvascular ischemic changes. 3. There is fluid and mucoperiosteal thickening in the left maxillary sinus. MRI cervical spine 12/14/17 1. There is multilevel spondylosis, which is most severe at C4-C5. There is a posterior disc osteophyte complex with uncovertebral osteophytes and there is severe bilateral foraminal narrowing. 2. Spinal cord signal is normal. There is no spinal cord compression. 3. There is no abnormal enhancement noted following intravenous contrast administration. Further Assessment: - Nursing staff noticed she had trouble sitting up and was off balance in relation to her back and abdominal muscles - X-ray of shoulders was not convincing for her symptoms - Head CT was negative for acute pathology - Her progression of weakness in upper extremities from proximal to distal was concerning so we consulted neurology - Pulm recommended biopsy of her lung incidental lung mass found on CT when looking for thymoma - MRI did not look impressive for her current symptoms other than multi-level cervical spondylosis - Over her hospital course, she rapidly developed worsening diploplia, BL ptosis , bulbar symptoms including slurred speech, trouble swallowing, and oral secretions, and intermittent dysphagia - Muscle weakness progressed from a proximal to distal pattern, rendering her quadraplegic - Today goals of care were readressed with attneding and it was decided she will no longer forgo any invasive procedures or imaging therefore lung biopsy and abd imaging have been cancelled - We will continue IV Ig for next 5 days and re-assess based on outcome, if she does not improve family and POA opt for hospice care Problems List: #Weakness (Myasthenia Gravis Vs Guillain [place]/Hdz Osorio Vs Bikersaff Encephalitis Vs Paraneoplasm) - Neuro, Pulm, and ST recs appreciated - CPK levels wnl (most likely rules out MG) - Acetylcholine receptor antibody panel pending - EKG - Afib, no blocks or bradycardia - Chest CT did not show thymoma, but did show incidental plerual mass - LP: CSF protein, cells, cytology, flow cytometry pending - Mestinon (pyridostigmine) trials were unsuccessful - Changed to Lovenox now - Changed status to DNR/DNI - Keep patient NPO for next 5 days as her secretions are worsening after eating - Continue D5 1/2 NS at 75ml - Continue adequate suctioning - Changed medication regimen, converting some to IV - Continue adequate suctioning - Continue vital capacties and breathing treatments - Continue IV Ig #New Pulmonary Mass - No interventions now #Afib - Currently rate controlled on metoprolol 50mg #Hypothyroidism: - TSH wnl - Synthroid 25 mcg IV #HTN: - Amlodipine 5mg - Furosemide 40mg - Losartan 50mg #HLD: - Atorvastatin 10mg #Restless leg syndrome: - Ropinirole 0.25mg - Gabapentin 600 mg #Anxiety/Depression: - Lexapro 10mg DVT ppx DNR/DNI Problem List: 1. Weakness Pain Ratin Pain Location: n/a Pain Goal: Remain pain free Pain Plan: n/a Tomorrow's Labs & Rationales: None Akil DONAHUE,Staceypamela 12/18/17 1447: Attending MD Review Statement Attending Statement Attending MD Statement: examined this patient, discuss w/resident/PA/GEOSCIENCE TECHNICIAN, agreed w/resident/PA/GEOSCIENCE TECHNICIAN, reviewed EMR data (avail), discussed with nursing, discussed with case mgmt, amended to note Attending Assessment/Plan: Patient seen and examined. She remains quadriparetic with no significant improvement since initiation of IVIG infusion yesterday. This morning she hypoxic saturating 88% on RA. She improved with oxygen supplementation. She remains quadriplegic. Family meeting occurred today with the pulmonology service, the patient and her power of networks computer consultant. I was also discussed with the patient and her family. Decision has been made to proceed with only conservative management. They do not wish to pursue lung biopsy or any further diagnostic workup. Patient and family have agreed to complete treatment course with IVIG. If there is no significant improvement in his symptoms we will proceed with hospice care. They understand that patient has a significant pulmonary malignancy and that she is a poor candidate for any treatment for this including surgery and/or chemotherapy. Will change CODE STATUS to DO NOT RESUSCITATE/DO NOT INTUBATE and monitor her response to IVIG treatment. pulmonary malignancy and that she is a poor candidate for any treatment for this including surgery and/or chemotherapy. Will change CODE STATUS to DO NOT RESUSCITATE/DO NOT INTUBATE and monitor her response to IVIG treatment. RESUSCITATE/DO NOT INTUBATE and monitor her response to IVIG treatment.
[2017-12-18 08:08] LABS: ABSOLUTE BASOPHIL COUNT 0 /CUMM (0.0-0.2); ABSOLUTE EOSINOPHIL COUNT 0 /CUMM (0.0-0.7); ABSOLUTE GRANULOCYTE CT 6.3 /CUMM (1.4-6.5); ABSOLUTE LYMPH COUNT 0.7 /CUMM (1.2-3.4); ABSOLUTE MONOCYTE COUNT 0.3 /CUMM (0.10-0.60); BASOPHIL % 0.3 % (0.0-2.0); EOSINOPHIL % 0.6 % (0-5); GRANULOCYTE % 85.5 % (42.2-75.2); HEMATOCRIT 37.7 % (37-47); MEAN CORPUSCULAR HGB 29.5 PG (27.0-31.0); MEAN CORPUSCULAR HGB CONC 33.3 G/DL (33.0-37.0); MEAN CORPUSCULAR VOLUME 88.3 FL (81.0-99.0); MEAN PLATELET VOLUME 8.5 FL (7.4-10.4); PLATELET COUNT 255 /CUMM (130-400); RBC DISTRIBUTION WIDTH 14.7 % (11.5-14.5); RED BLOOD CELL CT 4.27 /CUMM (4.20-5.40); WHITE BLOOD CELL COUNT 7.4 /CUMM (4.8-10.8)
[2017-12-18 08:33] LABS: PTT 102 SEC (25-37)
--- NOTE | 2017-12-18 10:42 | PN- Pulmonary ---
Subjective HPI/Critical Care Issues: Doing poorly Patient has subacute neuromuscular disorder in the setting of progressive advanced malignancy probably lung cancer. Continues to be quadriplegic Becoming more hypoxemic and short of breath Still complains of diplopia and severe weakness Objective Current Medications: Current Medications Sig/Andrea Start time Last Medication Dose Route Stop Time Status Admin Acetaminophen 650 MG ONCE ONE 12/17 1615 DC 12/17 PO 12/17 1616 1638 Acetaminophen 650 MG Q6P PRN 12/07 2300 AC PO Alprazolam 0.25 MG AT BEDTIME NEED.. 12/16 2214 AC 12/16 PO 12/23 2214 2223 Amlodipine Besylate 5 MG DAILY 12/08 899 AC 12/18 PO 0959 Dextrose/Sodium 1,000 ML Q13H 12/15 0930 AC 12/18 Chloride IV 0630 Diphenhydramine HCl 25 MG ONCE ONE 12/17 1615 DC 12/17 PO 12/17 1616 1638 Escitalopram Oxalate 10 MG DAILY 12/08 899 AC 12/18 PO 0959 Gabapentin 600 MG QPM 12/08 2100 AC 12/17 PO 2111 Heparin Sodium 25,000 UNIT Q24H 12/17 1730 DC 12/18 (Porcine) IV 12/18 0600 0328 Sodium Chloride 500 ML Immune Globulin 40 GM DAILY@1730 12/17 1730 AC 12/17 N/A 1 UNIT IV 12/21 2150 1740 Immune Globulin 40 GM DAILY@1700 12/17 1700 DC N/A 1 UNIT IV 12/21 2120 Immune Globulin See Dose DAILY 12/17 1519 CAN Insts (1) IV 12/21 1200 Levothyroxine Sodium 25 MCG DAILY 12/16 0937 AC 12/18 IV 0959 Losartan Potassium 25 MG ONCE ONE 12/17 1900 DC 12/17 PO 12/17 1901 1925 Losartan Potassium 50 MG DAILY 12/08 09 AC 12/18 PO 0959 Melatonin 10 MG AT BEDTIME NEED.. 12/16 0015 AC 12/16 PO 0059 Metoprolol Succinate 50 MG DAILY 12/08 09 AC 12/18 PO 0959 Nystatin 1 JAMSHID BID 12/168 AC 12/18 TOP 1001 Pyridostigmine 60 MG Q8H 12/16 1200 AC 12/18 [place] PO 0402 Ropinirole HCl 0.25 MG AT BEDTIME 12/08 2100 AC 12/17 PO 2111 Sodium Chloride 2 SPRAY Q4P PRN 12/14 1315 AC DIYA Timolol Maleate 1 GTT BID 12/08 0900 AC 12/18 OPH 1000 Dose Instructions: (1)Immune Globulin: Please give 40 g/day for 5 days Vital Signs & I&O Last 24 Hrs of Vitals and I&O: Vital Signs Date Time Temp Pulse Resp B/P B/P Pulse O2 O2 Flow FiO2 Mean Ox Delivery Rate 12/18 0959 66 180/80 12/18 0959 66 180/80 12/18 0959 66 180/80 12/18 0644 98.3 64 20 179/76 90 Room Air 12/17 2125 71 18 152/56 93 Room Air 12/17 2110 74 20 152/64 93 Room Air 12/17 2054 98.4 73 20 170/68 93 Room Air 12/17 2040 66 20 168/80 95 Room Air 12/17 202 98.5 69 20 162/70 94 Room Air 12/17 2009 68 20 156/76 96 Room Air 12/17 195 98.5 65 20 170/80 96 Room Air 12/17 1942 93 Room Air Room Air 12/17 1940 73 20 190/78 96 Room Air 12/17 1925 160/70 12/17 1925 98.3 75 20 162/80 96 Room Air 12/17 1910 73 20 160/72 95 Room Air 12/17 1855 98.1 70 20 162/70 95 Room Air 12/17 1840 73 20 186/88 95 Room Air 12/17 1825 98.2 60 20 176/77 95 Room Air 12/17 1810 98.1 73 20 152/64 95 Room Air 12/17 1755 98.1 63 20 113/53 93 Room Air 12/17 1740 97.7 64 20 151/69 92 Room Air 12/17 1600 96 Room Air 12/17 1443 98.4 72 16 102/60 93 Room Air 12/17 1341 93 Room Air Room Air 12/17 1114 140/80 12/17 1113 140/80 12/17 1113 140/80 12/17 1050 98.4 65 16 140/80 92 Room Air Intake & Output 12/18 1600 12/18 0800 12/18 0000 Intake Total 808 1030 Output Total Balance 808 1030 Intake, IV 808 1030 Patient 209 lb Weight Weight Bed scale Measurement Method Laboratory Tests 12/18 12/18 12/17 12/17 0638 0015 0910 0989 Chemistry Sodium (137 - 145 mmol/L) 134 L Potassium (3.5 - 5.1 mmol/L) 3.7 Chloride (98 - 107 mmol/L) 103 Carbon Dioxide (22 - 30 mmol/L) 24 Anion Gap (5 - 16) 6 BUN (7 - 17 mg/dL) 17 Creatinine (0.5 - 1.0 mg/dL) 0.7 Estimated GFR (>60 ml/min) > 60 BUN/Creatinine Ratio (7 - 25 %) 24.3 Coagulation APTT (25 - 37 SEC) 102 *H 74 H Hematology CBC w Diff NO MAN DIFF REQ WBC (4.8 - 10.8 /CUMM) 7.4 RBC (4.20 - 5.40 /CUMM) 4.27 Hgb (12.0 - 16.0 G/DL) 12.6 Hct (37 - 47 %) 37.7 MCV (81.0 - 99.0 FL) 88.3 MCH (27.0 - 31.0 PG) 29.5 MCHC (33.0 - 37.0 G/DL) 33.3 RDW (11.5 - 14.5 %) 14.7 H Plt Count (130 - 400 /CUMM) 255 MPV (7.4 - 10.4 FL) 8.5 Gran % (42.2 - 75.2 %) 85.5 H Lymphocytes % (20.5 - 51.1 %) 9.4 L Monocytes % (1.7 - 9.3 %) 4.2 Eosinophils % (0 - 5 %) 0.6 Basophils % (0.0 - 2.0 %) 0.3 Absolute Granulocytes (1.4 - 6.5 /CUMM) 6.3 Absolute Lymphocytes (1.2 - 3.4 /CUMM) 0.7 L Absolute Monocytes (0.10 - 0.60 /CUMM) 0.3 Absolute Eosinophils (0.0 - 0.7 /CUMM) 0 Absolute Basophils (0.0 - 0.2 /CUMM) 0 Miscellaneous Flow Cytometry Specimen Pending Other Body Source CSF WBC (0 - 5 /CUMM) 1 CSF RBC (-0 /CUMM) 1 H CSF Comment CSF Glucose (40 - 70 mg/dL) 62 CSF Total Protein (12 - 60 mg/dL) 113 H 12/17 12/16 0320 1455 Chemistry Sodium (137 - 145 mmol/L) 137 Potassium (3.5 - 5.1 mmol/L) 3.6 Chloride (98 - 107 mmol/L) 101 Carbon Dioxide (22 - 30 mmol/L) 28 Anion Gap (5 - 16) 7 BUN (7 - 17 mg/dL) 21 H Creatinine (0.5 - 1.0 mg/dL) 0.7 Estimated GFR (>60 ml/min) > 60 BUN/Creatinine Ratio (7 - 25 %) 30.0 H Coagulation APTT (25 - 37 SEC) 48 H 83 H Hematology CBC w Diff NO MAN DIFF REQ WBC (4.8 - 10.8 /CUMM) 6.7 RBC (4.20 - 5.40 /CUMM) 3.96 L Hgb (12.0 - 16.0 G/DL) 11.7 L Hct (37 - 47 %) 34.8 L MCV (81.0 - 99.0 FL) 88.0 MCH (27.0 - 31.0 PG) 29.6 MCHC (33.0 - 37.0 G/DL) 33.7 RDW (11.5 - 14.5 %) 14.8 H Plt Count (130 - 400 /CUMM) 250 MPV (7.4 - 10.4 FL) 8.4 Gran % (42.2 - 75.2 %) 63.5 Lymphocytes % (20.5 - 51.1 %) 20.6 Monocytes % (1.7 - 9.3 %) 14.2 H Eosinophils % (0 - 5 %) 1.5 Basophils % (0.0 - 2.0 %) 0.2 Absolute Granulocytes (1.4 - 6.5 /CUMM) 4.3 Absolute Lymphocytes (1.2 - 3.4 /CUMM) 1.4 Absolute Monocytes (0.10 - 0.60 /CUMM) 1.0 H Absolute Eosinophils (0.0 - 0.7 /CUMM) 0.1 Absolute Basophils (0.0 - 0.2 /CUMM) 0 Microbiology Date/Time Procedure - Status Source Growth 12/17 909 CSF Culture - RES CENT N S 12/17 909 Gram Stain - RES CENT N S Impression/Plan Impression/Plan Impression/Plan: General Appearance: no apparent distress, awake, anxious, fatigued and chronically ill Head: atraumatic Neck: supple Respiratory: decreased breath sounds right side Abdomen: normal bowel sounds, soft, non-tender Extremities: no edema Skin: intact, warm/dry Quadriparetic unable to move most of her limbs with mild movement in the right side IMPRESSION This is a lady with history of more than [id number] smoker, morbid obesity, restless leg syndrome, atrial fibrillation on anticoagulation, hypertension, hypothyroidism on appropriate supplementation, previous diastolic heart disease, now has * Large right-sided pleural parenchymal mass with mediastinal hilar lymphadenopathy highly suggestive of primary lung malignancy versus pleural malignancy including mesothelioma. Patient has multiple metastases in the chest appears to be advanced stage IV lung cancer. 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 Patient is on a therapeutic trial of IVIG for 5 days * Mild aspiration, diplopia. * No clinical evidence suggestive of any hypercarbia/however patient is slowly progressing towards respiratory failure now hypoxemic * Atrial fibrillation, diastolic heart disease, hypertension. Patient is on appropriate medication and anticoagulation * Restless leg syndrome on triple therapy * Previous depression on appropriate therapy RECOMMENDATION I did have a family meeting with the power of commercial real estate attorney Mrs. Vuong's brother, and the patient. After going over the implications of her medical conditions, therapeutic options available, future interventions she may need, other issues were extensively discussed. At this time patient wishes not to go through any invasive workup, does not want to go through any life support, ICU care. She wishes to be in a private room with her family. She wishes to continue IV IgG, anticoagulation for now. If she were to remarkably improve then she will consider a lung biopsy. I did discuss with interventional radiology and they think that the risk of biopsy is tremendously high at this. And therapeutically there are few options available as she does not look like she would be a chemotherapy candidate. At this time per patient and power of commercial real estate attorney's wishes we will keep her with conservative treatment in a private floor without telemetry monitoring. We will continue conservative treatment including IV IgG, Lovenox for anticoagulation for a day or 2. If she were to improve we will consider other options. If not patient wishes to be made comfort care and eventual hospice. PLAN DNR/DNI Did not transfer to the ICU Continue IVIG Continue anticoagulation with Lovenox and if she is worse and if comfort care instituted this can be stopped Keep the head of bed elevated If her swallowing improves she can eat regardless of whether she would aspirate she is to eat in the future Continue maintenance fluid Continue p.o. medications only if she can swallow If she has difficulty breathing increased work of breathing then we can institute low-dose morphine If she is worse she could be made comfort care and eventually hospice per patient and power of commercial real estate attorney Discussed with hospitalist attending, patient, family. Patient is critically ill total time spent 45 minutes
[2017-12-19] VITALS (17 sets, daily range): BP systolic 131–183; BP diastolic 58–82
--- NOTE | 2017-12-19 07:01 | PN- Housestaff ---
[facility] 12/19/17 0700: Subjective Follow-up For: Subacute neuromuscular disorder in the setting of suspected carcinoma of the lung. Tele-Events Since Last Visit: OFF tele Subjective: No overnight events. Patient remained afebrile. Seen and examined this morning. She is on 2 L of oxygen maintaining saturation 97%. Patient denied chest pain, short of breath, nausea, vomiting, chills, fever, abdominal pain dysuria. Patient reported intermittent cough and bringing some mucus. Patient denied diplopia. Patient has bilateral upper limb weakness and she also has bilateral leg weakness. Review of Systems Constitutional: Denies: chills, fever. EENTM: Reports: double vision. Cardiovascular: Denies: chest pain, palpitations, syncope. Respiratory: Reports: cough. Denies: short of breath, sputum production. Gastrointestinal: Denies: abdominal pain, diarrhea, nausea, vomiting. Genitourinary: Reports: no symptoms. Neurological/Psychological: Reports: see HPI. Objective Last 24 Hrs of Vital Signs/I&O Vital Signs Date Time Temp Pulse Resp B/P B/P Pulse O2 O2 Flow FiO2 Mean Ox Delivery Rate 12/19 1053 84 140/80 12/19 1053 84 140/80 12/19 1053 84.0 140/80 12/19 0600 98.2 55 18 138/68 97 Nasal Cannula 12/180 Nasal 2.0L Cannula 12/19 2015 94 Nasal 2.0L Cannula 12/18 2014 98.0 80 20 174/76 94 Nasal 2.0L Cannula 12/18 195 98.2 80 20 176/74 97 Nasal 2.0L Cannula 12/18 1940 98.2 76 20 164/68 96 Nasal 2.0L Cannula 12/18 1928 98.1 78 20 170/76 95 Nasal 2.0L Cannula 12/18 1912 98.1 68 20 158/68 96 Nasal 2.0L Cannula 12/18 1857 97.9 80 20 166/80 96 Nasal 2.0L Cannula 12/18 1843 97.9 68 20 154/80 96 Nasal 2.0L Cannula 12/18 1831 97.9 70 20 146/70 95 Nasal 2.0L Cannula 12/18 1813 97.9 68 18 148/70 95 Nasal 2.0L Cannula 12/18 1757 97.9 880 20 158/72 95 Nasal 2.0L Cannula 12/18 1740 98.0 72 18 154/76 95 Nasal 2.0L Cannula 12/18 1731 98.1 12/18 1725 98.1 76 20 166/80 96 Nasal 2.0L Cannula 12/18 1700 98.1 76 20 162/74 95 Nasal 2.0L Cannula 12/18 1625 98.3 12/18 1615 98.3 80 20 162/80 96 Nasal 2.0L Cannula 12/18 1600 94 Nasal 2.0L Cannula 12/18 1454 97.8 74 20 160/92 96 Nasal 3.0L Cannula Intake & Output 12/19 1600 12/19 0800 12/19 0000 Intake Total 600 300 Output Total Balance 600 300 Intake, IV 600 300 Patient 193 lb Weight Weight Bed scale Measurement Method Physical Exam General Appearance: Alert, Oriented X3, Cooperative Skin: No Rashes Skin Temp/Moisture Exam: Warm/Dry Sepsis Skin Exam (color): Normal for Ethnicity HEENT: Atraumatic, EOMI Neck: Supple Cardiovascular: Normal S1, Normal S2 Lungs: Clear to Auscultation Abdomen: Soft, No Tenderness Neurological: Diffuse hyporeflexia, Weakness of b/l upper and lower extrimities Extremities: No Edema Assessment/Plan Assessment: 87 YO F with PMH of [id number] smoker, morbid obesity, restless leg syndrome, atrial fibrillation on anticoagulation, hypertension, hypothyroidism on appropriate supplementation, HFpEF, anxiety/depression, and restless legs syndrome last admitted in 07/2017 for CHF exacerbation and dyspnea which improved after diuresis was BIBA to ED with complaints of progressive exertional dyspnea and generalized weakness for the past week. We are following the patient on tele floor for following problems. Subacute neuromuscular disorder: -In the setting of progressive advanced malignancy probably lung cancer, on imaging study patient has large right-sided pleural parenchymal mass with mediastinal hilar lymphadenopathy. 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 -Patient is an acetylcholine antibody borderline elevated and CSF shows elevated protein but acellular. -Continue IV immunoglobulin for 5 days. Today is day 3. -Patient has difficulty swelling, keep the patient n.p.o. to prevent aspiration pneumonia. -Gentle IV hydration with D5 half-normal saline at the rate of 75 mL/h. -Patient does not want any invasive procedure. Acute hypoxemic respiratory failure: -Possibly due to subacute neuromuscular disorder, patient desaturated to 88% and she was placed on 2 L of oxygen. -Patient is maintaining saturation 97%. -If she has difficulty breathing increased work of breathing then we can institute low-dose morphine. 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 Lung mass 2. Weakness Pain Ratin Pain Location: none Pain Goal: Remain pain free Pain Plan: pain pathway Tomorrow's Labs & Rationales: None Enma Barnard MD 12/19/17 1601: Attending MD Review Statement Attending Statement Attending MD Statement: examined this patient, discuss w/resident/PA/[employer], agreed w/resident/PA/[employer], discussed with family, reviewed EMR data (avail), discussed with nursing, discussed with case mgmt, amended to note Attending Assessment/Plan: Patient seen and examined. She reports some improvement in her strength today. On examination she is able to bend her arms slightly of the elbows and being slightly at the knees. She remains afebrile hemodynamically stable. Today is day 3 of therapy with IVIG. We will continue the course to complete 5 days of treatment and then reevaluate. She reports improved ability to cough. Patient continues to improve clinically we will resume her diet tomorrow.
--- NOTE | 2017-12-19 13:22 | PN- Pulmonary ---
Subjective HPI/Critical Care Issues: No overnight events. Patient remained afebrile. Seen and examined this morning. She is on 2 L of oxygen maintaining saturation 97%. Patient denied chest pain, short of breath, nausea, vomiting, chills, fever, abdominal pain dysuria. Patient reported intermittent cough and bringing some mucus. Patient denied diplopia. Patient has bilateral upper limb weakness and she also has bilateral leg weakness. Objective Current Medications: Current Medications Sig/Andrea Start time Last Medication Dose Route Stop Time Status Admin Acetaminophen 1,000 MG ONCE ONE 12/18 1615 PR 12/18 N/A 1 UNIT IV 12/18 1629 1625 Acetaminophen 650 MG Q6P PRN 12/07 2300 AC PO Alprazolam 0.25 MG AT BEDTIME NEED.. 12/16 2214 AC 12/16 PO 12/23 221 2223 Amlodipine Besylate 5 MG DAILY 12/08 899 AC 12/19 PO 1053 Dextrose/Sodium 1,000 ML Q13H 12/15 0930 12/18 [place] IV 2103 Diphenhydramine HCl 0 .STK-MED ONE 12/18 1623 DC .ROUTE Diphenhydramine HCl 25 MG ONCE ONE 12/18 1615 DC 12/18 IV 12/18 1616 1651 Enoxaparin Sodium 40 MG DAILY 12/18 1424 AC 12/19 SC 1052 Escitalopram Oxalate 10 MG DAILY 12/08 899 AC 12/19 PO 1054 Gabapentin 600 MG QPM 12/08 2100 AC 12/18 PO 2100 Immune Globulin 40 GM DAILY@1730 12/17 1730 12/18 N/A 1 UNIT IV 12/21 2150 1722 Levothyroxine Sodium 25 MCG DAILY 12/16 0937 12/19 IV 1052 Losartan Potassium 50 MG DAILY 12/08 899 12/19 PO 1053 Melatonin 10 MG AT BEDTIME NEED.. 12/16 0015 AC 12/16 PO 0059 Metoprolol Succinate 50 MG DAILY 12/08 899 AC 12/19 PO 1053 Nystatin 1 JAMSHID BID 12/16 2208 AC 12/19 TOP 1054 Ondansetron HCl 4 MG ONCE ONE 12/18 1500 DC 12/18 IV 12/18 1501 1459 Pyridostigmine 60 MG Q8H 12/16 1200 AC 12/19 [place] PO 1104 Ropinirole HCl 0.25 MG AT BEDTIME 12/08 2100 AC 12/18 PO 2101 Sodium Chloride 2 SPRAY Q4P PRN 12/14 1315 AC DIYA Timolol Maleate 1 GTT BID 12/08 0900 AC 12/19 OPH 1053 Vital Signs & I&O Last 24 Hrs of Vitals and I&O: Vital Signs Date Time Temp Pulse Resp B/P B/P Pulse O2 O2 Flow FiO2 Mean Ox Delivery Rate 12/19 1053 84 140/80 12/19 1053 84 140/80 12/19 1053 84.0 140/80 12/19 0800 Nasal 2.0L Cannula 12/19 0600 98.2 55 18 138/68 97 Nasal Cannula 12/180 Nasal 2.0L Cannula 12/19 2015 94 Nasal 2.0L Cannula 12/18 2014 98.0 80 20 174/76 94 Nasal 2.0L Cannula 12/18 195 98.2 80 20 176/74 97 Nasal 2.0L Cannula 12/18 1940 98.2 76 20 164/68 96 Nasal 2.0L Cannula 12/18 1928 98.1 78 20 170/76 95 Nasal 2.0L Cannula 12/18 1912 98.1 68 20 158/68 96 Nasal 2.0L Cannula 12/18 1857 97.9 80 20 166/80 96 Nasal 2.0L Cannula 12/18 1843 97.9 68 20 154/80 96 Nasal 2.0L Cannula 12/18 1831 97.9 70 20 146/70 95 Nasal 2.0L Cannula 12/18 1813 97.9 68 18 148/70 95 Nasal 2.0L Cannula 12/18 1757 97.9 880 20 158/72 95 Nasal 2.0L Cannula 12/18 1740 98.0 72 18 154/76 95 Nasal 2.0L Cannula 12/18 1731 98.1 12/18 1725 98.1 76 20 166/80 96 Nasal 2.0L Cannula 12/18 1700 98.1 76 20 162/74 95 Nasal 2.0L Cannula 12/18 1625 98.3 12/18 1615 98.3 80 20 162/80 96 Nasal 2.0L Cannula 12/18 1600 94 Nasal 2.0L Cannula 12/18 1454 97.8 74 20 160/92 96 Nasal 3.0L Cannula Intake & Output 12/19 1600 12/19 0800 12/19 0000 Intake Total 600 300 Output Total Balance 600 300 Intake, IV 600 300 Patient 193 lb Weight Weight Bed scale Measurement Method Impression/Plan Impression/Plan Impression/Plan: General Appearance: no apparent distress, awake, anxious, fatigued and chronically ill Head: atraumatic Neck: supple Respiratory: decreased breath sounds right side Abdomen: normal bowel sounds, soft, non-tender Extremities: no edema Skin: intact, warm/dry Quadriparetic unable to move most of her limbs with mild movement in the right side IMPRESSION This is a lady with history of more than 55-bxri-xzeg smoker, morbid obesity, restless leg syndrome, atrial fibrillation on anticoagulation, hypertension, hypothyroidism on appropriate supplementation, previous diastolic heart disease, now has * Large right-sided pleural parenchymal mass with mediastinal hilar lymphadenopathy highly suggestive of primary lung malignancy versus pleural malignancy including mesothelioma. Patient has multiple metastases in the chest appears to be advanced stage IV lung cancer. 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 Patient is on a therapeutic trial of IVIG for 5 days, improvement so far minimal * Mild aspiration, diplopia. * No clinical evidence suggestive of any hypercarbia/however patient is slowly progressing towards respiratory failure now hypoxemic * Atrial fibrillation, diastolic heart disease, hypertension. Patient is on appropriate medication and anticoagulation * Restless leg syndrome on triple therapy * Previous depression on appropriate therapy RECOMMENDATION See yesterday's note PLAN DNR/DNI Did not transfer to the ICU Continue IVIG Continue anticoagulation with Lovenox may need full dose for now and if she is worse and if comfort care instituted this can be stopped Keep the head of bed elevated If her swallowing improves she can eat regardless of whether she would aspirate she is to eat in the future Continue maintenance fluid Continue p.o. medications only if she can swallow If she has difficulty breathing increased work of breathing then we can institute low-dose morphine
[2017-12-20] VITALS (13 sets, daily range): BP systolic 132–198; BP diastolic 7–95
--- NOTE | 2017-12-20 08:11 | PN- Housestaff ---
[facility] [facility] 12/20/17 0810: Subjective Follow-up For: Subacute neuromuscular disorder in the setting of suspected carcinoma of the lung. Tele-Events Since Last Visit: No overnight events. Patient is off tele. Subjective: No new treatments. Patient remained afebrile. seen and examined this morning. Patient is on 2 L of oxygen and maintaining saturation 92%. Her power in upper and lower extremities has been improving. Patient can move upper extremity against gravity at the elbow joints but she is not able to raise her arms above head. Patient can move her legs [id number] but not against gravity. Patient denied chest pain, short of breath, nausea, vomiting, chill, fever, abdominal pain dysuria. She is complaining of intermittent cough and bringing mucus. Review of Systems Constitutional: Denies: chills, fever. EENTM: Reports: see HPI. Cardiovascular: Denies: chest pain, palpitations, syncope. Respiratory: Reports: cough. Denies: short of breath, sputum production. Gastrointestinal: Denies: abdominal pain, diarrhea, nausea, vomiting. Genitourinary: Reports: see HPI. Musculoskeletal: Reports: see HPI. Neurological/Psychological: Reports: no symptoms. Objective Last 24 Hrs of Vital Signs/I&O Vital Signs Date Time Temp Pulse Resp B/P B/P Pulse O2 O2 Flow FiO2 Mean Ox Delivery Rate 12/20 0632 98.1 72 20 178/74 95 Nasal 2.0L Cannula 12/20 0000 Nasal 2.0L Cannula 12/19 2014 97.9 76 24 168/70 93 Nasal 2.0L Cannula 12/20 1999 74 24 166/69 94 Nasal 2.0L Cannula 12/19 1948 96 Nasal 2.0L Cannula 12/19 194 72 24 153/65 97 Nasal 2.0L Cannula 12/19 1930 97.9 77 24 155/58 98 Nasal 2.0L Cannula 12/19 1915 74 24 157/71 96 Nasal 2.0L Cannula 12/19 1900 98.0 70 24 163/74 97 Nasal 2.0L Cannula 12/19 1845 75 24 162/70 98 Nasal 2.0L Cannula 12/19 1830 98.4 72 22 160/72 98 Nasal 2.0L Cannula 12/19 1815 71 20 155/70 98 Nasal 2.0L Cannula 12/19 1800 98.5 73 20 173/70 97 Nasal 2.0L Cannula 12/19 1745 76 22 183/82 97 Nasal 2.0L Cannula 12/19 1730 98.4 73 22 131/63 96 Nasal 2.0L Cannula 12/19 1715 76 20 147/70 95 Nasal 2.0L Cannula 12/19 1700 98.1 67 20 162/70 95 Nasal 2.0L Cannula 12/19 1600 97.8 70 20 161/69 95 Nasal 2.0L Cannula 12/19 1448 97.6 70 20 142/60 96 Nasal 2.0L Cannula 12/19 1053 84 140/80 12/19 1053 84 140/80 12/19 1053 84.0 140/80 Intake & Output 12/20 1600 12/20 0800 12/20 0000 Intake Total 600 400 Output Total Balance 600 400 Intake, IV 600 300 Intake, Oral 100 Patient 204 lb Weight Physical Exam General Appearance: Alert, Oriented X3, Cooperative Skin: No Rashes Skin Temp/Moisture Exam: Warm/Dry Sepsis Skin Exam (color): Normal for Ethnicity HEENT: Atraumatic, EOMI Neck: Supple Cardiovascular: Normal S1, Normal S2 Lungs: Decreased breath sounds b/l Abdomen: Soft, No Tenderness Neurological: Normal Speech, Normal Tone Extremities: No Edema Assessment/Plan Assessment: 87 YO F with PMH of [id number] smoker, morbid obesity, restless leg syndrome, atrial fibrillation on anticoagulation, hypertension, hypothyroidism on appropriate supplementation, HFpEF, anxiety/depression, and restless legs syndrome last admitted in 07/2017 for CHF exacerbation and dyspnea which improved after diuresis was BIBA to ED with complaints of progressive exertional dyspnea and generalized weakness for the past week. Following the patient on tele floor for following problems. Subacute neuromuscular disorder: -In the setting of progressive advanced malignancy probably lung cancer, on imaging study patient has large right-sided pleural parenchymal mass with mediastinal hilar lymphadenopathy. 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 -Patient is an acetylcholine antibody borderline elevated and CSF shows elevated protein but acellular. -Continue IV immunoglobulin for 5 days. Today is day 4. -Patient has difficulty swelling, keep the patient n.p.o. to prevent aspiration pneumonia. -Gentle IV hydration with D5 half-normal saline at the rate of 75 mL/h. -Patient does not want any invasive procedure. -CT scan abdomen and pelvis with IV contrast to rule out metastasis to abdomen and pelvis viscera. -Patient will get EMG as recommended by neurology and PT/OT evaluation. -Swallow evaluation is pending. Acute hypoxemic respiratory failure: -Possibly due to subacute neuromuscular disorder, patient desaturated to 88% and she was placed on 2 L of oxygen. -Patient is maintaining saturation 95%. -If she has difficulty breathing increased work of breathing then we can institute low-dose morphine. -If she is worse she could be made comfort care and eventually hospice per patient and power of real estate associate attorney History of Afib: - Currently rate controlled on metoprolol 50mg History of hypothyroidism: - TSH wnl - Synthroid 0.025 mcg IV History of HTN: -Continue amlodipine 5mg, losartan and metoprolol History of HLD: - Atorvastatin 10mg History of restless leg syndrome: - Ropinirole 0.25mg - Gabapentin 600 mg History of anxiety/Depression: - Lexapro 10mg DVT prophylaxis: Mechanical subcutaneous Lovenox CODE STATUS: DNR/intube Problem List: 1. Weakness 2. Lung mass Pain Ratin Pain Location: NONE Pain Goal: Remain pain free Pain Plan: PAIN PATHWAY Tomorrow's Labs & Rationales: OSCAR Barnard MD,Enma 12/20/17 1135: Attending MD Review Statement Attending Statement Attending MD Statement: examined this patient, discuss w/resident/PA/AVIONICS SYSTEMS TECHNICIAN, agreed w/resident/PA/AVIONICS SYSTEMS TECHNICIAN, reviewed EMR data (avail), discussed with nursing, discussed with case mgmt, amended to note Attending Assessment/Plan: Patient seen and examined. She is showing improvement in strength with IVIG therapy. She is able to lift her legs off the bed. She is able to bend her arms at the elbows and lift against gravity as well. She reports lethargy. Denies chest pain. Denies shortness of breath. Reports cough or difficulty clearing phlegm on occasion. She will complete a course of IVIG therapy tomorrow. Following this we will continue to monitor for improvement of her strength. Will begin inpatient physical therapy today. Patient will eventually require discharge to [facility] facility for short-term rehabilitation. If her functional status continues to improve further diagnostic workup and intervention for her lung mass and proceed at that time. Will repeat swallow evaluation today and advance diet as recommended.
--- NOTE | 2017-12-20 08:51 | PN- Student ---
Subjective Subjective: 87-year-old female with PMH of Afib, HTN, HLD, hypothyroid and restless leg syndrome, presented to ED with weakness and SOB. Hospital day 13: Patient was seen and interviewed at bed side. She stated she had improvement today in which she could bend both of her elbows at the shoulder level and was able to lift up her legs a bit. She still brought up phlegm and required suction from nurses. Patient also complained of being tired and weak. Current Medications Sig/Andrea Start time Last Medication Dose Route Stop Time Status Admin Acetaminophen 650 MG Q6P PRN 12/07 2300 AC PO Alprazolam 0.25 MG AT BEDTIME NEED.. 12/16 2214 AC 12/16 PO 12/23 2214 2223 Amlodipine Besylate 5 MG DAILY 12/08 899 AC 12/20 PO 0821 Dextrose/Sodium 1,000 ML Q13H 12/20 0845 AC Chloride IV Dextrose/Sodium 1,000 ML Q13H 12/15 0930 DC 12/20 Chloride IV 0032 Enoxaparin Sodium 80 MG BID 12/19 2100 AC 12/20 SC 0822 Enoxaparin Sodium 40 MG DAILY 12/18 1424 DC 12/19 SC 1052 Escitalopram Oxalate 10 MG DAILY 12/08 899 AC 12/20 PO 0822 Gabapentin 600 MG QPM 12/08 2100 AC 12/19 PO 2214 Immune Globulin 40 GM DAILY@1730 12/17 1730 AC 12/19 N/A 1 UNIT IV 12/21 2150 1636 Levothyroxine Sodium 25 MCG DAILY 12/16 0937 AC 12/19 IV 1052 Losartan Potassium 50 MG DAILY 12/08 09 AC 12/20 PO 0822 Melatonin 10 MG AT BEDTIME NEED.. 12/16 0015 AC 12/19 PO 2213 Metoprolol Succinate 50 MG DAILY 12/08 899 AC 12/20 PO 0821 Nystatin 1 JAMSHID BID 12/16 2208 AC 12/20 TOP 0822 Pyridostigmine 60 MG Q8H 12/16 1200 AC 12/20 [place] PO 0433 Ropinirole HCl 0.25 MG AT BEDTIME 12/08 2100 AC 12/19 PO 2222 Sodium Chloride 2 SPRAY Q4P PRN 12/14 1315 AC DIYA Timolol Maleate 1 GTT BID 12/08 09 AC 12/20 OPH 0822 Objective Objective: Vital Signs Date Time Temp Pulse Resp B/P B/P Pulse O2 O2 Flow FiO2 Mean Ox Delivery Rate 12/20 1114 95 Nasal 2.0L Cannula 12/20 0900 Nasal 2.0L Cannula 12/20 0822 72 178/74 12/20 0821 72 178/74 12/20 0821 72 178/74 12/20 0632 98.1 72 20 178/74 95 Nasal 2.0L Cannula 12/20 0000 Nasal 2.0L Cannula 12/19 2014 97.9 76 24 168/70 93 Nasal 2.0L Cannula 12/20 1999 74 24 166/69 94 Nasal 2.0L Cannula 12/19 1949 96 Nasal 2.0L Cannula 12/19 194 72 24 153/65 97 Nasal 2.0L Cannula 12/19 1930 97.9 77 24 155/58 98 Nasal 2.0L Cannula 12/19 1915 74 24 157/71 96 Nasal 2.0L Cannula 12/19 1900 98.0 70 24 163/74 97 Nasal 2.0L Cannula 12/19 1845 75 24 162/70 98 Nasal 2.0L Cannula 12/19 1830 98.4 72 22 160/72 98 Nasal 2.0L Cannula 12/19 1815 71 20 155/70 98 Nasal 2.0L Cannula 12/19 1800 98.5 73 20 173/70 97 Nasal 2.0L Cannula 12/19 1745 76 22 183/82 97 Nasal 2.0L Cannula 12/19 1730 98.4 73 22 131/63 96 Nasal 2.0L Cannula 12/19 1715 76 20 147/70 95 Nasal 2.0L Cannula 12/19 1700 98.1 67 20 162/70 95 Nasal 2.0L Cannula 12/19 1600 97.8 70 20 161/69 95 Nasal 2.0L Cannula 12/19 1448 97.6 70 20 142/60 96 Nasal 2.0L Cannula Intake & Output 12/20 1600 12/20 0800 12/20 0000 Intake Total 600 400 Output Total Balance 600 400 Intake, IV 600 300 Intake, Oral 100 Patient 204 lb Weight Physical Exam: - Patient was alert, orientedx3, in moderate distress. - HEENT: NC/AT, diplopia. - Cardio: normal heart sound with no murmur - Lungs: CTA - Extremities: 3/5 muscle strength UE bilaterally, 2/5 strength on LE bilaterally. Patient is able to move against resistance. Results Results: Laboratory Tests 12/18/17 2330: APTT Cancelled 12/18/17 0638: Anion Gap 6, Estimated GFR > 60, BUN/Creatinine Ratio 24.3, APTT 102 *H, CBC w Diff NO MAN DIFF REQ, RBC 4.27, MCV 88.3, MCH 29.5, MCHC 33.3, RDW 14.7 H, MPV 8.5, Gran % 85.5 H, Lymphocytes % 9.4 L, Monocytes % 4.2, Eosinophils % 0.6, Basophils % 0.3, Absolute Granulocytes 6.3, Absolute Lymphocytes 0.7 L, Absolute Monocytes 0.3, Absolute Eosinophils 0, Absolute Basophils 0 12/18/17 0015: APTT 74 H Labs: - Immunology: AchR Ab full panel is normal for AchR - Lumbar punction: CSF gram staim: none; CSF analysis: high protein, few RBCs Imaging: - Chest CT: large lobulated peripheral right lung mass that is confluent with the mediastinum. There are also pleural plaques identified that are partially calcified. 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 There is bulky mediastinal and right hilar adenopathy with mass effect upon the right hilum but with preserved airways and vessels. Cardiomegaly. Coronary artery atherosclerosis. Thoracic aortic atherosclerosis. Assessment/Plan Assessment: Summary: 87-year-old female with PMH of Afib, HTN, HLD, hypothyroid and restless leg syndrome, presented to ED with weakness and SOB. PE showed improvement on her UE weakness in which she could bend her elbows against resistance, and she could also lift up both LE a bit. Patient was on 4th day of 5-day course IVIG treatment. Problem list: 1. 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 Afib. 4. HTN. 5. HLD. 6. Hypothyroid. 7. Restless leg syndrome. Plan: Per pulmonary and neurology notes appreciated: -On her fourth day, will complete a full course of 5 days IVIG 40g daily -Continue Lovenox 80mg BID S.C -Keep head of beg elevated. -Hydrate patient at D5 normal saline q13h IV. -Pending EMG. -Follow up swallow eval. -Waiting to complete full 5-day treatment, reassessment patient condition and discuss what to do next. Lung bx? Radiation? Chemo? for her lung mass. -Continue home meds for her other chronic conditions. #DVT ppx #NPO #DNR/DNI
--- NOTE | 2017-12-20 10:28 | PN- Pulmonary ---
Subjective HPI/Critical Care Issues: Improvement of her limb strength noted Swallow eval pending Objective Current Medications: Current Medications Sig/Andrea Start time Last Medication Dose Route Stop Time Status Admin Acetaminophen 650 MG Q6P PRN 12/07 2300 AC PO Alprazolam 0.25 MG AT BEDTIME NEED.. 12/16 2215 AC 12/16 PO 12/23 2214 2223 Amlodipine Besylate 5 MG DAILY 12/08 09 AC 12/20 PO 0821 Dextrose/Sodium 1,000 ML Q13H 12/20 0845 AC Chloride IV Dextrose/Sodium 1,000 ML Q13H 12/15 0930 DC 12/20 [place] IV 0032 Enoxaparin Sodium 80 MG BID 12/19 2100 AC 12/20 SC 0822 Enoxaparin Sodium 40 MG DAILY 12/18 1424 DC 12/19 SC 1052 Escitalopram Oxalate 10 MG DAILY 12/08 09 AC 12/20 PO 0822 Gabapentin 600 MG QPM 12/08 2100 AC 12/19 PO 2214 Immune Globulin 40 GM DAILY@1730 12/17 1730 12/19 N/A 1 UNIT IV 12/21 2150 1636 Levothyroxine Sodium 25 MCG DAILY 12/16 0937 12/19 IV 1052 Losartan Potassium 50 MG DAILY 12/08 09 AC 12/20 PO 0822 Melatonin 10 MG AT BEDTIME NEED.. 12/16 0015 AC 12/19 PO 2213 Metoprolol Succinate 50 MG DAILY 12/08 09 AC 12/20 PO 0821 Nystatin 1 JAMSHID BID 12/16 2208 AC 12/20 TOP 0822 Pyridostigmine 60 MG Q8H 12/16 1200 AC 12/20 [place] PO 0433 Ropinirole HCl 0.25 MG AT BEDTIME 12/08 2100 AC 12/19 PO 2222 Sodium Chloride 2 SPRAY Q4P PRN 12/14 1315 AC DIYA Timolol Maleate 1 GTT BID 12/08 09 AC 12/20 OPH 0822 Vital Signs & I&O Last 24 Hrs of Vitals and I&O: Vital Signs Date Time Temp Pulse Resp B/P B/P Pulse O2 O2 Flow FiO2 Mean Ox Delivery Rate 12/20 09 Nasal 2.0L Cannula 12/20 08 72 178/74 12/20 0821 72 178/74 12/20 08 72 178/74 12/20 0632 98.1 72 20 178/74 95 Nasal 2.0L Cannula 12/20 0000 Nasal 2.0L Cannula 12/19 2014 97.9 76 24 168/70 93 Nasal 2.0L Cannula 12/20 1999 74 24 166/69 94 Nasal 2.0L Cannula 12/19 1949 96 Nasal 2.0L Cannula 12/19 1945 72 24 153/65 97 Nasal 2.0L Cannula 12/19 1930 97.9 77 24 155/58 98 Nasal 2.0L Cannula 12/19 1915 74 24 157/71 96 Nasal 2.0L Cannula 12/19 1900 98.0 70 24 163/74 97 Nasal 2.0L Cannula 12/19 1845 75 24 162/70 98 Nasal 2.0L Cannula 12/19 1830 98.4 72 22 160/72 98 Nasal 2.0L Cannula 12/19 1815 71 20 155/70 98 Nasal 2.0L Cannula 12/19 1800 98.5 73 20 173/70 97 Nasal 2.0L Cannula 12/19 1745 76 22 183/82 97 Nasal 2.0L Cannula 12/19 1730 98.4 73 22 131/63 96 Nasal 2.0L Cannula 12/19 1715 76 20 147/70 95 Nasal 2.0L Cannula 12/19 1700 98.1 67 20 162/70 95 Nasal 2.0L Cannula 12/19 1600 97.8 70 20 161/69 95 Nasal 2.0L Cannula 12/19 1448 97.6 70 20 142/60 96 Nasal 2.0L Cannula 12/19 1053 84 140/80 12/19 1053 84 140/80 12/19 1053 84.0 140/80 Intake & Output 12/20 1600 12/20 0800 12/20 0000 Intake Total 600 400 Output Total Balance 600 400 Intake, IV 600 300 Intake, Oral 100 Patient 204 lb Weight Impression/Plan Impression/Plan Impression/Plan: General Appearance: no apparent distress, awake, anxious, fatigued and chronically ill Head: atraumatic Neck: supple Respiratory: decreased breath sounds right side Abdomen: normal bowel sounds, soft, non-tender Extremities: no edema Skin: intact, warm/dry Quadriparetic unable to move most of her limbs with mild movement in the right side IMPRESSION This is a lady with history of more than [id number] smoker, morbid obesity, restless leg syndrome, atrial fibrillation on anticoagulation, hypertension, hypothyroidism on appropriate supplementation, previous diastolic heart disease, now has * Large right-sided pleural parenchymal mass with mediastinal hilar lymphadenopathy highly suggestive of primary lung malignancy versus pleural malignancy including mesothelioma. Patient has multiple metastases in the chest appears to be advanced stage IV lung cancer. 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 Patient is on a therapeutic trial of IVIG for 5 days, improvement so far noted with some improvement in strength * Mild aspiration, diplopia. * No clinical evidence suggestive of any hypercarbia/however patient is slowly progressing towards respiratory failure now hypoxemic * Atrial fibrillation, diastolic heart disease, hypertension. Patient is on appropriate medication and anticoagulation * Restless leg syndrome on triple therapy * Previous depression on appropriate therapy RECOMMENDATION * PT OT at the bedside * Continue IVIG for 5 days total * Continue anticoagulation with Lovenox * Keep the head of bed elevated * If she improves sig will revisit lung biopsy * IF she is better Can schedule CT abd and pelvis with IVc to eval for any intraabd mets (will be easier to biopsy Discussed with the family DNR and DNI No furter agg care if pt deteriorates
--- NOTE | 2017-12-20 11:47 | PN- Neurology ---
Subjective Subjective: HPI: 87 y o F w/ rapidly progressive quadriparesis, diplopia, newly discovered lung mass. LP w/ albuminocytologic dissociation Borderline elvated Ach rec AB, & no response to pyridostigmine Hyporeflexic Feels stronger. Denies diplopia Admits to dyspnea On O2 NPO Objective Vital Signs and I&Os Vital Signs Date Time Temp Pulse Resp B/P B/P Pulse O2 O2 Flow FiO2 Mean Ox Delivery Rate 12/20 1114 95 Nasal 2.0L Cannula 12/20 0900 Nasal 2.0L Cannula 12/20 0822 72 178/74 12/20 0821 72 178/74 12/20 0821 72 178/74 12/20 0632 98.1 72 20 178/74 95 Nasal 2.0L Cannula 12/20 0000 Nasal 2.0L Cannula 12/19 2014 97.9 76 24 168/70 93 Nasal 2.0L Cannula 12/20 1999 74 24 166/69 94 Nasal 2.0L Cannula 12/19 1949 96 Nasal 2.0L Cannula 12/19 1945 72 24 153/65 97 Nasal 2.0L Cannula 12/19 1930 97.9 77 24 155/58 98 Nasal 2.0L Cannula 12/19 1915 74 24 157/71 96 Nasal 2.0L Cannula 12/19 1900 98.0 70 24 163/74 97 Nasal 2.0L Cannula 12/19 1845 75 24 162/70 98 Nasal 2.0L Cannula 12/19 1830 98.4 72 22 160/72 98 Nasal 2.0L Cannula 12/19 1815 71 20 155/70 98 Nasal 2.0L Cannula 12/19 1800 98.5 73 20 173/70 97 Nasal 2.0L Cannula 12/19 1745 76 22 183/82 97 Nasal 2.0L Cannula 12/19 1730 98.4 73 22 131/63 96 Nasal 2.0L Cannula 12/19 1715 76 20 147/70 95 Nasal 2.0L Cannula 12/19 1700 98.1 67 20 162/70 95 Nasal 2.0L Cannula 12/19 1600 97.8 70 20 161/69 95 Nasal 2.0L Cannula 12/19 1448 97.6 70 20 142/60 96 Nasal 2.0L Cannula Intake & Output 12/20 1600 12/20 0800 08/29 0000 12/19 1600 12/20 0700 12/19 0000 Intake Total 600 400 575 600 300 Output Total Balance 600 400 575 600 300 Intake, IV 600 300 500 600 300 Intake, Oral 100 75 Patient 204 lb 193 lb Weight Weight Bed scale Measurement Method Physical Exam: PHYSICAL EXAMINATION: nl = normal NT or blank = not tested NEUROLOGIC MENTAL STATUS Level of consciousness: drowsy Orientation: nl Speech / Language: fluent, hypophonic NEUROLOGIC CRANIAL NERVES I: Olfaction: NT II: Optic nerves: nt Visual garcia: nt III: Pupils: nl Levator palpebrae: nl III, IV, : Ocular alignment: esotropic Extraocular motility: nl Pursuits/ saccades: nl V: Facial sensation: nl Masseter/Pterygoids: nl VII: Facial Motor: mild diparesis VIII: Hearing (finger rub): nl IX, X: Uvula and palate: nl XI: SCM, Upper trap.: nl XII: Tongue: nl MOTOR / NEUROMUSCULAR Bulk: nl Tone: nl to reduced Strength: L UE 4 to 4+ R UE 3 to 3+ LE's 3- to 3 Abnormal / involuntary movements: none CEREBELLAR / COORDINATION: nt SENSATION: intact to lt touch & jt position DTR's hypoactive PLANTARS: flexor GAIT: nt Current Medications: Current Medications Sig/Andrea Start time Last Medication Dose Route Stop Time Status Admin Acetaminophen 650 MG Q6P PRN 12/07 2300 AC PO Alprazolam 0.25 MG AT BEDTIME NEED.. 12/16 2214 AC 12/16 PO 12/23 221 2223 Amlodipine Besylate 5 MG DAILY 12/08 899 AC 12/20 PO 0821 Dextrose/Sodium 1,000 ML Q13H 12/20 0845 AC Chloride IV Dextrose/Sodium 1,000 ML Q13H 12/15 0930 DC 12/20 [place] IV 0032 Enoxaparin Sodium 80 MG BID 12/19 2099 AC 12/20 SC 08 Enoxaparin Sodium 40 MG DAILY 12/18 1424 DC 12/19 SC 1052 Escitalopram Oxalate 10 MG DAILY 12/08 09 AC 12/20 PO 0822 Gabapentin 600 MG QPM 12/08 2100 AC 12/19 PO 2214 Immune Globulin 40 GM DAILY@1730 12/17 1730 AC 12/19 N/A 1 UNIT IV 12/210 1636 Levothyroxine Sodium 25 MCG DAILY 12/16 0937 AC 12/19 IV 1052 Losartan Potassium 50 MG DAILY 12/08 09 AC 12/20 PO 0822 Melatonin 10 MG AT BEDTIME NEED.. 12/16 0015 AC 12/19 PO 2213 Metoprolol Succinate 50 MG DAILY 12/08 09 AC 12/20 PO 0821 Nystatin 1 JAMSHID BID 12/16 2208 AC 12/20 TOP 0822 Pyridostigmine 60 MG Q8H 12/16 1200 AC 12/20 [place] PO 0433 Ropinirole HCl 0.25 MG AT BEDTIME 12/08 2100 AC 12/19 PO 2222 Sodium Chloride 2 SPRAY Q4P PRN 12/14 1315 AC DIYA Timolol Maleate 1 GTT BID 12/08 09 AC 12/20 OPH 0822 Assessment/Plan Assessment: 87 y o F w/ rapidly progressive quadriparesis, diplopia, newly discovered lung mass. 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
--- NOTE | 2017-12-20 22:35 | CT SCAN REPORT ---
EXAMINATION: CT LIMITED OR FOLLOWUP CLINICAL INFORMATION: Lung cancer stage IV with question of metastases metastatic disease COMPARISON: None TECHNIQUE: A contrast-enhanced CT scan was planned. The patient was injected with 95 mL of Optiray [address] scanner ceased to function and the scan could not be performed. DLP: 0 mGy-cm FINDINGS: The scan was not performed secondary to CT scan malfunction IMPRESSION: The patient received 95 mL of IV Optiray 320, but the CT scan could not be performed because of malfunction of the CT scanner.
[2017-12-21] VITALS (13 sets, daily range): BP systolic 128–194; BP diastolic 70–92
--- NOTE | 2017-12-21 07:04 | History & Physical ---
General Information and HPI Source of Information: patient, old records Exam Limitations: no limitations Allergies/Medications Allergies: Coded Allergies: NO KNOWN ALLERGIES (07/04/11) Home Med list Amlodipine Besylate (Norvasc) 5 MG TABLET 1 TAB PO DAILY HYPERTENSION Atorvastatin Calcium 10 MG TABLET 1 TAB PO DAILY CHOLESTEROL (Reported) Clonazepam (Klonopin) 0.5 MG TABLET 0.5-1 TAB PO DAILY NEEDED PRN ANXIETY (Reported) Dabigatran Etexilate Mesylate (Pradaxa 150 MG) 150 MG CAPSULE 1 CAP PO BID BLOOD THINNER (Reported) Escitalopram Oxalate (Lexapro) 10 MG TABLET 1 TAB PO DAILY DEPRESSION ( Reported) Furosemide (Lasix) 40 MG TABLET 1 TAB PO ONE DIURETIC Gabapentin 300 MG CAPSULE 2 TAB PO QPM RESTLESS LEGS (Reported) Irbesartan (Avapro) 300 MG TABLET 1 TAB PO DAILY BLOOD PRESSURE (Reported) Levothyroxine Sodium (Synthroid) 50 MCG TABLET 1 TAB PO DAILY AC THYROID ( Reported) Metoprolol Succ XL (Toprol Xl) 50 MG TAB 1 TAB PO DAILY HEART (Reported) Ropinirole Hydrochloride (Requip) 0.25 MG TABLET 1 TAB PO QPM RESTLESS LEGS ( Reported) Timolol Maleate 0.5 % DROPS 1 GTT OD BID GLAUCOMA-RIGHT EYE (Reported) Compliance With Home Meds: GOOD Past History Travel History Traveled to [place] past 21 day No Medical History Blood Transfusion Hx: No Neurological: restless leg syndrome EENT: NONE Cardiovascular: AFIB, diastolic CHF, hypertension, hyperlipidemia Respiratory: NONE Gastrointestinal: NONE Hepatic: NONE Renal: NONE Musculoskeletal: NONE Psychiatric: NONE Endocrine: hypothyroidism Blood Disorders: NONE Cancer(s): NONE 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 self Services at Home: None Primary Language: Yi Smoking Status: Former Smoker ETOH Use: denies use Illicit Drug Use: denies illicit drug use Functional Ability ADLs Independent: dressing, eating, toileting, bathing. Ambulation: independent Exam & Diagnostic Data Diagnostic Data EKG Results Personally reviewed: Atrial fibrillation with nonspecific T-wave normality CXR Results Stable cardiomegaly with interval decrease in degree of vascular congestion. Nonspecific hazy opacification at the right lung base. Recommendation is for a followup chest series to be obtained following treatment and/or resolution of symptoms to assure resolution of this appearance. Other Results Telemetry personally reviewed: Atrial fib relation, no RVR Core Measures/Misc (01/08) Cerebrovascular Accident CVA/TIA Diagnosis: No VTE (View Protocol) VTE Risk Factors Age>40 Sepsis (View protocol) Sepsis Present: No If YES complete Sepsis Event Note If YES complete Sepsis Event Note
--- NOTE | 2017-12-21 07:45 | PN- Housestaff ---
Gray Pardo 12/21/17 0744: Subjective Follow-up For: Subacute neuromuscular disorder in the setting of suspected carcinoma of the lung. Tele-Events Since Last Visit: Patient is off telemetry Subjective: Examined at bedside. Patient remained afebrile. Patient is on 2 L of oxygen. Strength in upper and lower extremities has been improving. Patient continues to bring up mucus with intermittent cough. Denies any pain. Denies fever/chills /night sweats/chest pain/abdominal pain/urinary symptoms. Review of Systems Constitutional: Denies: chills, fever. EENTM: Reports: see HPI. Cardiovascular: Denies: chest pain, palpitations, syncope. Respiratory: Reports: cough, sputum production. Denies: short of breath. Gastrointestinal: Denies: abdominal pain, constipation, diarrhea, nausea, vomiting. Genitourinary: Reports: no symptoms. Musculoskeletal: Reports: see HPI. Skin: Reports: no symptoms. Neurological/Psychological: Reports: no symptoms. Objective Last 24 Hrs of Vital Signs/I&O Vital Signs Date Time Temp Pulse Resp B/P B/P Pulse O2 O2 Flow FiO2 Mean Ox Delivery Rate 12/21 0630 98.4 68 18 128/72 94 Nasal Cannula 12/21 0000 Nasal 2.0L Cannula 12/20 2357 98.2 76 18 132/68 92 Nasal Cannula 12/20 1928 98.3 76 28 191/95 93 Nasal 2.0L Cannula 12/20 1920 98.1 74 28 169/72 94 Nasal 2.0L Cannula 12/20 1905 98.3 80 28 194/81 92 Nasal 2.0L Cannula 12/20 1850 97.8 80 34 185/76 93 Nasal 2.0L Cannula 12/20 1835 94 Nasal 2.0L Cannula 12/20 1835 97.8 76 28 183/88 93 Nasal 2.0L Cannula 12/20 1820 97.8 81 32 190/73 93 Nasal 2.0L Cannula 12/20 1805 98.1 81 32 198/75 92 Nasal 2.0L Cannula 12/20 1750 98.2 70 30 173/72 92 Nasal 2.0L Cannula 12/20 1735 98.3 77 32 166/7 94 Nasal 2.0L Cannula 12/20 1720 98.2 74 30 175/77 94 Nasal 2.0L Cannula 12/20 1600 Nasal 2.0L Cannula 12/20 1424 97.6 73 20 148/70 93 12/20 1114 95 Nasal 2.0L Cannula Intake & Output 12/21 1600 12/21 0800 12/21 0000 Intake Total 700 410 Output Total Balance 700 410 Intake, IV 600 300 Intake, Oral 100 110 Number 1 Bowel Movements Physical Exam General Appearance: Alert, Oriented X3, Cooperative, No Acute Distress Skin: No Rashes, No Breakdown, No Significant Lesion Skin Temp/Moisture Exam: Warm/Dry HEENT: Atraumatic, PERRLA, EOMI, Mucous Membr. moist/pink Neck: Supple, No JVD, No thryomegaly Cardiovascular: Regular Rate, Normal S1, Normal S2, No Murmurs, Gallops, Rubs Lungs: Clear to Auscultation, Normal Air Movement Abdomen: Normal Bowel Sounds, Soft, No Tenderness, No Hepatospenomegaly, No Masses Neurological: Normal Speech, decreased strength in 4 ext, 2/5. improving slightly Extremities: No Clubbing, No Cyanosis, No Edema Current Medications: Current Medications Sig/Andrea Start time Last Medication Dose Route Stop Time Status Admin Acetaminophen 1,000 MG ONCE ONE 12/20 1700 DC 12/20 N/A 1 UNIT IV 12/20 1714 1702 Acetaminophen 0 .STK-MED ONE 12/20 1658 DC IV Acetaminophen 650 MG Q6P PRN 12/07 2300 AC PO Alprazolam 0.25 MG AT BEDTIME NEED.. 12/16 2215 AC 12/21 PO 12/23 2214 0103 Amlodipine Besylate 5 MG DAILY 12/08 0900 AC 12/20 PO 0821 Dextrose/Sodium 1,000 ML Q13H 12/20 0845 AC 12/21 Chloride IV 1008 Diphenhydramine HCl 0 .STK-MED ONE 12/20 1700 DC .ROUTE 12/20 1701 Diphenhydramine HCl 25 MG ONCE ONE 12/20 1700 DC 12/20 IV 12/20 1701 1708 Diphenhydramine HCl 0 .STK-MED ONE 12/20 1659 DC .ROUTE Enoxaparin Sodium 80 MG BID 12/19 2100 AC 12/21 SC 1007 Escitalopram Oxalate 10 MG DAILY 12/08 0900 AC 12/20 PO 0822 Gabapentin 600 MG QPM 12/08 2100 AC 12/20 PO 2231 Immune Globulin 40 GM DAILY@1730 12/17 1730 AC 12/20 N/A 1 UNIT IV 12/21 2150 1721 Levothyroxine Sodium 25 MCG DAILY 12/16 0937 AC 12/21 IV 1007 Losartan Potassium 50 MG DAILY 12/08 0900 AC 12/20 PO 08 Melatonin 10 MG AT BEDTIME NEED.. 12/16 0015 AC 12/19 PO 2213 Metoprolol Succinate 50 MG DAILY 12/08 09 AC 12/20 PO 0821 Nystatin 1 JAMSHID BID 12/16 2208 DC 12/20 TOP 0822 Pyridostigmine 60 MG Q8H 12/16 1200 AC 12/20 [place] PO 223 Ropinirole HCl 0.25 MG AT BEDTIME 12/08 2100 AC 12/20 PO 1841 Sodium Chloride 2 SPRAY Q4P PRN 12/14 1315 AC DIYA Timolol Maleate 1 GTT BID 12/08 09 AC 12/21 OPH 1008 Last 24 Hrs of Lab/Nader Results Last 24 Hrs of Labs/Mics: Laboratory Tests 12/21/17 0620: Anion Gap 6, Estimated GFR > 60, BUN/Creatinine Ratio 18.3 12/20/17 1620: Anion Gap 3 L, Estimated GFR > 60, BUN/Creatinine Ratio 18.3 Assessment/Plan Assessment: 87 YO F with PMH of [id number] smoker, morbid obesity, restless leg syndrome, atrial fibrillation on anticoagulation, hypertension, hypothyroidism on appropriate supplementation, HFpEF, anxiety/depression, and restless legs syndrome last admitted in 07/2017 for CHF exacerbation and dyspnea which improved after diuresis was BIBA to ED with complaints of progressive exertional dyspnea and generalized weakness for the past week. Problem list/plan: Subacute neuromuscular disorder: -In the setting of progressive advanced malignancy probably lung cancer, on imaging study patient has large right-sided pleural parenchymal mass with mediastinal hilar lymphadenopathy. 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 -Patient is an acetylcholine antibody borderline elevated and CSF shows elevated protein but acellular. -Continue IV immunoglobulin for 5 days. Today is the final day 5. -Patient has difficulty swelling, keep the patient n.p.o. to prevent aspiration pneumonia. -Gentle IV hydration with D5 half-normal saline at the rate of 75 mL/h. -Patient does not want any invasive procedure. -CT scan abdomen and pelvis with IV contrast to rule out metastasis to abdomen and pelvis viscera was not done. No plans to resechedule at this time. -Patient will get EMG as recommended by neurology and PT/OT evaluation. -Swallow evaluation is pending. Acute hypoxemic respiratory failure: -Possibly due to subacute neuromuscular disorder, patient desaturated to 88% and she was placed on 2 L of oxygen. -Patient is maintaining saturation 95%. -If she has increased work of breathing then we can institute low-dose morphine. -If she is worse she could be made comfort care and eventually hospice per patient and power of research attorney History of Afib: - Currently rate controlled on metoprolol 50mg History of hypothyroidism: - TSH wnl - Synthroid 0.025 mcg IV History of HTN: -Continue amlodipine 5mg, losartan and metoprolol History of HLD: - Atorvastatin 10mg History of restless leg syndrome: - Ropinirole 0.25mg - Gabapentin 600 mg History of anxiety/Depression: - Lexapro 10mg DVT prophylaxis: ALPS and subcu heparin NPO pending swallow eval Patient is DNR/DNI Problem List: 1. Weakness 2. Lung mass Pain Ratin Pain Location: none Pain Goal: Remain pain free Pain Plan: pain pathway Tomorrow's Labs & Rationales: rivas Barnard [facility] 12/21/17 1521: Attending MD Review Statement Attending Statement Attending MD Statement: examined this patient, discuss w/resident/PA/ROCK PICKER, agreed w/resident/PA/ROCK PICKER, discussed with family, reviewed EMR data (avail), discussed with nursing, discussed with case mgmt, amended to note Attending Assessment/Plan: Patient seen and examined. She reports having a bad night yesterday CT scan was attempted. Unfortunately procedure could not be done due to technical issues with the machine. She continues to show improvement in her strength. She is able to raise her arms and legs clearly off the bed. Her biggest complaint currently is the fact that she continues to bring up more because intermittently. She reports that this is an issue she has been living with for several years. On examination she has adequate entry bilaterally with no added sounds. She is maintaining saturation on 2 L oxygen. Swallow evaluation was done and she was cleared to advance her diet. Recommendations: -Bedside physical therapy. -Diet as tolerated. If adequate IV fluids may be discontinued. -CT abdomen pelvis when available to assess if there is a lesion that can be biopsied and sent of the lungs. -Begin discharge planning to retirement facility for physical therapy rehabilitation. -Continue Lovenox until the time of discharge.
--- NOTE | 2017-12-21 07:46 | PN- Student ---
Subjective Subjective: 87-year-old female with PMH of Afib, HTN, HLD, hypothyroid and restless leg syndrome, presented to ED with weakness and SOB. 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 Hospital day 12: Patient was seen and interviewed at bed side. Patient seemed tired and weak. She was frustrated about the CT scan yesterday night around 9pm in which she complained no one had informed her about and CT machine was broken. She said it was horrible and she did not sleep well last night. She also coughed up some phlegm. Her UE and LE weakness continued to improve. This is her last day of 5- day course IVIG. Current Medications Sig/Andrea Start time Last Medication Dose Route Stop Time Status Admin Acetaminophen 1,000 MG ONCE ONE 12/20 170 DC 12/20 N/A 1 UNIT IV 12/20 171 1702 Acetaminophen 0 .STK-MED ONE 12/20 1659 DC IV Acetaminophen 650 MG Q6P PRN 12/07 2300 AC PO Alprazolam 0.25 MG AT BEDTIME NEED.. 12/16 2215 AC 12/21 PO 12/23 2214 0103 Amlodipine Besylate 5 MG DAILY 12/08 09 AC 12/20 PO 0821 Dextrose/Sodium 1,000 ML Q13H 12/20 0845 AC 12/21 Chloride IV 0523 Dextrose/Sodium 1,000 ML Q13H 12/15 0930 DC 12/20 Chloride IV 0032 Diphenhydramine HCl 0 .STK-MED ONE 12/20 1700 DC .ROUTE 12/20 1701 Diphenhydramine HCl 25 MG ONCE ONE 12/20 1700 DC 12/20 IV 12/20 1701 1708 Diphenhydramine HCl 0 .STK-MED ONE 12/20 1659 DC .ROUTE Enoxaparin Sodium 80 MG BID 12/19 2099 AC 12/20 SC 223 Escitalopram Oxalate 10 MG DAILY 12/08 899 AC 12/20 PO 08 Gabapentin 600 MG QPM 12/08 2100 AC 12/20 PO 223 Immune Globulin 40 GM DAILY@1730 12/17 1730 AC 12/20 N/A 1 UNIT IV 12/21 2150 1721 Levothyroxine Sodium 25 MCG DAILY 12/16 0937 AC 12/20 IV 1030 Losartan Potassium 50 MG DAILY 12/08 09 AC 12/20 PO 0822 Melatonin 10 MG AT BEDTIME NEED.. 12/16 0015 AC 12/19 PO 2213 Metoprolol Succinate 50 MG DAILY 12/08 09 AC 12/20 PO 0821 Nystatin 1 JAMSHID BID 12/16 2208 DC 12/20 TOP 0822 Pyridostigmine 60 MG Q8H 12/16 1200 AC 12/20 [place] PO 2231 Ropinirole HCl 0.25 MG AT BEDTIME 12/08 2100 AC 12/20 PO 1841 Sodium Chloride 2 SPRAY Q4P PRN 12/14 1315 AC DIYA Timolol Maleate 1 GTT BID 12/08 09 AC 12/20 OPH 2232 Objective Objective: Vital Signs Date Time Temp Pulse Resp B/P B/P Pulse O2 O2 Flow FiO2 Mean Ox Delivery Rate 12/21 06 98.4 68 18 128/72 94 Nasal Cannula 12/21 0000 Nasal 2.0L Cannula 12/20 2357 98.2 76 18 132/68 92 Nasal Cannula 12/20 1928 98.3 76 28 191/95 93 Nasal 2.0L Cannula 12/20 1920 98.1 74 28 169/72 94 Nasal 2.0L Cannula 12/20 1905 98.3 80 28 194/81 92 Nasal 2.0L Cannula 12/20 1850 97.8 80 34 185/76 93 Nasal 2.0L Cannula 12/20 1835 94 Nasal 2.0L Cannula 12/20 1835 97.8 76 28 183/88 93 Nasal 2.0L Cannula 12/20 1820 97.8 81 32 190/73 93 Nasal 2.0L Cannula 12/20 1805 98.1 81 32 198/75 92 Nasal 2.0L Cannula 12/20 1750 98.2 70 30 173/72 92 Nasal 2.0L Cannula 12/20 1735 98.3 77 32 166/7 94 Nasal 2.0L Cannula 12/20 1720 98.2 74 30 175/77 94 Nasal 2.0L Cannula 12/20 1600 Nasal 2.0L Cannula 12/20 1424 97.6 73 20 148/70 93 12/20 1114 95 Nasal 2.0L Cannula 12/20 0900 Nasal 2.0L Cannula 12/20 0822 72 178/74 12/20 0821 72 178/74 12/20 0821 72 178/74 Intake & Output 12/21 0800 12/21 0000 12/20 1600 Intake Total 700 410 Output Total 100 Balance 700 410 -100 Intake, IV 600 300 Intake, Oral 100 110 Number 1 2 Bowel Movements Output, Urine 100 Physical Exam: - HEENT: NC/AT, blurry vision. - Cardio: normal heart sound with no murmur nor gallop. - Lungs: CTA bilatrally. - Extremities: 4/5 bilateral UE muscle strength, 3/5 bilateral LE muscle strength. Assessment/Plan Assessment: Summary: 87-year-old female with PMH of Afib, HTN, HLD, hypothyroid and restless leg syndrome, presented to ED with weakness and SOB. PE showed continous improvement on her UE weakness in which she could bend her elbows against resistance and lifted up above her head. Patient was on 5th day of 5-day course IVIG treatment. Problem list: 1. 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 Afib. 4. HTN. 5. HLD. 6. Hypothyroid. 7. Restless leg syndrome. Plan: Per neuro and pulmonology notes: - Complete her last day of IVIG and reassessment further - Follow up pulmonology note - Follow up neurology note - PT/OT grabiel. - Consider rehab.
--- NOTE | 2017-12-21 13:40 | PN- Pulmonary ---
Subjective HPI/Critical Care Issues: Improving Examined at bedside. Patient remained afebrile. Patient is on 2 L of oxygen. Strength in upper and lower extremities has been improving. Patient continues to bring up mucus with intermittent cough. Denies any pain. Denies fever/chills /night sweats/chest pain/abdominal pain/urinary symptoms. Review of Systems Constitutional: Denies: chills, fever. EENTM: Reports: see HPI. Cardiovascular: Denies: chest pain, palpitations, syncope. Respiratory: Reports: cough, sputum production. Denies: short of breath. Gastrointestinal: Denies: abdominal pain, constipation, diarrhea, nausea, vomiting. Genitourinary: Reports: no symptoms. Musculoskeletal: Reports: see HPI. Skin: Reports: no symptoms. Neurological/Psychological: Reports: no symptoms. Objective Current Medications: Current Medications Sig/Andrea Start time Last Medication Dose Route Stop Time Status Admin Acetaminophen 1,000 MG ONCE ONE 12/20 1700 DC 12/20 N/A 1 UNIT IV 12/20 1714 1702 Acetaminophen 0 .STK-MED ONE 12/20 165 DC IV Acetaminophen 650 MG Q6P PRN 12/07 2300 AC PO Alprazolam 0.25 MG AT BEDTIME NEED.. 12/16 2215 AC 12/21 PO 12/23 2214 0103 Amlodipine Besylate 5 MG DAILY 12/08 0900 AC 12/21 PO 1150 Dextrose/Sodium 1,000 ML Q13H 12/20 0845 AC 12/21 Chloride IV 1008 Diphenhydramine HCl 0 .STK-MED ONE 12/20 1700 DC .ROUTE 12/20 1701 Diphenhydramine HCl 25 MG ONCE ONE 12/20 1700 DC 12/20 IV 12/20 1701 1708 Diphenhydramine HCl 0 .STK-MED ONE 12/20 1659 DC .ROUTE Enoxaparin Sodium 80 MG BID 12/19 2100 AC 12/21 SC 1007 Escitalopram Oxalate 10 MG DAILY 12/08 0900 AC 12/21 PO 1149 Gabapentin 600 MG QPM 12/08 2100 AC 12/20 PO 2231 Immune Globulin 40 GM DAILY@1730 12/17 1730 AC 12/20 N/A 1 UNIT IV 12/21 2150 1721 Levothyroxine Sodium 25 MCG DAILY 12/16 0937 AC 12/21 IV 1007 Losartan Potassium 50 MG DAILY 12/08 09 AC 12/21 PO 1149 Melatonin 10 MG AT BEDTIME NEED.. 12/16 0015 AC 12/19 PO 2213 Metoprolol Succinate 50 MG DAILY 12/08 09 AC 12/21 PO 1150 Nystatin 1 JAMSHID BID 12/16 2208 DC 12/20 TOP 0822 Pyridostigmine 60 MG Q8H 12/16 1200 AC 12/21 [place] PO 1151 Ropinirole HCl 0.25 MG AT BEDTIME 12/08 2100 AC 12/20 PO 1841 Sodium Chloride 2 SPRAY Q4P PRN 12/14 1315 AC DIYA Timolol Maleate 1 GTT BID 12/08 0900 AC 12/21 OPH 1008 Vital Signs & I&O Last 24 Hrs of Vitals and I&O: Vital Signs Date Time Temp Pulse Resp B/P B/P Pulse O2 O2 Flow FiO2 Mean Ox Delivery Rate 12/21 1150 710 128/72 12/21 1150 72 128/72 12/21 1149 68 128/72 12/21 0630 98.4 68 18 128/72 94 Nasal Cannula 12/21 0000 Nasal 2.0L Cannula 12/20 2357 98.2 76 18 132/68 92 Nasal Cannula 12/20 1928 98.3 76 28 191/95 93 Nasal 2.0L Cannula 12/20 1920 98.1 74 28 169/72 94 Nasal 2.0L Cannula 12/20 1905 98.3 80 28 194/81 92 Nasal 2.0L Cannula 12/20 1850 97.8 80 34 185/76 93 Nasal 2.0L Cannula 12/20 1835 94 Nasal 2.0L Cannula 12/20 1835 97.8 76 28 183/88 93 Nasal 2.0L Cannula 12/20 1820 97.8 81 32 190/73 93 Nasal 2.0L Cannula 12/20 1805 98.1 81 32 198/75 92 Nasal 2.0L Cannula 12/20 1750 98.2 70 30 173/72 92 Nasal 2.0L Cannula 12/20 1735 98.3 77 32 166/7 94 Nasal 2.0L Cannula 12/20 1720 98.2 74 30 175/77 94 Nasal 2.0L Cannula 12/20 1600 Nasal 2.0L Cannula 12/20 1424 97.6 73 20 148/70 93 Intake & Output 12/21 1600 12/21 0800 08 0000 Intake Total 700 410 Output Total Balance 700 410 Intake, IV 600 300 Intake, Oral 100 110 Number 1 Bowel Movements Impression/Plan Impression/Plan Impression/Plan: General Appearance: no apparent distress, awake, anxious, fatigued and chronically ill Head: atraumatic Neck: supple Respiratory: decreased breath sounds right side Abdomen: normal bowel sounds, soft, non-tender Extremities: no edema Skin: intact, warm/dry Quadriparetic unable to move most of her limbs with mild movement in the right side IMPRESSION This is a lady with history of more than [id number] smoker, morbid obesity, restless leg syndrome, atrial fibrillation on anticoagulation, hypertension, hypothyroidism on appropriate supplementation, previous diastolic heart disease, now has * Large right-sided pleural parenchymal mass with mediastinal hilar lymphadenopathy highly suggestive of primary lung malignancy versus pleural malignancy including mesothelioma. Patient has multiple metastases in the chest appears to be advanced stage IV lung cancer. 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 Patient is on a therapeutic trial of IVIG for 5 days, improvement so far noted with some improvement in strength * Mild aspiration, diplopia. * No clinical evidence suggestive of any hypercarbia/however patient is slowly progressing towards respiratory failure now hypoxemic * Atrial fibrillation, diastolic heart disease, hypertension. Patient is on appropriate medication and anticoagulation * Restless leg syndrome on triple therapy * Previous depression on appropriate therapy RECOMMENDATION * PT OT at the bedside * Continue IVIG for 5 days total * Continue anticoagulation with Lovenox * Keep the head of bed elevated * If she improves sig will revisit lung biopsy * CT abd and pelvis with IVc to eval for any intraabd mets (will be easier to biopsy Discussed with the family DNR and DNI No furter agg care if pt deteriorates
--- NOTE | 2017-12-21 21:48 | Event Note ---
Event Note Event Note: SITUATION :bringing up pink frothy sputum, increased work of breathing. BRIEF : Paged by nurse, brought to attention, increased work of breathing. b/l crackles, pinkish frothy sputum. PE : clearly uncomfortable, bring up pink frothy sputum about one to two tea spoon when we were there. RS : b/l crackles, rhonchi and scattered wheezing heard. CVS : s1, s2 Present PA : soft,nontender Extremity: very mild edema, not significant Neck : No JVd noted. Assessment : She does seem to be uncomfortable, is sob and bringing up frothy sputum. I have seen her before, she looks better than three day ago, however she is positive on fluid balance, her home medication of lasix has been held,she has also been getting IVIG, b/l crackles heard on chest auscultation, one of the possibility does seem to be fluid overload. Plan * obtain CXR * D/c iv fluids for now, she is on 75ml.hour D5 half normal * one time iv lasix 40 mg * will also give low dose morphine ot help with respiration if needed. * will follow and update am team.
--- NOTE | 2017-12-21 22:13 | RADIOLOGY REPORT ---
EXAMINATION: XR PORTABLE CHEST CLINICAL INFORMATION: Bringing up pink frothy sputum. COMPARISON: Chest CT 12/12/2017, chest radiograph 12/08/2017 TECHNIQUE: Portable frontal view of the chest was obtained. FINDINGS: Increased right pleural effusion now moderate in size. No left pleural effusion. Patchy airspace opacities at the bases, right greater than left. There is dense consolidation of the right lower lung. No evidence of pneumothorax bilaterally. Coarse interstitial lung markings diffusely. Cardiomegaly, similar to the prior studies. No acute osseous abnormality. IMPRESSION: Increased now moderate right pleural effusion. Bibasilar airspace opacities, right greater than left and increased since the prior study, possibly on the basis of compressive atelectasis although a superimposed infectious process is not excluded. Clinical correlation requested.
[2017-12-22 06:30] VITALS: BP 152/80
--- NOTE | 2017-12-22 07:20 | PN- Housestaff ---
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 Tele-Events Since Last Visit: off tele Subjective: Patient was dyspneic last night and bringing pink color frothy sputum. Chest x- ray was done that showed increased size of pleural effusion on the right side. Patient received 1 dose of Lasix 40 mg, morphine 2 mg and her oxygen was bumped up to 3 L. Seen and examined this morning. Patient is using 3 L of oxygen and maintaining saturation 92%. Her upper and lower extremity power has been improved. Patient is able to lift her arms above head. Patient can lift her both legs against resistance. Patient denied chest pain, nausea, vomiting, chill, fever, abdominal pain dysuria. Patient reported intermittent cough but overall she is feeling improved. Her IV fluids were discontinued last night. She has poor appetite, doesn't like to eat. Review of Systems Constitutional: Denies: chills, fever. EENTM: Reports: no symptoms. Cardiovascular: Denies: chest pain, palpitations. Respiratory: Reports: cough. Denies: short of breath, sputum production. Gastrointestinal: Denies: abdominal pain, diarrhea, nausea, vomiting. Genitourinary: Reports: no symptoms. Musculoskeletal: Reports: see HPI. Neurological/Psychological: Reports: no symptoms. Objective Last 24 Hrs of Vital Signs/I&O Vital Signs Date Time Temp Pulse Resp B/P B/P Pulse O2 O2 Flow FiO2 Mean Ox Delivery Rate 12/22 0630 97.7 68 22 152/80 92 Nasal Cannula 12/22 0000 93 Nasal 3.0L Cannula 12/21 2157 97.3 80 22 190/88 92 Nasal 3.0L Cannula 12/21 2108 96.9 69 24 160/70 91 Nasal 3.0L Cannula 12/21 2042 97.1 71 22 162/70 94 Nasal 3.0L Cannula 12/21 2026 97.0 84 22 170/90 94 Nasal 3.0L Cannula 12/21 2012 97.3 80 20 178/90 93 Nasal 3.0L Cannula 12/21 2004 90 Nasal 2.5L Cannula 12/21 1954 97.3 82 22 178/90 94 Nasal 2.5L Cannula 12/21 1940 97.0 82 22 186/92 94 Nasal 2.5L Cannula 08/30 1925 97.0 80 24 180/92 94 Nasal 2.5L Cannula 12/21 1909 97.5 80 22 186/90 95 Nasal 2.5L Cannula 12/21 1857 97.4 74 20 194/90 95 Nasal 2.0L Cannula 12/21 1840 97.0 81 20 140/92 95 Nasal 2.0L Cannula 12/21 1614 Room Air 12/21 1600 94 Nasal 2.0L Cannula 12/21 1431 98.2 70 20 152/72 94 Nasal 2.0L Cannula 12/21 1150 710 128/72 12/21 1150 72 128/72 12/21 1149 68 128/72 Intake & Output 12/22 1600 12/22 0800 12/22 0000 Intake Total 110 335 Output Total Balance 110 335 Intake, IV 225 Intake, Oral 110 110 Physical Exam General Appearance: Alert, Oriented X3, Cooperative Skin Temp/Moisture Exam: Warm/Dry Sepsis Skin Exam (color): Normal for Ethnicity HEENT: Atraumatic, EOMI Neck: Supple Cardiovascular: Normal S1, Normal S2 Lungs: Decreased breath sounds on right side compare to left side. Abdomen: Soft, No Tenderness Neurological: Normal Speech, Normal Tone Extremities: No Edema Assessment/Plan Assessment: 87 YO F with PMH of [id number] smoker, morbid obesity, restless leg syndrome, atrial fibrillation on anticoagulation, hypertension, hypothyroidism on appropriate supplementation, HFpEF, anxiety/depression, and restless legs syndrome last admitted in 07/2017 for CHF exacerbation and dyspnea which improved after diuresis was BIBA to ED with complaints of progressive exertional dyspnea and generalized weakness for the past week. Following the patient on telemetry floor for following problems. Subacute neuromuscular disorder: -In the setting of progressive advanced malignancy probably lung cancer, on imaging study patient has large right-sided pleural parenchymal mass with mediastinal hilar lymphadenopathy. 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 -Patient is an acetylcholine antibody borderline elevated and CSF shows elevated protein but acellular. -Completed 5 days course of IV immunoglobulin. Patient's power in 4 limbs has been improved. -Patient has difficulty swelling, keep the patient n.p.o. to prevent aspiration pneumonia. -IV hydration was discontinued considering her increased pleural effusion on the right side. -Patient does not want any invasive procedure. -CT scan abdomen and pelvis with IV contrast to rule out metastasis to abdomem and pelvis. -Patient will get EMG as recommended by neurology and PT/OT evaluation. Patient will get EMG on Monday. -Swallow evaluation was done and she passed swallow eval. On regular diet with puree and thin liquids. Acute hypoxemic respiratory failure: -Possibly due to subacute neuromuscular disorder, patient desaturated to 88% and she was placed on 2 L of oxygen initially. -Patient is maintaining saturation 95% on 3 L of oxygen. Patient has right- sided pleural effusion that has been increased to moderate size. -If she has increased work of breathing then we can institute low-dose morphine. -If she is worse she could be made comfort care and eventually hospice per patient and power of trademark attorney History of Afib: - Currently rate controlled on metoprolol 50mg -Subcutaneous Lovenox 80 mg twice daily for anticoagulation. History of hypothyroidism: - TSH wnl - Synthroid 0.025 mcg IV History of HTN: -Continue amlodipine 5mg, losartan and metoprolol History of HLD: - Atorvastatin 10mg History of restless leg syndrome: - Ropinirole 0.25mg - Gabapentin 600 mg History of anxiety/Depression: - Lexapro 10mg Diet: -Regular diet. Puree thick diet and thin liquids. DVT prophylaxis: Mechanical and subcutaneous Lovenox CODE STATUS; DNR/intube Problem List: 1. Lung mass 2. Weakness 3. Acute respiratory failure with hypoxia Pain Ratin Pain Location: none Pain Goal: Remain pain free Pain Plan: pain pathway Tomorrow's Labs & Rationales: none Ruth Price MD 12/22/17 0958: Attending MD Review Statement Attending Statement Attending MD Statement: examined this patient, discuss w/resident/PA/CAFE SITE ATTENDANT, agreed w/resident/PA/CAFE SITE ATTENDANT, discussed with family, reviewed EMR data (avail), discussed with nursing, discussed with case mgmt, reviewed images Attending Assessment/Plan: Patient had an episode overnight where she became short of breath, had pink frothy sputum sputum and has increasing pleural effusion on the chest x-ray. She was given a dose of IV Lasix and will follow up closely with that. 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 We will need to speak to neurology regarding timing of EMG and further workup. The plan is STR when stable and will need to follow up closely.
--- NOTE | 2017-12-22 07:56 | PN- Student ---
Subjective Subjective: 87-year-old female with PMH of Afib, HTN, HLD, hypothyroid and restless leg syndrome, presented to ED with weakness and SOB. 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 Hospital day 13: Overnight, patient brought up frothy, pinkish sputum, increase muscle breathing, her O2 desat to 88% on 2L; RT had seen her for eval. Her O2 sat now in 92% and she is on 3L O2. She also received 1 dose of IV Lasik 40mg and Morphine 2mg due to fluid overload and bilateral crackles. A portable CXR was also ordered. When I came to see her this morning, she was very sleepy and tired. She did request me to let her sleep, no interview nor physical exam was done. Current Medications Sig/Andrea Start time Last Medication Dose Route Stop Time Status Admin Acetaminophen 1,000 MG ONCE ONE 12/21 1630 DC 12/21 N/A 1 UNIT IV 12/21 1644 1651 Acetaminophen 650 MG Q6P PRN 12/07 2300 AC PO Alprazolam 0.25 MG AT BEDTIME NEED.. 12/16 2215 AC 12/21 PO 12/23 2214 1946 Amlodipine Besylate 5 MG DAILY 12/08 899 AC 12/21 PO 1150 Dextrose/Sodium 1,000 ML Q13H 12/20 0845 DC 12/21 Chloride IV 2049 Diphenhydramine HCl 25 MG ONCE ONE 12/21 1630 DC 12/21 IV 12/21 1631 1651 Enoxaparin Sodium 80 MG BID 12/19 2100 AC 12/21 SC 2156 Escitalopram Oxalate 10 MG DAILY 12/08 09 AC 12/21 PO 1149 Furosemide 40 MG ONCE ONE 12/21 2145 DC 12/21 IV 12/21 2146 2141 Furosemide 0 .STK-MED ONE 12/21 2138 DC IV Gabapentin 600 MG QPM 12/08 2100 AC 12/21 PO 2156 Immune Globulin 40 GM DAILY@1730 12/17 1730 DC 12/21 N/A 1 UNIT IV 12/21 2150 1836 Levothyroxine Sodium 25 MCG DAILY 12/16 0937 AC 12/21 IV 1007 Losartan Potassium 50 MG DAILY 12/08 09 AC 12/21 PO 1149 Melatonin 10 MG AT BEDTIME NEED.. 12/16 0015 AC 12/19 PO 2213 Metoprolol Succinate 50 MG DAILY 12/08 0900 AC 12/21 PO 1150 Morphine Sulfate 2 MG ONCE ONE 12/21 2129 DC 12/21 IV 12/21 Morphine Sulfate 0 .STK-MED ONE 12/22 2123 DC .ROUTE Pyridostigmine 60 MG Q8H 12/16 1200 AC 12/22 [place] PO 0620 Ropinirole HCl 0.25 MG AT BEDTIME 12/08 2100 AC 12/21 PO 1946 Sodium Chloride 2 SPRAY Q4P PRN 12/14 1315 AC DIYA Timolol Maleate 1 GTT BID 12/08 0900 AC 12/21 OPH 2156 Objective Objective: Vital Signs Date Time Temp Pulse Resp B/P B/P Pulse O2 O2 Flow FiO2 Mean Ox Delivery Rate 12/22 629 97.7 68 22 152/80 92 Nasal Cannula 12/22 0000 93 Nasal 3.0L Cannula 12/21 2157 97.3 80 22 190/88 92 Nasal 3.0L Cannula 12/21 2108 96.9 69 24 160/70 91 Nasal 3.0L Cannula 12/213 97.1 71 22 162/70 94 Nasal 3.0L Cannula 12/217 97.0 84 22 170/90 94 Nasal 3.0L Cannula 12/21 2012 97.3 80 20 178/90 93 Nasal 3.0L Cannula 12/21 2005 90 Nasal 2.5L Cannula 12/21 195 97.3 82 22 178/90 94 Nasal 2.5L Cannula 12/21 1941 97.0 82 22 186/92 94 Nasal 2.5L Cannula 12/21 1925 97.0 80 24 180/92 94 Nasal 2.5L Cannula 12/21 1909 97.5 80 22 186/90 95 Nasal 2.5L Cannula 12/21 1857 97.4 74 20 194/90 95 Nasal 2.0L Cannula 12/21 1840 97.0 81 20 140/92 95 Nasal 2.0L Cannula 12/21 1614 Room Air 12/21 1600 94 Nasal 2.0L Cannula 12/21 1431 98.2 70 20 152/72 94 Nasal 2.0L Cannula 12/21 1150 710 128/72 12/21 1150 72 128/72 12/21 1149 68 128/72 Intake & Output 12/22 1600 12/22 0800 12/22 0000 Intake Total 110 335 Output Total Balance 110 335 Intake, IV 225 Intake, Oral 110 110 Physcial Exam: - Was not performed due to patient's request to let her sleep because she was tired and sleepy. - Patient is on 3L of O2 with SpO2 at 92% Results Results: Laboratory Tests 12/22/17 0634: Anion Gap 6, Estimated GFR > 60, BUN/Creatinine Ratio 23.3 12/21/17 0620: Anion Gap 6, Estimated GFR > 60, BUN/Creatinine Ratio 18.3 12/20/17 1620: Anion Gap 3 L, Estimated GFR > 60, BUN/Creatinine Ratio 18.3 Imaging: - CXR: increase moderate right pleural effusion, increase opacities on the right more than left compared to previous study, possible compressive atelectasis with superimposed infection. Assessment/Plan Assessment: Summary: 87-year-old female with PMH of Afib, HTN, HLD, hypothyroid and restless leg syndrome, presented to ED with weakness and SOB. Patient completed her 5-day course IVIG. Overnight event was significant for O2 desat to 88% at 2L O2 with bilateral crackles; she is now at 3L O2 with 92% SpO2. CXR showed increasing right pleural effusion with possible compression atelectasis and superimposed infection. Problem list: 1. 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 Afib. 4. HTN. 5. HLD. 6. Hypothyroid. 7. Restless leg syndrome. Plan: - Neuro consult to confirm the completion of IVIG, whether patient needs to continue Pyridostigmine and whether EMG can be done as outpatient. - Swallow eval passed and advance patient's diet to thick puree and thin liquid. 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 - Lung bx maybe on monday? #DVT ppx with Alps and Subcu Heparin. #Regular diet with thick puree and thin liquid #DNR/DNI
--- NOTE | 2017-12-22 10:26 | PN- Pulmonary ---
Subjective HPI/Critical Care Issues: Patient was dyspneic last night and bringing pink color frothy sputum. Chest x- ray was done that showed increased size of pleural effusion on the right side. Patient received 1 dose of Lasix 40 mg, morphine 2 mg and her oxygen was bumped up to 3 L. Seen and examined this morning. Patient is using 3 L of oxygen and maintaining saturation 92%. Her upper and lower extremity power has been improved. Patient is able to lift her arms above head. Patient can lift her both legs against resistance. Patient denied chest pain, nausea, vomiting, chill, fever, abdominal pain dysuria. Patient reported intermittent cough but overall she is feeling improved. Her IV fluids were discontinued last night. She has poor appetite, doesn't like to eat. Objective Current Medications: Current Medications Sig/Andrea Start time Last Medication Dose Route Stop Time Status Admin Acetaminophen 1,000 MG ONCE ONE 12/21 1630 DC 12/21 N/A 1 UNIT IV 12/21 1644 1651 Acetaminophen 650 MG Q6P PRN 12/07 2300 AC PO Alprazolam 0.25 MG AT BEDTIME NEED.. 12/16 2215 AC 12/21 PO 12/23 2214 1946 Amlodipine Besylate 5 MG DAILY 12/08 899 AC 12/22 PO 0951 Dextrose/Sodium 1,000 ML Q13H 12/20 0845 [place] 12/21 Chloride IV 2049 Diphenhydramine HCl 25 MG ONCE ONE 12/21 1630 DC 12/21 IV 12/21 1631 1651 Enoxaparin Sodium 80 MG BID 12/19 2100 12/22 SC 0951 Escitalopram Oxalate 10 MG DAILY 12/08 09 AC 12/22 PO 0951 Furosemide 20 MG ONCE ONE 12/22 1015 DC IV 12/22 1016 Furosemide 40 MG ONCE ONE 12/21 2145 DC 12/21 IV 12/21 2146 2141 Furosemide 0 .STK-MED ONE 12/21 2138 DC IV Gabapentin 600 MG QPM 12/08 2100 AC 12/21 PO 2156 Immune Globulin 40 GM DAILY@1730 12/17 1730 DC 12/21 N/A 1 UNIT IV 12/21 2150 1836 Levothyroxine Sodium 25 MCG DAILY 12/16 0937 12/22 IV 0952 Losartan Potassium 50 MG DAILY 12/08 09 AC 12/22 PO 0951 Melatonin 10 MG AT BEDTIME NEED.. 12/16 0015 AC 12/19 PO 2213 Metoprolol Succinate 50 MG DAILY 12/08 0900 AC 12/22 PO 0951 Morphine Sulfate 2 MG ONCE ONE 12/21 2129 DC 12/21 IV 12/21 Morphine Sulfate 0 .STK-MED ONE 12/22 2123 DC .ROUTE Patient Medication 1 ED ONE ONE 12/22 929 DC 12/22 Teaching ED 12/22 0931 0952 Pyridostigmine 60 MG Q8H 12/16 1200 AC 12/22 [place] PO 0620 Ropinirole HCl 0.25 MG AT BEDTIME 12/08 2100 AC 12/21 PO 1946 Sodium Chloride 2 SPRAY Q4P PRN 12/14 1315 AC DIYA Timolol Maleate 1 GTT BID 12/08 0900 AC 12/22 OPH 0952 Vital Signs & I&O Last 24 Hrs of Vitals and I&O: Vital Signs Date Time Temp Pulse Resp B/P B/P Pulse O2 O2 Flow FiO2 Mean Ox Delivery Rate 12/22 0951 70 158/84 12/22 0951 70 158/84 12/22 0951 70 158/84 12/22 06 97.7 68 22 152/80 92 Nasal Cannula 12/22 0000 93 Nasal 3.0L Cannula 12/21 2157 97.3 80 22 190/88 92 Nasal 3.0L Cannula 12/21 2108 96.9 69 24 160/70 91 Nasal 3.0L Cannula 12/21 2042 97.1 71 22 162/70 94 Nasal 3.0L Cannula 12/21 2026 97.0 84 22 170/90 94 Nasal 3.0L Cannula 12/21 2012 97.3 80 20 178/90 93 Nasal 3.0L Cannula 12/21 2005 90 Nasal 2.5L Cannula 12/21 1954 97.3 82 22 178/90 94 Nasal 2.5L Cannula 12/21 194 97.0 82 22 186/92 94 Nasal 2.5L Cannula 12/21 1924 97.0 80 24 180/92 94 Nasal 2.5L Cannula 12/21 1908 97.5 80 22 186/90 95 Nasal 2.5L Cannula 12/21 1857 97.4 74 20 194/90 95 Nasal 2.0L Cannula 12/21 1840 97.0 81 20 140/92 95 Nasal 2.0L Cannula 12/21 1614 Room Air 12/21 1600 94 Nasal 2.0L Cannula 12/21 1431 98.2 70 20 152/72 94 Nasal 2.0L Cannula 12/21 1150 710 128/72 12/21 1150 72 128/72 12/21 1149 68 128/72 Intake & Output 12/22 1600 12/22 0800 12/22 0000 Intake Total 110 335 Output Total Balance 110 335 Intake, IV 225 Intake, Oral 110 110 Impression/Plan Impression/Plan Impression/Plan: IMPRESSION: Increased now moderate right pleural effusion. Bibasilar airspace opacities, right greater than left and increased since the prior study, possibly on the basis of compressive atelectasis although a superimposed infectious process is not excluded. Clinical correlation requested. DICTATED BY: Jess Garcia MD DATE/TIME DICTATED:12/21/172158 General Appearance: no apparent distress, awake, anxious, fatigued and chronically ill Head: atraumatic Neck: supple Respiratory: decreased breath sounds right side Abdomen: normal bowel sounds, soft, non-tender Extremities: no edema Skin: intact, warm/dry Quadriparetic unable to move most of her limbs with mild movement in the right side IMPRESSION This is a lady with history of more than [id number] smoker, morbid obesity, restless leg syndrome, atrial fibrillation on anticoagulation, hypertension, hypothyroidism on appropriate supplementation, previous diastolic heart disease, now has * Large right-sided pleural parenchymal mass with mediastinal hilar lymphadenopathy highly suggestive of primary lung malignancy versus pleural malignancy including mesothelioma. Patient has multiple metastases in the chest appears to be advanced stage IV lung cancer. 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 Patient is on a therapeutic trial of IVIG for 5 days, improvement so far noted with some improvement in strength * Mild aspiration, diplopia. * No clinical evidence suggestive of any hypercarbia/however patient is slowly progressing towards respiratory failure now hypoxemic * Atrial fibrillation, diastolic heart disease, hypertension. 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
[2017-12-22 11:46] VITALS: BP 144/74
[2017-12-22 14:38] VITALS: BP 148/78
--- NOTE | 2017-12-22 15:44 | CT SCAN REPORT ---
EXAMINATION: CT ABDOMEN AND PELVIS WITH CONTRAST CLINICAL INFORMATION: Stage IV lung cancer with metastatic disease. Evaluate for metastatic disease within the abdomen or pelvis. COMPARISON: Chest CT 12/12/2017. TECHNIQUE: Multidetector volumetric imaging was performed of the abdomen and pelvis following IV administration of 95 mL of Optiray 320 intravenous contrast. Sagittal and coronal reformatted images were obtained on the technologist's workstation. DLP: 678.82 mGy-cm FINDINGS: LUNG BASES: Consolidation of the right lung has increased since the prior study with increased small pleural effusion. Nodular densities within the left lower lung as seen on the dedicated chest CT recently performed. Coronary artery and mitral annular calcifications. Aortic valve calcifications. LIVER, GALLBLADDER, AND BILIARY TREE: The liver is normal in size, shape, and attenuation. No focal hepatic lesion or biliary ductal dilatation is present. Cholelithiasis. No gallbladder wall thickening, pericholecystic fluid or pericholecystic inflammatory changes. PANCREAS: Unremarkable. SPLEEN: Unremarkable. ADRENAL GLANDS: Unremarkable. KIDNEYS AND URETERS: Abnormal contour of the kidneys bilaterally involving the posterior lower pole of the left kidney with focal cortical thinning. The right kidney demonstrates lobulated cortical thinning posteriorly. 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 Coarse heterogeneous calcifications are also seen within the central, perihilar aspect of the right kidney involving the mid and upper pole. Bilateral renal cysts. Multiple additional scattered tiny well-defined renal cortical hypodensities, too small to characterize but statistically most likely representing renal cysts. Punctate nonobstructing lower pole right renal calculus versus vascular calcification. No evidence of hydronephrosis or perinephric stranding bilaterally. BLADDER: Unremarkable. GASTROINTESTINAL TRACT: Severe diverticulosis predominantly involving the descending and sigmoid colon without CT evidence of diverticulitis. The appendix is unremarkable. No evidence of bowel obstruction. ABDOMINAL WALL: No significant abdominal wall hernia. Focal areas of subcutaneous emphysema with induration within the anterior abdominal wall subcutaneous fat consistent with injection sites. LYMPH NODES: No lymphadenopathy within the abdomen or pelvis. VASCULAR: Atherosclerosis abdominal aorta without evidence of aneurysm. PELVIC VISCERA: Unremarkable. OSSEOUS STRUCTURES: No acute or suspicious osseous abnormality. Multilevel degenerative changes of the spine. Right convex scoliosis lumbar spine. IMPRESSION: 1. No convincing evidence of metastatic disease within the abdomen or pelvis. 2. Abnormal appearance of the kidneys bilaterally. There are indeterminate coarse heterogeneous calcifications within the upper right kidney which may represent nephrolithiasis although this is an unusual presentation. 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 Ultrasound would be helpful for further evaluation of these abnormalities. There are also contour abnormalities of the kidneys bilaterally which may be due to chronic scarring or infarction, presumably from the patient's atherosclerotic disease. The appearance can also be seen in the setting of a partial nephrectomy and clinical correlation is requested. If prior cross-sectional imaging is available for comparison, an addendum to this report can be issued commenting upon the stability of these findings. 3. Increasing consolidation of the right lower lung with increasing pleural effusion, still small in volume. 4. Other nonacute findings as above.
[2017-12-22 21:24] VITALS: BP 140/88
[2017-12-23 05:54] VITALS: BP 136/78
--- NOTE | 2017-12-23 06:52 | PN- Housestaff ---
See Addendum Subjective Follow-up For: Subacute neuromuscular disorder in the setting of suspected carcinoma of the lung. Subjective: Patient complaing of difficulty breathing, continues to be on 3L of oxygen. She also has a cough for weeks and is bringing up some phlegm and wants to know what is causing her cough. Muscle strenght is improved. Review of Systems Constitutional: Reports: no symptoms. Cardiovascular: Reports: no symptoms. Respiratory: Reports: short of breath. Gastrointestinal: Reports: no symptoms. Objective Last 24 Hrs of Vital Signs/I&O Vital Signs Date Time Temp Pulse Resp B/P B/P Pulse O2 O2 Flow FiO2 Mean Ox Delivery Rate 12/23 0554 97.6 67 20 136/78 93 Nasal Cannula 12/22 2124 97.8 60 20 140/88 93 Nasal Cannula 12/22 2111 Nasal 3.0L Cannula 12/22 1943 95 Nasal 2.0L Cannula 12/22 1600 95 Nasal 3.0L Cannula 12/22 1438 98.3 63 19 148/78 95 Nasal 3.0L Cannula 12/22 1146 68 144/74 12/22 0951 70 158/84 12/22 0951 70 158/84 12/22 0951 70 158/84 12/22 0800 93 Nasal 3.0L Cannula Intake & Output 12/23 0812/23 0000 12/22 1600 Intake Total 480 Output Total 551 021 9398 Balance -200 -200 -570 Intake, Oral 480 Number 1 Bowel Movements Output, Urine [phone] Patient 200 lb Weight Physical Exam General Appearance: Alert, Oriented X3, Cooperative, No Acute Distress Skin: No Rashes, No Breakdown Cardiovascular: Regular Rate, Normal S1, Normal S2 Lungs: Decreased breath sounds on the right Abdomen: Normal Bowel Sounds, Soft, No Tenderness Neurological: Normal Speech, Strength at 5/5 X4 Ext, Normal Tone, Sensation Intact Extremities: No Clubbing, No Cyanosis, No Edema Current Medications: Current Medications Sig/Andrea Start time Last Medication Dose Route Stop Time Status Admin Acetaminophen 650 MG Q6P PRN 12/07 2300 AC PO Alprazolam 0.25 MG AT BEDTIME NEED.. 12/16 2214 AC 12/22 PO 12/23 Amlodipine Besylate 5 MG DAILY 12/08 899 AC 12/22 PO 0951 Enoxaparin Sodium 80 MG BID 12/19 2100 AC 12/22 SC 1956 Escitalopram Oxalate 10 MG DAILY 12/08 09 AC 12/22 PO 0951 Furosemide 20 MG ONCE ONE 12/22 1015 DC 12/22 IV 12/22 1016 1146 Gabapentin 600 MG QPM 12/08 2100 AC 12/22 PO 1956 Levothyroxine Sodium 25 MCG DAILY 12/16 0937 AC 12/22 IV 0952 Losartan Potassium 50 MG DAILY 12/08 09 AC 12/22 PO 0951 Melatonin 5 MG ONCE ONE 12/23 033 DC 12/23 PO 12/23 0331 0332 Melatonin 0 .STK-MED ONE 12/23 033 DC PO Melatonin 10 MG AT BEDTIME NEED.. 12/16 0015 AC 12/22 PO 1956 Metoprolol Succinate 50 MG DAILY 12/08 899 AC 12/22 PO 51 Patient Medication 1 ED ONE ONE 12/22 0830 DC 12/22 Teaching ED 12/22 930 0952 Potassium Chloride 10 MEQ Q1H 12/23 0700 AC IV 12/23 0801 Pyridostigmine 60 MG Q8H 12/16 1200 AC 12/23 [place] PO 331 Ropinirole HCl 0.25 MG AT BEDTIME 12/08 2100 AC 12/22 PO 1957 Sodium Chloride 2 SPRAY Q4P PRN 12/14 1315 AC DIYA Timolol Maleate 1 GTT BID 12/08 899 AC 12/22 OPH 8 Assessment/Plan Assessment: 87 YO F with PMH of [id number] smoker, morbid obesity, restless leg syndrome, atrial fibrillation on anticoagulation, hypertension, hypothyroidism on appropriate supplementation, HFpEF, anxiety/depression, and restless legs syndrome last admitted in 07/2017 for CHF exacerbation and dyspnea which improved after diuresis was BIBA to ED with complaints of progressive exertional dyspnea and generalized weakness for the past week. Following the patient on telemetry floor for following problems. Subacute neuromuscular disorder: -In the setting of progressive advanced malignancy probably lung cancer, on imaging study patient has large right-sided pleural parenchymal mass with mediastinal hilar lymphadenopathy. 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 -Patient is an acetylcholine antibody borderline elevated and CSF shows elevated protein but acellular. -Completed 5 days course of IV immunoglobulin. Patient's power in 4 limbs has been improved. -Patient does not want any invasive procedure. -CT scan abdomen and pelvis with IV contrast to rule out metastasis to abdomem and pelvis was negative. -Patient will get EMG as recommended by neurology and PT/OT evaluation. Patient will get EMG on Monday. -IV hydration was discontinued considering her increased pleural effusion on the right side. Swallow evaluation was done and she passed swallow eval. On regular diet with puree and thin liquids. Acute hypoxemic respiratory failure: -Possibly due to subacute neuromuscular disorder, patient desaturated to 88% and she was placed on 2 L of oxygen initially. -Patient is maintaining saturation 93% on 3 L of oxygen. Will order CXR to look for any worsening pleural effusion or fluid overload. Can give IV lasix depending on the CXR results. - CT scan abd and pelvis yesterday did show increasing consolidation of the right lower lung with increasing pleural effusion, still small in amount. - Check CBC to look for any leukocytosis. -If she has increased work of breathing then we can institute low-dose morphine. 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 History of hypothyroidism: - TSH wnl - Synthroid 0.025 mcg IV History of HTN: -Continue amlodipine 5mg, losartan and metoprolol History of HLD: - Atorvastatin 10mg History of restless leg syndrome: - Ropinirole 0.25mg - Gabapentin 600 mg History of anxiety/Depression: - Lexapro 10mg Diet: -Regular diet. Puree thick diet and thin liquids. DVT prophylaxis: Mechanical and subcutaneous Lovenox CODE STATUS; DNR/intube Problem List: 1. Lung mass 2. Weakness 3. Acute respiratory failure with hypoxia Pain Ratin Pain Location: NA Pain Goal: Remain pain free Pain Plan: PAin Pathway Tomorrow's Labs & Rationales: None
--- NOTE | 2017-12-23 08:36 | RADIOLOGY REPORT ---
EXAMINATION: XR PORTABLE CHEST CLINICAL INFORMATION: Fluid overload; shortness of breath. COMPARISON: Prior chest radiographs, most recently 12/21/2017. TECHNIQUE: Portable frontal view of the chest was obtained. The patient is rotated. FINDINGS: There is stable mild cardiomegaly. There is pulmonary vascular congestion. A bilateral interstitial and alveolar pattern is seen, right greater than left. There is a small to moderate right pleural effusion, diminished from prior. No definite left pleural effusion is seen. There is biapical pleural thickening, and a left apical pleural calcifications are seen suggesting prior asbestos exposure. No pneumothorax is seen. There is no acute osseous abnormality. There is bony demineralization. IMPRESSION: 1. There is mild cardiomegaly. There is pulmonary vascular congestion and a bilateral interstitial and alveolar pattern. The possibility of congestive heart failure is seen. Asymmetric diffuse pneumonia is a further differential consideration, clinical correlation is required. 2. There is a small to moderate right pleural effusion. 3. There is left apical pleural calcification, suggesting prior asbestos exposure.
[2017-12-23 09:07] LABS: ABSOLUTE BASOPHIL COUNT 0 /CUMM (0.0-0.2); ABSOLUTE EOSINOPHIL COUNT 0 /CUMM (0.0-0.7); ABSOLUTE GRANULOCYTE CT 3.8 /CUMM (1.4-6.5); ABSOLUTE LYMPH COUNT 0.9 /CUMM (1.2-3.4); BASOPHIL % 0.4 % (0.0-2.0); EOSINOPHIL % 0.2 % (0-5); GRANULOCYTE % 66.2 % (42.2-75.2); HEMATOCRIT 36.2 % (37-47); MEAN CORPUSCULAR HGB 29.8 PG (27.0-31.0); MEAN CORPUSCULAR VOLUME 87.4 FL (81.0-99.0); MEAN PLATELET VOLUME 8.7 FL (7.4-10.4); PLATELET COUNT 239 /CUMM (130-400); RBC DISTRIBUTION WIDTH 14.6 % (11.5-14.5); RED BLOOD CELL CT 4.14 /CUMM (4.20-5.40); WHITE BLOOD CELL COUNT 5.7 /CUMM (4.8-10.8)
[2017-12-23 14:56] VITALS: BP 182/86
[2017-12-23 16:44] VITALS: BP 178/74
[2017-12-23 18:38] VITALS: BP 184/60
[2017-12-23 21:48] VITALS: BP 150/78
[2017-12-24 06:28] VITALS: BP 168/84
--- NOTE | 2017-12-24 08:40 | PN- Housestaff ---
See Addendum Subjective Follow-up For: Subacute Neuromuscular Disorer in the setting of suspected Lung Carcinoma Subjective: Patient seen and examined at bedside this morning. She has been transferred from telemetry to the general [facility] floor. She is status post IV IG transfusion since 12/21. Patient on 3 L oxygen with conitinuous cough bringiing up phlegm and concerned about her cough. Muscle strength very stable during my assessment, patient claims she is still weak but examination was stable. Review of Systems Constitutional: Denies: see HPI. Objective Last 24 Hrs of Vital Signs/I&O Vital Signs Date Time Temp Pulse Resp B/P B/P Pulse O2 O2 Flow FiO2 Mean Ox Delivery Rate 12/24 0855 180/80 12/24 0855 180/80 12/24 0854 80 180/80 12/24 0800 98 Nasal 2.0L Cannula 12/24 0628 97.6 81 24 168/84 94 09/ 0000 94 Nasal 2.0L Cannula 12/23 2148 97.9 79 22 150/78 95 Room Air 12/23 1838 97.8 76 20 184/60 95 Nasal 3.0L Cannula 12/23 1644 97.6 74 22 178/74 94 Nasal 3.0L Cannula 12/23 1603 94 Nasal 2.5L Cannula 12/23 1600 94 Nasal 3.0L Cannula 12/23 1456 99.4 82 18 182/86 95 Nasal 2.5L Cannula 12/23 1430 97.6 82 20 182/86 Intake & Output 12/24 1600 12/24 0800 09 0000 Intake Total 120 240 Output Total 100 Balance 120 140 Intake, Oral 120 240 Output, Urine 100 Patient 197 lb 201 lb Weight Weight Bed scale Measurement Method Physical Exam General Appearance: Alert, Oriented X3, Cooperative, Mild Distress Skin: No Rashes, No Breakdown Cardiovascular: Regular Rate, Normal S1, Normal S2 Lungs: Clear to Auscultation, Normal Air Movement, decreaed breath sounds right sided Abdomen: Normal Bowel Sounds, Soft, No Tenderness Neurological: Normal Gait, Normal Speech, Strength at 5/5 X4 Ext, Normal Tone, Sensation Intact Extremities: No Clubbing, No Cyanosis, No Edema Assessment/Plan Assessment: 87 YO F with PMH of [id number] smoker, morbid obesity, restless leg syndrome, atrial fibrillation on anticoagulation, hypertension, hypothyroidism on appropriate supplementation, HFpEF, anxiety/depression, and restless legs syndrome last admitted in 07/2017 for CHF exacerbation and dyspnea which improved after diuresis was BIBA to ED with complaints of progressive exertional dyspnea and generalized weakness for the past week. Patient seen on telemetry floor for subacute neurmuscular disorder. Imaging shows right sided pleural parenchyml mass with medistinal hilar LAD. Multiple metastases in chest appears to be advanced Stage 4. CT abdomen/pelvis ruled out mets to abdomen/ pelvis. 12/24: Transferred to general medicine floor yesterday eveneing. Has completed 5 days of IV IG last on 12/21 with improvement in power in extremities. Currently on 2-3 L NC with conitnuous cough and feeling of weakness. PROBLEM LIST: 1. Subacute Neuromuscular Disorder 2. Acute Hypoxemic Respiratory Failure 3. History of Atriral Fibrillation 4. History of Hypothyroidism 5. History of HTN/HLD, Restless Leg, Anxiety/Depression PLAN: Subacute Neuromuscular Disorder -In the setting of progressive advanced malignancy probably lung cancer, on imaging study patient has large right-sided pleural parenchymal mass with mediastinal hilar lymphadenopathy. 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 Possible etiologies have included Eaton-Lambert syndrome, paraneoplastic syndrome, GBS. Patient is an acetylcholine antibody borderline elevated and CSF shows elevated protein but acellular. Completed 5 days course of IV immunoglobulin. Patient's power in 4 limbs has been improved. Patient does not want any invasive procedure. CT scan abdomen and pelvis with IV contrast to rule out metastasis to abdomem and pelvis was negative. * Patient will get EMG as recommended by neurology and PT/OT evaluation. * Patient will get EMG on Monday. * IV hydration was discontinued considering her increased pleural effusion on the right side. Swallow evaluation was done and she passed swallow eval. On regular diet with puree and thin liquids. * Continue to monitor patient for any neurological deficits, fevers, leukocytosis * Follow up neurology recommendations as needed Acute hypoxemic respiratory failure on admission - now on 2L NC -Possibly due to subacute neuromuscular disorder, patient originally desaturated 88% and she was placed on 2 L of oxygen initially. Patient is maintaining saturation 93% on 3 L of oxygen. Will order CXR to look for any worsening pleural effusion or fluid overload, patient gets IV lasix accordingly. CT scan abd and pelvis yesterday did show increasing consolidation of the right lower lung with increasing pleural effusion, still small in amount. * Check CBC to look for any leukocytosis. * Low-dose morphine if increaed work of breathing * Consider conversation that she could be made comfort care and eventually hospice per patient and power of commonwealth attorney * CXR demonstrates effusion/fluid overload vs malignancy * Revisit lung biopsy possible Monday if improvement as per Dr. Tapia of Pulmonology History of Afib: - Currently rate controlled on metoprolol 50mg - Subcutaneous Lovenox 80 mg twice daily for anticoagulation. History of hypothyroidism: - TSH wnl - Synthroid 0.025 mcg IV History of HTN: -Continue amlodipine 5mg, losartan and metoprolol History of HLD: - Atorvastatin 10mg History of restless leg syndrome: - Ropinirole 0.25mg - Gabapentin 600 mg History of anxiety/Depression: - Lexapro 10mg Diet: Regular. Puree thick diet and thin liquids DVT PPx: Mechanical and subcutaneous lovenox Code Status: DNR/DNI Problem List: 1. CHF exacerbation 2. Dyspnea 3. Lung mass 4. Weakness Pain Ratin Pain Location: denies pain today Pain Goal: Remain pain free Pain Plan: as per pain pathway Tomorrow's Labs & Rationales: cbc BEP
[2017-12-24 14:34] VITALS: BP 174/87
[2017-12-24 21:32] VITALS: BP 138/86
[2017-12-25 07:27] VITALS: BP 143/68
[2017-12-25 07:46] LABS: ABSOLUTE BASOPHIL COUNT 0 /CUMM (0.0-0.2); ABSOLUTE EOSINOPHIL COUNT 0 /CUMM (0.0-0.7); ABSOLUTE GRANULOCYTE CT 3.7 /CUMM (1.4-6.5); ABSOLUTE LYMPH COUNT 0.9 /CUMM (1.2-3.4); ABSOLUTE MONOCYTE COUNT 0.9 /CUMM (0.10-0.60); BASOPHIL % 0.5 % (0.0-2.0); EOSINOPHIL % 0.3 % (0-5); GRANULOCYTE % 66.5 % (42.2-75.2); HEMATOCRIT 34.9 % (37-47); MEAN CORPUSCULAR HGB 29.4 PG (27.0-31.0); MEAN CORPUSCULAR HGB CONC 33.2 G/DL (33.0-37.0); MEAN CORPUSCULAR VOLUME 88.5 FL (81.0-99.0); MEAN PLATELET VOLUME 9.4 FL (7.4-10.4); PLATELET COUNT 227 /CUMM (130-400); RBC DISTRIBUTION WIDTH 14.5 % (11.5-14.5); RED BLOOD CELL CT 3.94 /CUMM (4.20-5.40); WHITE BLOOD CELL COUNT 5.5 /CUMM (4.8-10.8)
--- NOTE | 2017-12-25 10:11 | PN- Housestaff ---
Baldo Dalton 12/25/17 1011: Subjective Follow-up For: Subacute Neuromuscular Disorder in the setting of suspected Lung Carcinoma Subjective: Pt seen and examined this AM. She was drowsy-lethargic, though still AAOx3, cooperative when spoken to. She still feels weak, though states she had a good night's sleep compared to previous days. She denies fever, chest pain, SOB, abdominal pain. She offered no acute complains. VS are stable, afebrile. Objective Last 24 Hrs of Vital Signs/I&O Vital Signs Date Time Temp Pulse Resp B/P B/P Pulse O2 O2 Flow FiO2 Mean Ox Delivery Rate 12/25 1446 Nasal 2.0L Cannula 12/25 1339 98.2 56 20 142/67 97 Nasal 2.0L Cannula 12/25 0913 63 143/68 12/25 0913 63 143/68 12/25 0913 63 143/68 12/25 0800 97 Nasal 2.0L Cannula 12/25 0727 97.4 63 18 143/68 97 12/24 2333 98 Nasal 2.0L Cannula 12/24 2132 97.3 73 20 138/86 96 Nasal 2.0L Cannula 12/24 1714 96 Nasal 2.0L Cannula 12/24 1600 98 Nasal 2.0L Cannula Intake & Output 12/25 1600 12/25 0800 12/25 0000 Intake Total 380 120 240 Output Total 150 300 Balance 230 120 -60 Intake, IV 20 Intake, Oral 360 120 240 Output, Urine 150 300 Patient 189 lb Weight Weight Bed scale Measurement Method Physical Exam General Appearance: Alert, Oriented X3, Cooperative HEENT: Atraumatic, EOMI Neck: Supple Cardiovascular: Regular Rate, Normal S1, Normal S2 Lungs: Diminished right basilar breath sounds Abdomen: Normal Bowel Sounds, Soft, No Tenderness Neurological: Normal Speech Extremities: No Edema Current Medications: Current Medications Sig/Andrea Start time Last Medication Dose Route Stop Time Status Admin Acetaminophen 650 MG Q6P PRN 12/07 2300 AC PO Amlodipine Besylate 5 MG DAILY 12/08 899 AC 12/25 PO 912 Enoxaparin Sodium 80 MG BID 12/19 2099 AC 12/25 SC 911 Escitalopram Oxalate 10 MG DAILY 12/08 899 AC 12/25 PO 912 Gabapentin 600 MG QPM 12/08 2099 AC 12/24 PO 2038 Levothyroxine Sodium 25 MCG DAILY 12/16 0937 AC 12/25 IV 0922 Losartan Potassium 50 MG DAILY 12/08 09 AC 12/25 PO 912 Melatonin 10 MG AT BEDTIME NEED.. 12/16 0015 AC 12/24 PO 2149 Metoprolol Succinate 50 MG DAILY 12/08 899 AC 12/25 PO 09 Pyridostigmine 60 MG Q8H 12/16 1200 AC 12/25 [place] PO 124 Ropinirole HCl 0.25 MG AT BEDTIME 12/08 2100 AC 12/24 PO 204 Sodium Chloride 2 SPRAY Q4P PRN 12/14 1315 AC 12/24 DIYA 1947 Timolol Maleate 1 GTT BID 12/08 899 AC 12/25 OPH 09 Last 24 Hrs of Lab/Nader Results Last 24 Hrs of Labs/Mics: Laboratory Tests 12/25/17 0630: Anion Gap 8, Estimated GFR > 60, BUN/Creatinine Ratio 32.9 H, CBC w Diff NO MAN DIFF REQ, RBC 3.94 L, MCV 88.5, MCH 29.4, MCHC 33.2, RDW 14.5, MPV 9.4, Gran % 66.5, Lymphocytes % 16.4 L, Monocytes % 16.3 H, Eosinophils % 0.3, Basophils % 0.5, Absolute Granulocytes 3.7, Absolute Lymphocytes 0.9 L, Absolute Monocytes 0.9 H, Absolute Eosinophils 0, Absolute Basophils 0 Assessment/Plan Assessment: 87 y/o F with PMH of 50py smoker, morbid obesity, restless leg syndrome, afib on anticoagulation, HTN, hypothyroidism, HFpEF, anxiety/depression, last admitted in 07/2017 for CHF exacerbation and dyspnea which improved after diuresis who was BIBA to ED with complaints of progressive exertional dyspnea and generalized weakness for the past week prior to admission. Patient seen on telemetry floor for subacute neurmuscular disorder. Imaging shows right sided pleural parenchymal mass with medistinal hilar LAD. Multiple metastases in chest appears to be advanced Stage 4. CT abdomen/pelvis ruled out mets to abdomen/ pelvis. She is now on the general medicine floor for the continued management of the following issues: PROBLEM LIST: 1. Subacute Neuromuscular Disorder in the setting of suspected lung malignancy 2. Acute Hypoxemic Respiratory Failure 3. H/o afib 4. h/o hypothyroidism 5. h/o of HTN/HLD, Restless Leg, Anxiety/Depression PLAN: Subacute Neuromuscular Disorder Progressive weakness in the setting of advanced lung lesions, p/b lung ca stage IV can be indicative of a paraneoplastic syndrome. Differential included included Eaton-Lambert syndrome and GBS. Patient has an acetylcholine antibody borderline elevated and CSF showing elevated protein but acellular. Completed 5 days course of IVIG. Patient's strength have shown progressive improvement. CT abd/pelvis with IV contrast r/o mets. * Patient will get EMG as recommended by neurology and PT/OT evaluation tomorrow 12/26. * Off IV Fluids * Passed swallow eval - On regular diet with puree and thin liquids. * Continue to monitor patient for any neurological deficits, fevers, leukocytosis * Follow up neurology recommendations as needed Acute hypoxemic respiratory failure on admission - now on 1L NC Likely 2/2 subacute neuromuscular disorder, patient originally desaturated 88% and she was placed on 2 L of oxygen initially. Patient is maintaining a saturation 92% on 1 L of oxygen. * Consider low-dose morphine if increased WOB * Goals of care discussed with family, consider palliative care/hospice consult in the AM. * Revisit lung biopsy possible Monday if improvement as per Dr. Tapia of Pulmonology History of Afib: -Rate controlled on metoprolol 50mg - Sq Lovenox 80 mg BID for anticoagulation. History of hypothyroidism: - TSH wnl - Synthroid 0.025 mcg IV History of HTN: -Continue amlodipine 5mg, losartan and metoprolol History of HLD: - Atorvastatin 10mg History of restless leg syndrome: - Ropinirole 0.25mg - Gabapentin 600 mg History of anxiety/Depression: - Lexapro 10mg REG DIET- Puree thick diet and thin liquids DVT PPx: Mechanical and subq lovenox Code Status: DNR/DNI Problem List: 1. Acute respiratory failure with hypoxia 2. Lung mass 3. Weakness Pain Ratin Pain Location: n/a Pain Goal: Remain pain free Pain Plan: as indicated Tomorrow's Labs & Rationales: / Jeff Boo MD 12/25/17 1120: Subjective Review of Systems Constitutional: Reports: see HPI. Objective Last 24 Hrs of Vital Signs/I&O Vital Signs Date Time Temp Pulse Resp B/P B/P Pulse O2 O2 Flow FiO2 Mean Ox Delivery Rate 09/03 0913 63 143/68 12/25 0913 63 143/68 12/25 0913 63 143/68 12/25 0800 97 Nasal 2.0L Cannula 12/25 0727 97.4 63 18 143/68 97 12/24 2333 98 Nasal 2.0L Cannula 12/24 2132 97.3 73 20 138/86 96 Nasal 2.0L Cannula 12/24 1714 96 Nasal 2.0L Cannula 12/24 1600 98 Nasal 2.0L Cannula 12/24 1434 97.9 82 20 174/87 96 Nasal 2.0L Cannula 12/24 1424 96 Nasal 2.0L Cannula Intake & Output 12/25 1600 12/25 0800 12/25 0000 Intake Total 120 240 Output Total 300 Balance 120 -60 Intake, Oral 120 240 Output, Urine 300 Patient 189 lb Weight Weight Bed scale Measurement Method Physical Exam General Appearance: Alert, Oriented X3 (lethargic) HEENT: Atraumatic, PERRLA, EOMI Neck: Supple, No JVD Cardiovascular: Regular Rate, Normal S1, Normal S2 Lungs: Clear to Auscultation Abdomen: Normal Bowel Sounds, Soft, No Tenderness, No Hepatospenomegaly, No Masses Current Medications: Current Medications Sig/Andrea Start time Last Medication Dose Route Stop Time Status Admin Acetaminophen 650 MG Q6P PRN 12/07 2300 AC PO Amlodipine Besylate 5 MG DAILY 12/08 899 AC 12/25 PO 912 Enoxaparin Sodium 80 MG BID 12/19 2099 AC 12/25 SC 0912 Escitalopram Oxalate 10 MG DAILY 12/08 899 AC 12/25 PO 912 Gabapentin 600 MG QPM 12/08 2099 AC 12/24 PO 203 Levothyroxine Sodium 25 MCG DAILY 12/16 0937 AC 12/25 IV 0922 Losartan Potassium 50 MG DAILY 12/08 899 AC 12/25 PO 912 Melatonin 10 MG AT BEDTIME NEED.. 12/16 0015 AC 12/24 PO 214 Metoprolol Succinate 50 MG DAILY 12/08 899 AC 12/25 PO 912 Pyridostigmine 60 MG Q8H 12/16 1200 AC 12/25 [place] PO 0417 Ropinirole HCl 0.25 MG AT BEDTIME 12/08 2099 AC 12/24 PO 2040 Sodium Chloride 2 SPRAY Q4P PRN 12/14 1315 AC 12/24 DIYA 1947 Timolol Maleate 1 GTT BID 12/08 0900 AC 12/25 OPH 0913 Last 24 Hrs of Lab/Nader Results Last 24 Hrs of Labs/Mics: Laboratory Tests 12/25/17 0630: Anion Gap 8, Estimated GFR > 60, BUN/Creatinine Ratio 32.9 H, CBC w Diff NO MAN DIFF REQ, RBC 3.94 L, MCV 88.5, MCH 29.4, MCHC 33.2, RDW 14.5, MPV 9.4, Gran % 66.5, Lymphocytes % 16.4 L, Monocytes % 16.3 H, Eosinophils % 0.3, Basophils % 0.5, Absolute Granulocytes 3.7, Absolute Lymphocytes 0.9 L, Absolute Monocytes 0.9 H, Absolute Eosinophils 0, Absolute Basophils 0 Attending MD Review Statement Attending Statement Attending MD Statement: examined this patient, discussed with family, reviewed EMR data (avail) Attending Assessment/Plan: This patient is an 87-year-old white female with a 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 The patient has regained her upper and lower extremity motion however still remains weak. The patient continues to complain of cough and is a little lethargic this morning. She denies any fevers chills nausea vomiting diarrhea or constipation and slept better last night. - Discussed goals of care with family - Patient continues to deteriorate - Consider Pallative/Hospice consult in the am
[2017-12-25 13:39] VITALS: BP 142/67
[2017-12-25 22:28] VITALS: BP 155/82
--- NOTE | 2017-12-26 06:58 | PN- Housestaff ---
See Addendum Subjective Follow-up For: Subacute Neuromuscular Disorder in the setting of Lung Carcinoma Subjective: Pt seen and examiend at bedside. She has been afebrile saturating well on 1L NC. She complained of nausea and vomiting overnight although not told to nursing staff. Patient continues to have a cough that is productive of phlegm. Slowly tolerating PO. Otherwise, no fevers, chills, chest pain, urinary symptoms, diarrhea reported. Patients plan of care discussed with Dr. Smart, Dr. Tapia and patients family who majority lives in [place]. Review of Systems Constitutional: Denies: see HPI. Objective Last 24 Hrs of Vital Signs/I&O Vital Signs Date Time Temp Pulse Resp B/P B/P Pulse O2 O2 Flow FiO2 Mean Ox Delivery Rate 12/26 0731 97.8 64 20 162/71 96 12/26 0000 96 Nasal 1.0L Cannula 12/25 2228 97.6 67 20 155/82 96 Nasal Cannula 12/25 1936 95 Nasal 1.0L Cannula 12/25 1602 56 95 Nasal 1.0L Cannula 12/25 1600 96 Nasal 1.0L Cannula 12/25 1446 Nasal 2.0L Cannula 12/25 1339 98.2 56 20 142/67 97 Nasal 2.0L Cannula 12/25 0913 63 143/68 12/25 0913 63 143/68 12/25 0913 63 143/68 Intake & Output 12/26 1600 04 0800 12/26 0000 Intake Total 730 250 Output Total Balance 730 250 Intake, IV 10 10 Intake, Oral 720 240 Number 0 0 Bowel Movements Patient 188 lb 189 lb Weight Weight Bed scale Bed scale Measurement Method Physical Exam General Appearance: Alert, Oriented X3, Mild Distress Skin: No Rashes, No Breakdown HEENT: Mucous Membr. moist/pink Neck: No JVD Cardiovascular: Regular Rate, Normal S1, Normal S2 Lungs: Decreased breath sounds; mild crackles Abdomen: Normal Bowel Sounds, Soft, No Tenderness Neurological: Normal Speech, Strength at 5/5 X4 Ext, Normal Tone, Reflexes 2+ Extremities: No Clubbing, No Cyanosis, No Edema Vascular: Normal Pulses, Pulses Symmetrical Current Medications: Current Medications Sig/Andrea Start time Last Medication Dose Route Stop Time Status Admin Acetaminophen 650 MG Q6P PRN 12/07 2300 AC PO Alprazolam 0.25 MG ONCE ONE 12/25 2199 DC 12/25 PO 12/25 2200 2158 Alprazolam 0 .STK-MED ONE 12/25 2159 DC PO Alprazolam 0.25 MG ONCE ONE 12/25 1745 DC 12/25 PO 12/25 1746 1805 Amlodipine Besylate 5 MG DAILY 12/08 899 AC 12/25 PO 912 Enoxaparin Sodium 80 MG BID 12/19 2099 AC 12/25 SC 2011 Escitalopram Oxalate 10 MG DAILY 12/08 899 AC 12/25 PO 912 Gabapentin 600 MG QPM 12/08 2099 AC 12/25 PO 2011 Levothyroxine Sodium 25 MCG DAILY 12/16 0937 AC 12/25 IV 22 Losartan Potassium 50 MG DAILY 12/08 899 AC 12/25 PO 912 Melatonin 10 MG AT BEDTIME NEED.. 12/16 0015 AC 12/26 PO 001 Metoprolol Succinate 50 MG DAILY 12/08 899 AC 12/25 PO 912 Pyridostigmine 60 MG Q8H 12/16 1200 AC 12/26 [place] PO 044 Ropinirole HCl 0.25 MG AT BEDTIME 12/08 2099 AC 12/25 PO 2011 Sodium Chloride 2 SPRAY Q4P PRN 12/14 1315 AC 12/25 DIYA 1636 Timolol Maleate 1 GTT BID 12/08 899 AC 12/25 OPH 912 Last 24 Hrs of Lab/Nader Results Last 24 Hrs of Labs/Mics: Laboratory Tests 12/26/17 0624: Anion Gap 5, Estimated GFR > 60, BUN/Creatinine Ratio 35.7 H, CBC w Diff NO MAN DIFF REQ, RBC 3.83 L, MCV 87.7, MCH 29.6, MCHC 33.8, RDW 15.0 H, MPV 8.8, Gran % 62.4, Lymphocytes % 21.4, Monocytes % 15.2 H, Eosinophils % 0.3, Basophils % 0.7, Absolute Granulocytes 3.1, Absolute Lymphocytes 1.1 L, Absolute Monocytes 0.7 H, Absolute Eosinophils 0, Absolute Basophils 0 Assessment/Plan Assessment: This patient is an 87-year-old white female with a 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 The patient has regained her upper and lower extremity motion however still remains extremely weak. 12/26: Patient saturating well on 1L [place]. Afebrile overnight with no leukocytosis. Patient will have PT/OT and nutrition consult appropriately. Further discussion with patients brother and sister in law with Dr. Smart, Dr. Tapia. Patients family commutes from [place]. Possible transition to STR to hospice with no return to hospital in the future. Patient not tolerating PO well. Follow up with case management accordingly with plan of care. PROBLEM LIST: 1. Subacute Neuromuscular Disorder in the setting of Lung malignancy 2. Acute Hypoxemic Respiratory Failure 3. H/o afib 4. h/o hypothyroidism 5. h/o of HTN/HLD, Restless Leg, Anxiety/Depression PLAN: Subacute Neuromuscular Disorder Progressive weakness in the setting of advanced lung lesions, p/b lung ca stage IV can be indicative of a paraneoplastic syndrome. Differential included included Eaton-Lambert syndrome and GBS. Patient has an acetylcholine antibody borderline elevated and CSF showing elevated protein but acellular. Completed 5 days course of IVIG. Patient's strength have shown progressive improvement. CT abd/pelvis with IV contrast r/o mets. * Outpatient EMG * Passed swallow eval - On regular diet with puree and thin liquids. * Continue to monitor patient for any neurological deficits, fevers, leukocytosis * Follow up neurology recommendations as needed Acute hypoxemic respiratory failure on admission - now on 1L [place] Likely 2/2 subacute neuromuscular disorder, patient originally desaturated 88% and she was placed on 2 L of oxygen initially. Patient is maintaining a saturation 92% on 1 L of oxygen. * Consider low-dose morphine if increased WOB * Goals of care discussed with family who commutes from [place]. Possible transition to STR then hospice with no further return to hospital. Dr. Smart/ Regina have spoken to patient/family. Will follow up with case management accordingly. History of Afib: -Rate controlled on metoprolol 50mg - Sq Lovenox 80 mg BID for anticoagulation. History of hypothyroidism: - TSH wnl - Synthroid 0.025 mcg IV History of HTN: -Continue amlodipine 5mg, losartan and metoprolol History of HLD: - Atorvastatin 10mg History of restless leg syndrome: - Ropinirole 0.25mg - Gabapentin 600 mg History of anxiety/Depression: - Lexapro 10mg REG DIET- Puree thick diet and thin liquids DVT PPx: Mechanical and subq lovenox Code Status: DNR/DNI Problem List: 1. Weakness 2. Lung mass Pain Ratin Pain Location: denies pain today Pain Goal: Remain pain free Pain Plan: as per pain pathway Tomorrow's Labs & Rationales: n/a
[2017-12-26 07:31] VITALS: BP 162/71
[2017-12-26 08:05] LABS: ABSOLUTE BASOPHIL COUNT 0 /CUMM (0.0-0.2); ABSOLUTE EOSINOPHIL COUNT 0 /CUMM (0.0-0.7); ABSOLUTE GRANULOCYTE CT 3.1 /CUMM (1.4-6.5); ABSOLUTE LYMPH COUNT 1.1 /CUMM (1.2-3.4); ABSOLUTE MONOCYTE COUNT 0.7 /CUMM (0.10-0.60); BASOPHIL % 0.7 % (0.0-2.0); EOSINOPHIL % 0.3 % (0-5); GRANULOCYTE % 62.4 % (42.2-75.2); HEMATOCRIT 33.5 % (37-47); MEAN CORPUSCULAR HGB 29.6 PG (27.0-31.0); MEAN CORPUSCULAR HGB CONC 33.8 G/DL (33.0-37.0); MEAN CORPUSCULAR VOLUME 87.7 FL (81.0-99.0); MEAN PLATELET VOLUME 8.8 FL (7.4-10.4); PLATELET COUNT 224 /CUMM (130-400); RED BLOOD CELL CT 3.83 /CUMM (4.20-5.40); WHITE BLOOD CELL COUNT 4.9 /CUMM (4.8-10.8)
--- NOTE | 2017-12-26 12:31 | PN- Pulmonary ---
Subjective HPI/Critical Care Issues: Doing poorly No appetite No sig improvement in strength Objective Current Medications: Current Medications Sig/Andrea Start time Last Medication Dose Route Stop Time Status Admin Acetaminophen 650 MG Q6P PRN 12/07 2300 AC PO Alprazolam 0.25 MG ONCE ONE 12/250 DC 12/25 PO 12/25 220 2158 Alprazolam 0 .STK-MED ONE 12/25 2159 DC PO Alprazolam 0.25 MG ONCE ONE 12/25 1745 DC 12/25 PO 12/25 1746 1805 Amlodipine Besylate 5 MG DAILY 12/08 899 AC 12/26 PO 1128 Enoxaparin Sodium 80 MG BID 12/19 2100 AC 12/26 SC 1128 Escitalopram Oxalate 10 MG DAILY 12/08 899 AC 12/26 PO 1129 Gabapentin 600 MG QPM 12/08 2100 AC 12/25 PO 2011 Levothyroxine Sodium 25 MCG DAILY 12/16 0937 AC 12/26 IV 1127 Losartan Potassium 50 MG DAILY 12/08 899 AC 12/26 PO 1128 Melatonin 10 MG AT BEDTIME NEED.. 12/16 0015 AC 12/26 PO 0013 Metoprolol Succinate 50 MG DAILY 12/08 09 AC 12/26 PO 1128 Pyridostigmine 60 MG Q8H 12/16 1200 AC 12/26 [place] PO 1129 Ropinirole HCl 0.25 MG AT BEDTIME 12/08 2100 AC 12/25 PO 2012 Sodium Chloride 2 SPRAY Q4P PRN 12/14 1315 AC 12/25 DIYA 1636 Timolol Maleate 1 GTT BID 12/08 09 AC 12/26 OPH 1128 Vital Signs & I&O Last 24 Hrs of Vitals and I&O: Vital Signs Date Time Temp Pulse Resp B/P B/P Pulse O2 O2 Flow FiO2 Mean Ox Delivery Rate 12/26 1128 78 172/88 12/26 1128 78 172/88 12/26 1128 78 172/88 12/26 0800 93 Nasal 1.0L Cannula 12/26 0731 97.8 64 20 162/71 96 12/26 0000 96 Nasal 1.0L Cannula 12/25 2228 97.6 67 20 155/82 96 Nasal Cannula 12/25 1936 95 Nasal 1.0L Cannula 12/25 1602 56 95 Nasal 1.0L Cannula 12/25 1600 96 Nasal 1.0L Cannula 12/25 1446 Nasal 2.0L Cannula 12/25 1339 98.2 56 20 142/67 97 Nasal 2.0L Cannula Intake & Output 12/26 1600 12/26 0800 12/26 0000 Intake Total 730 250 Output Total Balance 730 250 Intake, IV 10 10 Intake, Oral 720 240 Number 0 0 Bowel Movements Patient 188 lb 189 lb Weight Weight Bed scale Bed scale Measurement Method Laboratory Tests 12/26 12/25 0624 0630 Chemistry Sodium (137 - 145 mmol/L) 142 141 Potassium (3.5 - 5.1 mmol/L) 4.0 4.0 Chloride (98 - 107 mmol/L) 107 107 Carbon Dioxide (22 - 30 mmol/L) 29 26 Anion Gap (5 - 16) 5 8 BUN (7 - 17 mg/dL) 25 H 23 H Creatinine (0.5 - 1.0 mg/dL) 0.7 0.7 Estimated GFR (>60 ml/min) > 60 > 60 BUN/Creatinine Ratio (7 - 25 %) 35.7 H 32.9 H Hematology CBC w Diff NO MAN DIFF REQ NO MAN DIFF REQ WBC (4.8 - 10.8 /CUMM) 4.9 5.5 RBC (4.20 - 5.40 /CUMM) 3.83 L 3.94 L Hgb (12.0 - 16.0 G/DL) 11.3 L 11.6 L Hct (37 - 47 %) 33.5 L 34.9 L MCV (81.0 - 99.0 FL) 87.7 88.5 MCH (27.0 - 31.0 PG) 29.6 29.4 MCHC (33.0 - 37.0 G/DL) 33.8 33.2 RDW (11.5 - 14.5 %) 15.0 H 14.5 Plt Count (130 - 400 /CUMM) 224 227 MPV (7.4 - 10.4 FL) 8.8 9.4 Gran % (42.2 - 75.2 %) 62.4 66.5 Lymphocytes % (20.5 - 51.1 %) 21.4 16.4 L Monocytes % (1.7 - 9.3 %) 15.2 H 16.3 H Eosinophils % (0 - 5 %) 0.3 0.3 Basophils % (0.0 - 2.0 %) 0.7 0.5 Absolute Granulocytes (1.4 - 6.5 /CUMM) 3.1 3.7 Absolute Lymphocytes (1.2 - 3.4 /CUMM) 1.1 L 0.9 L Absolute Monocytes (0.10 - 0.60 /CUMM) 0.7 H 0.9 H Absolute Eosinophils (0.0 - 0.7 /CUMM) 0 0 Absolute Basophils (0.0 - 0.2 /CUMM) 0 0 Impression/Plan Impression/Plan Impression/Plan: General Appearance: no apparent distress, awake, anxious, fatigued and chronically ill Head: atraumatic Neck: supple Respiratory: decreased breath sounds right side Abdomen: normal bowel sounds, soft, non-tender Extremities: no edema Skin: intact, warm/dry Quadriparetic unable to move most of her limbs with mild movement in the right side IMPRESSION This is a lady with history of more than [id number] smoker, morbid obesity, restless leg syndrome, atrial fibrillation on anticoagulation, hypertension, hypothyroidism on appropriate supplementation, previous diastolic heart disease, now has * Large right-sided pleural parenchymal mass with mediastinal hilar lymphadenopathy highly suggestive of primary lung malignancy versus pleural malignancy including mesothelioma. Patient has multiple metastases in the chest appears to be advanced stage IV lung cancer. 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 Patient is on a therapeutic trial of IVIG for 5 days, improvement so far noted with some improvement in strength * Mild aspiration, diplopia. * No clinical evidence suggestive of any hypercarbia/however patient is slowly progressing towards respiratory failure now hypoxemic * Atrial fibrillation, diastolic heart disease, hypertension. Patient is on appropriate medication and anticoagulation * Restless leg syndrome on triple therapy * Previous depression on appropriate therapy RECOMMENDATION Discussed with patient and POA Pt wishes only symptomatic care DNR / DNI no further blood draws etc Rx symptomatically - use ativan, morphine and if in pulm edema lasix Can dc all unnecessary meds including anticoag Pt and poa wishes to go to in hospice faciity or snf with Do not hospitalize order and if worse to be made complete hospice
[2017-12-26 14:59] VITALS: BP 153/59
[2017-12-26 21:28] VITALS: BP 153/83
[2017-12-27 00:53] VITALS: BP 158/73
[2017-12-27 06:54] VITALS: BP 154/72
--- NOTE | 2017-12-27 07:24 | PN- Housestaff ---
See Addendum Subjective Follow-up For: Subacute Neuromuscular Disorder in the setting of Lung Carcinoma Subjective: Pt seen and examined. Large bloody bowel movements at 1230AM this morning. CBC ordred for evaluation of hemoglobin this morning. Patient saturating well on 1L NC. Patient has no appetite this morning and claims she feels weak. Afebrile overnight. Review of Systems Constitutional: Denies: see HPI. Objective Last 24 Hrs of Vital Signs/I&O Vital Signs Date Time Temp Pulse Resp B/P B/P Pulse O2 O2 Flow FiO2 Mean Ox Delivery Rate 12/27 0654 98.0 69 18 154/72 94 12/27 0053 97.6 75 16 158/73 94 Nasal 1.0L Cannula 12/27 0000 95 Nasal 1.0L Cannula 12/26 2128 97.6 85 19 153/83 96 Nasal 1.0L Cannula 12/26 1849 95 Nasal 1.0L Cannula 12/26 1459 97.5 62 20 153/59 96 Room Air 12/26 1411 93 Nasal 1.0L Cannula 12/26 1128 78 172/88 12/26 1128 78 172/88 12/26 1128 78 172/88 12/26 0800 93 Nasal 1.0L Cannula 12/26 0731 97.8 64 20 162/71 96 Intake & Output 12/27 0800 12/27 0000 12/26 1600 Intake Total 240 240 Output Total Balance 240 240 Intake, Oral 240 240 Number 1 1 Bowel Movements Patient 191 lb Weight Physical Exam General Appearance: Alert, Oriented X3, Cooperative, No Acute Distress Skin: No Rashes, No Breakdown Cardiovascular: Normal S1, Normal S2 Lungs: decreaesd breath sounds; mild crackles Abdomen: Normal Bowel Sounds, Soft, No Tenderness Extremities: No Cyanosis, No Edema Vascular: Normal Pulses, Pulses Symmetrical Current Medications: Current Medications Sig/Andrea Start time Last Medication Dose Route Stop Time Status Admin Acetaminophen 650 MG Q6P PRN 12/07 2300 AC PO Amlodipine Besylate 5 MG DAILY 12/08 899 AC 12/26 PO 112 Enoxaparin Sodium 80 MG BID 12/19 2099 AC 12/26 SC 210 Escitalopram Oxalate 10 MG DAILY 12/08 899 AC 12/26 PO 112 Gabapentin 600 MG QPM 12/08 2099 AC 12/26 PO 210 Levothyroxine Sodium 25 MCG DAILY 12/16 936 AC 12/26 IV 1127 Losartan Potassium 50 MG DAILY 12/08 0900 AC 12/26 PO 1128 Melatonin 10 MG AT BEDTIME NEED.. 12/16 0015 AC 12/26 PO 0013 Metoprolol Succinate 50 MG DAILY 12/08 0900 AC 12/26 PO 1128 Ondansetron HCl 4 MG ONCE ONE 12/26 1914 DC IV 12/27 1915 Ondansetron HCl 0 .STK-MED ONE 12/26 1914 DC .ROUTE Pyridostigmine 60 MG Q8H 12/16 1200 AC 12/27 [place] PO 0354 Ropinirole HCl 0.25 MG AT BEDTIME 12/08 2100 AC 12/26 PO 210 Sodium Chloride 2 SPRAY Q4P PRN 12/14 1315 AC 12/25 DIYA 1636 Timolol Maleate 1 GTT BID 12/08 09 AC 12/26 OPH 210 Last 24 Hrs of Lab/Nader Results Last 24 Hrs of Labs/Mics: Laboratory Tests 12/27/17 0633: CBC w Diff Pending, WBC Pending, RBC Pending, Hgb Pending, Hct Pending, MCV Pending, MCH Pending, MCHC Pending, RDW Pending, Plt Count Pending, MPV Pending Assessment/Plan Assessment: This patient is an 87-year-old white female with a 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 The patient has regained her upper and lower extremity motion however still remains extremely weak. 12/27: Patient saturating well on 1L NC. Afebrile overnight with no leukocytosis. Patient will have PT/OT and nutrition consult appropriately. Plan of care for STR as discussed with family, Dr. Smart, Dr. Tapia and case management with plan not to re-admit for agressive care. Dr. Tapia recommended discontinuing unnecesasry meds including anticoagulation. Pending PT Evaluation prior to STR transition. PROBLEM LIST: 1. Subacute Neuromuscular Disorder in the setting of Lung malignancy 2. Acute Hypoxemic Respiratory Failure 3. H/o afib 4. h/o hypothyroidism 5. h/o of HTN/HLD, Restless Leg, Anxiety/Depression PLAN: Subacute Neuromuscular Disorder Strength improving. PT evaluation pending. * Passed swallow eval - On regular diet with puree and thin liquids. * Continue to monitor patient for any neurological deficits, fevers, leukocytosis * Follow up neurology recommendations as needed Acute hypoxemic respiratory failure on admission - now on 1L NC Likely 2/2 subacute neuromuscular disorder, patient originally desaturated 88% and she was placed on 2 L of oxygen initially. Patient is maintaining a saturation 92% on 1 L of oxygen. * Consider low-dose morphine if increased WOB * Goals of care discussed with family who commutes from [place]. Possible transition to [facility] then hospice with no further return to hospital. Dr. Smart/ Regina have spoken to patient/family. Will follow up with case management accordingly. History of Afib: -Rate controlled on metoprolol 50mg - Sq Lovenox 80 mg BID for anticoagulation. History of hypothyroidism: - TSH wnl - Synthroid 0.025 mcg IV History of HTN: -Continue amlodipine 5mg, losartan and metoprolol History of HLD: - Atorvastatin 10mg History of restless leg syndrome: - Ropinirole 0.25mg - Gabapentin 600 mg History of anxiety/Depression: - Lexapro 10mg REG DIET- Puree thick diet and thin liquids DVT PPx: Mechanical and subq lovenox Code Status: DNR/DNI Problem List: 1. Dyspnea 2. Weakness 3. Lung mass Pain Ratin Pain Location: denies pain today Pain Goal: Remain pain free Pain Plan: as per pain pathway Tomorrow's Labs & Rationales: pending
[2017-12-27 08:20] LABS: ABSOLUTE BASOPHIL COUNT 0 /CUMM (0.0-0.2); ABSOLUTE EOSINOPHIL COUNT 0 /CUMM (0.0-0.7); ABSOLUTE GRANULOCYTE CT 3.2 /CUMM (1.4-6.5); ABSOLUTE LYMPH COUNT 0.8 /CUMM (1.2-3.4); ABSOLUTE MONOCYTE COUNT 0.7 /CUMM (0.10-0.60); BASOPHIL % 0.4 % (0.0-2.0); EOSINOPHIL % 0.3 % (0-5); GRANULOCYTE % 67.5 % (42.2-75.2); HEMATOCRIT 34.5 % (37-47); MEAN CORPUSCULAR HGB 29.4 PG (27.0-31.0); MEAN CORPUSCULAR HGB CONC 33.5 G/DL (33.0-37.0); MEAN CORPUSCULAR VOLUME 87.7 FL (81.0-99.0); MEAN PLATELET VOLUME 9.3 FL (7.4-10.4); PLATELET COUNT 203 /CUMM (130-400); RBC DISTRIBUTION WIDTH 15.1 % (11.5-14.5); RED BLOOD CELL CT 3.94 /CUMM (4.20-5.40); WHITE BLOOD CELL COUNT 4.7 /CUMM (4.8-10.8)
[2017-12-27 14:18] VITALS: BP 147/82
[2017-12-27 21:22] VITALS: BP 140/78
--- NOTE | 2017-12-28 06:25 | PN- Housestaff ---
See Addendum Subjective Follow-up For: Subacute Neuromuscular Disorder in the setting of Lung Carcinoma Subjective: Pt seen and examined with family at bedside. Currently on 1L [place]. Preparing for discharge to [facility]. Review of Systems Constitutional: Denies: see HPI. Objective Last 24 Hrs of Vital Signs/I&O Vital Signs Date Time Temp Pulse Resp B/P B/P Pulse O2 O2 Flow FiO2 Mean Ox Delivery Rate 12/28 1019 97.7 88 24 150/76 12/28 0800 93 Nasal 1.0L Cannula 12/28 0631 97.7 88 24 150/76 96 Nasal 1.0L Cannula 12/28 0000 Nasal 1.0L Cannula 12/27 2122 97.3 86 20 140/78 95 Nasal Cannula 12/27 1600 Nasal 1.0L Cannula 12/27 1418 97.5 78 18 147/82 96 Nasal 1.0L Cannula 12/27 1218 95 Nasal 1.0L Cannula Intake & Output 12/28 1600 12/28 0800 12/28 0000 Intake Total 60 400 Output Total Balance 60 400 Intake, Oral 60 400 Patient 190 lb 191 lb Weight Weight Bed scale Measurement Method Physical Exam General Appearance: Alert, Oriented X3, Cooperative, Mild Distress HEENT: EOMI, Mucous Membr. moist/pink Cardiovascular: Regular Rate, Normal S1, Normal S2 Lungs: Decreased breath sounds Abdomen: Normal Bowel Sounds, Soft, No Tenderness Extremities: No Clubbing, No Cyanosis, No Edema Vascular: Normal Pulses, Pulses Symmetrical Current Medications: Current Medications Sig/Andrea Start time Last Medication Dose Route Stop Time Status Admin Acetaminophen 650 MG Q6P PRN 12/07 2300 DCD PO Amlodipine Besylate 5 MG DAILY 12/08 899 DCD 12/27 PO 0832 Enoxaparin Sodium 80 MG BID 12/19 2100 DC 12/27 SC 0832 Escitalopram Oxalate 10 MG DAILY 12/08 899 DCD 12/27 PO 0831 Gabapentin 600 MG QPM 12/08 2100 DCD 12/26 PO 2103 Levothyroxine Sodium 0.05 MG DAILY AC 12/27 1138 DCD PO Levothyroxine Sodium 25 MCG DAILY 12/16 936 DC 12/27 IV 0832 Lorazepam 0.5 MG ONCE ONE 12/28 944 DC IV 12/28 945 Lorazepam 0 .STK-MED ONE 12/29 935 DC .ROUTE Lorazepam 0.5 MG Q6 PRN 12/27 1145 DCD PO 01/03 1144 Losartan Potassium 50 MG DAILY 12/08 899 DCD 12/27 PO 0831 Melatonin 10 MG AT BEDTIME NEED.. 12/16 0015 DCD 12/26 PO 0013 Metoprolol Succinate 50 MG DAILY 12/08 899 DCD 12/27 PO 0832 Morphine Sulfate 2 MG Q4P PRN 12/27 1145 DCD IV Omeprazole 40 MG DAILY AC 12/27 1236 DCD PO Ondansetron HCl 4 MG Q6P PRN 12/27 1045 DCD 12/27 IV 1502 Patient Medication 1 ED ONE ONE 12/27 1145 DC Teaching ED 12/27 1146 Pyridostigmine 60 MG Q8H 12/16 1200 DCD 12/27 [place] PO 0354 Ropinirole HCl 0.25 MG AT BEDTIME 12/08 2100 DCD 12/26 PO 2103 Sodium Chloride 2 SPRAY Q4P PRN 12/14 1315 DCD 12/25 DIYA 1636 Timolol Maleate 1 GTT BID 12/08 899 DCD 12/27 OPH 0831 Assessment/Plan Assessment: his patient is an 87-year-old white female with a lung mass consistent with non- small cell lung cancer and paraneoplastic syndrome. 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 The patient has regained her upper and lower extremity motion however still remains extremely weak. 12/28: Patient saturating well on 1L NC. Afebrile overnight with no leukocytosis. Discussed with patients family for transfer to [facility] accordingly. Will be discharged today. PROBLEM LIST: 1. Subacute Neuromuscular Disorder in the setting of Lung malignancy 2. Acute Hypoxemic Respiratory Failure 3. H/o afib 4. h/o hypothyroidism 5. h/o of HTN/HLD, Restless Leg, Anxiety/Depression PLAN: Subacute Neuromuscular Disorder Strength improving. PT evaluation pending. * Passed swallow eval - On regular diet with puree and thin liquids. * Continue to monitor patient for any neurological deficits, fevers, leukocytosis * Follow up neurology recommendations as needed Acute hypoxemic respiratory failure on admission - now on 1L [place] Likely 2/2 subacute neuromuscular disorder, patient originally desaturated 88% and she was placed on 2 L of oxygen initially. Patient is maintaining a saturation 92% on 1 L of oxygen. * Consider low-dose morphine if increased WOB * Goals of care discussed with family who commutes from [place]. Possible transition to [facility] then hospice with no further return to hospital. Dr. Smart/ Regina have spoken to patient/family. Will follow up with case management accordingly. History of Afib: -Rate controlled on metoprolol 50mg - Sq Lovenox 80 mg BID for anticoagulation. History of hypothyroidism: - TSH wnl - Synthroid 0.025 mcg IV History of HTN: -Continue amlodipine 5mg, losartan and metoprolol History of HLD: - Atorvastatin 10mg History of restless leg syndrome: - Ropinirole 0.25mg - Gabapentin 600 mg History of anxiety/Depression: - Lexapro 10mg REG DIET- Puree thick diet and thin liquids DVT PPx: Mechanical and subq lovenox Code Status: Comfort Measures - transfer to [facility] Problem List: 1. Dyspnea 2. Lung mass 3. Weakness Pain Ratin Pain Location: denied pain Pain Goal: Remain pain free Pain Plan: as per pain pathway Tomorrow's Labs & Rationales: discharge Consulting Request: Consulting Specialty: Cardiology Consulting Physician: Dr. Itz Rogers Reason for Consult: CT showing large pleural mass and plaques
[2017-12-28 06:31] VITALS: BP 150/76
[2017-12-28 10:19] VITALS: BP 150/76
== END 2017-12-28 10:39 | disposition hospice, home (50) | DRG 947 ==
LOC: ERH 19:01 → 2NB 21:24 → ERHI 21:24 → 1NO 21:24 → ENRESERV 22:52 → 1NO 23:44 → ENTRNSPT 12-23 21:10 → EDTRNSPTSTS 12-23 21:19 → 2NB 12-23 21:43 → CMPTRNSPT 12-23 21:53 → 2NB 12-26 10:24 → ENPENDDIS 12-28 09:25 → 2NB 12-28 10:39
PROVIDERS: Emergency Medicine; Internal Medicine; Internal Medicine Adolescent Medicine; Physical Medicine & Rehabilitation; Physical Medicine & Rehabilitation Pain Medicine; Preventive Medicine Public Health & General Preventive Medicine; Student in an Organized Health Care Education/Training Program
DX: R53.1 Weakness (principal); J96.01 Acute respiratory failure with hypoxia; G82.50 Quadriplegia, unspecified; I50.32 Chronic diastolic (congestive) heart failure; C34.90 Malignant neoplasm of unspecified part of unspecified bronchus or lung; J90 Pleural effusion, not elsewhere classified; G98.8 Other disorders of nervous system; E87.6 Hypokalemia; I11.0 Hypertensive heart disease with heart failure; Z68.35 Body mass index [BMI] 35.0-35.9, adult; I48.0 Paroxysmal atrial fibrillation; Z79.01 Long term (current) use of anticoagulants; E03.9 Hypothyroidism, unspecified; E66.01 Morbid (severe) obesity due to excess calories; E78.5 Hyperlipidemia, unspecified; Z87.891 Personal history of nicotine dependence; H40.9 Unspecified glaucoma; G25.81 Restless legs syndrome; F41.9 Anxiety disorder, unspecified; F32.9 Major depressive disorder, single episode, unspecified; Z66 Do not resuscitate
CPT/HCPCS: 1NP; 1NSP; 2NBP; 70552; 72142; 83519; 87070; 87205; 36415; 36592; 70553; 71045; 71046; 72156; 73030-LT; 73030-RT; 74177; 74230; 77002; 81001; 82436; 87040; 87086; 87449; 87450; 88184; 88305; 93005; 93010; 93306; 94150; 97110-GO; 97116-GO; 97161-GP; 97164-GP; 97166-GO; 97530-GO; A9579; J0131; J0696; J1200; J1569; J1644; J1650; J1940; J2405; J7042